=== PATIENT | male | born 1940 | race Caucasian/White ===

== ENCOUNTER 2016-09-05 15:23 | Inpatient (IN) | payer MEDICARE, BC ==
[2016-09-05] MEDS ORDERED: IPRATROPIUM-ALBUTEROL 3 ML NEB INHALATION STA (16:02)
[2016-09-05] MEDS ORDERED: SODIUM CHLORIDE 0.9% 1,000 ML IV STA (16:02)
--- NOTE | 2016-09-05 16:08 | ED ---
General Adult HPI - General Chief complaint: Upper Respiratory Infection Stated complaint: Cough Time Seen by Provider: 09/05/16 15:54 Source: patient, family, RN notes reviewed Mode of arrival: wheelchair Limitations: no limitations - History of Present Illness Initial comments: Patient is a pleasant 75-year-old male presenting to the emergency department with cough and congestion. Symptoms started around 4 days ago. Patient has been having some cough without much difficulty in breathing. Patient has had nasal congestion as well with occasional dark nasal drainage. Patient went to his doctor today and blood pressure was reported as low there. Patient does admit to feeling fatigued. Patient did have a temperature of 102.4 yesterday. - Related Data Home Medications Medication Instructions Recorded Confirmed Carvedilol [Coreg] 25 mg PO BID 07/09/14 09/05/16 Lisinopril [Prinivil] 20 mg PO HS 07/09/14 09/05/16 Simvastatin [Zocor] 10 mg PO HS 07/09/14 09/05/16 Fish Oil/Dha/Epa [Fish Oil 1,200 1 cap PO DAILY 07/10/14 09/05/16 mg Fish Oil] Folic Acid 0.4 mg PO DAILY 07/10/14 09/05/16 Acetaminophen [Tylenol Arthritis] 1,300 mg PO BID 09/05/16 09/05/16 Allopurinol [Zyloprim] 150 mg PO DAILY 09/05/16 09/05/16 Aspirin EC [Ecotrin Low Dose] 81 mg PO DAILY 09/05/16 09/05/16 Allergies Allergy/AdvReac Type Severity Reaction Status Date / Time No Known Allergies Allergy Verified 09/05/16 15:51 Review of Systems ROS Statement: Those systems with pertinent positive or pertinent negative responses have been documented in the HPI. ROS Other: All systems not noted in ROS Statement are negative. Constitutional: Denies: fever Eyes: Denies: eye pain ENT: Reports: congestion. Denies: ear pain Respiratory: Reports: cough. Denies: dyspnea Cardiovascular: Denies: chest pain Endocrine: Reports: fatigue Gastrointestinal: Denies: abdominal pain Genitourinary: Denies: dysuria Musculoskeletal: Denies: back pain Skin: Denies: rash Neurological: Denies: weakness Past Medical History Past Medical History: Hypertension Additional Past Medical History / Comment(s): See Dr Moreland H&P, arthritis, "borderline diabetic" History of Any Multi-Drug Resistant Organisms: None Reported Past Surgical History: AICD, Heart Catheterization, Joint Replacement, Tonsillectomy Additional Past Surgical History / Comment(s): lewis knee replacements Past Anesthesia/Blood Transfusion Reactions: No Reported Reaction Type of Cardiac Device: AICD Device Placement Date:: 2009 Past Psychological History: No Psychological Hx Reported Smoking Status: Former smoker Past Alcohol Use History: Occasional Past Drug Use History: None Reported General Exam Limitations: no limitations General appearance: alert, in no apparent distress Head exam: Present: atraumatic Eye exam: Present: normal appearance, PERRL ENT exam: Present: normal oropharynx Neck exam: Present: normal inspection Respiratory exam: Present: rhonchi Cardiovascular Exam: Present: regular rate, normal rhythm GI/Abdominal exam: Present: soft. Absent: tenderness Extremities exam: Present: normal inspection. Absent: pedal edema, calf tenderness Neurological exam: Present: alert Psychiatric exam: Present: normal affect, normal mood Skin exam: Absent: rash Course Vital Signs 09/05/16 09/05/16 09/05/16 15:29 16:39 16:48 Temperature 97.7 F Pulse Rate 72 75 73 Respiratory 20 Rate Blood Pressure 100/55 O2 Sat by Pulse 96 Oximetry Medical Decision Making - Medical Decision Making Prior to arrival at the office patient was found to have hypotension and hypoxia. Case was discussed in detail with Dr. Oconnell, who will admit for hospital call. Computed tomography scan of the chest will be ordered. - Lab Data Result diagrams: 09/05/16 15:40 09/05/16 15:40 Lab Results 09/05/16 09/05/16 09/05/16 Range/Units 15:40 15:40 16:40 WBC 10.7 H (3.8-10.6) k/uL RBC 4.61 (4.30-5.90) m/uL Hgb 14.6 (13.0-17.5) gm/dL Hct 43.5 (39.0-53.0) % MCV 94.3 (80.0-100.0) fL MCH 31.8 (25.0-35.0) pg MCHC 33.7 (31.0-37.0) g/dL RDW 13.0 (11.5-15.5) % Plt Count 142 L (150-450) k/uL Neutrophils % 85 % Lymphocytes % 7 % Monocytes % 6 % Eosinophils % 1 % Basophils % 0 % Neutrophils # 9.1 H (1.3-7.7) k/uL Lymphocytes # 0.8 L (1.0-4.8) k/uL Monocytes # 0.7 (0-1.0) k/uL Eosinophils # 0.1 (0-0.7) k/uL Basophils # 0.0 (0-0.2) k/uL Sodium 135 L (137-145) mmol/L Potassium 4.1 (3.5-5.1) mmol/L Chloride 97 L (98-107) mmol/L Carbon Dioxide 26 (22-30) mmol/L Anion Gap 12 mmol/L BUN 35 H (9-20) mg/dL Creatinine 1.98 H (0.66-1.25) mg/dL Est GFR (MDRD) Af Amer 40 (>60 ml/min/1.73 sqM) Est GFR (MDRD) Non-Af 33 (>60 ml/min/1.73 sqM) Glucose 111 H (74-99) mg/dL Calcium 8.8 (8.4-10.2) mg/dL Total Bilirubin 0.9 (0.2-1.3) mg/dL AST 22 (17-59) U/L ALT 28 (21-72) U/L Alkaline Phosphatase 68 (38-126) U/L Total Protein 6.4 (6.3-8.2) g/dL Albumin 3.6 (3.5-5.0) g/dL Influenza Type A RNA Not Detected (Not Detectd) Influenza Type B (PCR) Not Detected (Not Detectd) - Radiology Data Radiology results: image reviewed Disposition Clinical Impression: Dehydration, Dyspnea Disposition: ADMITTED IP TO THIS HOSP Referrals: Conchita Case DO [Primary Care Provider] - 1-2 days
[2016-09-05 16:30] LABS: Basophils % (A) 0 %; CHCM 34.1; Eosinophils # (A) 0.1 k/uL (0-0.7); Eosinophils % (A) 1 %; HCT 43.5 % (39.0-53.0); HDW 2.57; HGB 14.6 gm/dL (13.0-17.5); Luc # (Auto) 0.13; Luc % (Auto) 1; Lymphocytes # (A) 0.8 k/uL (1.0-4.8); Lymphocytes % (A) 7 %; MCH 31.8 pg (25.0-35.0); MCHC 33.7 g/dL (31.0-37.0); MCV 94.3 fL (80.0-100.0); Mean Platelet Volume 7.8; Monocytes # (A) 0.7 k/uL (0-1.0); Monocytes % (A) 6 %; Neutrophils # (A) 9.1 k/uL (1.3-7.7); Neutrophils % (A) 85 %; RBC 4.61 m/uL (4.30-5.90); WBC 10.7 k/uL (3.8-10.6); WBC (Perox) 10.95
[2016-09-05 16:38] LABS: Calcium 8.8 mg/dL (8.4-10.2); Potassium 4.1 mmol/L (3.5-5.1); Total Bilirubin 0.9 mg/dL (0.2-1.3); Total Protein 6.4 g/dL (6.3-8.2)
[2016-09-05] MEDS ORDERED: SODIUM CHLORIDE 0.9% 500 ML IV STA (16:59)
[2016-09-05] MEDS ORDERED: IPRATROPIUM-ALBUTEROL 3 ML NEB INHALATION PRN (17:30)
--- NOTE | 2016-09-05 17:38 | XR ---
EXAMINATION TYPE: XR chest 2V DATE OF EXAM: 09/05/2016 5:28 PM COMPARISON: September 01, 2011 HISTORY: Cough and congestion TECHNIQUE: Frontal and lateral views of the chest are obtained. FINDINGS: Heart and mediastinum are normal. Lungs are clear. There are chest leads. There is left ax illary pacemaker with the lead tip in the right ventricle. Bony thorax is intact. IMPRESSION: No cardiopulmonary disease. No change.
--- NOTE | 2016-09-05 19:13 | NM ---
EXAMINATION TYPE: NM pul vent and perfuse DATE OF EXAM: 09/05/2016 7:06 PM COMPARISON: NONE HISTORY: Dyspnea TECHNIQUE: Utilizing inhalation of 70.2 mCi Tc 99m DTPA aerosol and intravenous injection of 5.4 mCi of Tc 99m MAA, ventilation and perfusion images are acquired post injection in multiple projections. FINDINGS: There is fairly uniform perfusion of both lungs. I see no segmental or subsegmental defect. Ventilati on images are within normal limits. IMPRESSION: The exam is within normal limits. There is a very low probability of pulmonary embolism.
[2016-09-05] MEDS: methylPREDNISolone SOD SUCCI 125 MG/2 ML VIAL IV SCH (19:28)
[2016-09-05] MEDS: CEFDINIR 300 MG CAP PO SCH (19:55)
[2016-09-05] MEDS: IPRATROPIUM-ALBUTEROL 3 ML NEB INHALATION SCH (20:43)
[2016-09-05 21:50] LABS: Glucose,Whole Blood 154 mg/dL (75-99)
[2016-09-05] MEDS ORDERED: FUROSEMIDE 10 MG/ML 2 ML VIAL IV SCH (22:30)
[2016-09-05 23:23] LABS: Creatine Kinase MB 1.7 ng/mL (0.0-2.4); Troponin I 0.025 ng/mL (0.000-0.034)
[2016-09-06] MEDS: methylPREDNISolone SOD SUCCI 125 MG/2 ML VIAL IV SCH ×4 (00:03→17:25)
[2016-09-06 04:33] LABS: Calcium 8.6 mg/dL (8.4-10.2); Total Bilirubin 0.4 mg/dL (0.2-1.3); Total Protein 5.8 g/dL (6.3-8.2)
[2016-09-06 04:35] LABS: Basophils % (A) 0 %; Eosinophils % (A) 0 %; HCT 41.4 % (39.0-53.0); HDW 2.58; HGB 13.4 gm/dL (13.0-17.5); Luc # (Auto) 0.02; Luc % (Auto) 0; Lymphocytes # (A) 0.5 k/uL (1.0-4.8); Lymphocytes % (A) 5 %; MCH 30.6 pg (25.0-35.0); MCHC 32.4 g/dL (31.0-37.0); MCV 94.5 fL (80.0-100.0); Mean Platelet Volume 8.8; Monocytes # (A) 0.2 k/uL (0-1.0); Monocytes % (A) 2 %; Neutrophils # (A) 9.2 k/uL (1.3-7.7); Neutrophils % (A) 92 %; RBC 4.38 m/uL (4.30-5.90); RDW 12.8 % (11.5-15.5); WBC 9.9 k/uL (3.8-10.6); WBC (Perox) 9.78
[2016-09-06 04:43] LABS: Potassium 4.5 mmol/L (3.5-5.1)
[2016-09-06 05:00] LABS: Creatine Kinase MB 1.6 ng/mL (0.0-2.4); Troponin I 0.019 ng/mL (0.000-0.034)
[2016-09-06] MEDS: IPRATROPIUM-ALBUTEROL 3 ML NEB INHALATION SCH ×4 (06:56→20:15)
[2016-09-06 06:59] LABS: Glucose,Whole Blood 168 mg/dL (75-99)
--- NOTE | 2016-09-06 08:49 | CONS ---
DATE OF CONSULTATION: CHIEF COMPLAINT: Low blood pressure and shortness of breath. Kevin is a 75-year-old gentleman with history of cardiomyopathy status post AICD who presented to the hospital following his initial evaluation at his primary care physician's office. He actually had low blood pressure due to which he was sent to the ER from where he got admitted. When he came to the ER, he complained of cough and congestion that has been going on for the last 4 days and he also had fever with a temp of 102. They thought he has upper respiratory tract infection and after admission his BNP was elevated and we made a diagnosis of acute exacerbation of chronic systolic heart failure. At the time of my evaluation this morning, he appears comfortable at rest. There is no leg edema he denies paroxysmal nocturnal dyspnea. I reviewed his old records including his AICD data and prior cardiac catheterization. Current medications include: 1. Coreg 25 b.i.d. 2. Lisinopril 20 daily. 3. Simvastatin 10 daily. 4. Aspirin. ALLERGIES: No known drug allergies. FAMILY HISTORY: Negative for premature coronary artery disease. SOCIAL HISTORY: Negative for smoking, ETOH abuse, or drug abuse. REVIEW OF SYSTEMS: HEENT: Unremarkable. CARDIAC: As described above. RESPIRATORY: As described above. GI: Negative. GENITOURINARY: Negative. Allergy/immunology: Negative. MUSCULOSKELETAL: Significant for arthritis. PSYCHOSOCIAL: Negative. ENDOCRINE: Negative. DERM: Negative. CONSTITUTIONAL: Negative. The rest of the system review is not relevant. Past surgical history is significant for AICD, joint replacement and tonsillectomy and bilateral knee replacement. Past medical history is significant for dilated cardiomyopathy, hypertension, and dyslipidemia. On exam he appears comfortable at rest, blood pressure is 111/50, respirations 18. There is no jugular venous distention. Chest exam reveals good air entry bilaterally. Heart exam reveals first and second heart sounds. No gallop. ABDOMEN: Soft, nontender. Exam of the extremities did not reveal edema. Peripheral pulses are felt. Labs show that 2 sets of troponins are negative. BNP is elevated at 3320, hemoglobin is 13.4. BUN is 35. Creatinine is 1.7. ASSESSMENT: 1. Acute exacerbation of chronic systolic heart failure. 2. Dilated cardiomyopathy. 3. Status post AICD. 4. Hypotension. PLAN: I will treat the patient with IV diuretics. Hopefully, we can discharge him home tomorrow. He has chronic mild renal insufficiency. I am going to decrease the dose of Lisinopril from 20 to 10. This should help deal with his hypotension. I will obtain a 2-D echo to evaluate his LV function.
[2016-09-06] MEDS: ALLOPURINOL 100 MG TAB PO SCH (08:57)
[2016-09-06] MEDS: CARVEDILOL 12.5 MG TAB PO SCH ×2 (08:57→21:36)
[2016-09-06] MEDS: FOLIC ACID 1 MG TAB PO SCH (08:58)
[2016-09-06] MEDS: CEFDINIR 300 MG CAP PO SCH ×2 (08:58→21:36)
[2016-09-06] MEDS: ASPIRIN 81 MG CHEW PO SCH (08:58)
[2016-09-06 09:19] LABS: Hemoglobin A1C 5.5 % (4.2-6.1)
--- NOTE | 2016-09-06 10:07 | ECHOF ---
Referral Reason:elevated BNP MEASUREMENTS -------- HEIGHT: 182.9 cm WEIGHT: 128.4 kg BP: 116/59 RVIDd: 3.4 cm (< 3.3) IVSd: 1.3 cm (0.6 - 1.1) LVIDd: 6.3 cm (3.9 - 5.3) LVPWd: 1.2 cm (0.6 - 1.1) IVSs: 2.2 cm LVIDs: 5.7 cm LVPWs: 1.8 cm LA Diam: 4.4 cm (2.7 - 3.8) LAESV Index (A-L): 35.73 ml/m Ao Diam: 3.8 cm (2.0 - 3.7) AV Cusp: 3.0 cm (1.5 - 2.6) LA Diam: 4.3 cm (2.7 - 3.8) MV EXCURSION: 10.542 mm (> 18.000) MV EF SLOPE: 46 mm/s (70 - 150) EPSS: 2.2 cm MV E Shant: 0.67 m/s MV DecT: 368 ms MV A Shant: 0.60 m/s MV E/A Ratio: 1.12 AR PHT: 849 ms RAP: 5.00 mmHg RVSP: 24.78 mmHg FINDINGS -------- Sinus rhythm. Pacerwire seen in RV and RA. This was a technically adequate study. There is mild concentric left ventricular hypertrophy. Overall left ventricular systolic function is moderate-severely impaired with, an EF between 30 - 35 %. The right ventricle is normal in size. LA is moderately dilated 34-39 ml/m2 The right atrium is normal in size. Aortic valve is trileaflet and is mildly thickened. There is mild aortic regurgitation. The mitral valve leaflets are mildly thickened. Mild mitral annular calcification present. Mild tricuspid regurgitation present. Right ventricular systolic pressure is normal at < 35 mmHg. The pulmonic valve was not well visualized. The aortic root size is normal. Normal inferior vena cava with normal inspiratory collapse consistent with estimated right atrial pressure of 5 mmHg. There is no pericardial effusion. CONCLUSIONS -------- 1. Sinus rhythm. 2. There is mild aortic regurgitation. 3. The mitral valve leaflets are mildly thickened. 4. Mild mitral annular calcification present. 5. Mild tricuspid regurgitation present. 6. Right ventricular systolic pressure is normal at < 35 mmHg. 7. The pulmonic valve was not well visualized. 8. The aortic root size is normal. 9. There is no pericardial effusion. 10. Pacerwire seen in RV and RA. 11. This was a technically adequate study. 12. There is mild concentric left ventricular hypertrophy. 13. Overall left ventricular systolic function is moderate-severely impaired with, an EF between 30 - 35 %. 14. The right ventricle is normal in size. 15. LA is moderately dilated 34-39 ml/m2 16. The right atrium is normal in size. 17. Aortic valve is trileaflet and is mildly thickened. RESEARCH SOFTWARE ENGINEER: Hira Smalls RDCS
--- NOTE | 2016-09-06 10:09 | HP ---
DATE OF ADMISSION: 09/05/2016 CHIEF COMPLAINT: A 75-year-old white male with shortness of breath. HISTORY OF PRESENT ILLNESS: This is a 75-year-old white male admitted to the hospital with cough, congestion, shortness of breath for the last 4 days with some increased weight gain, he went to his doctor. His blood pressure was low there. He was admitted to the hospital. He did have a temperature of 102 yesterday. Medications at home include: 1. Coreg 25 b.i.d. 2. Prinivil 20 daily. 3. Zocor 10 daily. 4. Folic acid 0.4 daily. 5. Tylenol. 6. Aspirin 81 daily. ALLERGIES: Negative. REVIEW OF SYSTEMS: CONSTITUTIONAL: Fever. Ophthalmologic: Negative. ENT: Sinus congestion, ear pain. RESPIRATORY: Cough, congestion, ( ) dry cough. HEART: Negative. ENDOCRINE: Negative except for weight gain. GI: Negative. : Negative. MUSCULOSKELETAL: Negative. SKIN: Negative. NEUROLOGIC: Negative. PAST MEDICAL HISTORY: 1. Hypertension. 2. Pre diabetes. 3. Obesity. PAST SURGICAL HISTORY: AICD, heart catheterization, joint replacement, tonsillectomy, bilateral knee replacements, AICD in 2009. SOCIAL HISTORY: He is a former smoker. No alcohol. No illicit drugs. Temperature 97.7, pulse 72 to 75, respiratory rate 18 to 20, blood pressure 100/55, O2 is 96% on room air, temp 97.7. CARDIOVASCULAR: S1, S2. LUNGS: Transmitted upper airway sounds. HEMATOLOGIC: Negative Homans. PSYCHIATRIC: Fair mood and affect. NEUROLOGIC: Cranial nerves are intact. GI: Distended, obesity. HEMATOLOGIC: 2 to 3+ pedal edema. INTEGUMENT: No skin rashes, excoriations or bruising. Influenza test is negative. White count is 10.7, hemoglobin is 14.6. ASSESSMENT: 1. Dehydration and dyspnea. 2. Thrombocytopenia, unclear etiology. 3. Hyponatremia. 4. Minimal prerenal renal failure. Sugars in the mid 100s. Troponins have been ordered. BNP is 33 to 120, which is probably acute on chronic congestive heart failure, started him on IV Lasix 20 q.12. Admitted him to a full admit. This patient has congestive heart failure. We will do an echo.
[2016-09-06] MEDS: FUROSEMIDE 10 MG/ML 4 ML VIAL IV SCH ×2 (10:47→21:36)
[2016-09-06 11:56] LABS: Glucose,Whole Blood 213 mg/dL (75-99)
[2016-09-06 12:29] LABS: Creatine Kinase MB 1.7 ng/mL (0.0-2.4); Troponin I 0.016 ng/mL (0.000-0.034)
[2016-09-06] MEDS: INSULIN LISPRO (humaLOG) 300 UNIT/3 ML VIAL SQ SCH ×3 (12:50→21:36)
[2016-09-06 14:48] VITALS: BMI 38.3
[2016-09-06 17:02] LABS: Glucose,Whole Blood 154 mg/dL (75-99)
[2016-09-06 20:58] LABS: Glucose,Whole Blood 168 mg/dL (75-99)
[2016-09-06] MEDS ORDERED: LISINOPRIL 20 MG TAB PO SCH (21:00)
[2016-09-06] MEDS: ATORVASTATIN 10 MG TAB PO SCH (21:36)
[2016-09-06] MEDS: LISINOPRIL 10 MG TAB PO SCH (21:36)
[2016-09-07] MEDS: methylPREDNISolone SOD SUCCI 125 MG/2 ML VIAL IV SCH ×5 (00:19→23:15)
[2016-09-07 05:20] LABS: Basophils % (A) 0 %; CH 31.9; Eosinophils # (A) 0.1 k/uL (0-0.7); Eosinophils % (A) 0 %; HCT 42.1 % (39.0-53.0); HDW 2.59; HGB 13.9 gm/dL (13.0-17.5); Luc # (Auto) 0.09; Luc % (Auto) 0; Lymphocytes % (A) 5 %; MCH 31.1 pg (25.0-35.0); MCV 94.1 fL (80.0-100.0); Mean Platelet Volume 7.6; Monocytes # (A) 0.6 k/uL (0-1.0); Monocytes % (A) 3 %; Neutrophils # (A) 18.5 k/uL (1.3-7.7); Neutrophils % (A) 91 %; RBC 4.48 m/uL (4.30-5.90); RDW 12.9 % (11.5-15.5); WBC 20.3 k/uL (3.8-10.6); WBC (Perox) 20.72
[2016-09-07 05:28] LABS: Calcium 8.9 mg/dL (8.4-10.2); Magnesium 2.4 mg/dL (1.6-2.3); Potassium 4.2 mmol/L (3.5-5.1); Total Bilirubin 0.4 mg/dL (0.2-1.3); Total Protein 6.2 g/dL (6.3-8.2)
[2016-09-07 06:09] LABS: Glucose,Whole Blood 164 mg/dL (75-99)
[2016-09-07] MEDS: CARVEDILOL 12.5 MG TAB PO SCH ×2 (06:40→18:12)
[2016-09-07] MEDS: INSULIN LISPRO (humaLOG) 300 UNIT/3 ML VIAL SQ SCH ×4 (06:41→23:14)
[2016-09-07] MEDS: IPRATROPIUM-ALBUTEROL 3 ML NEB INHALATION SCH ×4 (08:17→19:47)
[2016-09-07] MEDS: FUROSEMIDE 10 MG/ML 4 ML VIAL IV SCH ×2 (08:51→20:50)
[2016-09-07] MEDS: ASPIRIN 81 MG CHEW PO SCH (08:53)
[2016-09-07] MEDS: CEFDINIR 300 MG CAP PO SCH ×2 (08:53→20:49)
[2016-09-07] MEDS: FOLIC ACID 1 MG TAB PO SCH (08:53)
[2016-09-07] MEDS: ALLOPURINOL 100 MG TAB PO SCH (08:53)
--- NOTE | 2016-09-07 10:00 | CONS ---
DATE OF CONSULTATION: 09/06/2016 REASON FOR CONSULT: Shortness of breath. HISTORY OF PRESENTING ILLNESS: Mr. Kevin Arechiga is a 75-year-old male who was seen, evaluated, and examined on third floor. Patient is in process of being transferred to a full admit in a monitored bed. This patient presented into the emergency department with problems associated with increasing shortness of breath, has been having issues with severe cough, congestion. Symptoms started about 3 to 4 days ago. Due to progressive breathing difficulty and nasal stuffiness and congestion, decided to come into the hospital for further evaluation after evaluated by primary care physician. Patient did spike fever up to 102 on the day of admission. Past medical history is significant for hypertension, hypertensive cardiovascular disease, borderline diabetes, history of AICD placement due to cardiomyopathy. Past surgical history is significant for bilateral total knee arthroplasty, AICD placement. Allergies include no known drug allergies FAMILY HISTORY AND SOCIAL HISTORY: Significant for smoking in the remote past. No history of substance use or alcohol consumption. Medications at home include Coreg 25 mg p.o. 2 times a day, Prinivil 20 mg p.o. daily, Zocor 10 mg daily, fish oil, folic acid 0.4 mg daily, Tylenol, aspirin 81 mg daily. REVIEW OF SYSTEMS: Otherwise unremarkable and noncontributory. On examination, most recent vitals include blood pressure is 125/68, respiratory rate 16, pulse 65, temperature 98, saturation of 92% on room air. HEENT EXAMINATION: Otherwise atraumatic, normocephalic. Pharynx is clear. Narrow pharyngeal opening is present. NECK: Supple without lymphadenopathy, jugular venous distention. LUNGS: Bilateral coarse breath sounds are present. HEART: Regular rate and rhythm. S1 and S2 audible. Abdomen is soft. No rebound or rigidity. EXTREMITIES: +1 peripheral pulses. NEUROLOGICAL EXAMINATION: Otherwise, awake and alert. No focal neurological deficits. Chest x-ray at the time of admission with history of COPD-like changes, no obvious pathology; however, is noted. Echocardiogram revealed ejection fraction of 30% to 35%. He had a V/Q scan performed in the emergency department, very low probability for pulmonary embolism. Other laboratory data reviewed. The white cell count 10,700, hemoglobin 14 and hematocrit 43, platelet count 142,000. Sodium 135, potassium is 4.5. BUN and creatinine 35 and 1.98, improved to 35 and 1.7 now. LFTs within normal limits. Troponin is 0.025, BNP is 4110. Influenza A and B both negative. Blood cultures no growth so far. Medications include DuoNeb unit dose 4 times a day, Zyloprim 150 mg daily, aspirin 81 mg daily, Lipitor is 5 mg daily, Coreg is 25 mg 2 times a day, Omnicef 300 mg p.o. 2 times a day, folic acid 0.5 daily, Lasix 40 mg q.12, sliding scale insulin, Solu-Medrol 60 q.6 hourly, Zestril. IMPRESSION: 1. Shortness of breath, cough, likely related to tracheobronchitis and acute chronic obstructive pulmonary disease exacerbation. 2. Systemic inflammatory response syndrome process with spiking fever related to above. 3. Mild congestive heart failure likely related to acute on chronic systolic heart failure with evaluated BNP with ( ) as well. From pulmonary critical care standpoint, continue steroids, antibiotics, breathing treatments, continue supportive care. Will start tapering down the steroids.
--- NOTE | 2016-09-07 11:30 | CDI ---
In responding to this query, please exercise your independent professional judgment. The [facility] Coding Staff and Clinical Documentation Specialists appreciate your assistance in clarifying documentation, maintaining compliance with coding guidelines, accurately documenting patients condition and capturing severity of illness. The fact that a question is asked does not imply that any particular answer is desired or expected. Communication forms are a method of clarifying documentation and are not made part of the Legal Health Record. Thank you in advance for your clarification. Last Revision, May 2015 Travis Pleitez [address] [place] [address] Documentation Clarification Form Date: 09/07/2016 11:11:00 AM From: Lavinia Garcia Admit Date: 09/06/2016 7:41:00 AM Patient Name: Kevin Arechiga Visit Number: [id number] Discharge Date: Dr. Hood Oconnell/Cathy Martino [employer] Patient presents with a BUN35 CR 1.98 GFR of 33 09/07/16: BUN 51, CR 1.80, GFR 37 History/Risk Factors: Hypertension, Former smoker Patients baseline BUN/CR/GFR: Not noted Clinical Indicators: Dehydration has been documented in your H&P. Patient was complaining of cough, congestion, shortness of breath and some increased weight gain, fatigued. Treatment: Monitor Labs In order to capture the severity of condition, please clarify if the condition signifies: Acute renal failure Please specify (if known): Cortical, Medullary, or Tubular Necrosis? Acute kidney injury Acute on chronic renal failure Chronic renal failure, please stage Chronic kidney disease (CKD) and please stage Stage 1 GFR >90 Stage 2 GFR 60-89 Stage 3 GFR 30-59 Stage 4 GFR 15-29 Stage 5 GFR <15 ESRD Unable to determine Other, specify Please document in your progress notes and discharge summary in order to capture severity of illness and risk of mortality. Include clinical findings that support your diagnosis. FYI: Press F11 to launch patient chart. Place X here if this finding has no clinical significance, is not applicable or if you are not able to provide any additional documentation. MTDD
[2016-09-07 12:37] LABS: Glucose,Whole Blood 180 mg/dL (75-99)
--- NOTE | 2016-09-07 13:36 | P.PN ---
Subjective 75-year-old being seen on rounds. Patient came into the emergency room with progressive cough onset 4 days prior fever chills temps up to 102. Also noted is BNP was elevated. Patients being followed by cardiology service being treated for an acute exacerbation of chronic systolic heart failure echocardiogram done showed overall left ventricular systolic function moderate to severely impaired with an EF between 30 and 35%. Patient did have a VQ scan showed low probability for pulmonary emboli additionally on admission patient's creatinine was up to 1.9. This morning is 1.8. Patients being treated for acute on chronic renal failure stage 3 additionally patients being followed by pulmonology service. Being treated for acute exacerbation of COPD with tracheobronchitis Objective - Vital Signs Vital signs: Vital Signs Temp 97.8 F 09/07/16 08:30 Pulse 75 09/07/16 13:15 Resp 18 09/07/16 08:30 BP 108/58 09/07/16 08:30 Pulse Ox 91 L 09/07/16 08:30 Intake & Output 09/06/16 09/07/16 09/07/16 18:59 06:59 18:59 Intake Total 1700 160 Balance 1700 160 Weight 128.367 kg 127.7 kg Intake: IV 160 Sodium Chloride 0.9% 1, 160 000 ml @ 75 mls/hr IV . [id number] STA Rx#:[id number] Oral 1700 Other: Voiding Method Toilet Toilet # Voids 2 - Exam Physical exam 75-year-old gentleman looking stated age states breathing feels slightly improved less short of breath is able to lay flat Lungs diminished at the bases coarse rhonchi throughout no wheezing sats are 91 % on room air Heart S1-S2 audible regular monitor sinus Abdomen soft nontender no nausea vomiting Extremities decrease edema to the lower extremities - Labs CBC & Chem 7: 09/07/16 05:03 09/07/16 05:03 Labs: Abnormal Lab Results - Last 24 Hours (Table) 09/06/16 09/06/16 09/07/16 Range/Units 17:01 20:56 05:03 WBC 20.3 H (3.8-10.6) k/uL Neutrophils # 18.5 H (1.3-7.7) k/uL BUN (9-20) mg/dL Creatinine (0.66-1.25) mg/dL Glucose (74-99) mg/dL POC Glucose (mg/dL) 154 H 168 H (75-99) mg/dL Magnesium (1.6-2.3) mg/dL Total Protein (6.3-8.2) g/dL 09/07/16 09/07/16 09/07/16 Range/Units 05:03 06:08 12:34 WBC (3.8-10.6) k/uL Neutrophils # (1.3-7.7) k/uL BUN 51 H (9-20) mg/dL Creatinine 1.80 H (0.66-1.25) mg/dL Glucose 169 H (74-99) mg/dL POC Glucose (mg/dL) 164 H 180 H (75-99) mg/dL Magnesium 2.4 H (1.6-2.3) mg/dL Total Protein 6.2 L (6.3-8.2) g/dL Assessment and Plan Plan: Impression Present on admission shortness of breath suspect due to an acute exacerbation decompensated systolic congestive heart failure with an elevated BNP EF on echocardiogram between 30 and 35% Present on admission elevated BNP likely due to an acute exacerbation of chronic systolic heart failure Dyslipidemia Present on admission shortness of breath fever temp of 102 suspect due to tracheobronchitis with an acute exacerbation of COPD Echocardiogram September 06 left ventricular systolic function moderate to severe impaired EF between 30 and 35% with mild LVH Present on admission acute on chronic renal failure stage 3 Plan Continue work limitations by pulmonology service Solu-Medrol 60 IV every 6 Continue recommendations by cardiology service Lasix 40 IV every 12 monitor electrolytes keep in a therapeutic range Continue with PATTI inhibitor beta hannah and monitor the response Daily weights record DVT and GI prophylaxis Further recommendations pending The above dictated assessment and findings were discussed with Dr. Oconnell Impression and the plan of care have been dictated as directed. Cathy Martino nurse practitioner acting as a scribe for Dr. Oconnell
--- NOTE | 2016-09-07 14:16 | PN ---
Patient was admitted to hospital with hypotension and shortness of breath. Hypotension has resolved. Blood pressure is normal. He is being treated with IV diuretics for heart failure. On exam he is comfortable at rest. Vital signs are stable. There is no jugular venous distention. Chest exam reveals good air entry bilaterally. Heart exam reveals first and second heart sounds. No gallop. No murmur. ABDOMEN: Soft. Exam of the extremities did not reveal any edema. Peripheral pulses are felt. The patient and had some runs of nonsustained VT. He has known AICD. On this admission he had runs of atrial fibrillation, short self-limited runs. He converted back to sinus rhythm immediately. ASSESSMENT: 1. Cardiomyopathy, status post AICD. 2. Nonsustained ventricular tachycardia. 3. Hypotension that is currently resolved. 4. Acute exacerbation of chronic systolic failure. PLAN: We will switch the Lasix to p.o. Continue the rest of his ( ) decrease the dose of Lisinopril to 5 mg daily if blood pressure is low. We can decrease the dose of Coreg also if we have to. If he has further runs of atrial fibrillation, we will consider anticoagulating.
--- NOTE | 2016-09-07 15:47 | PN ---
DATE OF SERVICE: 09/07/2016 Mr. Kevin Arechiga is a 75-year-old male seen, evaluated, examined. Clinically patient is doing well. Shortness of breath has improved. Cough and congestion have improved as well. He is breathing more comfortably. No obvious distress present. Hemodynamic status is stable. Patient's white cell count, however, jumped up. His blood pressure is 110/60, respiratory rate 18, pulse 65, temperature 98, saturation 91%. HEENT EXAMINATION: Otherwise unremarkable. NECK: Supple. LUNGS: Good air entry bilaterally. A few crackles at the bases. HEART: Regular rate and rhythm. ABDOMEN: Soft. NEUROLOGICAL EXAMINATION: Otherwise awake and alert. Labs reviewed. Medications reviewed as well. IMPRESSION: 1. Acute chronic obstructive pulmonary disease exacerbation with purulent tracheobronchitis, systemic inflammatory response syndrome-like process. 2. Congestive heart failure with acute exacerbation. 3. Severe degree of cardiomyopathy with chronic systolic heart failure. 4. History of snoring and apneic events, likely obstructive sleep apnea, to be evaluated further in outpatient setting. PLAN AND RECOMMENDATIONS: Continue supportive care. Follow clinical course closely. Further recommendations pending. Plan of care as per clinical response of the patient.
[2016-09-07 16:53] LABS: Glucose,Whole Blood 194 mg/dL (75-99)
[2016-09-07] MEDS: HEPARIN SODIUM,PORCINE 5,000 UNIT/ML 1 ML VIAL SQ SCH ×2 (18:11→23:13)
[2016-09-07] MEDS: ATORVASTATIN 10 MG TAB PO SCH (20:49)
[2016-09-07] MEDS: LISINOPRIL 10 MG TAB PO SCH (20:50)
[2016-09-07] MEDS ORDERED: FAMOTIDINE 20 MG TAB PO SCH (21:00)
[2016-09-07 21:40] LABS: Glucose,Whole Blood 154 mg/dL (75-99)
[2016-09-08 05:20] VITALS: RESP 18
[2016-09-08 05:47] LABS: Glucose,Whole Blood 137 mg/dL (75-99)
[2016-09-08] MEDS: methylPREDNISolone SOD SUCCI 125 MG/2 ML VIAL IV SCH ×2 (06:33→12:47)
[2016-09-08] MEDS: CARVEDILOL 12.5 MG TAB PO SCH ×2 (06:34→17:50)
[2016-09-08] MEDS: INSULIN LISPRO (humaLOG) 300 UNIT/3 ML VIAL SQ SCH ×4 (06:34→21:43)
[2016-09-08 07:31] LABS: Calcium 8.4 mg/dL (8.4-10.2); Magnesium 2.2 mg/dL (1.6-2.3); Potassium 3.7 mmol/L (3.5-5.1)
[2016-09-08] MEDS: IPRATROPIUM-ALBUTEROL 3 ML NEB INHALATION SCH ×4 (09:36→20:09)
[2016-09-08] MEDS: HEPARIN SODIUM,PORCINE 5,000 UNIT/ML 1 ML VIAL SQ SCH ×3 (10:26→23:41)
[2016-09-08] MEDS: ALLOPURINOL 100 MG TAB PO SCH (10:26)
[2016-09-08] MEDS: ASPIRIN 81 MG CHEW PO SCH (10:27)
[2016-09-08] MEDS: FOLIC ACID 1 MG TAB PO SCH (10:28)
[2016-09-08] MEDS: CEFDINIR 300 MG CAP PO SCH ×2 (10:28→21:41)
[2016-09-08] MEDS: FUROSEMIDE 10 MG/ML 4 ML VIAL IV SCH (10:29)
--- NOTE | 2016-09-08 11:22 | P.NPCON ---
History of Present Illness - Reason for Consult acute renal failure - History of Present Illness Reason for consultation: chronic kidney disease History of present illness: Patient is a 75-year-old male seen in renal consultation for chronic kidney disease. Unclear as to what his baseline renal function is but patient states he does have chronic kidney disease stage III. His creatinine has been relatively stable this admission and is 1.8 today. Patient presented with cough as well as congestion. He was noted to have a fever of 102F at home. His blood pressure was in the systolic 100s on admission which is now resolved. He does a systolic CHF with ejection fraction of 30-35%. Patient states he follows with a risk management intern out of [place]. He denies any vomiting or diarrhea. Appetite is good. Admits to good urine output. No hematuria or dysuria. Denies use of NSAIDs. Denies any family history of renal disease. Overall his dyspnea is improved. Vital signs are stable. General: The patient appeared well nourished and normally developed. HEENT: Head exam is unremarkable. Neck is without jugular venous distension. LUNGS: Lungs are clear to auscultation and percussion. Breath sounds decreased. HEART: Rate and Rhythm are regular. First and second heart sounds normal. No murmurs, rubs or gallops. ABDOMEN: Abdominal exam reveals normal bowel sounds. Non-tender and non- distended. No evidence of peritonitis. EXTREMITITES: No clubbing, cyanosis, or edema. Past Medical History Past Medical History: Hyperlipidemia, Hypertension, Myocardial Infarction (CO), Osteoarthritis (OA) Additional Past Medical History / Comment(s): See Dr Moreland H&P, arthritis, "borderline diabetic", FX LT WRIST,"2 BULGING DICS AND LAST 5 VERTEBRE ARE COMPRESSED", GOUT, ASBESTOES EXPOSURE THRU PAST WORK."SILENT CO", ULCER YEARS AGO. Last Myocardial Infarction Date:: UNK History of Any Multi-Drug Resistant Organisms: None Reported Past Surgical History: AICD, Heart Catheterization, Joint Replacement, Tonsillectomy Additional Past Surgical History / Comment(s): hussain knee replacements, HUSSAIN CAROTID ENDARTERECTOMY, Past Anesthesia/Blood Transfusion Reactions: No Reported Reaction Type of Cardiac Device: AICD Device Placement Date:: 2009 Past Psychological History: No Psychological Hx Reported Smoking Status: Former smoker Past Alcohol Use History: Occasional Additional Past Alcohol Use History / Comment(s): STARTED SMOKING 1964, QUIT 1967 SMOKED < 1 PPD. Past Drug Use History: None Reported - Past Family History Father Additional Family Medical History / Comment(s): KILLED BY A TRAIN WHEN PT WAS AGE 9 Mother Family Medical History: Myocardial Infarction (CO) Sister(s) Family Medical History: Myocardial Infarction (CO) Medications and Allergies Home Medications Medication Instructions Recorded Confirmed Type Carvedilol [Coreg] 25 mg PO BID 07/09/14 09/05/16 History Lisinopril [Prinivil] 20 mg PO HS 07/09/14 09/05/16 History Simvastatin [Zocor] 10 mg PO HS 07/09/14 09/05/16 History Fish Oil/Dha/Epa [Fish Oil 1,200 1 cap PO DAILY 07/10/14 09/05/16 History mg Fish Oil] Folic Acid 0.4 mg PO DAILY 07/10/14 09/05/16 History Acetaminophen [Tylenol Arthritis] 1,300 mg PO BID 09/05/16 09/05/16 History Allopurinol [Zyloprim] 150 mg PO DAILY 09/05/16 09/05/16 History Aspirin EC [Ecotrin Low Dose] 81 mg PO DAILY 09/05/16 09/05/16 History Allergies Allergy/AdvReac Type Severity Reaction Status Date / Time No Known Allergies Allergy Verified 09/05/16 15:51 Physical Exam Vitals: Vital Signs Temp Pulse Pulse Resp BP Pulse Ox 09/08/16 09:51 68 09/08/16 09:36 64 09/08/16 08:24 97.7 F 70 18 133/92 09/08/16 04:00 97.8 F 65 18 134/71 96 09/08/16 00:00 97.5 F L 66 17 109/52 95 09/07/16 20:00 96.7 F L 62 18 117/58 93 L 09/07/16 19:58 72 09/07/16 19:47 70 09/07/16 16:25 96.7 F L 64 18 124/76 95 09/07/16 13:15 75 09/07/16 13:03 75 Intake and Output 09/07/16 09/08/16 09/08/16 22:59 06:59 14:59 Intake Total 180 Output Total 2350 1400 1350 Balance -2350 -1400 -1170 Intake: Oral 180 Output: Urine 2350 1400 1350 Other: Voiding Method Toilet Toilet # Voids 1 Weight 126.5 kg Results - Lab Results Most recent lab results Calcium 8.4 mg/dL (8.4-10.2) 09/08/16 06:37 Magnesium 2.2 mg/dL (1.6-2.3) 09/08/16 06:37 09/07/16 05:03 09/08/16 06:37 Assessment and Plan Plan: Assessment: #1. Nonoliguric acute kidney injury mostly prerenal in nature secondary to hypotension. Creatinine did peak at 1.98 on admission and down to 1.8 today. #2. Chronic kidney disease stage III. Patient states it was related to Atkins diet and his kidney function never recovered completely. #3. Systolic CHF with ejection fraction of 30-35%. Compensated. #4. Atrial fibrillation. Rate controlled. Plan: I will change Lasix to 40 mg orally twice daily. Check urinalysis. Check a renal ultrasound. Repeat electrolytes in the morning. Thank you for the consultation. I will continue to follow the patient with you during his hospital stay.
--- NOTE | 2016-09-08 11:42 | P.PN ---
Subjective Principal diagnosis: Congestive heart failure This is a 75-year-old gentleman with history of dilated cardiomyopathy status post AICD, hypertension, hyperlipidemia, borderline diabetes, who was admitted to the hospital by his primary care doctor with a low blood pressure. Patient states that he had been having some mild congestion at home, temperature 102 on admission. Patient was treated for upper respiratory infection as well as congestive heart failure. BNP level was elevated on admission. Patient continues to be on IV Lasix at this time. His weight today is down 1 kg. In normal sinus rhythm on the monitor, no further episodes of atrial fibrillation were noted, patient is having frequent PVCs. At the time of my examination this morning, patient is feeling well, denies any shortness of breath, no congestion. Remains afebrile. Blood pressure 132/90. BUN 6.8, potassium 3.7. Mag level 2.2. Objective - Vital Signs Vital signs: Vital Signs Temp 97.7 F 09/08/16 08:24 Pulse 68 09/08/16 09:51 Resp 18 09/08/16 08:24 BP 133/92 09/08/16 08:24 Pulse Ox 96 09/08/16 04:00 Intake & Output 09/07/16 09/08/16 09/08/16 18:59 06:59 18:59 Intake Total 320 180 Output Total 2200 2500 1350 Balance -1880 -2500 -1170 Weight 126.5 kg Intake: Oral 320 180 Output: Urine 2200 2500 1350 Other: Voiding Method Toilet # Voids 1 - Exam PHYSICAL EXAMINATION: HEENT: Head is atraumatic, normocephalic. Pupils equal, round. Neck is supple. There is no elevated jugular venous pressure. HEART EXAMINATION: Heart S1, S2 normal. No murmur or gallop heard. CHEST EXAMINATION: Lungs are clear to auscultation and precussion. No chest wall tenderness is noted on palpation or with deep breathing. ABDOMEN: Soft, nontender. Bowel sounds are heard. No organomegaly noted. EXTREMITIES: 2+ peripheral pulses with no evidence of peripheral edema and no calf tenderness noted. NEUROLOGIC patient is awake, alert and oriented -3. . - Labs CBC & Chem 7: 09/07/16 05:03 09/08/16 06:37 Labs: Abnormal Lab Results - Last 24 Hours (Table) 09/07/16 09/07/1617 Range/Units 12:34 16:50 21:39 BUN (9-20) mg/dL Creatinine (0.66-1.25) mg/dL Glucose (74-99) mg/dL POC Glucose (mg/dL) 180 H 194 H 154 H (75-99) mg/dL 09/08/16 09/08/16 Range/Units 05:44 06:37 BUN 61 H (9-20) mg/dL Creatinine 1.81 H (0.66-1.25) mg/dL Glucose 146 H (74-99) mg/dL POC Glucose (mg/dL) 137 H (75-99) mg/dL Assessment and Plan (1) Systolic CHF, acute on chronic Status: Acute (2) Dilated cardiomyopathy Status: Acute (3) AICD (automatic cardioverter/defibrillator) present Status: Acute (4) Renal insufficiency, mild Status: Acute (5) Hypertension Status: Acute (6) Hyperlipidemia Status: Acute Plan: From cardiology's perspective, we'll discontinue the patient's IV Lasix, start the patient on oral diuretics. Creatinine today is 1.8. He may be able to be discharged once the patient is cleared for discharge by nephrology and primary care. We will make him a follow-up appointment in the office post discharge. Check lytes BUN and creatinine as an outpatient. DNP note has been reviewed, I agree with a documented findings and plan of care. Patient was seen and examined.
--- NOTE | 2016-09-08 11:48 | PN ---
DATE OF SERVICE: 09/08/2016 Mr. Kevin Arechiga is a 75-year-old, came into the hospital with acute pulmonary edema, uncontrolled hypotension related to severe cardiomyopathy, and acute hypoxic respiratory failure. The patient is off of supplemental oxygen, breathing comfortably. Denies any chest pain. He does have history of snoring and apneic events and would like to be evaluated for sleep disorder, breathing and sleep apnea. His last set of vitals include blood pressure is 133/92, respiratory rate 18, pulse 70, temperature 98, saturation of 95% to 98%. HEENT: Unremarkable. NECK: Supple without lymphadenopathy, jugular venous distention or carotid bruit. LUNGS: Bilateral good air entry is present without significant rales, rhonchi, or rub. HEART: Regular rate and rhythm, S1 and S2 audible. Abdomen is soft. No rebound or rigidity. EXTREMITIES: +1 peripheral pulses. NEUROLOGICAL EXAMINATION: Awake and alert. IMPRESSION: 1. Acute hypoxic respiratory failure, acute pulmonary edema. 2. Cardiomyopathy related to chronic systolic heart failure, status post AICD. 3. Likely obstructive sleep apnea. PLAN AND RECOMMENDATIONS: Continue gentle diuresis. Continue current medications. Increase activity as tolerated.
[2016-09-08 12:11] LABS: Glucose,Whole Blood 171 mg/dL (75-99)
--- NOTE | 2016-09-08 12:49 | US ---
EXAMINATION TYPE: US kidneys/renal and bladder DATE OF EXAM: 09/08/2016 10:42 AM COMPARISON: NONE CLINICAL HISTORY: Acute renal injury. EXAM MEASUREMENTS: Right Kidney: 9.8 x 6.5 x 6.0 cm Left Kidney: 11.3 x 6.6 x 6.6 cm FINDINGS: small hypoechoic nodule in right anterior aspect of kidney (1.4 x 2.2 x 2.1 cm), appears exophytic; a lso cortical hypoechoic nodule on left kidney ( 2.9 x 2.1 x 2.6 c There is no evidence for hydronephrosis. No nephrolithiasis is seen. The urinary bladder is anechoi c. Bilateral ureteral jets are seen. IMPRESSION: Hypoechoic nodules do not meet the criteria of simple cyst. This is felt most likely technical. Corre late with CT as clinically warranted.
[2016-09-08 14:42] LABS: Appearance,Urine Clear (Clear); Bilirubin,Urine Negative (Negative); Glucose,Urine (UA) Negative (Negative); Ketones,Urine Negative (Negative); Leukocyte Esterase,Urine Negative (Negative); Nitrite,Urine Negative (Negative); Protein,Urine Negative (Negative); Specific Gravity,Urine 1.004 (1.001-1.035); UA Billing (MACRO vs. MICRO) CHEM; Urobilinogen,Urine <2.0 mg/dL (<2.0)
--- NOTE | 2016-09-08 14:46 | P.PN ---
Subjective 75-year-old sitting up in bed. Patient states breathing feels improved. states no chest pain no shortness of breath with activity. Patient is being followed by cardiology. Patient has history of dilated cardiomyopathy status post ICD. Hypertension hyperlipidemia. Patient was admitted to the hospital after being seen in his primary care provider's office with report of having a temp of 102.4 was advised to come into the emergency room to be evaluated. In the emergency room the temp was 97.7 influenza A and B not detected creatinine was elevated at 1.9 admitted with a nephrology and cardiology consultation requested patient maintain sinus rhythm with episodes of PACs and PVCs rate controlled Objective - Vital Signs Vital signs: Vital Signs Temp 97.7 F 09/08/16 08:24 Pulse 68 09/08/16 09:51 Resp 18 09/08/16 08:24 BP 133/92 09/08/16 08:24 Pulse Ox 96 09/08/16 04:00 Intake & Output 09/07/16 09/08/16 09/08/16 18:59 06:59 18:59 Intake Total 320 180 Output Total 2200 2500 1350 Balance -1880 -2500 -1170 Weight 126.5 kg Intake: Oral 320 180 Output: Urine 2200 2500 1350 Other: Voiding Method Toilet # Voids 1 - Exam Physical exam 75-year-old gentleman looking stated age states breathing feels slightly improved less short of breath is able to lay flat Lungs diminished at the bases coarse rhonchi throughout no wheezing sats are 91 % on room air Heart S1-S2 audible regular monitor sinus episodes of PACs Abdomen soft nontender no nausea vomiting Extremities decrease edema to the lower extremities - Labs CBC & Chem 7: 09/07/16 05:03 09/08/16 06:37 Labs: Abnormal Lab Results - Last 24 Hours (Table) 09/07/16 09/07/16 09/07/16 Range/Units 12:34 16:50 21:39 BUN (9-20) mg/dL Creatinine (0.66-1.25) mg/dL Glucose (74-99) mg/dL POC Glucose (mg/dL) 180 H 194 H 154 H (75-99) mg/dL 09/08/16 09/08/16 Range/Units 05:44 06:37 BUN 61 H (9-20) mg/dL Creatinine 1.81 H (0.66-1.25) mg/dL Glucose 146 H (74-99) mg/dL POC Glucose (mg/dL) 137 H (75-99) mg/dL Assessment and Plan Plan: Impression Present on admission shortness of breath suspect due to an acute exacerbation decompensated systolic congestive heart failure with an elevated BNP EF on echocardiogram between 30 and 35% Present on admission elevated BNP likely due to an acute exacerbation of chronic systolic heart failure Dyslipidemia Present on admission shortness of breath fever temp of 102 suspect due to tracheobronchitis with an acute exacerbation of COPD Echocardiogram September 06 left ventricular systolic function moderate to severe impaired EF between 30 and 35% with mild LVH Present on admission acute on chronic renal failure stage 3 Nonoliguric acute kidney injury mostly prerenal in nature secondary to hypotension. Creatinine did peak at 1.98 on admission and down to 1.8 today. Chronic kidney disease stage III. Patient states it was related to Atkins diet and his kidney function never recovered completely. Plan Continue work limitations by pulmonology service Solu-Medrol 60 IV every 6 Continue recommendations by cardiology service Lasix 40 IV every 12 monitor electrolytes keep in a therapeutic range Continue with PATTI inhibitor beta hannah and monitor the response Daily weights record DVT and GI prophylaxis Further recommendations pending The above dictated assessment and findings were discussed with Dr. Oconnell Impression and the plan of care have been dictated as directed. Cathy Martino nurse practitioner acting as a scribe for Dr. Oconnell
[2016-09-08 16:52] LABS: Glucose,Whole Blood 180 mg/dL (75-99)
[2016-09-08] MEDS: FUROSEMIDE 40 MG TAB PO SCH (17:50)
[2016-09-08] MEDS ORDERED: FAMOTIDINE 20 MG TAB PO SCH (21:00)
[2016-09-08 21:02] LABS: Glucose,Whole Blood 154 mg/dL (75-99)
[2016-09-08] MEDS: LISINOPRIL 10 MG TAB PO SCH (21:41)
[2016-09-08] MEDS: methylPREDNISolone SOD SUCCI 40 MG/ML 1 ML VIAL IV SCH (21:42)
[2016-09-08] MEDS: ATORVASTATIN 10 MG TAB PO SCH (23:40)
[2016-09-09 06:11] VITALS: TEMP 97
[2016-09-09 06:24] LABS: Glucose,Whole Blood 142 mg/dL (75-99)
[2016-09-09] MEDS: CARVEDILOL 12.5 MG TAB PO SCH (06:28)
[2016-09-09] MEDS: INSULIN LISPRO (humaLOG) 300 UNIT/3 ML VIAL SQ SCH ×2 (06:28→12:28)
[2016-09-09] MEDS: IPRATROPIUM-ALBUTEROL 3 ML NEB INHALATION SCH ×2 (07:40→11:37)
[2016-09-09] MEDS: HEPARIN SODIUM,PORCINE 5,000 UNIT/ML 1 ML VIAL SQ SCH (08:30)
[2016-09-09] MEDS: CEFDINIR 300 MG CAP PO SCH (08:30)
[2016-09-09] MEDS: methylPREDNISolone SOD SUCCI 40 MG/ML 1 ML VIAL IV SCH (08:30)
[2016-09-09] MEDS: ALLOPURINOL 100 MG TAB PO SCH (08:31)
[2016-09-09] MEDS: FOLIC ACID 1 MG TAB PO SCH (08:31)
[2016-09-09] MEDS: FUROSEMIDE 40 MG TAB PO SCH (08:31)
[2016-09-09] MEDS: ASPIRIN 81 MG CHEW PO SCH (08:32)
--- NOTE | 2016-09-09 10:31 | P.PN ---
Subjective Principal diagnosis: Congestive heart failure This is a 75-year-old gentleman with history of dilated cardiomyopathy status post AICD, hypertension, hyperlipidemia, borderline diabetes, who was admitted to the hospital by his primary care doctor with a low blood pressure. Patient states that he had been having some mild congestion at home, temperature 102 on admission. Patient was treated for upper respiratory infection as well as congestive heart failure. BNP level was elevated on admission. In normal sinus rhythm on the monitor, no further episodes of atrial fibrillation were noted, patient is having occasional PVCs. At the time of my examination this morning, patient is feeling well, denies any shortness of breath, no congestion. Remains afebrile. Blood pressure 104/ 65 . BUN 1.8, potassium 3.7. Patient is currently on by mouth Lasix. Anticipating discharge home today. Objective - Vital Signs Vital signs: Vital Signs Temp 97.0 F L 09/09/16 08:00 Pulse 61 09/09/16 08:00 Resp 18 09/09/16 08:00 BP 104/65 09/09/16 08:00 Pulse Ox 97 09/09/16 08:00 Intake & Output 09/08/16 09/09/16 09/09/16 18:59 06:59 18:59 Intake Total 180 2100 240 Output Total 2350 2049 Balance -2170 50 240 Weight 126.8 kg Intake: Oral 180 2100 240 Output: Urine 2350 2049 - Exam PHYSICAL EXAMINATION: HEENT: Head is atraumatic, normocephalic. Pupils equal, round. Neck is supple. There is no elevated jugular venous pressure. HEART EXAMINATION: Heart S1, S2 normal. No murmur or gallop heard. CHEST EXAMINATION: Lungs are clear to auscultation and precussion. No chest wall tenderness is noted on palpation or with deep breathing. ABDOMEN: Soft, nontender. Bowel sounds are heard. No organomegaly noted. EXTREMITIES: 2+ peripheral pulses with no evidence of peripheral edema and no calf tenderness noted. NEUROLOGIC patient is awake, alert and oriented -3. . - Labs CBC & Chem 7: 09/07/16 05:03 09/08/16 06:37 Labs: Abnormal Lab Results - Last 24 Hours (Table) 09/08/16 09/08/16 09/08/16 Range/Units 12:07 16:44 20:59 POC Glucose (mg/dL) 171 H 180 H 154 H (75-99) mg/dL 09/09/16 Range/Units 06:23 POC Glucose (mg/dL) 142 H (75-99) mg/dL Assessment and Plan (1) Systolic CHF, acute on chronic Status: Acute (2) Dilated cardiomyopathy Status: Acute (3) AICD (automatic cardioverter/defibrillator) present Status: Acute (4) Renal insufficiency, mild Status: Acute (5) Hypertension Status: Acute (6) Hyperlipidemia Status: Acute Plan: From cardiology's perspective, patient may be able to be discharged home today. We will make him a follow-up appointment in the office to see Dr. To post discharge. DNP note has been reviewed, I agree with a documented findings and plan of care. Patient was seen and examined.
--- NOTE | 2016-09-09 11:58 | P.DS ---
Providers Date of admission: 09/06/16 07:41 Expected date of discharge: 09/09/16 Attending physician: Hood Oconnell Consults: 09/07/16 13:37 Consult Physician Urgent Consulting Provider: Caity Parson Consult Reason/Comments: Renal failure Do you want consulting provider notified?: Yes Primary care physician: [facility] Course: This is a 75-year-old gentleman with history of dilated cardiomyopathy status post AICD, hypertension, hyperlipidemia, borderline diabetes, who was admitted to the hospital by his primary care doctor with a low blood pressure. Patient states that he had been having some mild congestion at home, temperature 102 on admission. Patient was treated for upper respiratory infection as well as congestive heart failure. BNP level was elevated on admission. In normal sinus rhythm on the monitor, no further episodes of atrial fibrillation were noted, patient is having occasional PVCs. At the time of my examination this morning, patient is feeling well, denies any shortness of breath, no congestion. Remains afebrile. Blood pressure 104/ 65 . BUN 1.8, potassium 3.7. Patient is currently on by mouth Lasix. Influenza A and B not detected Nephrology consultation was obtained. Patient has chronic kidney disease stage III.Nonoliguric acute kidney injury mostly prerenal in nature secondary to hypotension. The creatinine and kidney function recovered patient was felt to be appropriate to be discharged Patient's shortness of breath significantly improved and patient was felt to be hemodynamically stable and appropriate proceed with a discharge to home Impression Present on admission shortness of breath suspect due to an acute exacerbation decompensated systolic congestive heart failure with an elevated BNP EF on echocardiogram between 30 and 35% Present on admission elevated BNP likely due to an acute exacerbation of chronic systolic heart failure Dyslipidemia Present on admission shortness of breath fever temp of 102 suspect due to tracheobronchitis with an acute exacerbation of COPD Echocardiogram September 06 left ventricular systolic function moderate to severe impaired EF between 30 and 35% with mild LVH Present on admission acute on chronic renal failure stage 3 Nonoliguric acute kidney injury mostly prerenal in nature secondary to hypotension. Creatinine did peak at 1.98 on admission and down to 1.8 today. Chronic kidney disease stage III. Patient states it was related to Atkins diet and his kidney function never recovered completely. Episode of paroxysmal atrial fibrillation no further episodes maintained sinus rhythm The above dictated assessment and findings were discussed with Dr. Oconnell. Impression and the plan of care have been dictated as directed. Cathy Martino nurse practitioner acting as a scribe for Dr. Oconnell Plan - Discharge Summary New Discharge Prescriptions: Cefdinir [Omnicef] 300 mg PO BID #12 cap Furosemide [Lasix] 40 mg PO BID@0900,1600 #60 tab predniSONE 20 mg PO DAILY #12 tab Discharge Medication List Carvedilol [Coreg] 25 mg PO BID 07/09/14 [History] Lisinopril [Prinivil] 20 mg PO HS 07/09/14 [History] Simvastatin [Zocor] 10 mg PO HS 07/09/14 [History] Fish Oil/Dha/Epa [Fish Oil 1,200 mg Fish Oil] 1 cap PO DAILY 07/10/14 [History] Folic Acid 0.4 mg PO DAILY 07/10/14 [History] Acetaminophen [Tylenol Arthritis] 1,300 mg PO BID 09/05/16 [History] Allopurinol [Zyloprim] 150 mg PO DAILY 09/05/16 [History] Aspirin EC [Ecotrin Low Dose] 81 mg PO DAILY 09/05/16 [History] Cefdinir [Omnicef] 300 mg PO BID #12 cap 09/09/16 [Rx] Furosemide [Lasix] 40 mg PO BID@0900,1600 #60 tab 09/09/16 [Rx] predniSONE 20 mg PO DAILY #12 tab 09/09/16 [Rx] Follow up Appointment(s)/Referral(s): Sahil Santiago MD [STAFF PHYSICIAN] - 1 Week Conchita Case DO [Primary Care Provider] - 1-2 days Jacob Arana MD [STAFF PHYSICIAN] - 1 Week Discharge Disposition: HOME SELF-CARE
[2016-09-09 12:02] VITALS: BP 134/70; PULSE 61
[2016-09-09 12:25] LABS: Glucose,Whole Blood 154 mg/dL (75-99)
--- NOTE | 2016-09-09 16:32 | PN ---
Patient is seen for follow-up for acute kidney injury on top of chronic kidney disease. He has underlying history of dilated cardiomyopathy. Type 2 diabetes. Hyperlipidemia. He was admitted to the hospital with low blood pressure. Patient also had evidence of mild hypervolemia and was diuresed. His ejection fraction has been at 30% to 35%. He states he has had weak kidney function for some time but has not followed up with nephrology. His serum creatinine has stayed at about 1.8 mg/dL. On examination today, blood pressure is 134/70, heart rate 56 per minute. The patient is afebrile. Examination of the heart S1 and S2. Examination of the lungs: Bilateral breath sounds are heard. ABDOMEN: Soft, nontender. Examination of lower extremities shows no evidence of edema. Labs show serum creatinine 1.81 from yesterday, sodium 137, potassium 3.7. ASSESSMENT: 1. Chronic kidney disease, NKF stage III renal function fairly stable during his hospitalization. 2. Cardiomyopathy with systolic congestive heart failure with ejection fraction 30% to 35%. 3. Atrial fibrillation with controlled ventricular response. 4. Type 2 diabetes. 5. History of myocardial infarction. 6. Status post AICD placement. 7. Dyslipidemia. PLAN: The patient will need follow-up as outpatient for CKD. He wishes to follow up here in [place].
--- NOTE | 2016-09-09 16:39 | PN ---
75-year-old male, seen, evaluated, examined on the sixth floor. Clinically patient is doing well, awake, alert, breathing comfortably. No obvious distress present. Shortness of breath has improved significantly. His hemodynamic status is stable. His last set of vitals include blood pressure is 134/70, respiratory rate 18, pulse 61, temperature 98, saturating 93% on room air. HEENT: Unremarkable. NECK: Supple without lymphadenopathy, jugular venous distention or carotid bruit. LUNGS: Bilateral good air entry is present without significant rales, rhonchi, or rub. HEART: Regular rate and rhythm. ABDOMEN: Soft. NEUROLOGICAL EXAMINATION: Otherwise, awake and alert. Labs reviewed. Medications reviewed as well. IMPRESSION: 1. Cardiomyopathy related to acute systolic heart failure. 2. Likely obstructive sleep apnea. 3. Acute hypoxic respiratory failure. PLAN AND RECOMMENDATIONS: As above. Continue supportive care. Follow clinical course closely. Increase activity as tolerated. Agree with discharge planning. Sleep study on outpatient setting.
== END 2016-09-09 12:52 | disposition home or self-care (01) | DRG 291 ==
LOC: EC 15:23 → 3OBS 17:30 → OBSVTOIN 09-06 07:41 → 6SEL 09-06 19:46
PROVIDERS: ADMIT Family Medicine; ATTEND Family Medicine
DX: I13.0 Hypertensive heart and chronic kidney disease with heart failure and stage 1 through stage 4 chronic kidney disease, or unspecified chronic kidney disease (principal); I50.23 Acute on chronic systolic (congestive) heart failure; I47.2 Ventricular tachycardia; N17.9 Acute kidney failure, unspecified; J44.0 Chronic obstructive pulmonary disease with (acute) lower respiratory infection; E87.1 Hypo-osmolality and hyponatremia; J44.1 Chronic obstructive pulmonary disease with (acute) exacerbation; I95.9 Hypotension, unspecified; D69.6 Thrombocytopenia, unspecified; N18.3 Chronic kidney disease, stage 3 (moderate); E11.22 Type 2 diabetes mellitus with diabetic chronic kidney disease; I42.0 Dilated cardiomyopathy; I48.0 Paroxysmal atrial fibrillation; E86.0 Dehydration; E78.5 Hyperlipidemia, unspecified; E66.9 Obesity, unspecified; G47.33 Obstructive sleep apnea (adult) (pediatric); I25.2 Old myocardial infarction; I49.3 Ventricular premature depolarization; M10.9 Gout, unspecified; M19.90 Unspecified osteoarthritis, unspecified site; J20.9 Acute bronchitis, unspecified; R09.02 Hypoxemia; I49.1 Atrial premature depolarization; Z79.82 Long term (current) use of aspirin; Z79.899 Other long term (current) drug therapy; Z95.810 Presence of automatic (implantable) cardiac defibrillator; Z96.653 Presence of artificial knee joint, bilateral; Z87.891 Personal history of nicotine dependence; Z68.37 Body mass index [BMI] 37.0-37.9, adult; Z82.49 Family history of ischemic heart disease and other diseases of the circulatory system
CPT/HCPCS: 36415; 71020; 76770; 78582; 80048; 80053; 81003; 82550; 82553; 83036; 83735; 83880; 84443; 84484; 85025; 87040; 87502; 93306; 94640; 94760; 96361; 96374; 99284

== ENCOUNTER 2016-10-25 12:17 | Day surgery (SDC) | payer MEDICARE, BC ==
[2016-10-20 15:21] VITALS: BMI 37.3
[~2016-10-25 12:17] MED LIST: ceFAZolin 1,000 MG in SODIUM CHLORIDE 0.9% IRRIGATIO 250 ML IRRIGATION ONE; ceFAZolin 2 GM in SODIUM CHLORIDE 0.9% 100 ML IVPB ONE
[2016-10-25] MEDS: LACTATED RINGERS 1,000 ML IV SCH (12:59)
[2016-10-25] MEDS: SODIUM CHLORIDE 0.9% 1,000 ML IV SCH (13:00)
[2016-10-25 13:09] LABS: Basophils # (A) 0.1 k/uL (0-0.2); Basophils % (A) 1 %; CH 31.9; CHCM 33.9; Eosinophils # (A) 0.2 k/uL (0-0.7); Eosinophils % (A) 2 %; HCT 38.8 % (39.0-53.0); HDW 2.73; HGB 13.1 gm/dL (13.0-17.5); Luc # (Auto) 0.19; Luc % (Auto) 3; Lymphocytes # (A) 1.7 k/uL (1.0-4.8); Lymphocytes % (A) 25 %; MCHC 33.8 g/dL (31.0-37.0); MCV 94.6 fL (80.0-100.0); Mean Platelet Volume 7.8; Monocytes # (A) 0.4 k/uL (0-1.0); Monocytes % (A) 7 %; Neutrophils % (A) 62 %; RDW 14.8 % (11.5-15.5); WBC 6.5 k/uL (3.8-10.6); WBC (Perox) 6.61
[2016-10-25 13:19] LABS: Calcium 9.4 mg/dL (8.4-10.2); Potassium 4.4 mmol/L (3.5-5.1)
[2016-10-25] MEDS ORDERED: KETAMINE 10 MG/ML 20 ML VIAL ONE (13:44)
[2016-10-25] MEDS ORDERED: fentaNYL (PF) 50 MCG/ML 2 ML AMP ONE (13:44)
[2016-10-25] MEDS ORDERED: MIDAZOLAM 2 MG/2 ML VIAL ONE (13:44)
[2016-10-25] MEDS ORDERED: PROPOFOL 10 MG/ML 20 ML VIAL IV ONE (13:44)
[2016-10-25] MEDS ORDERED: LIDOCAINE 1% INJ 10MG/ML (20 ML MDV) SQ ONE (14:19)
[2016-10-25] MEDS ORDERED: ACETAMINOPHEN TAB 325 MG TAB PO PRN (14:53)
[2016-10-25] MEDS ORDERED: HYDROcodone/APAP 5-325MG 1 EACH TAB PO PRN (14:53)
--- NOTE | 2016-10-25 15:21 | CE ---
DATE OF SERVICE: eKvin Arechiga has a single-chamber [employer] ICD that is at [facility]. He is brought in for an ICD generator change. He has a history of severe cardiomyopathy, ischemic chronic heart failure, CKD 3, chronic kidney disease stage III, hypertension, dyslipidemia, carotid endarterectomy for carotid atherosclerosis. His device is at [facility]. The patient was brought to the EP lab in a fasting state. He also had elevated DFT's in the past. Patient was brought to the EP lab in a fasting state. Written informed consent was obtained prior to the procedure. The left shoulder area was prepped and draped as per protocol: 1% Lidocaine was used for local anesthesia. An incision was made directly over the previous surgical site and carried down to level of the generator. The generator was explanted. The lead was interrogated and the new generator was implanted. After the wound was closed, the DFT testing was performed. The explanted generator was a [employer] medical V168, serial #[id number]. The new generator was a [employer] medical ellipse VRCD 1411-36 C, serial #[id number]. The RV lead was a [employer] medical model #21944, serial #[id number], R waves 11.8 mV, pacing impedance 400 ohms. Pacing threshold 0.6 v at 0.5 ms, 10 V test is 0.6 v at 0.5 ms. DFT testing under anesthesia, DC fib shock was used to induce ventricular fibrillation. This was adequately and appropriately detected at least sensitivity and successfully internally defibrillated with a 15 joule shock cathodal and then shocking impedance 72 ohms. Charge time 2.9 seconds. No postshock noise. RESULT: Successful single-chamber ICD generator change for underlying ischemic cardiomyopathy with chronic congestive heart failure, systolic dysfunction, known underlying coronary artery disease, and on appropriate medical treatment. DFT at or below 15 joules. PLAN: IV antibiotics overnight and discharge home tomorrow. Follow with Dr. Wilton Santiago and follow up in the [facility] in 5 days.
--- NOTE | 2016-10-25 15:25 | LTR ---
October 25, 2016 RE: Kevin Arechiga Malgorzata Dear Dr. Case: I had the pleasure of seeing Mr. Kevin Arechiga in electrophysiology followup. Kevin underwent ICD generator change for normal battery depletion. He will be monitored overnight on telemetry and will receive IV antibiotics for 24 hours and will be discharged home. Subsequently, he will follow up with Dr. Wilton Santiago and the [facility] as before. Thank you for entrusting us with care of your patient. Warm regards. Sincerely, ADNA HERNANDEZ MD
[2016-10-25] MEDS ORDERED: ACETAMINOPHEN IV (For NPO) 1,000 MG in EMPTY BAG 1 BAG IVPB ONE (15:30)
[2016-10-25 15:51] VITALS: RESP 16
[2016-10-25] MEDS: CARVEDILOL 12.5 MG TAB PO SCH (18:26)
[2016-10-25] MEDS: ceFAZolin 2 GM in SODIUM CHLORIDE 0.9% 100 ML IVPB SCH (20:26)
[2016-10-25] MEDS: FUROSEMIDE 20 MG TAB PO SCH (20:26)
[2016-10-25] MEDS ORDERED: LISINOPRIL 20 MG TAB PO SCH (21:00)
[2016-10-25] MEDS ORDERED: ATORVASTATIN 10 MG TAB PO SCH (21:00)
[2016-10-26] MEDS: ceFAZolin 2 GM in SODIUM CHLORIDE 0.9% 100 ML IVPB SCH ×3 (01:28→14:08)
[2016-10-26] MEDS: LACTATED RINGERS 1,000 ML IV SCH (06:28)
[2016-10-26] MEDS: SODIUM CHLORIDE 0.9% 1,000 ML IV SCH (06:28)
--- NOTE | 2016-10-26 07:51 | P.PCN ---
Preoperative Diagnosis: Patient is doing well. No hematoma no swelling minimal pain no chest discomfort no shortness of breath On examination blood pressure 112/60 mmHg also rate in the 60s, afebrile Heart sounds normal breath sounds normal Impression Ischemic cardio myopathy CHF class II Status post ICD implant, generator at [facility], normal battery depletion Status post ICD generator change Plan Discharge home on current heart failure medications and CAD medications after completion of IV antibiotics and follow-up in the office in 5 days for generator change and follow-up with primary correctional therapy director in about 4 weeks
[2016-10-26] MEDS: CARVEDILOL 12.5 MG TAB PO SCH (08:28)
[2016-10-26] MEDS: FUROSEMIDE 20 MG TAB PO SCH (08:29)
[2016-10-26] MEDS ORDERED: ALLOPURINOL 100 MG TAB PO SCH (09:00)
[2016-10-26] MEDS ORDERED: ASPIRIN 81 MG CHEW PO SCH (09:00)
[2016-10-26 12:01] VITALS: BP 113/55; PULSE 64; TEMP 97.7
== END 2016-10-26 15:15 | disposition home or self-care (01) ==
LOC: CATHEP 12:17 → 3OBS 15:00 → CATHEP 10-26 15:15
PROVIDERS: ATTEND Internal Medicine Clinical Cardiac Electrophysiology
DX: Z45.02 Encounter for adjustment and management of automatic implantable cardiac defibrillator (principal); I25.5 Ischemic cardiomyopathy; I11.0 Hypertensive heart disease with heart failure; I50.22 Chronic systolic (congestive) heart failure; I25.10 Atherosclerotic heart disease of native coronary artery without angina pectoris; E78.5 Hyperlipidemia, unspecified; E78.00 Pure hypercholesterolemia, unspecified; Z87.891 Personal history of nicotine dependence; Z82.49 Family history of ischemic heart disease and other diseases of the circulatory system; Z79.82 Long term (current) use of aspirin; Z79.899 Other long term (current) drug therapy
CPT/HCPCS: 93642; 33262; 80048; 85025; C1722; J2250; J0690 ×3; J2001; J3010; J2704

== ENCOUNTER → 2017-06-08 | Outpatient (CLI) | payer MEDICARE, BC ==
[2017-06-08 11:29] LABS: CHCM 32.9; HCT 40.6 % (39.0-53.0); HDW 2.62; HGB 13.1 gm/dL (13.0-17.5); MCH 31.5 pg (25.0-35.0); MCHC 32.3 g/dL (31.0-37.0); MCV 97.7 fL (80.0-100.0); Mean Platelet Volume 7.7; RBC 4.16 m/uL (4.30-5.90); RDW 13.5 % (11.5-15.5); WBC 11.9 k/uL (3.8-10.6)
[2017-06-08 11:39] LABS: Magnesium 2.1 mg/dL (1.6-2.3); Potassium 4.8 mmol/L (3.5-5.1)
== END | disposition home or self-care (01) ==
LOC: LABWHC1 11:02
PROVIDERS: ATTEND Internal Medicine Cardiovascular Disease
DX: I47.2 Ventricular tachycardia (principal)
CPT/HCPCS: 36415; 80051; 82565; 83735; 84443; 84450; 84460; 84520; 85027

== ENCOUNTER → 2017-08-02 | Outpatient (CLI) | payer MEDICARE, BC | END | disposition home or self-care (01) | LOC: LABWHC1 10:12 | PROVIDERS: ATTEND Orthopaedic Surgery | DX: Z01.812 Encounter for preprocedural laboratory examination (principal) | CPT/HCPCS: 36415; 82565; 84520 ==

== ENCOUNTER → 2017-08-04 | Outpatient (CLI) | payer MEDICARE, BC ==
--- NOTE | 2017-08-04 15:05 | CT ---
EXAMINATION TYPE: CT shoulder LT wo con DATE OF EXAM: 08/04/2017 COMPARISON: NONE HISTORY: Left shoulder pain and limited movement after fx in Nov. CT DLP: 406 mGycm Automated exposure control for dose reduction was used. FINDINGS: There is a fracture involving the distal margin of the clavicle with minimal displacement no signific ant callus formation. Fracture appears fairly recent. Arthropathy of the AC joint noted. 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 Cardiac device seen. The lungs are clear. Rib cage intact. IMPRESSION: 1. THERE IS A NONUNION FRACTURE OF THE DISTAL CLAVICLE WITH VERY MINIMAL DISPLACEMENT. FRACTURE AGE I S AGE INDETERMINATE BUT LIKELY RECENT. NO SIGNIFICANT CALLUS FORMATION OR HEALING NOTED. 2. REMOTE INFERIOR GLENOID RIM FRACTURE.
== END | disposition home or self-care (01) ==
LOC: RADCTMAIN 14:17
PROVIDERS: ATTEND Orthopaedic Surgery
DX: S42.032K Displaced fracture of lateral end of left clavicle, subsequent encounter for fracture with nonunion (principal)

== ENCOUNTER → 2017-09-29 | Outpatient (CLI) | payer MEDICARE, BC ==
--- NOTE | 2017-09-29 14:59 | FL ---
EXAMINATION TYPE: FL arthrogram shoulder LT DATE OF EXAM: 09/29/2017 COMPARISON: NONE HISTORY: Left shoulder fracture after fall injury May 2017 TECHNIQUE: Fluoroscopic assisted arthrogram for subsequent CT. FINDINGS: Patient had CT arthrogram canceled August 04, 2017 due to elevated lab values. BUNs was 48, creatinine was 2.38, GFR was 27. Because intra-articular contrast is eventually reabsorbed by body, repeat lab values were ordered. Today's lab values are BUN 47, creatinine 2.30, GFR 28. Because of chronic renal failure with GFR less than 30, CT arthrogram was canceled. If felt clinically necessary is advised patient gets renal clearance from the motor vehicle parts interpreter prior to a rthrogram being performed. IMPRESSION: As above
== END | disposition home or self-care (01) ==
LOC: RADFLMAIN 12:44
PROVIDERS: ATTEND Orthopaedic Surgery
DX: N18.9 Chronic kidney disease, unspecified (principal); G54.0 Brachial plexus disorders; S43.422D Sprain of left rotator cuff capsule, subsequent encounter; S42.145D Nondisplaced fracture of glenoid cavity of scapula, left shoulder, subsequent encounter for fracture with routine healing
CPT/HCPCS: 82565; 84520

== ENCOUNTER → 2017-11-29 | Outpatient (CLI) | payer MEDICARE, BC ==
--- NOTE | 2017-11-29 10:50 | US ---
EXAMINATION TYPE: US MSK left shoulder complete DATE OF EXAM: 11/29/2017 COMPARISON: Correlation CT 08/04/2017 CLINICAL HISTORY: 77-year-old male left rotator cuff tear, initial injury May 2017. M75.122 tear of left rotator cuff. Limited range of motion not improving with physical therapy. Additional coding advisor history: fell out of [place] in May 2017, broke collar bone, complete tear of rotator cuff, nerve and muscle damage which prevent new shoulder joint; pt cannot have MRI--has d efibrillator, did not have steroid injs--reports renal issues; intermittent swelling at left mid uppe r arm; currently no pain, has had PT May-Jul and back again now for 7 visits, no help; very limited R OM, frozen shoulder, can do some manually assisted movement Technique: Multiple sonographic images of the left shoulder are obtained. FINDINGS: Moderate tenosynovial fluid along the lower bicipital groove. The long head biceps tendon along the u pper to mid bicipital groove is very hypoechoic and heterogeneous and difficult to visualize. Heterogeneity in the region of the subscapularis tendon. Some fibers appear to be intact. There may b e tear of the inferior third fibers. Moderate joint space narrowing and capsular hypertrophy at the acromioclavicular joint. There is a co rtical step-off at the distal clavicle compatible with the patient's known clavicle fracture. There is a massive full-thickness tear involving the entire supraspinatus and infraspinatus tendons. Mild fluid is present within the intervening gap contiguous with the lateral deltoid shelf. There is prominent fatty atrophy of both supraspinatus and infraspinatus muscle bellies and apparent atrophy of the overlying deltoid musculature as well. Limited assessment of the posterior aspect of the shoulder. The posterior labrum shows no gross abnor mality allowing for patient's age. Small posterior joint effusion may be present. Echogenic and thinned overlying deltoid musculature. IMPRESSION: 1. Massive full thickness retracted rotator cuff tear involving the entire supraspinatus and infraspi natus tendons. Moderate to severe fatty atrophy of their muscle bellies. 2. Marked subscapularis tendinosis. There may be tear of the inferior third fibers. Heterogeneous alanna earance and limited patient mobility limits assessment. 3. Very difficult assessment of the long head biceps tendon as well. There is tenosynovitis along the lower bicipital groove and heterogeneity of the tendon along the upper bicipital groove. It may be p artially torn here. 4. Moderate AC joint OA with a slight step-off at the distal clavicle compatible with the patient's k nown clavicular fracture. 5. We also note fatty atrophy of the overlying deltoid musculature.
== END | disposition home or self-care (01) ==
LOC: RADUSWWP 06:52
PROVIDERS: ATTEND Specialist
DX: M19.012 Primary osteoarthritis, left shoulder (principal); M75.122 Complete rotator cuff tear or rupture of left shoulder, not specified as traumatic; M62.50 Muscle wasting and atrophy, not elsewhere classified, unspecified site; M25.812 Other specified joint disorders, left shoulder; M75.22 Bicipital tendinitis, left shoulder

== ENCOUNTER → 2018-03-08 | Outpatient (CLI) | payer MEDICARE, BC ==
--- NOTE | 2018-03-08 10:54 | CT ---
EXAMINATION TYPE: CT lumbar spine wo con DATE OF EXAM: 03/08/2018 9:03 AM COMPARISON: None HISTORY: Spondylosis w/o myelopathy or radiculopathy. Chronic back pain. No prior surgery. CT DLP: 1029 mGycm Automated exposure control for dose reduction was used. TECHNIQUE: Unenhanced CT of the lumbar spine was performed. Bone and soft tissue window settings are submitted as well as coronal and sagittal reconstructions. FINDINGS: There is moderate multilevel degenerative disc disease. No significant scoliosis. No eviden ce of lumbar vertebral body height loss or significant malalignment. Degenerative endplate changes ar e seen throughout with vacuum disc phenomenon, facet arthropathy, anterior osteophytes, endplate scle rosis and intervertebral disc space narrowing. There is no evidence of acute fracture of the lumbar s pine. Moderate degenerative change of the sacroiliac joint is also seen as bridging anterior osteophy kelly and opposing surface sclerosis. Evaluation of the spinal canal is limited on CT. Extensive atherosclerosis is seen of the abdominal aorta and its branches. L1-L2: There is a broad-based disc bulge resulting in mild bilateral neural foraminal narrowing. No s ignificant spinal canal stenosis. L2-L3: There is a large broad-based disc bulge, ligamentum flavum buckling and facet arthropathy resu lting in severe spinal canal stenosis and moderate bilateral neural foraminal narrowing. L3-L4: There is a broad-based disc bulge and facet arthropathy as well as ligamentum flavum buckling resulting in moderate to severe bilateral neural foraminal narrowing and moderate spinal canal stenos is. L4-L5: There is a broad-based disc bulge and facet arthropathy resulting in moderate bilateral neural foraminal narrowing and mild spinal canal stenosis. L5-S1: Small broad-based disc bulge is seen without spinal canal stenosis nor neural foraminal narrow ing. IMPRESSION: 1. Multilevel moderate degenerative changes of the lumbar spine resulting in severe spinal canal sten osis at L2-L3, moderate spinal canal stenosis at L3-L4, and mild spinal canal stenosis at L4-L5 as we ll as variable degrees of neural foraminal narrowing as described above. 2. No evidence of acute fracture or vertebral body height loss of the lumbar spine.
== END | disposition home or self-care (01) ==
LOC: RADCTMAIN 08:40
PROVIDERS: ATTEND Physical Medicine & Rehabilitation
DX: M48.061 Spinal stenosis, lumbar region without neurogenic claudication (principal); M99.73 Connective tissue and disc stenosis of intervertebral foramina of lumbar region; M47.816 Spondylosis without myelopathy or radiculopathy, lumbar region; M46.96 Unspecified inflammatory spondylopathy, lumbar region
CPT/HCPCS: 72131

== ENCOUNTER → 2020-01-01 | Outpatient (CLI) | payer MEDICARE ==
--- NOTE | 2020-01-01 11:29 | CT ---
EXAMINATION TYPE: CT lumbar spine wo con DATE OF EXAM: 01/01/2020 COMPARISON: 03/08/2018 HISTORY: 79-year-old male Low back and bilateral leg pain without injury TECHNIQUE: Contiguous axial scanning of the lumbar spine without IV contrast. Coronal and sagittal re constructions performed. CT DLP: 1094 mGycm Automated exposure control for dose reduction was used. FINDINGS: Vertebral body heights are preserved. Grade 1 anterolisthesis at L3-L4 secondary to marked hypertrophic facet arthropathy. Moderate to advanced degenerative disc disease L4-L5 redemonstrated with loss of disc height, endplat e spondylosis, and vacuum phenomenon. Progressive degenerative disc disease L-1-L2 with new vacuum phenomenon. Mild to moderate degenerative disc disease at additional levels. Bulging discs are present. There may be a moderate to severe spinal canal stenosis at L2-L3. There may be a moderate to severe spinal canal stenosis at L3-L4 as well. Spinal canal narrowing at these levels appears slightly progressed from 03/08/2018. On the right, severe neural foraminal stenosis at L4-L5 and L3-L4. Moderate at L2-L3 and mild at franklin tional levels. On the left, severe neuroforaminal stenosis and L3-L4 and L4-L5 and mild at additional levels. Moderate atherosclerotic calcifications throughout the abdominal aorta. Small gallstones partially vi sualized. IMPRESSION: 1. MODERATE MULTILEVEL DEGENERATIVE DISC DISEASE WITH MORE ADVANCED DEGENERATIVE DISC DISEASE AT A CO UPLE LEVELS, PROGRESSED AT L1-L2, SIMILAR AT L4-L5. 2. REDEMONSTRATED ADVANCED HYPERTROPHIC FACET ARTHROPATHY WITH DEGENERATIVE GRADE 1 ANTEROLISTHESIS A T L3-L4. 3. BULGING DISCS AT BOTH L2-L3 AND L3-L4 MAY HAVE PROGRESSED SLIGHTLY FROM 2018. THERE MAY BE MODERAT E TO SEVERE FOCAL SPINAL CANAL STENOSIS AT BOTH OF THESE LEVELS. 4. SEVERE BILATERAL NEUROFORAMINAL STENOSES AT L3-L4 AND L4-L5 AND VARIABLE MILD TO MODERATE AT OTHER LEVELS.
== END | disposition home or self-care (01) ==
LOC: RADCTMAIN 10:05
PROVIDERS: ATTEND Physical Medicine & Rehabilitation
DX: M48.062 Spinal stenosis, lumbar region with neurogenic claudication (principal); M25.512 Pain in left shoulder; G56.02 Carpal tunnel syndrome, left upper limb; M47.26 Other spondylosis with radiculopathy, lumbar region; M47.817 Spondylosis without myelopathy or radiculopathy, lumbosacral region
CPT/HCPCS: 72131

== ENCOUNTER 2020-05-17 13:27 | Emergency (ER) | payer MEDICARE ==
[2020-05-17 13:54] VITALS: RESP 18
[2020-05-17] MEDS ORDERED: SODIUM CHLORIDE 0.9% 500 ML 500 ML IV STA (14:17)
[2020-05-17] MEDS ORDERED: ONDANSETRON 4 MG/2 ML VIAL IVP STA (14:17)
[2020-05-17] MEDS ORDERED: SODIUM CHLORIDE 0.9% 1,000 ML IV STA (14:17)
[2020-05-17] MEDS ORDERED: PANTOPRAZOLE 40 MG/10 ML VIAL IVP STA (14:17)
--- NOTE | 2020-05-17 14:19 | ED ---
GI Bleed HPI - General Chief complaint: GI Bleed Stated complaint: GI bleed Time Seen by Provider: 05/17/20 14:04 Source: patient, RN notes reviewed, old records reviewed Mode of arrival: ambulatory Limitations: no limitations - History of Present Illness Initial comments: This is a 79-year-old male DF for evaluation patient has a for evaluation regards to blood in the urine. No abdominal pain. No blood in the stool. No blood thinners. Patient has no other new complaints. MD complaint: other (Blood in the ER) -: hour(s) Radiation: none Quality: painless Consistency: constant Improves with: none Worsens with: none Associated Symptoms: denies other symptoms Treatments Prior to Arrival: none - Related Data Home Medications Medication Instructions Recorded Confirmed Carvedilol [Coreg] 25 mg PO BID 07/09/14 05/17/20 Simvastatin [Zocor] 10 mg PO HS 07/09/14 05/17/20 Fish Oil/Dha/Epa [Fish Oil 1,200 1 cap PO DAILY 07/10/14 05/17/20 mg Fish Oil] Folic Acid 0.4 mg PO DAILY 07/10/14 05/17/20 Acetaminophen [Tylenol Arthritis] 650 mg PO Q8H PRN 09/05/16 05/17/20 Aspirin EC [Ecotrin Low Dose] 81 mg PO DAILY 09/05/16 05/17/20 allopurinoL [Zyloprim] 150 mg PO DAILY 09/05/16 05/17/20 Furosemide [Lasix] 20 mg PO DAILY 10/20/16 05/17/20 Levothyroxine Sodium [Synthroid] 50 mcg PO DAILY 05/17/20 05/17/20 lisinopriL [Zestril] 2.5 mg PO HS 05/17/20 05/17/20 Allergies Allergy/AdvReac Type Severity Reaction Status Date / Time No Known Allergies Allergy Verified 05/17/20 15:02 Review of Systems ROS Statement: Those systems with pertinent positive or pertinent negative responses have been documented in the HPI. ROS Other: All systems not noted in ROS Statement are negative. 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 WORK., hx ULCER ,gout Last Myocardial Infarction Date:: UNK History of Any Multi-Drug Resistant Organisms: None Reported Past Surgical History: AICD, Heart Catheterization, Joint Replacement, Tonsillectomy Additional Past Surgical History / Comment(s): hussain knee replacements, HUSSAIN CAROTID ENDARTERECTOMY, Past Anesthesia/Blood Transfusion Reactions: No Reported Reaction Type of Cardiac Device: AICD Device Placement Date:: 2009 Past Psychological History: No Psychological Hx Reported Smoking Status: Never smoker Past Alcohol Use History: Occasional Past Drug Use History: None Reported - Past Family History Father Additional Family Medical History / Comment(s): KILLED BY A TRAIN WHEN PT WAS AGE 9 Mother Family Medical History: No Reported History Additional Family Medical History / Comment(s): open heart surgery Sister(s) Family Medical History: Myocardial Infarction (ME) Additional Family Medical History / Comment(s): heart stents General Exam Limitations: no limitations General appearance: alert, in no apparent distress Head exam: Present: atraumatic, normocephalic, normal inspection Eye exam: Present: normal appearance, PERRL, EOMI. Absent: scleral icterus, conjunctival injection, periorbital swelling ENT exam: Present: normal exam, mucous membranes moist Neck exam: Present: normal inspection. Absent: tenderness, meningismus, lymphadenopathy Respiratory exam: Present: normal lung sounds bilaterally. Absent: respiratory distress, wheezes, rales, rhonchi, stridor Cardiovascular Exam: Present: regular rate, normal rhythm, normal heart sounds. Absent: systolic murmur, diastolic murmur, rubs, gallop, clicks GI/Abdominal exam: Present: soft, normal bowel sounds. Absent: distended, tenderness, guarding, rebound, rigid Extremities exam: Present: normal inspection, full ROM, normal capillary refill. Absent: tenderness, pedal edema, joint swelling, calf tenderness Back exam: Present: normal inspection Neurological exam: Present: alert, oriented X3, CN II-XII intact Psychiatric exam: Present: normal affect, normal mood Skin exam: Present: warm, dry, intact, normal color. Absent: rash Course Vital Signs 05/17/20 05/17/20 05/17/20 13:51 14:48 16:00 Temperature 98.2 F Pulse Rate 55 L 52 L 89 Respiratory 18 18 18 Rate Blood Pressure 138/66 132/81 116/61 O2 Sat by Pulse 98 97 98 Oximetry - Reevaluation(s) Reevaluation #1: 05/17/20 16:22 Medical record is reviewed Reevaluation #2: 05/17/20 16:22 Patient still passing blood in here in the ER is passing small clots but is able to urinate without difficulty encouraged increased fluid intake Reevaluation #3: 05/17/20 16:22 Spoke with patient regarding findings, questions answered Medical Decision Making - Medical Decision Making 79 male to the ER for evaluation blood in the ER and hematuria. Patient will place on antibiotics for possible underlying UTI and follow-up with urology regarding hematuria - Lab Data Result diagrams: 05/17/20 14:34 05/17/20 14:34 Lab Results 05/17/20 05/17/20 05/17/20 Range/Units 14:34 14:34 14:34 WBC 11.0 H (3.8-10.6) k/uL RBC 4.58 (4.30-5.90) m/uL Hgb 14.5 (13.0-17.5) gm/dL Hct 45.1 (39.0-53.0) % MCV 98.4 (80.0-100.0) fL MCH 31.7 (25.0-35.0) pg MCHC 32.2 (31.0-37.0) g/dL RDW 13.1 (11.5-15.5) % Plt Count 145 L (150-450) k/uL Neutrophils % 79 % Lymphocytes % 12 % Monocytes % 5 % Eosinophils % 3 % Basophils % 1 % Neutrophils # 8.7 H (1.3-7.7) k/uL Lymphocytes # 1.3 (1.0-4.8) k/uL Monocytes # 0.6 (0-1.0) k/uL Eosinophils # 0.3 (0-0.7) k/uL Basophils # 0.1 (0-0.2) k/uL PT 10.0 (9.0-12.0) sec INR 1.0 (<1.2) APTT 24.7 (22.0-30.0) sec Sodium 135 L (137-145) mmol/L Potassium 5.0 (3.5-5.1) mmol/L Chloride 105 (98-107) mmol/L Carbon Dioxide 23 (22-30) mmol/L Anion Gap 7 mmol/L BUN 31 H (9-20) mg/dL Creatinine 1.89 H (0.66-1.25) mg/dL Est GFR (CKD-EPI)AfAm 39 (>60 ml/min/1.73 sqM) Est GFR (CKD-EPI)NonAf 33 (>60 ml/min/1.73 sqM) Glucose 122 H (74-99) mg/dL Plasma Lactic Acid Julio (0.7-2.0) mmol/L Calcium 9.6 (8.4-10.2) mg/dL Magnesium 2.2 (1.6-2.3) mg/dL Total Bilirubin 0.6 (0.2-1.3) mg/dL AST 20 (17-59) U/L ALT 15 (4-49) U/L Alkaline Phosphatase 65 (38-126) U/L Creatine Kinase 56 (55-170) U/L Troponin I (0.000-0.034) ng/mL Total Protein 6.5 (6.3-8.2) g/dL Albumin 4.3 (3.5-5.0) g/dL Urine Color Urine Appearance (Clear) Urine RBC (0-5) /hpf Urine WBC (0-5) /hpf Blood Type Blood Type Recheck Bld Type Recheck Status Antibody Screen Spec Expiration Date 05/17/20 05/17/20 05/17/20 Range/Units 14:34 14:34 14:34 WBC (3.8-10.6) k/uL RBC (4.30-5.90) m/uL Hgb (13.0-17.5) gm/dL Hct (39.0-53.0) % MCV (80.0-100.0) fL MCH (25.0-35.0) pg MCHC (31.0-37.0) g/dL RDW (11.5-15.5) % Plt Count (150-450) k/uL Neutrophils % % Lymphocytes % % Monocytes % % Eosinophils % % Basophils % % Neutrophils # (1.3-7.7) k/uL Lymphocytes # (1.0-4.8) k/uL Monocytes # (0-1.0) k/uL Eosinophils # (0-0.7) k/uL Basophils # (0-0.2) k/uL PT (9.0-12.0) sec INR (<1.2) APTT (22.0-30.0) sec Sodium (137-145) mmol/L Potassium (3.5-5.1) mmol/L Chloride (98-107) mmol/L Carbon Dioxide (22-30) mmol/L Anion Gap mmol/L BUN (9-20) mg/dL Creatinine (0.66-1.25) mg/dL Est GFR (CKD-EPI)AfAm (>60 ml/min/1.73 sqM) Est GFR (CKD-EPI)NonAf (>60 ml/min/1.73 sqM) Glucose (74-99) mg/dL Plasma Lactic Acid Julio 1.6 (0.7-2.0) mmol/L Calcium (8.4-10.2) mg/dL Magnesium (1.6-2.3) mg/dL Total Bilirubin (0.2-1.3) mg/dL AST (17-59) U/L ALT (4-49) U/L Alkaline Phosphatase (38-126) U/L Creatine Kinase (55-170) U/L Troponin I <0.012 (0.000-0.034) ng/mL Total Protein (6.3-8.2) g/dL Albumin (3.5-5.0) g/dL Urine Color Urine Appearance (Clear) Urine RBC (0-5) /hpf Urine WBC (0-5) /hpf Blood Type O Positive Blood Type Recheck O Pos Bld Type Recheck Status No Antibody Screen NEGATIVE Spec Expiration Date 05/20/2020 - 233305/17/20 Range/Units 15:22 WBC (3.8-10.6) k/uL RBC (4.30-5.90) m/uL Hgb (13.0-17.5) gm/dL Hct (39.0-53.0) % MCV (80.0-100.0) fL MCH (25.0-35.0) pg MCHC (31.0-37.0) g/dL RDW (11.5-15.5) % Plt Count (150-450) k/uL Neutrophils % % Lymphocytes % % Monocytes % % Eosinophils % % Basophils % % Neutrophils # (1.3-7.7) k/uL Lymphocytes # (1.0-4.8) k/uL Monocytes # (0-1.0) k/uL Eosinophils # (0-0.7) k/uL Basophils # (0-0.2) k/uL PT (9.0-12.0) sec INR (<1.2) APTT (22.0-30.0) sec Sodium (137-145) mmol/L Potassium (3.5-5.1) mmol/L Chloride (98-107) mmol/L Carbon Dioxide (22-30) mmol/L Anion Gap mmol/L BUN (9-20) mg/dL Creatinine (0.66-1.25) mg/dL Est GFR (CKD-EPI)AfAm (>60 ml/min/1.73 sqM) Est GFR (CKD-EPI)NonAf (>60 ml/min/1.73 sqM) Glucose (74-99) mg/dL Plasma Lactic Acid Julio (0.7-2.0) mmol/L Calcium (8.4-10.2) mg/dL Magnesium (1.6-2.3) mg/dL Total Bilirubin (0.2-1.3) mg/dL AST (17-59) U/L ALT (4-49) U/L Alkaline Phosphatase (38-126) U/L Creatine Kinase (55-170) U/L Troponin I (0.000-0.034) ng/mL Total Protein (6.3-8.2) g/dL Albumin (3.5-5.0) g/dL Urine Color Red Urine Appearance Bloody (Clear) Urine RBC >182 H (0-5) /hpf Urine WBC >182 H (0-5) /hpf Blood Type Blood Type Recheck Bld Type Recheck Status Antibody Screen Spec Expiration Date Disposition Clinical Impression: Hematuria Disposition: HOME SELF-CARE Condition: Good Instructions (If sedation given, give patient instructions): Hematuria (ED) Is patient prescribed a controlled substance at d/c from ED?: No Referrals: Conchita Case DO [Primary Care Provider] - 1-2 days
[2020-05-17 14:50] LABS: Basophils # (A) 0.1 k/uL (0-0.2); Basophils % (A) 1 %; Eosinophils # (A) 0.3 k/uL (0-0.7); Eosinophils % (A) 3 %; HCT 45.1 % (39.0-53.0); HGB 14.5 gm/dL (13.0-17.5); Lymphocytes # (A) 1.3 k/uL (1.0-4.8); Lymphocytes % (A) 12 %; MCH 31.7 pg (25.0-35.0); MCHC 32.2 g/dL (31.0-37.0); MCV 98.4 fL (80.0-100.0); Mean Platelet Volume 8.9; Monocytes # (A) 0.6 k/uL (0-1.0); Monocytes % (A) 5 %; Neutrophils # (A) 8.7 k/uL (1.3-7.7); Neutrophils % (A) 79 %; Platelet Count 145 k/uL (150-450); RBC 4.58 m/uL (4.30-5.90); RDW 13.1 % (11.5-15.5)
[2020-05-17 14:58] LABS: Partial Thromboplastin Time 24.7 sec (22.0-30.0)
[2020-05-17 15:03] LABS: Albumin 4.3 g/dL (3.5-5.0); Calcium 9.6 mg/dL (8.4-10.2); Magnesium 2.2 mg/dL (1.6-2.3); Total Bilirubin 0.6 mg/dL (0.2-1.3); Total Protein 6.5 g/dL (6.3-8.2)
[2020-05-17 15:40] LABS: RBC,Urine >182 /hpf (0-5); WBC,Urine >182 /hpf (0-5)
[2020-05-17 15:55] LABS: Appearance,Urine Bloody (Clear); Color,Urine Red
[2020-05-17 17:04] VITALS: BP 116/65; PULSE 53; TEMP 98
== END 2020-05-17 17:04 | disposition home or self-care (01) ==
LOC: EC 13:27
DX: R31.9 Hematuria, unspecified (principal); I10 Essential (primary) hypertension; I25.2 Old myocardial infarction; Z79.02 Long term (current) use of antithrombotics/antiplatelets; Z79.899 Other long term (current) drug therapy; Z79.82 Long term (current) use of aspirin; Z79.890 Hormone replacement therapy; Z96.653 Presence of artificial knee joint, bilateral; Z95.810 Presence of automatic (implantable) cardiac defibrillator
CPT/HCPCS: 36415; 86900; 86901; 80053; 82550; 83605; 83735; 84484; 85025; 85610; 85730; 86850; 81001; 87086; 99285; 96365; 96375; 96361 ×2; J0696; C9113

== ENCOUNTER → 2021-01-20 | Outpatient (CLI) | payer MEDICARE ==
[2021-01-20 18:48] LABS: HCT 34.4 % (39.6-50.0); HGB 10.7 g/dL (13.0-17.0); MCH 31.2 pg (27.0-32.0); MCHC 31.1 g/dL (32.0-37.0); MCV 100.3 fL (80.0-97.0); Mean Platelet Volume 12.8 fL (9.5-12.2); Platelet Count 108 X 10*3/uL (140-440); RBC 3.43 X 10*6/uL (4.40-5.60); RDW 17.8 % (11.5-14.5); WBC 4.96 X 10*3/uL (4.50-10.00)
== END | disposition home or self-care (01) ==
LOC: LABWHC1 14:17
PROVIDERS: ATTEND Internal Medicine Cardiovascular Disease
DX: I50.22 Chronic systolic (congestive) heart failure (principal)
CPT/HCPCS: 36415; 85027

== ENCOUNTER → 2021-02-26 | Outpatient (CLI) | payer MEDICARE ==
[2021-02-27 02:32] LABS: African American GFR (CKD) 28.9 (60.0-200.0); Anion Gap 10.9 mmol/L (4.00-12.00); BUN/Creat Ratio 24.58 Ratio (12.00-20.00); Calcium 9.3 mg/dL (8.7-10.3); Carbon Dioxide 23.1 mmol/L (21.6-31.8); Non-African American GFR(CKD) 24.9 (60.0-200.0); Potassium 4.8 mmol/L (3.5-5.5)
== END | disposition home or self-care (01) ==
LOC: LABWHC1 09:26
PROVIDERS: ATTEND Internal Medicine Cardiovascular Disease
DX: I50.22 Chronic systolic (congestive) heart failure (principal)
CPT/HCPCS: 36415; 80048

== ENCOUNTER → 2021-06-18 | Outpatient (CLI) | payer MEDICARE ==
[2021-06-18 12:41] LABS: Appearance,Urine Clear (Clear); Bacteria,Urine Few /hpf; Bilirubin,Urine Negative (Negative); Blood,Urine Negative (Negative); Color,Urine Light Yellow; Glucose,Urine (UA) Negative (Negative); Hyaline Casts,Urine 11 /lpf (0-2); Ketones,Urine Negative (Negative); Leukocyte Esterase,Urine Moderate (Negative); Mucus,Urine Rare /hpf; Nitrite,Urine Negative (Negative); Protein,Urine Negative (Negative); RBC,Urine <1 /hpf (0-5); Squamous Epithelial Cell,Urine 1 /hpf (0-4); Urobilinogen,Urine <2.0 mg/dL (<2.0); WBC,Urine 26 /hpf (0-5)
[2021-06-18 15:37] LABS: HGB 10.3 g/dL (13.0-17.0); MCH 31.3 pg (27.0-32.0); MCHC 30.3 g/dL (32.0-37.0); MCV 103.3 fL (80.0-97.0); Mean Platelet Volume 12.3 fL (9.5-12.2); Platelet Count 103 X 10*3/uL (140-440); RBC 3.29 X 10*6/uL (4.40-5.60); RDW 15.7 % (11.5-14.5)
[2021-06-18 18:06] LABS: % Iron Saturation 14.71 (15.00-50.00); African American GFR (CKD) 20.4 (60.0-200.0); Albumin/Globulin Ratio 2.22 (1.60-3.17); BUN/Creat Ratio 21.16 Ratio (12.00-20.00); Blood Urea Nitrogen 67.7 mg/dL (9.0-27.0); Calcium 9.1 mg/dL (8.7-10.3); Globulin 1.8 g/dL (1.6-3.3); Magnesium 2.7 mg/dL (1.5-2.4); Non-African American GFR(CKD) 17.6 (60.0-200.0); Phosphorus 4.3 mg/dL (2.4-5.1); Potassium 4.7 mmol/L (3.5-5.5); Total Bilirubin 0.4 mg/dL (0.30-1.20); Total Protein 5.8 g/dL (6.2-8.2); Uric Acid 6.5 mg/dL (3.7-8.7)
[2021-06-19 00:15] LABS: Urine Creatinine 57.6 mg/dL (39.0-259.0)
== END | disposition home or self-care (01) ==
LOC: LABWHC1 10:54
PROVIDERS: ATTEND Nurse Practitioner Family
DX: E55.9 Vitamin D deficiency, unspecified (principal); M10.9 Gout, unspecified; D63.1 Anemia in chronic kidney disease; N39.0 Urinary tract infection, site not specified; R80.9 Proteinuria, unspecified; N25.81 Secondary hyperparathyroidism of renal origin; N18.32 Chronic kidney disease, stage 3b
CPT/HCPCS: 36415; 80053; 81001; 82043; 82306; 82570; 82728; 83540; 83550; 83735; 83970; 84100; 84550; 85027

== ENCOUNTER 2021-07-02 14:34 | Inpatient (IN) | payer MEDICARE ==
[2021-07-02] MEDS ORDERED: FUROSEMIDE 10 MG/ML 4 ML VIAL IV STA (16:02)
[2021-07-02] MEDS ORDERED: ACETAMINOPHEN TAB 325 MG TAB PO PRN (16:03)
[2021-07-02] MEDS ORDERED: NALOXONE 0.4 MG/ML 1 ML VIAL IV PRN (16:03)
--- NOTE | 2021-07-02 16:42 | ED ---
General Adult HPI - General Chief complaint: Shortness of Breath Stated complaint: Fluid on Heart, Dr. Grover Time Seen by Provider: 07/02/21 16:01 Source: patient, RN notes reviewed, old records reviewed Mode of arrival: wheelchair Limitations: no limitations - History of Present Illness Initial comments: 80 -year-old male presents for evaluation of weight gain, dyspnea. Patient was at the otc clerk office, and was sent to the emergency department for admission and IV diuresis. He has chronic kidney disease which has been worsening. He has been taking oral Lasix without much urine output. He's had a 20 pound weight gain and he does report increased dyspnea and orthopnea. - Related Data Home Medications Medication Instructions Recorded Confirmed Carvedilol [Coreg] 25 mg PO BID 07/09/14 05/17/20 Simvastatin [Zocor] 10 mg PO HS 07/09/14 05/17/20 Fish Oil/Dha/Epa [Fish Oil 1,200 1 cap PO DAILY 07/10/14 05/17/20 mg Fish Oil] Folic Acid 0.4 mg PO DAILY 07/10/14 05/17/20 Acetaminophen [Tylenol Arthritis] 650 mg PO Q8H PRN 09/05/16 05/17/20 Aspirin EC [Ecotrin Low Dose] 81 mg PO DAILY 09/05/16 05/17/20 allopurinoL [Zyloprim] 150 mg PO DAILY 09/05/16 05/17/20 Furosemide [Lasix] 20 mg PO DAILY 10/20/16 05/17/20 Levothyroxine Sodium [Synthroid] 50 mcg PO DAILY 05/17/20 05/17/20 lisinopriL [Zestril] 2.5 mg PO HS 05/17/20 05/17/20 Previous Rx's Medication Instructions Recorded Ciprofloxacin HCl [Cipro] 500 mg PO Q12HR #14 tablet 05/17/20 Allergies Allergy/AdvReac Type Severity Reaction Status Date / Time No Known Allergies Allergy Verified 05/17/20 15:02 Review of Systems ROS Statement: Those systems with pertinent positive or pertinent negative responses have been documented in the HPI. ROS Other: All systems not noted in ROS Statement are negative. 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 PAST WORK., hx ULCER ,gout Last Myocardial Infarction Date:: UNK History of Any Multi-Drug Resistant Organisms: None Reported Past Surgical History: AICD, Heart Catheterization, Joint Replacement, Tonsil lectomy Additional Past Surgical History / Comment(s): hussain knee replacements, HUSSAIN CAROTID ENDARTERECTOMY, Past Anesthesia/Blood Transfusion Reactions: No Reported Reaction Type of Cardiac Device: AICD Device Placement Date:: 2009 Past Psychological History: No Psychological Hx Reported Smoking Status: Never smoker Past Alcohol Use History: Occasional Past Drug Use History: None Reported - Past Family History Father Additional Family Medical History / Comment(s): KILLED BY A TRAIN WHEN PT WAS AGE 9 Mother Family Medical History: No Reported History Additional Family Medical History / Comment(s): open heart surgery Sister(s) Family Medical History: Myocardial Infarction ([place]) Additional Family Medical History / Comment(s): heart stents General Exam Limitations: no limitations General appearance: alert, in no apparent distress Head exam: Present: atraumatic, normocephalic Eye exam: Present: normal appearance, PERRL ENT exam: Present: normal exam Neck exam: Present: normal inspection. Absent: tenderness, meningismus Respiratory exam: Present: decreased breath sounds. Absent: respiratory distress, accessory muscle use Cardiovascular Exam: Present: regular rate, irregular rhythm GI/Abdominal exam: Present: soft, distended. Absent: tenderness, guarding Extremities exam: Present: pedal edema Neurological exam: Present: alert, oriented X3, CN II-XII intact. Absent: motor sensory deficit Psychiatric exam: Present: normal affect, normal mood Skin exam: Present: warm, dry, intact. Absent: cyanosis, diaphoretic Course Vital Signs 07/02/21 07/02/21 15:03 16:52 Temperature 98.1 F Pulse Rate 85 71 Respiratory 20 18 Rate Blood Pressure 109/69 100/77 O2 Sat by Pulse 97 98 Oximetry EKG Findings - EKG Comments: EKG Findings:: EKG atrial fibrillation, T-wave abnormality in the precordium, no ST segment elevation, rate of 72, QRS duration 118, QTC 457 Medical Decision Making - Medical Decision Making 80-year-old male with weight gain, CHF exacerbation. Laboratory studies are ordered, as well as chest x-ray. The patient is started on IV Lasix after discussing the case with Dr. Grover who digit transfer the patient from the otc clerk's office. He will be admitted to Dr. Paul who is aware with cardiology on consultation. - Lab Data Result diagrams: 07/02/21 16:45 07/02/21 16:45 Disposition Clinical Impression: Dilated cardiomyopathy, Congestive heart failure Disposition: ADMITTED IP TO THIS HOSP Condition: Stable Is patient prescribed a controlled substance at d/c from ED?: No Decision to Admit Reason: Admit from EC Decision Date: 07/02/21 Decision Time: 16:42
[2021-07-02 16:52] LABS: Basophils % (A) 0 %; Eosinophils # (A) 0.3 k/uL (0-0.7); Eosinophils % (A) 4 %; HCT 33.4 % (39.0-53.0); Lymphocytes # (A) 0.5 k/uL (1.0-4.8); Lymphocytes % (A) 6 %; MCH 32.6 pg (25.0-35.0); MCV 98.6 fL (80.0-100.0); Mean Platelet Volume 10.2; Monocytes # (A) 0.5 k/uL (0-1.0); Monocytes % (A) 6 %; Neutrophils # (A) 6.5 k/uL (1.3-7.7); Neutrophils % (A) 82 %; Platelet Count 118 k/uL (150-450); RBC 3.38 m/uL (4.30-5.90); RDW 14.3 % (11.5-15.5); WBC 7.9 k/uL (3.8-10.6)
[2021-07-02 17:01] LABS: Albumin 3.9 g/dL (3.5-5.0); Calcium 9.2 mg/dL (8.4-10.2); Potassium 4.8 mmol/L (3.5-5.1); Total Bilirubin 0.4 mg/dL (0.2-1.3); Total Protein 6.4 g/dL (6.3-8.2)
[2021-07-02 17:04] LABS: INR 1.1 (<1.2); Partial Thromboplastin Time 25.5 sec (22.0-30.0); Prothrombin Time 11.7 sec (9.0-12.0)
--- NOTE | 2021-07-02 17:23 | XR ---
EXAMINATION TYPE: XR chest 2V DATE OF EXAM: 07/02/2021 COMPARISON: To 617 HISTORY: Shortness of breath TECHNIQUE: Frontal and lateral views of the chest are obtained. FINDINGS: Scattered senescent parenchymal changes noted. Hyperinflation compatible with COPD. Nodular density right upper lobe. Ill-definition of the right hemidiaphragm could reflect underlying effusion or underlying infiltrate. Result evidence of cardiomegaly without CHF. Mediastinal structures are stable and grossly unremarkable. No evidence for hilar prominence. Degenerative changes dorsal spine. IMPRESSION: 1. Nodular density right upper lobe. Ill-definition of the right hemidiaphragm could reflect underlyi ng effusion or underlying infiltrate. Result evidence of cardiomegaly without CHF.
--- NOTE | 2021-07-02 22:56 | P.HPIM ---
History of Present Illness H&P Date: 07/02/21 Chief Complaint: Increasing leg swelling. Sent from call out clerk office. Patient is a 80-year-old male with a known history of hypertension, history of [place], chronic kidney disease stage III, history of AICD placement in 2009 and bilateral carotid endarterectomy was sent to ER from call out clerk office for evaluation of acute CHF. Previous 2D echocardiogram showed ejection fraction 30 to 35%.Apparently patient has been gaining weight about 20 LBS during the last 1 month and also found to have increasing leg swelling and increased abdominal girth. Patient is also having shortness of breath. Patient was sent to ER for evaluation. Otherwise patient denied any cough or sputum production. No fever no chills. No nausea vomiting or abdominal pain or diarrhea. No dysuria or hematuria. Laboratory showed WBC 7.9 hemoglobin 11.0 and platelets 118 BUN 82 and creatinine 3.61 liver enzymes are not elevated and troponin 0 0.033 and proBNP 75589 COVID-19 PCR not detected Chest x-ray showed nodular density right upper lobe. Ill-definition of the right hemidiaphragm could reflect underlying effusion or underlying infiltrate. Present evidence of cardiomegaly without CHF. EKG showed atrial fibrillation with PVCs. Review of Systems Constitutional: Patient denies any fever or chills . No generalized weakness or weight loss. Abdomen: Patient denied nausea vomiting and diarrhea and abdominal pain. Cardiovascular: Patient denies any chest pain. + short of breath no palpitations.Patient does have increased weight gain and leg swelling. Respiratory: patient denied any cough or sputum production. No shortness of breath Neurologic: Patient denied any numbness or tingling headache. Musculoskeletal: Patient denies any complaints of joint swelling or deformity. Skin: Negative Psychiatric: Negative Endocrine: No heat or cold intolerance. No recent weight gain. Genitourinary: No dysuria or hematuria. All other 14 point ROS negative except the above Past Medical History Past Medical History: Hypertension, Myocardial Infarction ([place]), Osteoarthritis ([place]) Additional Past Medical History / Comment(s): See Dr Moreland H&P "borderline diabetic" does not watch diet, hx fx left wrist as child-did not heal right,"2 BULGING DICS AND 5 VERTEBRE ARE COMPRESSED", GOUT, ASBESTOES EXPOSURE THRU PAST WORK., hx ULCER ,gout Last Myocardial Infarction Date:: UNK History of Any Multi-Drug Resistant Organisms: None Reported Past Surgical History: AICD, Heart Catheterization, Joint Replacement, Tonsillectomy Additional Past Surgical History / Comment(s): hussain knee replacements, HUSSAIN CAROTID ENDARTERECTOMY, Past Anesthesia/Blood Transfusion Reactions: No Reported Reaction Type of Cardiac Device: AICD Device Placement Date:: 2009 Past Psychological History: No Psychological Hx Reported Smoking Status: Never smoker Past Alcohol Use History: Occasional Past Drug Use History: None Reported - Past Family History Father Additional Family Medical History / Comment(s): KILLED BY A TRAIN WHEN PT WAS AGE 9 Mother Family Medical History: No Reported History Additional Family Medical History / Comment(s): open heart surgery Sister(s) Family Medical History: Myocardial Infarction ([place]) Additional Family Medical History / Comment(s): heart stents Medications and Allergies Home Medications Medication Instructions Recorded Confirmed Type Carvedilol [Coreg] 25 mg PO BID 07/09/14 07/02/21 History Simvastatin [Zocor] 10 mg PO HS 07/09/14 07/02/21 History Aspirin EC [Ecotrin Low Dose] 81 mg PO DAILY 09/05/16 07/02/21 History Levothyroxine Sodium [Synthroid] 50 mcg PO DAILY 05/17/20 07/02/21 History Cholecalciferol [Vitamin D3 (25 50 mcg PO DAILY 07/02/21 07/02/21 History Mcg = 1000 Iu)] Febuxostat 40 mg PO DAILY 07/02/21 07/02/21 History Ferrous Sulfate [Feosol] 325 mg PO DAILY 07/02/21 07/02/21 History Furosemide [Lasix] 40 mg PO DAILY 07/02/21 07/02/21 History Melatonin 5 mg PO HS 07/02/21 07/02/21 History Multivitamins, Thera [Multivitamin 1 tab PO DAILY 07/02/21 07/02/21 History (formulary)] Omeprazole 20 mg PO DAILY 07/02/21 07/02/21 History Sodium Bicarbonate Tab 650 mg PO DAILY 07/02/21 07/02/21 History Sulfamethox-Tmp 800-160Mg [Bactrim 1 tab PO Q12HR 07/02/21 07/02/21 History DS 800-160 mg] Allergies Allergy/AdvReac Type Severity Reaction Status Date / Time No Known Allergies Allergy Verified 07/02/21 17:54 Physical Exam Vitals: Vital Signs Temp Pulse Resp BP Pulse Ox 07/02/21 21:00 97.8 F 90 16 119/74 98 07/02/21 19:00 87 16 115/72 98 07/02/21 16:52 71 18 100/77 98 07/02/21 15:03 98.1 F 85 20 109/69 97 Intake and Output 07/02/21 07/02/21 07/02/21 06:59 14:59 22:59 Output Total 600 Balance -600 Output: Urine 600 Other: # Voids 2 Weight 124.738 kg PHYSICAL EXAMINATION: Patient is lying in the bed comfortably, no acute distress, awake alert and oriented.. HEENT: Normocephalic. Neck is supple. Pupils reactive. Nostrils clear. Oral cavity is moist. Neck reveals no JVD, carotid bruits, or thyromegaly. CHEST EXAMINATION: Trachea is central. Symmetrical expansion.Patient does have right basilar crackles and diminished sounds. No wheezing or rhonchi.. CARDIAC: Normal S1, S2 with no gallops. No murmurs ABDOMEN: Soft. Bowel sounds normal. No organomegaly. No abdominal bruits. Extremities: Bilateral 3+ pitting edema. No clubbing or cyanosis Neurologically awake, alert, oriented x3 with well-coordinated movements. No focal deficits noted Skin: No rash or skin lesions. Psychiatric: Cooperative. Nonsuicidal Musculoskeletal: No joint swelling or deformity. Normal range of motion. Results CBC & Chem 7: 07/02/21 16:45 07/02/21 16:45 Labs: Abnormal Lab Results - Last 24 Hours (Table) 07/02/21 07/02/21 Range/Units 16:45 16:45 RBC 3.38 L (4.30-5.90) m/uL Hgb 11.0 L (13.0-17.5) gm/dL Hct 33.4 L (39.0-53.0) % Plt Count 118 L (150-450) k/uL Lymphocytes # 0.5 L (1.0-4.8) k/uL BUN 82 H (9-20) mg/dL Creatinine 3.61 H (0.66-1.25) mg/dL Glucose 109 H (74-99) mg/dL Thrombosis Risk Factor Assmnt - DVT/VTE Prophylaxis DVT/VTE Prophylaxis: Pharmacologic Prophylaxis ordered Assessment and Plan Assessment: Acute on chronic CHF with systolic function ejection fraction 30 to 35% Dilated cardiomyopathy History of AICD placement Paroxysmal atrial fibrillation. Currently not on anticoagulation. Acute on chronic kidney disease stage III baseline creatinine around 1.8 Hypertension Hyperlipidemia DVT prophylaxis with heparin subcu Plan: Patient will be continued on telemetry monitoring. Troponin x1 -. Continue with IV Lasix 40 mg every 8 hourly and monitor renal function closely. Will initiate Coreg once blood pressure is stable. Cardiology and nephrology was consulted. Continue to follow closely. Time with Patient: Greater than 30
[2021-07-02] MEDS: FUROSEMIDE 10 MG/ML 4 ML VIAL IV SCH (23:47)
[2021-07-02] MEDS: HEPARIN SODIUM,PORCINE/PF 5,000 UNIT/0.5 ML SYRINGE SQ SCH (23:47)
[2021-07-03] MEDS: LEVOTHYROXINE 50 MCG TAB PO SCH (05:47)
[2021-07-03] MEDS: FUROSEMIDE 10 MG/ML 4 ML VIAL IV SCH ×2 (08:55→16:15)
[2021-07-03] MEDS: HEPARIN SODIUM,PORCINE/PF 5,000 UNIT/0.5 ML SYRINGE SQ SCH ×2 (08:56→16:16)
[2021-07-03] MEDS: ASPIRIN 81 MG PO SCH (08:56)
[2021-07-03] MEDS: allopurinoL 100 MG TAB PO SCH (08:56)
[2021-07-03] MEDS: MULTIVITAMINS, THERA 1 EACH TAB PO SCH (08:56)
[2021-07-03] MEDS ORDERED: SODIUM BICARBONATE TAB 650 MG TAB PO SCH (09:00)
[2021-07-03 11:57] LABS: Basophils # (A) 0.1 k/uL (0-0.2); Basophils % (A) 1 %; Eosinophils # (A) 0.2 k/uL (0-0.7); Eosinophils % (A) 2 %; HCT 34.9 % (39.0-53.0); HGB 10.9 gm/dL (13.0-17.5); Lymphocytes # (A) 0.6 k/uL (1.0-4.8); Lymphocytes % (A) 7 %; MCH 32.2 pg (25.0-35.0); MCHC 31.3 g/dL (31.0-37.0); MCV 102.9 fL (80.0-100.0); Macrocytosis Slight; Mean Platelet Volume 9.3; Monocytes # (A) 0.6 k/uL (0-1.0); Monocytes % (A) 7 %; Neutrophils # (A) 7.1 k/uL (1.3-7.7); Neutrophils % (A) 81 %; Platelet Count 141 k/uL (150-450); RBC 3.39 m/uL (4.30-5.90); RDW 14.8 % (11.5-15.5); WBC 8.8 k/uL (3.8-10.6)
[2021-07-03] MEDS: carvediloL 12.5 MG TAB PO SCH ×2 (12:14→16:16)
[2021-07-03 12:25] LABS: Calcium 8.9 mg/dL (8.4-10.2); Potassium 4.6 mmol/L (3.5-5.1)
--- NOTE | 2021-07-03 14:36 | CONS ---
CONSULTATION CHIEF COMPLAINT: Shortness of breath, weight gain and leg edema. HISTORY OF PRESENT ILLNESS: This is a 80-year-old gentleman with history of cardiomyopathy with congestive heart failure status post AICD, history of atrial fibrillation, who presented to my office yesterday for routine evaluation, had an echocardiogram that revealed severe LV systolic dysfunction, evidence of ascites and moderate mitral and aortic regurgitation. The patient was in congestive heart failure with bilateral leg edema, almost 20 pounds weight gain and was quite symptomatic due to which I sent him to the emergency room to get admitted to hospital for CHF exacerbation. He has been treated with IV Lasix with significant improvement in his symptoms. Leg edema has improved. I do not have accurate weights but his appearance looks a lot better. Shortness of breath has improved and he is putting out quite a bit of urine. EKG shows atrial fibrillation with controlled ventricular rate. His labs show a hemoglobin of 11, potassium is 4.8, BUN is 82, creatinine [place] 3[place] [address] and coronavirus test is negative. At the time of my evaluation this morning, patient appears comfortable at rest and hopefully can be discharged home tomorrow. The patient was on Lasix 40 mg daily at home. PAST MEDICAL HISTORY: Significant for cardiomyopathy, congestive heart failure status post AICD and hypertension, carotid stenosis, status post bilateral carotid endarterectomy. MEDICATIONS: Medications at home include: Bactrim, Zocor 10 daily, omeprazole 20 daily, multivitamins, Synthroid, Lasix 40 daily, iron, Coreg 25 b.i.d. and aspirin. ALLERGIES: There are no known drug allergies. FAMILY HISTORY: Negative for premature coronary artery disease. SOCIAL HISTORY: Negative for current smoking, EtOH abuse or drug abuse. REVIEW OF SYSTEMS: HEENT is unremarkable. CARDIAC as described above. RESPIRATORY as described above. GI negative. GENITOURINARY as described above. PSYCHOSOCIAL negative. ENDOCRINE negative. ONCOLOGICAL negative. DERM: Negative. CONSTITUTIONAL: Significant for fatigue, tiredness and not feeling well. Rest of the system review is not relevant. EXAM: Patient is afebrile. Heart rate is 80 to 100 beats per minute, blood pressure is 102/88, respiratory 95, respiratory rate is 18, O2 saturation is 95%. There is no jugular venous distention. Chest exam reveals good air entry bilaterally. Heart exam reveals first and second heart sounds. Grade 3/6 systolic murmur at the apex. Abdomen: Soft. Exam of extremities reveals bilateral 2+ pitting edema. LABORATORY DATA: Labs are as described above. Troponin is negative. BNP is elevated. ASSESSMENT: 1. Acute exacerbation of chronic systolic heart failure. 2. Status post AICD. 3. Carotid stenosis status post bilateral carotid endarterectomy. 4. Persistent atrial fibrillation. 5. Chronic renal failure. PLAN: I will resume the Coreg that he was on. Continue with the IV Lasix for another day. Hopefully we can switch him to p.o. Lasix tomorrow and discharge him home. He will need a nephrology evaluation and may need dialysis down the road. The patient was on an anticoagulant in the past for atrial fibrillation, but he is not taking any anticoagulant at the moment because of concerns about a GI bleed in the past. MMODL / IJN: [id number] /
--- NOTE | 2021-07-03 14:51 | CONS ---
CONSULTATION REASON FOR CONSULT: Renal failure. HISTORY OF PRESENT ILLNESS: The patient is a 80-year-old male admitted to the hospital for worsening shortness of breath and lower extremity edema. Patient has history of congestive heart failure with ejection fraction 30 to 35%. He also has underlying CKD NKF stage 3B with previous creatinine noted to be 3.2 on 06/18/2021, and prior to that about 1.8-2.4 in 2019 and 2020. Etiology is likely nephrosclerosis. The patient denies any fevers or chills. He states he is voiding well. He denied use of any nonsteroidal anti-inflammatory agents prior to admission. I do see Bactrim on his home med list. Chest x-ray showed evidence of cardiomegaly. No clear-cut pulmonary vascular congestion was noted. The patient is maintained on IV Lasix. He states he is feeling better. PAST MEDICAL HISTORY: Significant for hypertension, [place], coronary artery disease, osteoarthritis, history of congestive heart failure and cardiomyopathy and carotid artery disease. PAST SURGICAL HISTORY: Bilateral carotid endarterectomy, bilateral knee arthroplasty, tonsillectomy, cardiac catheterization, AICD placement. SOCIAL HISTORY: Negative for smoking, drug abuse or alcohol abuse. MEDICATIONS: Medications prior to admission included: Coreg, Zocor, aspirin, Synthroid, iron, Lasix, multivitamins, omeprazole, sodium bicarb, Bactrim. ALLERGIES: None. EXAMINATION: Patient is comfortable, awake, not in any acute distress. Blood pressure 125/88, heart rate 106 per minute. He is afebrile. Examination of the heart S1, S2. Examination of the lungs, bilateral breath sounds are heard. Decreased breath sounds at the bases. Abdomen is soft, nontender. Examination of lower extremities shows edema 2+ bilaterally. 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 LAB: Show sodium 138, potassium 4.8, chloride 102, BUN 82, creatinine 3.6, hemoglobin 11.0 g/dL. ASSESSMENT: 1. Acute kidney injury cardiorenal currently maintained on IV Lasix. We will check urinalysis. Avoid hypotension. The patient was on Bactrim, which can also cause an increase in the creatinine. 2. Chronic kidney disease NKF stage 3B to 4 with previous creatinine at 1.8-2.4 in 2019 and January of 2021 with another creatinine of 3.2 on 06/18/2021. 3. Volume overload, currently being diuresed. Ejection fraction previously at 30-35%. PLAN: Repeat labs today. Check postvoid residual. I will hold off on the sodium bicarb to decrease the sodium load as patient is not acidotic. Repeat labs in a.m. Check urinalysis. Hold off on the Bactrim for now. Thank you for this consultation. We will continue to follow the patient with you during his hospitalization. MMODL / IJN: [id number] /
[2021-07-03 16:25] LABS: Appearance,Urine Clear (Clear); Bilirubin,Urine Negative (Negative); Blood,Urine Negative (Negative); Color,Urine Yellow; Glucose,Urine (UA) Negative (Negative); Ketones,Urine Negative (Negative); Leukocyte Esterase,Urine Negative (Negative); Nitrite,Urine Negative (Negative); Protein,Urine Negative (Negative); Specific Gravity,Urine 1.013 (1.001-1.035); Urobilinogen,Urine <2.0 mg/dL (<2.0)
[2021-07-03] MEDS: MELATONIN 5 MG TABLET PO SCH (20:30)
[2021-07-03] MEDS: ATORVASTATIN 10 MG TAB PO SCH (20:30)
[2021-07-04] MEDS: HEPARIN SODIUM,PORCINE/PF 5,000 UNIT/0.5 ML SYRINGE SQ SCH ×4 (00:23→23:36)
[2021-07-04] MEDS: FUROSEMIDE 10 MG/ML 4 ML VIAL IV SCH ×3 (00:23→20:29)
[2021-07-04] MEDS: LEVOTHYROXINE 50 MCG TAB PO SCH (06:44)
[2021-07-04] MEDS: carvediloL 12.5 MG TAB PO SCH ×2 (06:44→16:57)
[2021-07-04 08:33] LABS: Basophils % (A) 1 %; Eosinophils # (A) 0.2 k/uL (0-0.7); Eosinophils % (A) 3 %; HCT 33.5 % (39.0-53.0); HGB 10.6 gm/dL (13.0-17.5); Lymphocytes # (A) 0.5 k/uL (1.0-4.8); Lymphocytes % (A) 8 %; MCH 32.2 pg (25.0-35.0); MCHC 31.7 g/dL (31.0-37.0); MCV 101.5 fL (80.0-100.0); Macrocytosis Slight; Mean Platelet Volume 9.9; Monocytes # (A) 0.5 k/uL (0-1.0); Monocytes % (A) 7 %; Neutrophils # (A) 5.3 k/uL (1.3-7.7); Neutrophils % (A) 79 %; Platelet Count 114 k/uL (150-450); RDW 14.8 % (11.5-15.5); WBC 6.7 k/uL (3.8-10.6)
[2021-07-04] MEDS: MULTIVITAMINS, THERA 1 EACH TAB PO SCH (08:36)
[2021-07-04] MEDS: allopurinoL 100 MG TAB PO SCH (08:36)
[2021-07-04] MEDS: ASPIRIN 81 MG PO SCH (08:36)
[2021-07-04 08:45] LABS: Potassium 4.7 mmol/L (3.5-5.1)
--- NOTE | 2021-07-04 11:34 | US ---
EXAMINATION TYPE: US kidneys/renal and bladder DATE OF EXAM: 07/04/2021 COMPARISON: US & CT 2017 CLINICAL HISTORY: RF. EXAM MEASUREMENTS: Right Kidney: 9.4 x 4.8 x 4.9 cm Left Kidney: 12.6 x 5.3 x 6.1 cm Right Kidney: two cysts seen, one measures 3.6 x 3.4 x 4.4 cm, and the second measures 3.4 x 2.1 x 3. 2 cm. Left Kidney: cyst measures 1.9 x 1.6 x 1.7 cm Bladder: not seen, patient has catheter Incidental note is made of small amount of fluid around liver. Incidental note is made of right pleural effusion. Incidental note is made of free fluid in the pelvis. There is no evidence for hydronephrosis at this point in time. No nephrolithiasis is seen. IMPRESSION: Renal cysts. Incidental findings as noted above.
--- NOTE | 2021-07-04 13:39 | PN ---
PROGRESS NOTE Patient is seen for followup for acute kidney injury on top of chronic kidney disease. Baseline creatinine is about 1.8-2 mg/dL. It has increased to about 4.1, and staying about the same. The patient was admitted with volume overload. He is currently being diuresed. He states that he is feeling much better. He has had good urine output. Blood pressure is borderline, with systolic around 107-111 mmHg for systolic. Lasix is currently 40 mg IV q.8 hours. The patient continues to have significant edema, although his respiratory status is much improved. PHYSICAL EXAMINATION: On examination today, blood pressure 111/65, heart rate 69 per minute. He is afebrile. Examination of the heart S1, S2. Examination of the lungs, bilateral breath sounds are heard. Decreased breath sounds at the bases. No crackles are heard. Abdomen is soft, nontender. Examination of lower extremities edema 2+ bilaterally. 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 LAB: Show hemoglobin 10.6, sodium 136, potassium 4.7, BUN 85, creatinine 4.1. ASSESSMENT: 1. Acute kidney injury cardiorenal, maintained on IV Lasix q.8 hours. No evidence of obstruction noted on ultrasound. UA is completely benign. Blood pressure is slightly low. Patient is not on significant antihypertensive medications. The dose of the Coreg will be decreased to 12.5 from 25 mg b.i.d. 2. Chronic kidney disease NKF stage 4. Previous creatinine around 1.8-2.4 in 2019 and January of 2021, stage 3B to 4 pre secondary to nephrosclerosis. UA is completely benign. 3. Volume overload being diuresed. Ejection fraction previously at 30-35%. No recent echocardiogram noted. 4. Bilateral lower extremity edema. Rule out elevated right heart pressures. 5. Bilateral renal cysts, benign appearing. PLAN: Decrease Lasix to q.12 hours. Decrease Coreg to 12.5 mg b.i.d. Repeat labs in a.m. Patient will need followup as outpatient. MMODL / IJN: [id number] /
--- NOTE | 2021-07-04 17:47 | PN ---
PROGRESS NOTE FOLLOW-UP NOTE: Kevin is a 80-year-old gentleman who was admitted to hospital with acute exacerbation of chronic systolic heart failure, treated with intravenous Lasix with excellent improvement in his symptoms. Labs today show that the BUN is 85, creatinine 4.1, potassium is 4.7, hemoglobin is 10.6. Patient has urinary retention and has an indwelling catheter. On exam, vital signs are stable. Chest exam reveals diminished air entry at the bases. Heart exam reveals first and second heart sounds and a systolic murmur at the apex. Abdomen is soft. Examination of extremities reveals 1 to 2+ edema, which has improved. ASSESSMENT: 1. Acute exacerbation of chronic systolic heart failure. 2. Acute worsening of chronic renal failure. Patient will continue on his home medications. Patient's Lasix dose is being decreased. Coreg dose has been decreased. We can switch him to p.o. and discharge him home once the catheter is out. MMODL / IJN: [id number] /
[2021-07-04] MEDS: MELATONIN 5 MG TABLET PO SCH (20:30)
[2021-07-04] MEDS: ATORVASTATIN 10 MG TAB PO SCH (20:30)
--- NOTE | 2021-07-04 22:51 | P.PN ---
Subjective Progress Note Date: 07/03/21 Principal diagnosis: Acute CHF exacerbation Patient is a 80-year-old male with a known history of hypertension, history of NV, chronic kidney disease stage III, history of AICD placement in 2009 and bilateral carotid endarterectomy was sent to ER from [employer] office for ev aluation of acute CHF. Previous 2D echocardiogram showed ejection fraction 30 to 35%.Apparently patient has been gaining weight about 20 LBS during the last 1 month and also found to have increasing leg swelling and increased abdominal girth. Patient is also having shortness of breath. Patient was sent to ER for evaluation. Otherwise patient denied any cough or sputum production. No fever no chills. No nausea vomiting or abdominal pain or diarrhea. No dysuria or hematuria. Laboratory showed WBC 7.9 hemoglobin 11.0 and platelets 118 BUN 82 and creatinine 3.61 liver enzymes are not elevated and troponin 0 0.033 and proBNP 61900 COVID-19 PCR not detected Chest x-ray showed nodular density right upper lobe. Ill-definition of the right hemidiaphragm could reflect underlying effusion or underlying infiltrate. Present evidence of cardiomegaly without CHF. EKG showed atrial fibrillation with PVCs. 07/03/2021 Patient is currently resting in the bed. Breathing status is better. Leg swe lling is also improving. Patient is being current on IV Lasix 40 mg every 8 hourly. No complaints of chest pain. Patient feels better. Denies any nausea vomiting abdominal pain or diarrhea. Cardiology is on board. Laboratory data showed WBC 8.8 hemoglobin 10.9 and platelets 141 BUN 18 creatinine 4.11 Current medications reviewed. Objective - Vital Signs Vital signs: Vital Signs Temp 97.6 F 07/03/21 12:28 Pulse 87 07/03/21 12:28 Resp 20 07/03/21 12:28 BP 127/91 07/03/21 12:28 Pulse Ox 97 07/03/21 12:28 Intake & Output 07/02/21 07/03/21 07/03/21 18:59 06:59 18:59 Intake Total 240 280 Output Total 975 350 Balance -735 -70 Weight 124.738 kg 126.2 kg Intake: IV 20 Invasive Line 1 20 Oral 240 260 Output: Urine 975 350 Other: # Voids 1 - Exam PHYSICAL EXAMINATION: Patient is lying in the bed comfortably, no acute distress, awake alert and oriented.. HEENT: Normocephalic. Neck is supple. Pupils reactive. Nostrils clear. Oral cavity is moist. Neck reveals no JVD, carotid bruits, or thyromegaly. CHEST EXAMINATION: Trachea is central. Symmetrical expansion.Patient does have right basilar crackles and diminished sounds. No wheezing or rhonchi.. CARDIAC: Normal S1, S2 with no gallops. No murmurs ABDOMEN: Soft. Bowel sounds normal. No organomegaly. No abdominal bruits. Extremities: Bilateral 3+ pitting edema. No clubbing or cyanosis Neurologically awake, alert, oriented x3 with well-coordinated movements. No focal deficits noted Skin: No rash or skin lesions. Psychiatric: Cooperative. Nonsuicidal Musculoskeletal: No joint swelling or deformity. Normal range of motion. - Labs CBC & Chem 7: 07/04/21 08:17 07/04/21 08:17 Labs: Abnormal Lab Results - Last 24 Hours (Table) 07/02/21 07/02/21 07/03/21 Range/Units 16:45 16:45 11:23 RBC 3.38 L 3.39 L (4.30-5.90) m/uL Hgb 11.0 L 10.9 L (13.0-17.5) gm/dL Hct 33.4 L 34.9 L (39.0-53.0) % MCV 102.9 H (80.0-100.0) fL Plt Count 118 L 141 L (150-450) k/uL Lymphocytes # 0.5 L 0.6 L (1.0-4.8) k/uL BUN 82 H (9-20) mg/dL Creatinine 3.61 H (0.66-1.25) mg/dL Glucose 109 H (74-99) mg/dL 07/03/21 Range/Units 11:23 RBC (4.30-5.90) m/uL Hgb (13.0-17.5) gm/dL Hct (39.0-53.0) % MCV (80.0-100.0) fL Plt Count (150-450) k/uL Lymphocytes # (1.0-4.8) k/uL BUN 80 H (9-20) mg/dL Creatinine 4.11 H (0.66-1.25) mg/dL Glucose (74-99) mg/dL Assessment and Plan Assessment: Acute on chronic CHF with systolic function ejection fraction 30 to 35% Dilated cardiomyopathy History of AICD placement Persistant atrial fibrillation. Currently not on anticoagulation due to prior hx of GI bleed. Acute on chronic kidney disease stage III baseline creatinine around 1.8 Hypertension Hyperlipidemia DVT prophylaxis with heparin subcu Plan: Patient will be continued on telemetry monitoring. Troponin -. Continue with IV Lasix 40 mg every 8 hourly and monitor renal function closely. Will initiate Coreg once blood pressure is stable. Cardiology and nephrology was consulted. Continue to follow closely. Time with Patient: Greater than 30
--- NOTE | 2021-07-04 22:52 | P.PN ---
Subjective Progress Note Date: 07/04/21 Principal diagnosis: Acute CHF exacerbation Patient is a 80-year-old male with a known history of hypertension, history of CA, chronic kidney disease stage III, history of AICD placement in 2009 and bilateral carotid endarterectomy was sent to ER from [facility] [employer] office for ev aluation of acute CHF. Previous 2D echocardiogram showed ejection fraction 30 to 35%.Apparently patient has been gaining weight about 20 LBS during the last 1 month and also found to have increasing leg swelling and increased abdominal girth. Patient is also having shortness of breath. Patient was sent to ER for evaluation. Otherwise patient denied any cough or sputum production. No fever no chills. No nausea vomiting or abdominal pain or diarrhea. No dysuria or hematuria. Laboratory showed WBC 7.9 hemoglobin 11.0 and platelets 118 BUN 82 and creatinine 3.61 liver enzymes are not elevated and troponin 0 0.033 and proBNP 94221 COVID-19 PCR not detected Chest x-ray showed nodular density right upper lobe. Ill-definition of the right hemidiaphragm could reflect underlying effusion or underlying infiltrate. Present evidence of cardiomegaly without CHF. EKG showed atrial fibrillation with PVCs. 07/03/2021 Patient is currently resting in the bed. Breathing status is better. Leg swe lling is also improving. Patient is being current on IV Lasix 40 mg every 8 hourly. No complaints of chest pain. Patient feels better. Denies any nausea vomiting abdominal pain or diarrhea. Cardiology is on board. Laboratory data showed WBC 8.8 hemoglobin 10.9 and platelets 141 BUN 18 creatinine 4.11 07/04/2021 Patient is currently resting in the bed. Awake alert and oriented x3. Leg swelling is improving. No complaints of chest pain or shortness of breath. No headache or dizziness or lightheadedness. Lasix dose reduced to 40 mg every 12 and Coreg 12.5 mg twice daily. Patient has been afebrile. Ultrasound of the bladder showed there is no evidence for hydronephrosis. No nephrolithiasis. Renal cyst. Laboratory showed BUN 85 and creatinine 4.11 hemoglobin 10.6 and platelets 114 Nephrology and cardiology is on board. Current medications reviewed. Objective - Vital Signs Vital signs: Vital Signs Temp 97.8 F 07/04/21 20:00 Pulse 88 07/04/21 20:00 Resp 18 12/05/21 20:00 BP 126/58 07/04/21 20:00 Pulse Ox 99 07/04/21 20:00 Intake & Output 07/04/21 07/04/21 07/05/21 06:59 18:59 06:59 Intake Total 1720 Output Total 950 1600 Balance -950 120 Weight 126 kg Intake: IV 20 Invasive Line 1 20 Oral 1700 Output: Urine 950 1600 Uretheral (Ryan) 1600 Other: Voiding Method Indwelling Catheter Indwelling Catheter - Exam PHYSICAL EXAMINATION: Patient is lying in the bed comfortably, no acute distress, awake alert and oriented.. HEENT: Normocephalic. Neck is supple. Pupils reactive. Nostrils clear. Oral cavity is moist. Neck reveals no JVD, carotid bruits, or thyromegaly. CHEST EXAMINATION: Trachea is central. Symmetrical expansion.Patient does have right basilar crackles and diminished sounds. No wheezing or rhonchi.. CARDIAC: Normal S1, S2 with no gallops. No murmurs ABDOMEN: Soft. Bowel sounds normal. No organomegaly. No abdominal bruits. Extremities: Bilateral 3+ pitting edema. No clubbing or cyanosis Neurologically awake, alert, oriented x3 with well-coordinated movements. No focal deficits noted Skin: No rash or skin lesions. Psychiatric: Cooperative. Nonsuicidal Musculoskeletal: No joint swelling or deformity. Normal range of motion. - Labs CBC & Chem 7: 07/04/21 08:17 07/04/21 08:17 Labs: Abnormal Lab Results - Last 24 Hours (Table) 07/04/21 07/04/21 Range/Units 08:17 08:17 RBC 3.30 L (4.30-5.90) m/uL Hgb 10.6 L (13.0-17.5) gm/dL Hct 33.5 L (39.0-53.0) % MCV 101.5 H (80.0-100.0) fL Plt Count 114 L (150-450) k/uL Lymphocytes # 0.5 L (1.0-4.8) k/uL Sodium 136 L (137-145) mmol/L BUN 85 H (9-20) mg/dL Creatinine 4.11 H (0.66-1.25) mg/dL Glucose 103 H (74-99) mg/dL Assessment and Plan Assessment: Acute on chronic CHF with systolic function ejection fraction 30 to 35% Dilated cardiomyopathy History of AICD placement Persistant atrial fibrillation. Currently not on anticoagulation due to prior hx of GI bleed. Acute on chronic kidney disease stage III baseline creatinine around 1.8 Hypertension Hyperlipidemia DVT prophylaxis with heparin subcu Plan: Patient will be continued on telemetry monitoring. Troponin -. Continue with IV Lasix 40 mg every 12 hourly and monitor renal function closely. Coreg 12.5 mg BID. Follow-up renal function. Patient was previously anticoagulation currently not comfortable taking blood thinners due to prior history of GI bleed. Cardiology and nephrology was consulted. Continue to follow closely. Time with Patient: Greater than 30
[2021-07-05] MEDS: carvediloL 12.5 MG TAB PO SCH ×2 (06:00→17:01)
[2021-07-05] MEDS: LEVOTHYROXINE 50 MCG TAB PO SCH (06:00)
[2021-07-05] MEDS: ASPIRIN 81 MG PO SCH (08:04)
[2021-07-05] MEDS: MULTIVITAMINS, THERA 1 EACH TAB PO SCH (08:04)
[2021-07-05] MEDS: allopurinoL 100 MG TAB PO SCH (08:04)
[2021-07-05] MEDS: HEPARIN SODIUM,PORCINE/PF 5,000 UNIT/0.5 ML SYRINGE SQ SCH ×2 (08:04→17:01)
[2021-07-05] MEDS: FUROSEMIDE 10 MG/ML 4 ML VIAL IV SCH ×2 (08:05→22:18)
[2021-07-05 10:13] LABS: Basophils % (A) 1 %; Eosinophils # (A) 0.2 k/uL (0-0.7); Eosinophils % (A) 3 %; HCT 32.2 % (39.0-53.0); HGB 10.4 gm/dL (13.0-17.5); Lymphocytes # (A) 0.5 k/uL (1.0-4.8); Lymphocytes % (A) 7 %; MCH 32.3 pg (25.0-35.0); MCHC 32.5 g/dL (31.0-37.0); MCV 99.5 fL (80.0-100.0); Mean Platelet Volume 9.4; Monocytes # (A) 0.5 k/uL (0-1.0); Monocytes % (A) 7 %; Neutrophils # (A) 6.1 k/uL (1.3-7.7); Neutrophils % (A) 81 %; Platelet Count 114 k/uL (150-450); RBC 3.23 m/uL (4.30-5.90); RDW 14.1 % (11.5-15.5); WBC 7.5 k/uL (3.8-10.6)
[2021-07-05 10:30] LABS: Calcium 8.7 mg/dL (8.4-10.2); Potassium 4.3 mmol/L (3.5-5.1)
--- NOTE | 2021-07-05 11:54 | P.PN ---
Subjective Patient is seen in follow-up for acute kidney injury on chronic kidney disease. Patient has chronic kidney disease stage IV secondary to nephrosclerosis with baseline creatinine in the range of 2-2.4. Renal function today stable. Good urine output. On IV Lasix. Denies chest pain or shortness of breath. Vital signs are stable. General: The patient appeared well nourished and normally developed. HEENT: Head exam is unremarkable. LUNGS: Breath sounds decreased. HEART: Rate and Rhythm are regular. ABDOMEN: Soft, no distention. EXTREMITITES: 1+ edema. Objective - Vital Signs Vital signs: Vital Signs Temp 98.4 F 07/05/21 08:02 Pulse 73 07/05/21 08:02 Resp 18 07/05/21 08:02 BP 106/57 07/05/21 08:02 Pulse Ox 95 07/05/21 08:02 Intake & Output 07/04/21 07/05/21 07/05/21 18:59 06:59 18:59 Intake Total 1720 240 Output Total 1600 1150 150 Balance 120 -1150 90 Weight 125.7 kg Intake: IV 20 Invasive Line 1 20 Oral 1700 240 Output: Urine 1600 1150 150 Uretheral (Ryan) 1600 150 Other: Voiding Method Indwelling Catheter Indwelling Catheter Indwelling Catheter - Labs CBC & Chem 7: 07/05/21 08:50 07/05/21 08:50 Labs: Abnormal Lab Results - Last 24 Hours (Table) 07/05/21 07/05/21 Range/Units 08:50 08:50 RBC 3.23 L (4.30-5.90) m/uL Hgb 10.4 L (13.0-17.5) gm/dL Hct 32.2 L (39.0-53.0) % Plt Count 114 L (150-450) k/uL Lymphocytes # 0.5 L (1.0-4.8) k/uL Sodium 135 L (137-145) mmol/L BUN 82 H (9-20) mg/dL Creatinine 3.95 H (0.66-1.25) mg/dL Glucose 145 H (74-99) mg/dL Assessment and Plan Plan: Assessment: 1. Acute kidney injury secondary to ATN secondary to cardiorenal syndrome. No hydronephrosis noted kidney ultrasound. UA benign. Renal function stable. Creatinine 3.95 today. 2. Chronic kidney disease stage IV secondary to nephrosclerosis with baseline creatinine the range of 2-2.4. 3. Acute on chronic systolic CHF. 4. Fluid overload. Plan: Maintain IV Lasix. Avoid nephrotoxins. Continue to monitor renal function and urine output.
--- NOTE | 2021-07-05 13:01 | P.PN ---
Subjective Progress Note Date: 07/05/21 HISTORY OF PRESENT ILLNESS: This is a 80-year-old male who follows in the office with Dr. Grover. Patient is admitted to the hospital secondary to CHF exacerbation. Patient examined this morning at the bedside. Patient denies chest pain or pressure. He reports mild shortness of breath this morning. He remains on IV Lasix. Creatinine 3.95 today, down from 4.11. Nephrology is following. PHYSICAL EXAM: VITAL SIGNS: Reviewed. GENERAL: Well-developed in no acute distress. NECK: Supple. No JVD or thyromegaly LUNGS: Respirations even and unlabored. Lungs diminished with bibasilar rales. HEART: Regular rate and rhythm. S1 and S2 heard. EXTREMITIES: Normal range of motion. No clubbing or cyanosis. Peripheral pulses intact. Trace lower extremity edema ASSESSMENT: Acute exacerbation of chronic systolic congestive heart failure Acute kidney injury Chronic kidney disease Hypertension Hyperlipidemia PLAN: Continue current cardiac medications Continue IV lasix per nephrology Monitor kidney function Accurate I&O Daily weights Further recommendations pending patient course Nurse practitioner note has been reviewed by physician. Signing provider agrees with the documented findings, assessment, and plan of care. Objective - Vital Signs Vital signs: Vital Signs Temp 98.4 F 07/05/21 08:02 Pulse 73 07/05/21 08:02 Resp 18 07/05/21 08:02 BP 106/57 07/05/21 08:02 Pulse Ox 95 07/05/21 08:02 Intake & Output 07/04/21 07/05/21 07/05/21 18:59 06:59 18:59 Intake Total 1720 240 Output Total 1600 1150 150 Balance 120 -1150 90 Weight 125.7 kg Intake: IV 20 Invasive Line 1 20 Oral 1700 240 Output: Urine 1600 1150 150 Uretheral (Ryan) 1600 150 Other: Voiding Method Indwelling Catheter Indwelling Catheter Indwelling Catheter - Labs CBC & Chem 7: 07/05/21 08:50 07/05/21 08:50 Labs: Abnormal Lab Results - Last 24 Hours (Table) 07/05/21 07/05/21 Range/Units 08:50 08:50 RBC 3.23 L (4.30-5.90) m/uL Hgb 10.4 L (13.0-17.5) gm/dL Hct 32.2 L (39.0-53.0) % Plt Count 114 L (150-450) k/uL Lymphocytes # 0.5 L (1.0-4.8) k/uL Sodium 135 L (137-145) mmol/L BUN 82 H (9-20) mg/dL Creatinine 3.95 H (0.66-1.25) mg/dL Glucose 145 H (74-99) mg/dL
[2021-07-05] MEDS: MELATONIN 5 MG TABLET PO SCH (22:18)
[2021-07-05] MEDS: ATORVASTATIN 10 MG TAB PO SCH (22:18)
[2021-07-06] MEDS: HEPARIN SODIUM,PORCINE/PF 5,000 UNIT/0.5 ML SYRINGE SQ SCH ×4 (00:01→22:43)
[2021-07-06] MEDS: carvediloL 12.5 MG TAB PO SCH ×2 (06:43→18:33)
[2021-07-06] MEDS: LEVOTHYROXINE 50 MCG TAB PO SCH (06:44)
[2021-07-06 06:53] LABS: Calcium 8.6 mg/dL (8.4-10.2); Magnesium 2.4 mg/dL (1.6-2.3); Potassium 4.5 mmol/L (3.5-5.1)
[2021-07-06] MEDS: FUROSEMIDE 10 MG/ML 4 ML VIAL IV SCH (07:48)
[2021-07-06] MEDS: MULTIVITAMINS, THERA 1 EACH TAB PO SCH (07:48)
[2021-07-06] MEDS: allopurinoL 100 MG TAB PO SCH (07:48)
[2021-07-06] MEDS: ASPIRIN 81 MG PO SCH (07:48)
--- NOTE | 2021-07-06 10:03 | P.PN ---
Subjective Patient is seen in follow-up for acute kidney injury on chronic kidney disease. Patient has chronic kidney disease stage IV secondary to nephrosclerosis with baseline creatinine in the range of 2-2.4. Renal function a little better. Good urine output. On IV Lasix. Denies chest pain or shortness of breath. Vital signs are stable. General: The patient appeared well nourished and normally developed. HEENT: Head exam is unremarkable. LUNGS: Breath sounds decreased. HEART: Rate and Rhythm are regular. ABDOMEN: Soft, no distention. EXTREMITITES: 1+ edema. Objective - Vital Signs Vital signs: Vital Signs Temp 97.2 F L 07/06/21 07:30 Pulse 73 07/06/21 07:30 Resp 18 07/06/21 07:30 BP 118/67 07/06/21 07:30 Pulse Ox 95 07/06/21 07:30 Intake & Output 07/05/21 07/06/21 07/06/21 18:59 06:59 18:59 Intake Total 1090 280 Output Total 750 800 200 Balance 340 -800 80 Weight 125.6 kg Intake: IV 10 20 Invasive Line 2 10 20 Oral 1080 260 Output: Urine 750 800 200 Uretheral (Ryan) 750 200 Other: Voiding Method Indwelling Catheter Indwelling Catheter Indwelling Catheter - Labs CBC & Chem 7: 07/05/21 08:50 07/06/21 05:48 Labs: Abnormal Lab Results - Last 24 Hours (Table) 07/05/21 07/05/21 07/06/21 Range/Units 08:50 08:50 05:48 RBC 3.23 L (4.30-5.90) m/uL Hgb 10.4 L (13.0-17.5) gm/dL Hct 32.2 L (39.0-53.0) % Plt Count 114 L (150-450) k/uL Lymphocytes # 0.5 L (1.0-4.8) k/uL Sodium 135 L 134 L (137-145) mmol/L BUN 82 H 79 H (9-20) mg/dL Creatinine 3.95 H 3.66 H (0.66-1.25) mg/dL Glucose 145 H (74-99) mg/dL Magnesium 2.4 H (1.6-2.3) mg/dL Assessment and Plan Plan: Assessment: 1. Acute kidney injury secondary to ATN secondary to cardiorenal syndrome. No hydronephrosis noted kidney ultrasound. UA benign. Renal function a little better - creatinine 3.66 today. 2. Chronic kidney disease stage IV secondary to nephrosclerosis with baseline creatinine the range of 2-2.4. 3. Acute on chronic systolic CHF. 4. Fluid overload. Improved with diuresis. Plan: Change IV Lasix to oral torsemide. Avoid nephrotoxins. Continue to monitor renal function and urine output. Follow-up echocardiogram. Low-salt diet. Patient will need to follow up outpatient in 1 week. Repeat BMP and magnesium level 2-3 days postdischarge.
--- NOTE | 2021-07-06 10:13 | P.PN ---
Subjective Progress Note Date: 07/05/21 Principal diagnosis: Acute CHF exacerbation Patient is a 80-year-old male with a known history of hypertension, history of [place], chronic kidney disease stage III, history of AICD placement in 2009 and bilateral carotid endarterectomy was sent to ER from [employer] office for ev aluation of acute CHF. Previous 2D echocardiogram showed ejection fraction 30 to 35%.Apparently patient has been gaining weight about 20 LBS during the last 1 month and also found to have increasing leg swelling and increased abdominal girth. Patient is also having shortness of breath. Patient was sent to ER for evaluation. Otherwise patient denied any cough or sputum production. No fever no chills. No nausea vomiting or abdominal pain or diarrhea. No dysuria or hematuria. Laboratory showed WBC 7.9 hemoglobin 11.0 and platelets 118 BUN 82 and creatinine 3.61 liver enzymes are not elevated and troponin 0 0.033 and proBNP [id number] COVID-19 PCR not detected Chest x-ray showed nodular density right upper lobe. Ill-definition of the right hemidiaphragm could reflect underlying effusion or underlying infiltrate. Present evidence of cardiomegaly without CHF. EKG showed atrial fibrillation with PVCs. 07/03/2021 Patient is currently resting in the bed. Breathing status is better. Leg swe lling is also improving. Patient is being current on IV Lasix 40 mg every 8 hourly. No complaints of chest pain. Patient feels better. Denies any nausea vomiting abdominal pain or diarrhea. Cardiology is on board. Laboratory data showed WBC 8.8 hemoglobin 10.9 and platelets 141 BUN 18 creatinine 4.11 07/04/2021 Patient is currently resting in the bed. Awake alert and oriented x3. Leg swelling is improving. No complaints of chest pain or shortness of breath. No headache or dizziness or lightheadedness. Lasix dose reduced to 40 mg every 12 and Coreg 12.5 mg twice daily. Patient has been afebrile. Ultrasound of the bladder showed there is no evidence for hydronephrosis. No nephrolithiasis. Renal cyst. Laboratory showed BUN 85 and creatinine 4.11 hemoglobin 10.6 and platelets 114 Nephrology and cardiology is on board. 07/05/2021 Patient is currently resting in bed. Patient was admitted to the hospital due to acute CHF exacerbation Awake alert and oriented 3. Bilateral lower activity swelling is improving. Patient is being continued on IV Lasix and also Correctol 0.5 mg twice a day. Laboratory data showed BUN 82 and creatinine down to 3.95 today. Nephrology and cardiology on board. Denied any complaints of nausea or vomiting. No fever no chills. Monitor I and O's Patient has been afebrile. No complaints of chest pain or worsening shortness of breath. Current medications reviewed. Objective - Vital Signs Vital signs: Vital Signs Temp 98.3 F 07/05/21 17:00 Pulse 78 07/05/21 17:00 Resp 18 07/05/21 17:00 BP 115/60 07/05/21 17:00 Pulse Ox 97 07/05/21 17:00 Intake & Output 07/05/21 07/05/21 07/06/21 06:59 18:59 06:59 Intake Total 1090 Output Total 1150 750 Balance -1150 340 Weight 125.7 kg Intake: IV 10 Invasive Line 2 10 Oral 1080 Output: Urine 1150 750 Uretheral (Ryan) 750 Other: Voiding Method Indwelling Catheter Indwelling Catheter - Exam PHYSICAL EXAMINATION: Patient is lying in the bed comfortably, no acute distress, awake alert and oriented.. HEENT: Normocephalic. Neck is supple. Pupils reactive. Nostrils clear. Oral cavity is moist. Neck reveals no JVD, carotid bruits, or thyromegaly. CHEST EXAMINATION: Trachea is central. Symmetrical expansion.Patient does have right basilar crackles and diminished sounds. No wheezing or rhonchi.. CARDIAC: Normal S1, S2 with no gallops. No murmurs ABDOMEN: Soft. Bowel sounds normal. No organomegaly. No abdominal bruits. Extremities: Bilateral 2+ pitting edema. No clubbing or cyanosis Neurologically awake, alert, oriented x3 with well-coordinated movements. No focal deficits noted Skin: No rash or skin lesions. Psychiatric: Cooperative. Nonsuicidal Musculoskeletal: No joint swelling or deformity. Normal range of motion. - Labs CBC & Chem 7: 07/05/21 08:50 07/06/21 05:48 Labs: Abnormal Lab Results - Last 24 Hours (Table) 07/05/21 07/05/21 Range/Units 08:50 08:50 RBC 3.23 L (4.30-5.90) m/uL Hgb 10.4 L (13.0-17.5) gm/dL Hct 32.2 L (39.0-53.0) % Plt Count 114 L (150-450) k/uL Lymphocytes # 0.5 L (1.0-4.8) k/uL Sodium 135 L (137-145) mmol/L BUN 82 H (9-20) mg/dL Creatinine 3.95 H (0.66-1.25) mg/dL Glucose 145 H (74-99) mg/dL Assessment and Plan Assessment: Acute on chronic CHF with systolic function ejection fraction 30 to 35% Dilated cardiomyopathy History of AICD placement Persistant atrial fibrillation. Currently not on anticoagulation due to prior hx of GI bleed. Acute on chronic kidney disease stage III baseline creatinine around 1.8 Hypertension Hyperlipidemia DVT prophylaxis with heparin subcu Plan: Patient will be continued on telemetry monitoring. Troponin -. Continue with IV Lasix 40 mg every 12 hourly and monitor renal function closely. Coreg 12.5 mg BID. Follow-up renal function. Patient was previously anticoagulation currently not comfortable taking blood thinners due to prior history of GI bleed. Cardiology and nephrology was consulted. Continue to follow closely.
--- NOTE | 2021-07-06 11:30 | ECHOF ---
Referral Reason:LV function, CHF MEASUREMENTS -------- HEIGHT: 182.9 cm WEIGHT: 123.8 kg BP: IVSd: 1.3 cm (0.6 - 1.1) LVIDd: 5.7 cm (3.9 - 5.3) LVPWd: 1.5 cm (0.6 - 1.1) EDV(Teich): 160 ml IVSs: 1.7 cm LVIDs: 4.7 cm LVPWs: 1.6 cm %IVS Thck: 32 % ESV(Teich): 101 ml EF(Teich): 37 % %FS: 18 % SV(Teich): 59 ml RVIDd: 3.9 cm (< 3.3) LALs A4C: 7.4 cm LAAs A4C: 32.0 cm LAESV A-L A4C: 118 ml LAESV MOD A4C: 114 ml LALs A2C: 7.1 cm LAAs A2C: 32.9 cm LAESV A-L A2C: 130 ml LAESV MOD A2C: 125 ml LAESV(A-L): 126 ml LAESV Index (A-L): 51.96 ml/m Ao Diam: 4.2 cm (2.0 - 3.7) LA Diam: 5.3 cm (2.7 - 3.8) AV Cusp: 2.3 cm (1.5 - 2.6) EPSS: 2.9 cm AV Vmax: 0.99 m/s AV maxP.88 mmHg AR Vmax: 3.89 m/s AR maxP.40 mmHg AR PHT: 1000 ms AR Dec Time: 3448 ms AR Dec Chaves: 1.1 m/s TR Vmax: 2.78 m/s TR maxP.86 mmHg RAP: 5.00 mmHg RVSP: 35.86 mmHg MV EF SLOPE: 41.66 mm/s (70 - 150) MV EXCURSION: 15.86 mm (> 18.000) FINDINGS -------- Paced rhythm. This was a technically good study. Left ventricular wall thickness is normal. There is normal global left ventricular contractility. Overall left ventricular systolic function is severely impaired with, an EF < 20%. The right ventricle is normal in size. LA is severely dilated >40 ml/m2 The right atrial size is normal. There is mild aortic valve sclerosis. There is mild aortic regurgitation. [id number] mitral regurgitation is present. Mild tricuspid regurgitation present. There is mild pulmonary hypertension. The right ventricular systolic pressure, as measured by Doppler, is 35.86mmHg. Trace/mild (physiologic) pulmonic regurgitation. There is a small, generalized pericardial effusion present. CONCLUSIONS -------- 1. Left ventricular wall thickness is normal. 2. There is normal global left ventricular contractility. 3. Overall left ventricular systolic function is severely impaired with, an EF < 20%. 4. The right ventricle is normal in size. 5. LA is severely dilated >40 ml/m2 6. The right atrial size is normal. 7. There is mild aortic valve sclerosis. 8. There is mild aortic regurgitation. 9. [id number]-eutftlmi mitral regurgitation is present. 10. Mild tricuspid regurgitation present. 11. There is mild pulmonary hypertension. 12. The right ventricular systolic pressure, as measured by Doppler, is 35.86mmHg. 13. Trace/mild (physiologic) pulmonic regurgitation. 14. There is a small, generalized pericardial effusion present. [employer] OPERATOR: Irina Epps RDCS
--- NOTE | 2021-07-06 12:41 | P.PN ---
Subjective Progress Note Date: 07/06/21 HISTORY OF PRESENT ILLNESS: This is a 80-year-old male who follows in the office with Dr. Grover. Patient is admitted to the hospital secondary to CHF exacerbation. Patient examined this morning at the bedside. Patient denies chest pain or pressure. He reports mild shortness of breath this morning. He remains on IV Lasix. Creatinine 3.95 today, down from 4.11. Nephrology is following. 07/06/2021 Patient examined this morning at the bedside. Patient denies chest pain or pr essure. He reports mild shortness of breath. He remains on nasal cannula with oxygen saturations greater than 92%. Patient has been switched from IV Lasix to oral Demadex per nephrology. Patient's creatinine slightly improved today at 3.66, down from 3.95. PHYSICAL EXAM: VITAL SIGNS: Reviewed. GENERAL: Well-developed in no acute distress. NECK: Supple. No JVD or thyromegaly LUNGS: Respirations even and unlabored. Lungs diminished with bibasilar rales. HEART: Regular rate and rhythm. S1 and S2 heard. EXTREMITIES: Normal range of motion. No clubbing or cyanosis. Peripheral pulses intact. Trace lower extremity edema ASSESSMENT: Acute exacerbation of chronic systolic congestive heart failure Acute kidney injury Chronic kidney disease Hypertension Hyperlipidemia PLAN: Continue current cardiac medications Continue diuretics per nephrology Monitor kidney function Accurate I&O Daily weights Further recommendations pending patient course Nurse practitioner note has been reviewed by physician. Signing provider agrees with the documented findings, assessment, and plan of care. Objective - Vital Signs Vital signs: Vital Signs Temp 97.2 F L 07/06/21 07:30 Pulse 73 07/06/21 07:30 Resp 18 07/06/21 07:30 BP 118/67 07/06/21 07:30 Pulse Ox 95 07/06/21 07:30 Intake & Output 07/05/21 07/06/21 07/06/21 18:59 06:59 18:59 Intake Total 1090 280 Output Total 750 800 200 Balance 340 -800 80 Weight 125.6 kg Intake: IV 10 20 Invasive Line 2 10 20 Oral 1080 260 Output: Urine 750 800 200 Uretheral (Ryan) 750 200 Other: Voiding Method Indwelling Catheter Indwelling Catheter Indwelling Catheter - Labs CBC & Chem 7: 07/05/21 08:50 07/06/21 05:48 Labs: Abnormal Lab Results - Last 24 Hours (Table) 07/05/21 07/06/21 Range/Units 08:50 05:48 Sodium 134 L (137-145) mmol/L BUN 79 H (9-20) mg/dL Creatinine 3.66 H (0.66-1.25) mg/dL Magnesium 2.4 H (1.6-2.3) mg/dL RBC Folate 1,246 H (280 - 791) ng/mL
[2021-07-06] MEDS: TAMSULOSIN 0.4 MG CAP.ER.24H PO SCH (12:49)
[2021-07-06] MEDS: MELATONIN 5 MG TABLET PO SCH (20:38)
[2021-07-06] MEDS: ATORVASTATIN 10 MG TAB PO SCH (20:38)
[2021-07-07] MEDS: carvediloL 12.5 MG TAB PO SCH ×2 (06:23→16:20)
[2021-07-07] MEDS: LEVOTHYROXINE 50 MCG TAB PO SCH (06:23)
[2021-07-07 08:07] LABS: Calcium 8.9 mg/dL (8.4-10.2); Magnesium 2.3 mg/dL (1.6-2.3); Potassium 4.2 mmol/L (3.5-5.1)
[2021-07-07] MEDS: allopurinoL 100 MG TAB PO SCH (08:24)
[2021-07-07] MEDS: HEPARIN SODIUM,PORCINE/PF 5,000 UNIT/0.5 ML SYRINGE SQ SCH ×2 (08:24→16:19)
[2021-07-07] MEDS: MULTIVITAMINS, THERA 1 EACH TAB PO SCH (08:25)
[2021-07-07] MEDS: ASPIRIN 81 MG PO SCH (08:25)
[2021-07-07] MEDS: TAMSULOSIN 0.4 MG CAP.ER.24H PO SCH (08:25)
[2021-07-07 08:29] VITALS: RESP 16
[2021-07-07] MEDS ORDERED: TORSEMIDE 20 MG TAB PO SCH (09:00)
--- NOTE | 2021-07-07 11:33 | P.PN ---
Subjective Patient is seen in follow-up for acute kidney injury on chronic kidney disease. Patient has chronic kidney disease stage IV secondary to nephrosclerosis with baseline creatinine in the range of 2-2.4. Renal function is slightly better. Good urine output. On oral diuretics. Denies chest pain or shortness of breath. Vital signs are stable. General: The patient appeared well nourished and normally developed. HEENT: Head exam is unremarkable. LUNGS: Breath sounds decreased. HEART: Rate and Rhythm are regular. ABDOMEN: Soft, no distention. EXTREMITITES: Trace edema. Objective - Vital Signs Vital signs: Vital Signs Temp 97.9 F 07/07/21 08:20 Pulse 75 07/07/21 08:20 Resp 16 07/07/21 08:20 BP 110/60 07/07/21 08:20 Pulse Ox 99 07/07/21 08:20 Intake & Output 07/06/21 07/07/21 07/07/21 18:59 06:59 18:59 Intake Total 780 Output Total 200 Balance 580 Weight 125.7 kg Intake: IV 40 Invasive Line 2 40 Oral 740 Output: Urine 200 Uretheral (Ryan) 200 Other: Voiding Method Indwelling Catheter Indwelling Catheter Indwelling Catheter - Labs CBC & Chem 7: 07/05/21 08:50 07/07/21 06:53 Labs: Abnormal Lab Results - Last 24 Hours (Table) 07/05/21 07/07/21 Range/Units 08:50 06:53 Sodium 134 L (137-145) mmol/L BUN 81 H (9-20) mg/dL Creatinine 3.39 H (0.66-1.25) mg/dL Glucose 102 H (74-99) mg/dL RBC Folate 1,246 H (280 - 791) ng/mL Assessment and Plan Plan: Assessment: 1. Acute kidney injury secondary to ATN secondary to cardiorenal syndrome. No hydronephrosis noted kidney ultrasound. UA benign. Renal function slightly better - creatinine 3.39 today. 2. Chronic kidney disease stage IV secondary to nephrosclerosis with baseline creatinine the range of 2-2.4. 3. Acute on chronic systolic CHF with ejection fraction of less than 20%. 4. Fluid overload. Improved with diuresis. Plan: Maintain oral torsemide. Avoid nephrotoxins. Continue to monitor renal function and urine output. Low-salt diet. Patient will need to follow up outpatient in 1 week. Repeat BMP and magnesium level 2-3 days postdischarge.
[2021-07-07 11:51] VITALS: PULSE 72
--- NOTE | 2021-07-07 13:55 | P.PN ---
Subjective Progress Note Date: 07/07/21 HISTORY OF PRESENT ILLNESS: This is a 80-year-old male who follows in the office with Dr. Grover. Patient is admitted to the hospital secondary to CHF exacerbation. Patient examined this morning at the bedside. Patient denies chest pain or pressure. He reports mild shortness of breath this morning. He remains on IV Lasix. Creatinine 3.95 today, down from 4.11. Nephrology is following. 07/06/2021 Patient examined this morning at the bedside. Patient denies chest pain or pr essure. He reports mild shortness of breath. He remains on nasal cannula with oxygen saturations greater than 92%. Patient has been switched from IV Lasix to oral Demadex per nephrology. Patient's creatinine slightly improved today at 3.66, down from 3.95. 07/07/2021 Patient examined this morning at the bedside. Patient denies chest pain or pressure. He denies shortness of breath. He remains on oral diuretics. Creatinine 3.39 today, down from 3.66. Vital signs are stable. PHYSICAL EXAM: VITAL SIGNS: Reviewed. GENERAL: Well-developed in no acute distress. NECK: Supple. No JVD or thyromegaly LUNGS: Respirations even and unlabored. Lungs diminished. HEART: Regular rate and rhythm. S1 and S2 heard. EXTREMITIES: Normal range of motion. No clubbing or cyanosis. Peripheral pulses intact. Trace lower extremity edema ASSESSMENT: Acute exacerbation of chronic systolic congestive heart failure Acute kidney injury Chronic kidney disease Hypertension Hyperlipidemia PLAN: Continue current cardiac medications Continue diuretics per nephrology Monitor kidney function Accurate I&O Daily weights Further recommendations pending patient course Patient is stable for discharge from a cardiac standpoint Nurse practitioner note has been reviewed by physician. Signing provider agrees with the documented findings, assessment, and plan of care. Objective - Vital Signs Vital signs: Vital Signs Temp 97.8 F 07/07/21 11:00 Pulse 72 07/07/21 11:00 Resp 16 07/07/21 11:00 BP 96/61 07/07/21 11:00 Pulse Ox 95 07/07/21 11:00 Intake & Output 07/06/21 07/07/21 07/07/21 18:59 06:59 18:59 Intake Total 780 118 Output Total 200 200 Balance 580 -82 Weight 125.7 kg Intake: IV 40 Invasive Line 2 40 Oral 740 118 Output: Urine 200 200 Uretheral (Ryan) 200 Other: Voiding Method Indwelling Catheter Indwelling Catheter Indwelling Catheter # Voids 1 - Labs CBC & Chem 7: 07/05/21 08:50 07/07/21 06:53 Labs: Abnormal Lab Results - Last 24 Hours (Table) 07/07/21 Range/Units 06:53 Sodium 134 L (137-145) mmol/L BUN 81 H (9-20) mg/dL Creatinine 3.39 H (0.66-1.25) mg/dL Glucose 102 H (74-99) mg/dL
--- NOTE | 2021-07-07 15:22 | P.PN ---
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 Previous 2D echocardiogram showed ejection fraction 30 to 35%.Apparently patient has been gaining weight about 20 LBS during the last 1 month and also found to have increasing leg swelling and increased abdominal girth. Patient is also having shortness of breath. Patient was sent to ER for evaluation. Otherwise patient denied any cough or sputum production. No fever no chills. No nausea vomiting or abdominal pain or diarrhea. No dysuria or hematuria. Laboratory showed WBC 7.9 hemoglobin 11.0 and platelets 118 BUN 82 and creatinine 3.61 liver enzymes are not elevated and troponin 0 0.033 and proBNP 61105 COVID-19 PCR not detected Chest x-ray showed nodular density right upper lobe. Ill-definition of the right hemidiaphragm could reflect underlying effusion or underlying infiltrate. Present evidence of cardiomegaly without CHF. EKG showed atrial fibrillation with PVCs. 07/03/2021 Patient is currently resting in the bed. Breathing status is better. Leg swe lling is also improving. Patient is being current on IV Lasix 40 mg every 8 hourly. No complaints of chest pain. Patient feels better. Denies any nausea vomiting abdominal pain or diarrhea. Cardiology is on board. Laboratory data showed WBC 8.8 hemoglobin 10.9 and platelets 141 BUN 18 creatinine 4.11 07/04/2021 Patient is currently resting in the bed. Awake alert and oriented x3. Leg swelling is improving. No complaints of chest pain or shortness of breath. No headache or dizziness or lightheadedness. Lasix dose reduced to 40 mg every 12 and Coreg 12.5 mg twice daily. Patient has been afebrile. Ultrasound of the bladder showed there is no evidence for hydronephrosis. No nephrolithiasis. Renal cyst. Laboratory showed BUN 85 and creatinine 4.11 hemoglobin 10.6 and platelets 114 Nephrology and cardiology is on board. 07/05/2021 Patient is currently resting in bed. Patient was admitted to the hospital due to acute CHF exacerbation Awake alert and oriented 3. Bilateral lower activity swelling is improving. Patient is being continued on IV Lasix and also Correctol 0.5 mg twice a day. Laboratory data showed BUN 82 and creatinine down to 3.95 today. Nephrology and cardiology on board. Denied any complaints of nausea or vomiting. No fever no chills. Monitor I and O's Patient has been afebrile. No complaints of chest pain or worsening shortness of breath. 07/06/2021 Patient is currently sitting in a chair comfortably.. Patient denies chest pain or pressure. He reports mild shortness of breath. Leg swelling is much improved.. Patient has been switched from IV Lasix to oral Demadex per nephrology. Patient's creatinine slightly improved today at 3.66, down from 3.95. 2-D echocardiogram showed his ejection fraction less than 20% and severely dilated LA No nausea vomiting abdominal pain or diarrhea. Ryan catheter will be discontinued. No fever no chills. No cough is from production. Improving clinically. Current medications reviewed. Objective - Vital Signs Vital signs: Vital Signs Temp 97.2 F L 07/06/21 07:30 Pulse 73 07/06/21 07:30 Resp 18 07/06/21 07:30 BP 118/67 07/06/21 07:30 Pulse Ox 95 07/06/21 07:30 Intake & Output 07/05/21 07/06/21 07/06/21 18:59 06:59 18:59 Intake Total 1090 280 Output Total 750 800 200 Balance 340 -800 80 Weight 125.6 kg Intake: IV 10 20 Invasive Line 2 10 20 Oral 1080 260 Output: Urine 750 800 200 Uretheral (Ryan) 750 200 Other: Voiding Method Indwelling Catheter Indwelling Catheter Indwelling Catheter - Exam PHYSICAL EXAMINATION: Patient is lying in the bed comfortably, no acute distress, awake alert and oriented.. HEENT: Normocephalic. Neck is supple. Pupils reactive. Nostrils clear. Oral cavity is moist. Neck reveals no JVD, carotid bruits, or thyromegaly. CHEST EXAMINATION: Trachea is central. Symmetrical expansion.Patient does have right basilar crackles and diminished sounds. No wheezing or rhonchi.. CARDIAC: Normal S1, S2 with no gallops. No murmurs ABDOMEN: Soft. Bowel sounds normal. No organomegaly. No abdominal bruits. Extremities: Bilateral 2+ pitting edema. No clubbing or cyanosis Neurologically awake, alert, oriented x3 with well-coordinated movements. No focal deficits noted Skin: No rash or skin lesions. Psychiatric: Cooperative. Nonsuicidal Musculoskeletal: No joint swelling or deformity. Normal range of motion. - Labs CBC & Chem 7: 07/05/21 08:50 07/07/21 06:53 Labs: Abnormal Lab Results - Last 24 Hours (Table) 07/05/21 07/05/21 07/06/21 Range/Units 08:50 08:50 05:48 RBC 3.23 L (4.30-5.90) m/uL Hgb 10.4 L (13.0-17.5) gm/dL Hct 32.2 L (39.0-53.0) % Plt Count 114 L (150-450) k/uL Lymphocytes # 0.5 L (1.0-4.8) k/uL Sodium 135 L 134 L (137-145) mmol/L BUN 82 H 79 H (9-20) mg/dL Creatinine 3.95 H 3.66 H (0.66-1.25) mg/dL Glucose 145 H (74-99) mg/dL Magnesium 2.4 H (1.6-2.3) mg/dL Assessment and Plan Assessment: Acute on chronic CHF with systolic function ejection fraction less than 20%. 2- D echo cardiac was done on 07/05/2021. Dilated cardiomyopathy History of AICD placement Persistant atrial fibrillation. Currently not on anticoagulation due to prior hx of GI bleed. Acute on chronic kidney disease stage III baseline creatinine around 1.8 Hypertension Hyperlipidemia DVT prophylaxis with heparin subcu Plan: Patient will be continued on telemetry monitoring. Troponin -. Continued with IV Lasix 40 mg every 12 hourly and monitor renal function closely. Changed to torsemide area Coreg 12.5 mg BID. Follow-up renal function. Patient was previously anticoagulation currently not comfortable taking blood thinners due to prior history of GI bleed. Cardiology and nephrology was consulted. Continue to follow closely.
[2021-07-07 16:18] VITALS: BP 118/69; TEMP 98
== END 2021-07-07 16:35 | disposition home or self-care (01) | DRG 291 ==
LOC: EC 14:34 → 3SCARD 16:03
PROVIDERS: ADMIT Internal Medicine; ATTEND Internal Medicine
DX: I13.0 Hypertensive heart and chronic kidney disease with heart failure and stage 1 through stage 4 chronic kidney disease, or unspecified chronic kidney disease (principal); I50.23 Acute on chronic systolic (congestive) heart failure; N17.0 Acute kidney failure with tubular necrosis; R18.8 Other ascites; I48.19 Other persistent atrial fibrillation; N18.4 Chronic kidney disease, stage 4 (severe); I42.0 Dilated cardiomyopathy; Z20.822 Contact with and (suspected) exposure to COVID-19; E78.5 Hyperlipidemia, unspecified; I25.2 Old myocardial infarction; I49.3 Ventricular premature depolarization; R73.03 Prediabetes; R33.9 Retention of urine, unspecified; I25.10 Atherosclerotic heart disease of native coronary artery without angina pectoris; I08.0 Rheumatic disorders of both mitral and aortic valves; N28.1 Cyst of kidney, acquired; M19.90 Unspecified osteoarthritis, unspecified site; Z79.82 Long term (current) use of aspirin; Z79.890 Hormone replacement therapy; Z79.899 Other long term (current) drug therapy; Z77.090 Contact with and (suspected) exposure to asbestos; Z87.81 Personal history of (healed) traumatic fracture; Z87.39 Personal history of other diseases of the musculoskeletal system and connective tissue; Z87.11 Personal history of peptic ulcer disease; Z95.810 Presence of automatic (implantable) cardiac defibrillator; Z90.89 Acquired absence of other organs; Z96.653 Presence of artificial knee joint, bilateral; Z86.79 Personal history of other diseases of the circulatory system; Z82.49 Family history of ischemic heart disease and other diseases of the circulatory system
CPT/HCPCS: 36415; 71046; 76770; 80048; 80053; 81003; 82607; 82747; 83605; 83735; 83880; 84484; 85025; 85610; 85730; 87635; 93005; 93306; 99285

== ENCOUNTER → 2021-11-18 | Outpatient (CLI) | payer MEDICARE ==
[2021-11-18 23:21] LABS: Basophils # (A) 0.04 X 10*3/uL (0.00-0.10); Basophils % (A) 0.7 %; Eosinophils # (A) 0.23 X 10*3/uL (0.04-0.35); Eosinophils % (A) 4.3 %; HCT 32.9 % (39.6-50.0); HGB 10.4 g/dL (13.0-17.0); Immature Grans, Automated 0.2 %; Lymphocytes % (A) 11.2 %; MCH 32.5 pg (27.0-32.0); MCHC 31.6 g/dL (32.0-37.0); MCV 102.8 fL (80.0-97.0); Mean Platelet Volume 11.7 fL (9.5-12.2); Monocytes % (A) 11.2 %; NRBC Per 100 WBC 0 /100 WBCS (0.0-0.0); Neutrophils # (A) 3.87 X 10*3/uL (1.80-7.70); Neutrophils % (A) 72.4 %; Platelet Count 124 X 10*3/uL (140-440); WBC 5.35 X 10*3/uL (4.50-10.00)
[2021-11-18 23:41] LABS: % Iron Saturation 18.75 (15.00-50.00); African American GFR (CKD) 21.4 (60.0-200.0); Albumin 3.7 g/dL (3.8-4.9); Albumin/Globulin Ratio 1.83 (1.60-3.17); BUN/Creat Ratio 27.25 Ratio (12.00-20.00); Blood Urea Nitrogen 83.4 mg/dL (9.0-27.0); Calcium 9.3 mg/dL (8.7-10.3); Carbon Dioxide 26.3 mmol/L (20.0-27.5); Non-African American GFR(CKD) 18.4 (60.0-200.0); Potassium 4.6 mmol/L (3.5-5.5); Total Bilirubin 0.5 mg/dL (0.30-1.20); Total Protein 5.8 g/dL (6.2-8.2)
[2021-11-18 23:45] LABS: Hepatitis B Surface Antigen Nonreactive (Nonreactive); Hepatitis C IgG Antibody Nonreactive (Nonreactive)
[2021-11-19 00:13] LABS: Alpha Fetoprotein, Tumor Mkr <1.82 ng/mL (0.00-7.90)
== END | disposition home or self-care (01) ==
LOC: LABWHC1 15:56
PROVIDERS: ATTEND Internal Medicine Gastroenterology
DX: R18.8 Other ascites (principal)
CPT/HCPCS: 36415; 80053; 82103; 82105; 82728; 83516; 83540; 83550; 85025; 86038; 86803; 87340

== ENCOUNTER 2021-12-20 10:02 | Inpatient (IN) | payer MEDICARE ==
[2021-12-20] MEDS ORDERED: SODIUM CHLORIDE 0.9% 500 ML 500 ML IV STA (10:18)
--- NOTE | 2021-12-20 10:32 | ED ---
General Adult HPI - General Chief complaint: GI Bleed Stated complaint: abn labs Time Seen by Provider: 12/20/21 10:15 Source: patient, family, RN notes reviewed, old records reviewed Mode of arrival: wheelchair Limitations: no limitations - History of Present Illness Initial comments: 81-year-old male, alert and oriented 4, presents to the emergency room sent by his primary care doctor for a hemoglobin of 7.0. Patient has had multiple episodes of rectal bleeding since Monday. He was taking Eliquis for Afib but stopped that on Monday after his first episode. He does complain of intermittent lower abdominal pain. Patient's primary care doctor did send over office notes. He does have an appointment with Dr. Cobos scheduled this afternoon. He denies any chest pain or difficulty breathing at this time. He does have bilateral lower extremity edema. -: days(s) (4) Location: abdomen (Lower abdominal pain) Severity scale (1-10): 2 Consistency: intermittent Associated Symptoms: weakness, other (Rectal bleeding) - Related Data Home Medications Medication Instructions Recorded Confirmed Simvastatin [Zocor] 10 mg PO HS 07/09/14 12/20/21 Aspirin EC [Ecotrin Low Dose] 81 mg PO DAILY 09/05/16 12/20/21 Levothyroxine Sodium [Synthroid] 50 mcg PO HS 05/17/20 12/20/21 Cholecalciferol [Vitamin D3 (25 25 mcg PO DAILY 07/02/21 12/20/21 Mcg = 1000 Iu)] Febuxostat 40 mg PO DAILY 07/02/21 12/20/21 Multivitamins, Thera [Multivitamin 1 tab PO DAILY 07/02/21 12/20/21 (formulary)] Carvedilol [Coreg] 25 mg PO BID 12/20/21 12/20/21 Folic Acid 0.4 mg PO DAILY 12/20/21 12/20/21 Torsemide [Demadex] 20 mg PO DAILY 12/20/21 12/20/21 Torsemide [Demadex] 20 mg PO DAILY PRN 12/20/21 12/20/21 Allergies Allergy/AdvReac Type Severity Reaction Status Date / Time No Known Allergies Allergy Verified 12/20/21 12:47 Review of Systems ROS Statement: Those systems with pertinent positive or pertinent negative responses have been documented in the HPI. ROS Other: All systems not noted in ROS Statement are negative. 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 ANEMIA Last Myocardial Infarction Date:: UNK History of Any Multi-Drug Resistant Organisms: None Reported Past Surgical History: AICD, Heart Catheterization, Joint Replacement, Tonsillectomy Additional Past Surgical History / Comment(s): hussain knee replacements, HUSSAIN CAROTID ENDARTERECTOMY, Past Anesthesia/Blood Transfusion Reactions: No Reported Reaction Type of Cardiac Device: AICD Device Placement Date:: 2009 Past Psychological History: No Psychological Hx Reported Smoking Status: Never smoker Past Alcohol Use History: Rare Past Drug Use History: None Reported - Past Family History Father Additional Family Medical History / Comment(s): KILLED BY A TRAIN WHEN PT WAS AGE 9 Mother Family Medical History: No Reported History Additional Family Medical History / Comment(s): open heart surgery Sister(s) Family Medical History: Myocardial Infarction (RI) Additional Family Medical History / Comment(s): heart stents General Exam Limitations: no limitations General appearance: alert, in no apparent distress Head exam: Present: atraumatic, normocephalic Neck exam: Present: normal inspection, full ROM. Absent: tenderness, meningismus Respiratory exam: Present: normal lung sounds bilaterally, decreased breath sounds (Diminished at the bases). Absent: respiratory distress, chest wall tenderness Cardiovascular Exam: Present: regular rate GI/Abdominal exam: Present: soft. Absent: tenderness Rectal exam: Present: normal rectal tone. Absent: black stool, bloody stool, fecal impaction, mass, tenderness Extremities exam: Present: pedal edema (Bilateral lower extremity edema). Absent: calf tenderness Back exam: Present: normal inspection. Absent: tenderness, CVA tenderness (R), CVA tenderness (L) Neurological exam: Present: alert, oriented X3 Psychiatric exam: Present: normal affect, normal mood Course Vital Signs 12/20/21 12/20/21 10:06 13:00 Temperature 97.9 F Pulse Rate 69 68 Respiratory 18 20 Rate Blood Pressure 103/61 134/52 O2 Sat by Pulse 98 99 Oximetry - Reevaluation(s) Reevaluation #1: 12/20/21 10:44 Dr. Cobos's nurse practitioner at bedside as patient did have the appointment with Dr. Cobos this afternoon. Time: 10:44 EKG Findings - EKG Results: EKG: sinus rhythm (Ventricular rate is 71, QRS 0.146, QTC 0.446) EKG shows: atrial fibrillation Medical Decision Making - Medical Decision Making Patient presents with rectal bleeding since Monday. On exam patient's abdomen is soft and nontender. Vital signs are stable. Patient's hemoglobin is 8.2. With occult blood positive. He will be admitted to the hospital for GI bleed with consult to Dr. Cobos and nephrology. Patient is agreeable to admission. Case discussed with Dr. Cobos. - Lab Data Result diagrams: 12/20/21 11:02 12/20/21 11:02 Lab Results 12/20/21 12/20/21 12/20/21 Range/Units 11:02 11:02 11:02 WBC 5.5 (3.8-10.6) k/uL RBC 2.44 L (4.30-5.90) m/uL Hgb 8.2 L (13.0-17.5) gm/dL Hct 25.5 L (39.0-53.0) % MCV 104.5 H (80.0-100.0) fL MCH 33.5 (25.0-35.0) pg MCHC 32.1 (31.0-37.0) g/dL RDW 14.4 (11.5-15.5) % Plt Count 134 L (150-450) k/uL MPV 9.4 Neutrophils % 76 % Lymphocytes % 10 % Monocytes % 8 % Eosinophils % 3 % Basophils % 1 % Neutrophils # 4.2 (1.3-7.7) k/uL Lymphocytes # 0.6 L (1.0-4.8) k/uL Monocytes # 0.5 (0-1.0) k/uL Eosinophils # 0.2 (0-0.7) k/uL Basophils # 0.1 (0-0.2) k/uL Macrocytosis Moderate APTT 27.1 (22.0-30.0) sec Sodium 139 (137-145) mmol/L Potassium 4.2 (3.5-5.1) mmol/L Chloride 103 (98-107) mmol/L Carbon Dioxide 25 (22-30) mmol/L Anion Gap 11 mmol/L BUN 106 H* (9-20) mg/dL Creatinine 3.96 H (0.66-1.25) mg/dL Est GFR (CKD-EPI)AfAm 16 (>60 ml/min/1.73 sqM) Est GFR (CKD-EPI)NonAf 13 (>60 ml/min/1.73 sqM) Glucose 104 H (74-99) mg/dL Plasma Lactic Acid Julio (0.7-2.0) mmol/L Calcium 9.0 (8.4-10.2) mg/dL Magnesium 2.7 H (1.6-2.3) mg/dL Total Bilirubin 0.5 (0.2-1.3) mg/dL AST 28 (17-59) U/L ALT 18 (4-49) U/L Alkaline Phosphatase 70 (38-126) U/L Troponin I (0.000-0.034) ng/mL Total Protein 6.0 L (6.3-8.2) g/dL Albumin 3.7 (3.5-5.0) g/dL Stool Occult Blood (Negative) Blood Type Blood Type Recheck Bld Type Recheck Status Antibody Screen Spec Expiration Date 12/20/21 12/20/21 12/20/21 Range/Units 11:02 11:02 11:02 WBC (3.8-10.6) k/uL RBC (4.30-5.90) m/uL Hgb (13.0-17.5) gm/dL Hct (39.0-53.0) % MCV (80.0-100.0) fL MCH (25.0-35.0) pg MCHC (31.0-37.0) g/dL RDW (11.5-15.5) % Plt Count (150-450) k/uL MPV Neutrophils % % Lymphocytes % % Monocytes % % Eosinophils % % Basophils % % Neutrophils # (1.3-7.7) k/uL Lymphocytes # (1.0-4.8) k/uL Monocytes # (0-1.0) k/uL Eosinophils # (0-0.7) k/uL Basophils # (0-0.2) k/uL Macrocytosis APTT (22.0-30.0) sec Sodium (137-145) mmol/L Potassium (3.5-5.1) mmol/L Chloride (98-107) mmol/L Carbon Dioxide (22-30) mmol/L Anion Gap mmol/L BUN (9-20) mg/dL Creatinine (0.66-1.25) mg/dL Est GFR (CKD-EPI)AfAm (>60 ml/min/1.73 sqM) Est GFR (CKD-EPI)NonAf (>60 ml/min/1.73 sqM) Glucose (74-99) mg/dL Plasma Lactic Acid Julio 0.9 (0.7-2.0) mmol/L Calcium (8.4-10.2) mg/dL Magnesium (1.6-2.3) mg/dL Total Bilirubin (0.2-1.3) mg/dL AST (17-59) U/L ALT (4-49) U/L Alkaline Phosphatase (38-126) U/L Troponin I 0.029 (0.000-0.034) ng/mL Total Protein (6.3-8.2) g/dL Albumin (3.5-5.0) g/dL Stool Occult Blood Positive (Negative) Blood Type Blood Type Recheck Bld Type Recheck Status Antibody Screen Spec Expiration Date 12/20/21 Range/Units 11:02 WBC (3.8-10.6) k/uL RBC (4.30-5.90) m/uL Hgb (13.0-17.5) gm/dL Hct (39.0-53.0) % MCV (80.0-100.0) fL MCH (25.0-35.0) pg MCHC (31.0-37.0) g/dL RDW (11.5-15.5) % Plt Count (150-450) k/uL MPV Neutrophils % % Lymphocytes % % Monocytes % % Eosinophils % % Basophils % % Neutrophils # (1.3-7.7) k/uL Lymphocytes # (1.0-4.8) k/uL Monocytes # (0-1.0) k/uL Eosinophils # (0-0.7) k/uL Basophils # (0-0.2) k/uL Macrocytosis APTT (22.0-30.0) sec Sodium (137-145) mmol/L Potassium (3.5-5.1) mmol/L Chloride (98-107) mmol/L Carbon Dioxide (22-30) mmol/L Anion Gap mmol/L BUN (9-20) mg/dL Creatinine (0.66-1.25) mg/dL Est GFR (CKD-EPI)AfAm (>60 ml/min/1.73 sqM) Est GFR (CKD-EPI)NonAf (>60 ml/min/1.73 sqM) Glucose (74-99) mg/dL Plasma Lactic Acid Julio (0.7-2.0) mmol/L Calcium (8.4-10.2) mg/dL Magnesium (1.6-2.3) mg/dL Total Bilirubin (0.2-1.3) mg/dL AST (17-59) U/L ALT (4-49) U/L Alkaline Phosphatase (38-126) U/L Troponin I (0.000-0.034) ng/mL Total Protein (6.3-8.2) g/dL Albumin (3.5-5.0) g/dL Stool Occult Blood (Negative) Blood Type O Positive Blood Type Recheck O Pos Bld Type Recheck Status No Antibody Screen NEGATIVE Spec Expiration Date 12/23/2021 - 2301 Disposition Clinical Impression: GIB (gastrointestinal bleeding) Disposition: ADMITTED IP TO THIS [facility] Condition: Good Referrals: Nonstaff,Physician [Primary Care Provider] - 1-2 days Decision Date: 12/20/21 Decision Time: 12:43
[2021-12-20 11:17] LABS: Basophils # (A) 0.1 k/uL (0-0.2); Basophils % (A) 1 %; Eosinophils # (A) 0.2 k/uL (0-0.7); Eosinophils % (A) 3 %; HCT 25.5 % (39.0-53.0); HGB 8.2 gm/dL (13.0-17.5); Lymphocytes # (A) 0.6 k/uL (1.0-4.8); Lymphocytes % (A) 10 %; MCH 33.5 pg (25.0-35.0); MCHC 32.1 g/dL (31.0-37.0); MCV 104.5 fL (80.0-100.0); Macrocytosis Moderate; Mean Platelet Volume 9.4; Monocytes # (A) 0.5 k/uL (0-1.0); Monocytes % (A) 8 %; Neutrophils # (A) 4.2 k/uL (1.3-7.7); Neutrophils % (A) 76 %; Platelet Count 134 k/uL (150-450); RBC 2.44 m/uL (4.30-5.90); RDW 14.4 % (11.5-15.5); WBC 5.5 k/uL (3.8-10.6)
[2021-12-20 11:29] LABS: Albumin 3.7 g/dL (3.5-5.0); Magnesium 2.7 mg/dL (1.6-2.3); Potassium 4.2 mmol/L (3.5-5.1); Total Bilirubin 0.5 mg/dL (0.2-1.3)
[2021-12-20] MEDS ORDERED: NALOXONE 0.4 MG/ML 1 ML VIAL IV PRN (13:22)
[2021-12-20] MEDS ORDERED: TORSEMIDE 20 MG TAB PO PRN (14:57)
--- NOTE | 2021-12-20 15:56 | P.CONS ---
History of Present Illness - Reason for Consult Consult date: 12/20/21 Anemia Requesting physician: Billy Madera - Chief Complaint Abnormal labs - History of Present Illness This a pleasant 81-year-old male with a past medical history including hypertension, chronic kidney disease, myocardial infarction, osteoarthritis, coronary artery disease status post stent and AICD who presented to the emergency department directed by his primary care physician for low hemoglobin. Apparently patient was recently admitted to [facility] and was started on Eliquis for atrial fibrillation, patient states his last dose was on Monday. He's states that he started noticing blood in his stool since last week. He does have a history of constipation and uses stool softener improved juice regularly. He had no bowel movement today but yesterday he did have a bowel movement that had bright red blood mixed with his stool. He denies any previous history of GI bleed. States that he had EGD colonoscopy about one year ago done at [facility]. He also states during the last hospitalization he had pleural effusion with thoracentesis as well as a paracentesis with 10 L of fluid removed. He was supposed to follow-up today with tomorrow regarding possible underlying liver disease. He denies any previous history of liver disease. Denies any history of alcohol abuse in the past or currently. WBC 5.5 hemoglobin 8.2 hematocrit 25.5 platelet count 134,000 P1106 creatinine 3.96 Total bilirubin 0.5 AST 28 ALT 18 alkaline phosphatase 70 stool occult blood positive Review of Systems REVIEW OF SYSTEMS: CARDIOPULMONARY: No chest pain or shortness of breath. Gastrointestinal: No abdominal pain. No nausea or vomiting. No hematemesis, coffee-ground emesis. Bright red blood in stool. Chronic constipation. Recent ascites. GENITOURINARY: No dysuria or hematuria. MUSCULOSKELETAL: Reports normal range of motion., Joint pain. SKIN: No rashes. No jaundice. ENDOCRINE: No chills, fevers. No excessive weight gain or loss. No polydipsia or polyuria. PSYCHIATRIC: Unremarkable. NEUROLOGY: No change in mental status. Denies dizziness, headache. ENT: Vision unremarkable. CONSTITUTIONAL: No recent weight loss. No fever, chills, night sweats. Past Medical History Past Medical History: Blood Disorder, Hypertension, Myocardial Infarction ([place]), Osteoarthritis ([place]) Additional Past Medical History / Comment(s): See Dr Moreland H&P "borderline diabetic" does not watch diet, hx fx left wrist as child-did not heal right,"2 BULGING DICS AND 5 VERTEBRE ARE COMPRESSED", GOUT, ASBESTOES EXPOSURE THRU PAST WORK., hx ULCER ,gout. ANEMIA Last Myocardial Infarction Date:: UNK History of Any Multi-Drug Resistant Organisms: None Reported Past Surgical History: AICD, Heart Catheterization, Joint Replacement, Tonsillectomy Additional Past Surgical History / Comment(s): hussain knee replacements, HUSSAIN CAROTID ENDARTERECTOMY, Past Anesthesia/Blood Transfusion Reactions: No Reported Reaction Type of Cardiac Device: AICD Device Placement Date:: 2009 Past Psychological History: No Psychological Hx Reported Smoking Status: Never smoker Past Alcohol Use History: Rare Past Drug Use History: None Reported - Past Family History Father Additional Family Medical History / Comment(s): KILLED BY A TRAIN WHEN PT WAS AGE 9 Mother Family Medical History: No Reported History Additional Family Medical History / Comment(s): open heart surgery Sister(s) Family Medical History: Myocardial Infarction ([place]) Additional Family Medical History / Comment(s): heart stents Medications and Allergies Home Medications Medication Instructions Recorded Confirmed Type Simvastatin [Zocor] 10 mg PO HS 07/09/14 12/20/21 History Aspirin EC [Ecotrin Low Dose] 81 mg PO DAILY 09/05/16 12/20/21 History Levothyroxine Sodium [Synthroid] 50 mcg PO HS 05/17/20 12/20/21 History Cholecalciferol [Vitamin D3 (25 25 mcg PO DAILY 07/02/21 12/20/21 History Mcg = 1000 Iu)] Febuxostat 40 mg PO DAILY 07/02/21 12/20/21 History Multivitamins, Thera [Multivitamin 1 tab PO DAILY 07/02/21 12/20/21 History (formulary)] Carvedilol [Coreg] 25 mg PO BID 12/20/21 12/20/21 History Folic Acid 0.4 mg PO DAILY 12/20/21 12/20/21 History Torsemide [Demadex] 20 mg PO DAILY 12/20/21 12/20/21 History Torsemide [Demadex] 20 mg PO DAILY PRN 12/20/21 12/20/21 History Allergies Allergy/AdvReac Type Severity Reaction Status Date / Time No Known Allergies Allergy Verified 12/20/21 12:47 Physical Exam Vitals: Vital Signs Temp Pulse Resp BP Pulse Ox 12/20/21 13:00 68 20 134/52 99 12/20/21 10:06 97.9 F 69 18 103/61 98 Intake and Output 12/20/21 12/20/21 12/20/21 06:59 14:59 22:59 Other: Weight 118.841 kg General appearance: The patient is alert, oriented, appears in no acute distress. HET: Head is normocephalic and atraumatic. Conjunctiva pink. Sclera anicteric. Neck: Supple without lymphadenopathy. Trachea midline. Heart: S1 S2. Regular rate and rhythm. Lungs: Clear to auscultation. Abdomen: Soft, nontender, generalized anasarca, nondistended with bowel sounds. No guarding or rigidity. Skin: No rashes. No jaundice. Extremities: Normal skin color and turgor. Bilateral lower extremity edema.. Neurological: No focal deficits. Alert and oriented x3. Results CBC & Chem 7: 12/20/21 11:02 12/20/21 11:02 Labs: Abnormal Lab Results - Last 24 Hours (Table) 12/20/21 12/20/21 Range/Units 11:02 11:02 RBC 2.44 L (4.30-5.90) m/uL Hgb 8.2 L (13.0-17.5) gm/dL Hct 25.5 L (39.0-53.0) % MCV 104.5 H (80.0-100.0) fL Plt Count 134 L (150-450) k/uL Lymphocytes # 0.6 L (1.0-4.8) k/uL BUN 106 H* (9-20) mg/dL Creatinine 3.96 H (0.66-1.25) mg/dL Glucose 104 H (74-99) mg/dL Magnesium 2.7 H (1.6-2.3) mg/dL Total Protein 6.0 L (6.3-8.2) g/dL Assessment and Plan (1) Anemia Narrative/Plan: 81-year-old male who was admitted for abnormal hemoglobin sent in from his primary care physician with a hemoglobin of 7.0. Patient states he was recently seen and admitted at [facility]. States that he had thoracentesis and paracentesis at that time. Was diagnosed with atrial fibrillation and put on Eliquis. He states about one week ago he started noticing some blood in his stool. He stopped his Ahlquist on Monday. No prior history of GI bleed. Last colonoscopy approximately one year ago which he states was done at [facility] along with an EGD. States the only findings were gastritis. Patient states he was supposed to follow up today with Dr. Grover to go over this ascites, fluid studies, to evaluate for underlying liver disease. Labs are actually consistent with a anemia of chronic disease with possible underlying liver disease. Hemoglobin stable at 8.2. Recommend holding anticoagulation. Will request records from [facility] for recent EGD colonoscopy. Current Visit: Yes Status: Acute Code(s): D64.9 - ANEMIA, UNSPECIFIED SNOMED Code(s): 959237848 (2) Coronary artery disease Current Visit: Yes Status: Acute Code(s): I25.10 - ATHSCL HEART DISEASE OF [place] CORONARY ARTERY W/O ANG PCTRS SNOMED Code(s): 61676938 (3) Atrial fibrillation Current Visit: Yes Status: Acute Code(s): I48.91 - UNSPECIFIED ATRIAL FIBRILLATION SNOMED Code(s): 57139068 (4) GIB (gastrointestinal bleeding) Current Visit: Yes Status: Acute Code(s): K92.2 - GASTROINTESTINAL HEMORRHAGE, UNSPECIFIED SNOMED Code(s): 71387482 (5) AICD (automatic cardioverter/defibrillator) present Current Visit: No Status: Acute Code(s): Z95.810 - PRESENCE OF AUTOMATIC (IMPLANTABLE) CARDIAC DEFIBRILLATOR SNOMED Code(s): 395583259 Plan: 1. Continue symptomatic and supportive care 2. Daily CBC, transfuse for hemoglobin less than 7 3. Hold anticoagulation 4. Iron studies 5. Please obtain EGD and colonoscopy report from last year done at [facility] 6. Further recommendations forthcoming based on clinical course Thank you for this consultation, we will continue to follow. Dr. Gavin Grover I agree with the dictator's note, documented as a scribe by Yuridia Dodd.
[2021-12-20] MEDS: carvediloL 12.5 MG TAB PO SCH (17:59)
[2021-12-20] MEDS: ATORVASTATIN 10 MG TAB PO SCH (20:46)
[2021-12-20] MEDS: LEVOTHYROXINE 50 MCG TAB PO SCH (20:46)
[2021-12-20 20:54] LABS: % Iron Saturation 16.42 (15.00-50.00)
--- NOTE | 2021-12-20 21:34 | P.HPIM ---
History of Present Illness H&P Date: 12/20/21 Chief Complaint: Blood in the stool. Patient is a 81-year-old male with a known history of hypertension, borderline diabetic, gout, history of asbestos exposure, history of bilateral carotid endarterectomy, chronic CHF with systolic dysfunction ejection fraction less than 20%, dilated cardiomyopathy, persistent atrial fibrillation not on anticoagulation due to history of GI bleed, history of AICD placement, atrial fibrillation currently not on any anticoagulation hypothyroidism and other multiple medical problems presents to ER with complaints of bright red blood per rectum since yesterday. Patient was seen by his primary care physician and blood work-up showed hemoglobin level of 7.1. Repeat hemoglobin level in the hospital he is 8.2 previous hemoglobin on 08/03/2021 showed 10.7. However patient is also complaining of dizziness and lightheadedness. No chest pain or shortness of breath. No cough or sputum production. Patient does have history of CKD stage IV and baseline creatinine level around 3.5. EKG showed atrial fibrillation with aberrant conduction. Laboratory data showed WBC 5.1 hemoglobin 8.2 MCV 104.4 and platelets 134 Sodium 139 potassium 4.2 chloride 103 bicarb is 23 BUN 106 creatinine 3.96. Patient had prior EGD and colonoscopy done about a year ago. Review of Systems Constitutional: Patient denies any fever or chills . No generalized weakness or weight loss. Abdomen: Patient denied nausea vomiting and diarrhea and abdominal pain. Cardiovascular: Patient denies any chest pain or short of breath no palpi tations. Respiratory: patient denied any cough or sputum production. No shortness of breath Neurologic: Patient denied any numbness or tingling headache.Patient does have dizziness. Musculoskeletal: Patient denies any complaints of joint swelling or deformity. Skin: Negative Psychiatric: Negative Endocrine: No heat or cold intolerance. No recent weight gain. Genitourinary: No dysuria or hematuria. All other 14 point ROS negative except the above Past Medical History Past Medical History: Blood Disorder, Hypertension, Myocardial Infarction ([place]), Osteoarthritis (OA) Additional Past Medical History / Comment(s): See Dr Moreland H&P "borderline diabetic" does not watch diet, hx fx left wrist as child-did not heal right,"2 BULGING DICS AND 5 VERTEBRE ARE COMPRESSED", GOUT, ASBESTOES EXPOSURE THRU PAST WORK., hx ULCER ,gout. ANEMIA Last Myocardial Infarction Date:: UNK History of Any Multi-Drug Resistant Organisms: None Reported Past Surgical History: AICD, Heart Catheterization, Joint Replacement, Tonsillectomy Additional Past Surgical History / Comment(s): hussain knee replacements, HUSSAIN CAROTID ENDARTERECTOMY, Past Anesthesia/Blood Transfusion Reactions: No Reported Reaction Type of Cardiac Device: AICD Device Placement Date:: 2009 Past Psychological History: No Psychological Hx Reported Smoking Status: Never smoker Past Alcohol Use History: Rare Additional Past Alcohol Use History / Comment(s): STARTED SMOKING 1964, QUIT 1967 SMOKED < 1 PPD. Past Drug Use History: None Reported - Past Family History Father Additional Family Medical History / Comment(s): KILLED BY A TRAIN WHEN PT WAS AGE 9 Mother Family Medical History: No Reported History Additional Family Medical History / Comment(s): open heart surgery Sister(s) Family Medical History: Myocardial Infarction ([place]) Additional Family Medical History / Comment(s): heart stents Medications and Allergies Home Medications Medication Instructions Recorded Confirmed Type Simvastatin [Zocor] 10 mg PO HS 07/09/14 12/20/21 History Aspirin EC [Ecotrin Low Dose] 81 mg PO DAILY 09/05/16 12/20/21 History Levothyroxine Sodium [Synthroid] 50 mcg PO HS 05/17/20 12/20/21 History Cholecalciferol [Vitamin D3 (25 25 mcg PO DAILY 07/02/21 12/20/21 History Mcg = 1000 Iu)] Febuxostat 40 mg PO DAILY 07/02/21 12/20/21 History Multivitamins, Thera [Multivitamin 1 tab PO DAILY 07/02/21 12/20/21 History (formulary)] Carvedilol [Coreg] 25 mg PO BID 12/20/21 12/20/21 History Folic Acid 0.4 mg PO DAILY 12/20/21 12/20/21 History Torsemide [Demadex] 20 mg PO DAILY 12/20/21 12/20/21 History Torsemide [Demadex] 20 mg PO DAILY PRN 12/20/21 12/20/21 History Allergies Allergy/AdvReac Type Severity Reaction Status Date / Time No Known Allergies Allergy Verified 12/20/21 12:47 Physical Exam Vitals: Vital Signs Temp Pulse Pulse Resp BP BP Pulse Ox 12/20/21 20:15 96.2 F L 66 16 106/59 100 12/20/21 19:45 97.5 F L 66 18 104/69 97 12/20/21 18:10 71 16 100/63 99 12/20/21 13:00 68 20 134/52 99 12/20/21 10:06 97.9 F 69 18 103/61 98 Intake and Output 12/20/21 12/20/21 12/20/21 06:59 14:59 22:59 Other: Weight 118.841 kg 118.841 kg PHYSICAL EXAMINATION: Patient is lying in the bed comfortably, no acute distress, awake alert and oriented.. HEENT: Normocephalic. Neck is supple. Pupils reactive. Nostrils clear. Oral cavity is moist. Neck reveals no JVD, carotid bruits, or thyromegaly. CHEST EXAMINATION: Trachea is central. Symmetrical expansion. Lung tolentino clear to auscultation and percussion. CARDIAC: Normal S1, S2 with no gallops. No murmurs ABDOMEN: Soft. Bowel sounds normal. No organomegaly. No abdominal bruits. Extremities: reveal no edema. No clubbing or cyanosis Neurologically awake, alert, oriented x3 with well-coordinated movements. No focal deficits noted Skin: No rash or skin lesions. Psychiatric: Cooperative. Nonsuicidal Musculoskeletal: No joint swelling or deformity. Normal range of motion. Results CBC & Chem 7: 12/20/21 11:02 12/20/21 11:02 Labs: Abnormal Lab Results - Last 24 Hours (Table) 12/20/21 12/20/21 Range/Units 11:02 11:02 RBC 2.44 L (4.30-5.90) m/uL Hgb 8.2 L (13.0-17.5) gm/dL Hct 25.5 L (39.0-53.0) % MCV 104.5 H (80.0-100.0) fL Plt Count 134 L (150-450) k/uL Lymphocytes # 0.6 L (1.0-4.8) k/uL BUN 106 H* (9-20) mg/dL Creatinine 3.96 H (0.66-1.25) mg/dL Glucose 104 H (74-99) mg/dL Magnesium 2.7 H (1.6-2.3) mg/dL Iron 50 L (65-175) ug/dL Ferritin 511.0 H (22.0-322.0) ng/mL Total Protein 6.0 L (6.3-8.2) g/dL Thrombosis Risk Factor Assmnt - Choose All That Apply Any of the Below Risk Factors Present?: Yes Each Factor Represents 1 point: Minor surgery planned Each Risk Factor Represents 3 Points: Age 75 years or older Thrombosis Risk Factor Assessment Total Risk Factor Score: 4 Thrombosis Risk Factor Assessment Level: Moderate Risk Assessment and Plan Assessment: Acute GI bleed likely lower GI. Symptomatic anemia/acute blood loss anemia hemoglobin 8.2 on admission Persistent atrial fibrillation was on anticoagulation with Eliquis. Currently on hold since Monday.. Chronic CHF with systolic dysfunction ejection fraction 20% Dilated cardiomyopathy status post ICD placement Acute on chronic kidney disease stage IV. Creatinine 3.94 on admission Hypertension Hyperlipidemia Osteoarthritis Borderline diabetes History of gout DVT prophylaxis with SCDs Plan: Patient will be continued on telemetry monitoring. Monitor H&H. Continue with home blood pressure medications and statins and Coreg. Aspirin is on hold. Continue to hold anticoagulation. Gastroenterology service was consulted.
[2021-12-21] MEDS: allopurinoL 100 MG TAB PO SCH (07:55)
[2021-12-21] MEDS: carvediloL 12.5 MG TAB PO SCH ×2 (07:55→17:10)
[2021-12-21] MEDS: FOLIC ACID 1 MG TAB PO SCH (07:55)
[2021-12-21] MEDS: CHOLECALCIFEROL 25 MCG (1000 IU) TABLET PO SCH (07:55)
[2021-12-21] MEDS: MULTIVITAMINS, THERA 1 EACH TAB PO SCH (07:56)
[2021-12-21 09:24] LABS: HCT 24.1 % (39.6-50.0); HGB 7.5 g/dL (13.0-17.0); MCH 32.9 pg (27.0-32.0); MCHC 31.1 g/dL (32.0-37.0); MCV 105.7 fL (80.0-97.0); Mean Platelet Volume 11.8 fL (9.5-12.2); NRBC Per 100 WBC 0 /100 WBCS (0.0-0.0); Platelet Count 112 X 10*3/uL (140-440); RBC 2.28 X 10*6/uL (4.40-5.60); RDW 15.9 % (11.5-14.5); WBC 4.72 X 10*3/uL (4.50-10.00)
[2021-12-21 09:34] LABS: African American GFR (CKD) 16.8 (60.0-200.0); Anion Gap 13.8 mmol/L (10.00-18.00); BUN/Creat Ratio 25.91 Ratio (12.00-20.00); Blood Urea Nitrogen 96.9 mg/dL (9.0-27.0); Calcium 8.8 mg/dL (8.7-10.3); Carbon Dioxide 23.4 mmol/L (20.0-27.5); Non-African American GFR(CKD) 14.5 (60.0-200.0); Potassium 4.3 mmol/L (3.5-5.5)
[2021-12-21] MEDS: polyethylene glycoL 3350 17 GM POWD.PACK PO SCH (10:17)
[2021-12-21 10:40] LABS: Basophils # (A) 0.03 X 10*3/uL (0.00-0.10); Basophils % (A) 0.6 %; Eosinophils % (A) 4.2 %; Immature Grans, Automated 0.2 %; Lymphocytes # (A) 0.43 X 10*3/uL (0.90-5.00); Lymphocytes % (A) 9.1 %; Monocytes # (A) 0.62 X 10*3/uL (0.20-1.00); Monocytes % (A) 13.1 %; Neutrophils # (A) 3.43 X 10*3/uL (1.80-7.70); Neutrophils % (A) 72.8 %; Rouleaux PRESENT
--- NOTE | 2021-12-21 11:03 | P.PN ---
Subjective Progress Note Date: 12/21/21 Principal diagnosis: Anemia 81-year-old male who presented to the emergency department directed by his PCP for abnormal outpatient lab work. Patient states he was told he had a h emoglobin of 7.0 and was told to come to the emergency department for further evaluation. Patient states over the last 1 week duration he had been having some blood mixed in with his stool. He does have a history of constipation and has to take prune juice and stool softeners regularly. He was recently hospitalized and diagnosed with liver disease. Labs are consistent with anemia of chronic disease with underlying liver disease. Iron studies did show low iron ferritin within normal limits. Able to review EGD colonoscopy report from [facility] done 03/01/2021. EGD reported mild gastritis and colonoscopy was within normal limits. Objective - Vital Signs Vital signs: Vital Signs Temp 97.3 F L 12/21/21 07:23 Pulse 68 12/21/21 07:23 Resp 21 12/21/21 07:23 BP 110/68 12/21/21 07:23 Pulse Ox 100 12/21/21 07:23 FiO2 Intake & Output 12/20/21 12/21/21 12/21/21 18:59 06:59 18:59 Intake Total 520 Balance 520 Weight 118.841 kg 117.3 kg Intake: Oral 520 Other: Voiding Method Toilet Toilet # Voids 1 1 - Exam General appearance: The patient is alert, oriented, appears in no acute distress. HET: Head is normocephalic and atraumatic. Conjunctiva pink. Sclera anicteric. Neck: Supple without lymphadenopathy. Abdomen: Soft, nontender, nondistended with bowel sounds. No guarding or rigidity. Extremities: Normal skin color and turgor. No pedal edema Skin: No rashes, no jaundice Neurological: No focal deficits. Alert and oriented x3. - Labs CBC & Chem 7: 12/21/21 05:04 12/21/21 05:04 Labs: Abnormal Lab Results - Last 24 Hours (Table) 12/20/21 12/20/21 12/21/21 Range/Units 11:02 11:02 05:04 RBC 2.44 L 2.28 L (4.30-5.90) m/uL Hgb 8.2 L 7.5 L (13.0-17.5) gm/dL Hct 25.5 L 24.1 L (39.0-53.0) % MCV 104.5 H 105.7 H (80.0-100.0) fL MCH 32.9 H (27.0-32.0) pg MCHC 31.1 L (32.0-37.0) g/dL RDW 15.9 H (11.5-14.5) % Plt Count 134 L 112 L (150-450) k/uL Lymphocytes # 0.6 L (1.0-4.8) k/uL BUN 106 H* (9-20) mg/dL Creatinine 3.96 H (0.66-1.25) mg/dL Est GFR (CKD-EPI)AfAm (60.0-200.0) Est GFR (CKD-EPI)NonAf (60.0-200.0) BUN/Creatinine Ratio (12.00-20.00) Ratio Glucose 104 H (74-99) mg/dL Magnesium 2.7 H (1.6-2.3) mg/dL Iron 50 L (65-175) ug/dL Ferritin 511.0 H (22.0-322.0) ng/mL Total Protein 6.0 L (6.3-8.2) g/dL 12/21/21 Range/Units 05:04 RBC (4.30-5.90) m/uL Hgb (13.0-17.5) gm/dL Hct (39.0-53.0) % MCV (80.0-100.0) fL MCH (27.0-32.0) pg MCHC (32.0-37.0) g/dL RDW (11.5-14.5) % Plt Count (150-450) k/uL Lymphocytes # (1.0-4.8) k/uL BUN 96.9 H (9-20) mg/dL Creatinine 3.7 H (0.66-1.25) mg/dL Est GFR (CKD-EPI)AfAm 16.8 L (60.0-200.0) Est GFR (CKD-EPI)NonAf 14.5 L (60.0-200.0) BUN/Creatinine Ratio 25.91 H (12.00-20.00) Ratio Glucose (74-99) mg/dL Magnesium (1.6-2.3) mg/dL Iron (65-175) ug/dL Ferritin (22.0-322.0) ng/mL Total Protein (6.3-8.2) g/dL Assessment and Plan (1) Anemia Narrative/Plan: 81-year-old male who was admitted for abnormal hemoglobin sent in from his primary care physician with a hemoglobin of 7.0. Patient states he was recently seen and admitted at [facility]. States that he had thoracentesis and paracentesis at that time. Was diagnosed with atrial fibrillation and put on Eliquis. He states about one week ago he started noticing some blood in his stool. He stopped his Ahlquist on Monday. No prior history of GI bleed. Last colonoscopy approximately one year ago which he states was done at [facility] along with an EGD. States the only findings were gastritis. Patient states he was supposed to follow up today with Dr. Grover to go over this ascites, fluid studies, to evaluate for underlying liver disease. Labs are actually consistent with a anemia of chronic disease with possible underlying liver disease. Hemoglobin stable at 8.2. Recommend holding anticoagulation. Will request records from [facility] for recent EGD colonoscopy. Labs consistent with iron deficiency anemia which patient has a history of. Will give IV iron 1. Patient not having any bowel movements for the last 2 days no rectal bleeding. EGD colonoscopy report received from [facility] done 03-20 with EGD findings of mild gastritis and colonoscopy within normal l imits. Current Visit: Yes Status: Acute Code(s): D64.9 - ANEMIA, UNSPECIFIED SNOMED Code(s): 123665190 (2) Coronary artery disease Current Visit: Yes Status: Acute Code(s): I25.10 - ATHSCL HEART DISEASE OF [place] CORONARY ARTERY W/O ANG PCTRS SNOMED Code(s): 44232660 (3) Atrial fibrillation Current Visit: Yes Status: Acute Code(s): I48.91 - UNSPECIFIED ATRIAL FIBRILLATION SNOMED Code(s): 06766351 (4) GIB (gastrointestinal bleeding) Current Visit: Yes Status: Acute Code(s): K92.2 - GASTROINTESTINAL HEMORRHAGE, UNSPECIFIED SNOMED Code(s): 42389654 (5) AICD (automatic cardioverter/defibrillator) present Current Visit: No Status: Acute Code(s): Z95.810 - PRESENCE OF AUTOMATIC (IMPLANTABLE) CARDIAC DEFIBRILLATOR SNOMED Code(s): 215536511 Plan: 1. Continue symptomatic and supportive care 2. Daily CBC, transfuse for hemoglobin less than 7 3. Hold anticoagulation for 1 more day and then may resume 4. Iron studies 5. Recent EGD and colonoscopy reports reviewed from 03/01/2021 6. IV iron 1 Thank you for this consultation. Thank you for allowing us to participate in the care of the patient, the GI service will sign off, gastroenterology will not be available at the hospital this weekend and through next week. If further evaluation by gastroenterology is required the patient will need transfer as per the primary team's discretion. Dr. Gavin Grover I agree with the dictator's note, documented as a scribe by Yuridia Dodd.
[2021-12-21] MEDS ORDERED: SODIUM FERRIC GLUCONAT-SUCROSE 125 MG in SODIUM CHLORIDE 0.9% 100 ML IVPB ONE ×2 (11:15→12:30)
--- NOTE | 2021-12-21 12:13 | P.NPCON ---
History of Present Illness - Reason for Consult acute renal failure, chronic renal failure - History of Present Illness Reason for consultation: Acute kidney injury on chronic kidney disease History of present illness: Patient is a 81-year-old male seen in consultation for acute kidney injury on chronic kidney disease. Patient has chronic kidney disease stage IV with baseline creatinine in the range of 3.1-3.4 secondary to nephrosclerosis and cardiorenal syndrome. Creatinine on admission was 3.96 and is 3.7 today. Patient states he had blood work an outpatient and was advised to go to the hospital due to anemia. Patient's hemoglobin on admission was 8.2 and a 7.5 today. Patient does admit to bloody bowel movements at times. Patient states he was admitted at a hospital in [place] about 2 months ago and underwent right- sided thoracentesis with 2 L drained and also had a paracentesis for 10.7 L drained. He denies any paracentesis since. He does have history of systolic CHF with ejection fraction of less than 20% with mild to moderate mitral regurgitation. He denies use of nonsteroidals. Admits to good urine output. No hematuria or dysuria. He does take torsemide at home on a daily basis for edema. Denies history of diabetes. Blood pressure stable. He denies history of liver disease. Vital signs are stable. General: Awake and alert. No acute distress. HEENT: Head exam is unremarkable. LUNGS: Breath sounds decreased. HEART: Rate and Rhythm are regular. ABDOMEN: Soft, no distention. EXTREMITITES: 1+ edema. Past Medical History Past Medical History: Atrial Fibrillation, Blood Disorder, Hypertension, Myocardial Infarction (NH), Osteoarthritis (OA) Additional Past Medical History / Comment(s): See Dr Moreland H&P "borderline diabetic" does not watch diet, hx fx left wrist as child-did not heal right,"2 BULGING DICS AND 5 VERTEBRE ARE COMPRESSED", GOUT, ASBESTOES EXPOSURE THRU PAST WORK., hx ULCER ,gout, patient reports being placed on eliquis r/t a-fib. ANEMIA Last Myocardial Infarction Date:: UNK History of Any Multi-Drug Resistant Organisms: None Reported Past Surgical History: AICD, Heart Catheterization, Joint Replacement, Tonsillectomy Additional Past Surgical History / Comment(s): hussain knee replacements, HUSSAIN CAROTID ENDARTERECTOMY, Past Anesthesia/Blood Transfusion Reactions: No Reported Reaction Type of Cardiac Device: AICD Device Placement Date:: 2009 Past Psychological History: No Psychological Hx Reported Smoking Status: Never smoker Past Alcohol Use History: Rare Additional Past Alcohol Use History / Comment(s): STARTED SMOKING 1964, QUIT 1967 SMOKED < 1 PPD. Past Drug Use History: None Reported - Past Family History Father Additional Family Medical History / Comment(s): KILLED BY A TRAIN WHEN PT WAS AGE 9 Mother Family Medical History: No Reported History Additional Family Medical History / Comment(s): open heart surgery Sister(s) Family Medical History: Myocardial Infarction (NH) Additional Family Medical History / Comment(s): heart stents Medications and Allergies Home Medications Medication Instructions Recorded Confirmed Type Simvastatin [Zocor] 10 mg PO HS 07/09/14 12/20/21 History Aspirin EC [Ecotrin Low Dose] 81 mg PO DAILY 09/05/16 12/20/21 History Levothyroxine Sodium [Synthroid] 50 mcg PO HS 05/17/20 12/20/21 History Cholecalciferol [Vitamin D3 (25 25 mcg PO DAILY 07/02/21 12/20/21 History Mcg = 1000 Iu)] Febuxostat 40 mg PO DAILY 07/02/21 12/20/21 History Multivitamins, Thera [Multivitamin 1 tab PO DAILY 07/02/21 12/20/21 History (formulary)] Carvedilol [Coreg] 25 mg PO BID 12/20/21 12/20/21 History Folic Acid 0.4 mg PO DAILY 12/20/21 12/20/21 History Torsemide [Demadex] 20 mg PO DAILY 12/20/21 12/20/21 History Torsemide [Demadex] 20 mg PO DAILY PRN 12/20/21 12/20/21 History Allergies Allergy/AdvReac Type Severity Reaction Status Date / Time No Known Allergies Allergy Verified 12/20/21 12:47 Physical Exam Vitals: Vital Signs Temp Pulse Pulse Resp BP BP Pulse Ox 12/21/21 07:23 97.3 F L 68 21 110/68 100 12/21/21 01:47 97.5 F L 68 16 124/78 100 12/20/21 20:15 96.2 F L 66 16 106/59 100 12/20/21 19:45 97.5 F L 66 18 104/69 97 12/20/21 18:10 71 16 100/63 99 12/20/21 13:00 68 20 134/52 99 Intake and Output 12/20/21 12/21/21 12/21/21 22:59 06:59 14:59 Intake Total 520 Balance 520 Intake: Oral 520 Other: Voiding Method Toilet Toilet # Voids 1 1 1 Weight 118.841 kg 117.3 kg Results - Lab Results Most recent lab results Calcium 8.8 mg/dL (8.7-10.3) 12/21/21 05:04 Magnesium 2.7 mg/dL (1.6-2.3) H 12/20/21 11:02 12/21/21 05:04 12/21/21 05:04 Assessment and Plan Plan: Assessment: 1. Acute kidney injury mostly prerenal. Creatinine 3.96 on admission and is 3.7 today. 2. Chronic kidney disease stage IV with baseline creatinine in the range of 3.1 -3.4 secondary to nephrosclerosis and cardiorenal syndrome. 3. Chronic systolic CHF with ejection fraction of less than 20% with mild to moderate mitral regurgitation. 4. Anemia of chronic kidney disease with concern for GI bleed. Iron deficiency noted. GI following. 5. Lower extremity edema. Plan: Maintain IV iron. Add Aranesp. Resume torsemide 20 mg once daily. Patient has completed DRY PLASTERER education and prefers to do peritoneal dialysis if needed. Continue to monitor renal function and urine output. Avoid nephrotoxins. Thank you for the consultation. I will continue to follow the patient with you during his hospital stay.
[2021-12-21] MEDS ORDERED: DARBEPOETIN ALFA 40 MCG/0.4 ML SYRINGE SQ SCH (13:00)
--- NOTE | 2021-12-21 18:56 | P.PN ---
Subjective Patient is a 81-year-old male with a known history of hypertension, borderline diabetic, gout, history of asbestos exposure, history of bilateral carotid endarterectomy, chronic CHF with systolic dysfunction ejection fraction less than 20%, dilated cardiomyopathy, persistent atrial fibrillation not on anticoagulation due to history of GI bleed, history of AICD placement, atrial fibrillation currently not on any anticoagulation hypothyroidism and other multiple medical problems presents to ER with complaints of bright red blood per rectum since yesterday. Patient was seen by his primary care physician and blood work-up showed hemoglobin level of 7.1. Repeat hemoglobin level in the hospital he is 8.2 previous hemoglobin on 08/03/2021 showed 10.7. However patient is also complaining of dizziness and lightheadedness. No chest pain or vivi rtness of breath. No cough or sputum production. Patient does have history of CKD stage IV and baseline creatinine level around 3.5. EKG showed atrial fibrillation with aberrant conduction. Laboratory data showed WBC 5.1 hemoglobin 8.2 MCV 104.4 and platelets 134 Sodium 139 potassium 4.2 chloride 103 bicarb is 23 BUN 106 creatinine 3.96. Patient had prior EGD and colonoscopy done about a year ago. Subjective: I am resume the care of the patient on 12/21/2021 Patient is sitting on bedside, fully awake and oriented, he states to me that he was in a hospital about 1-2 months ago where 10 L of fluid taken out of his abdominal cavity and 2 L from his pleural fluid. and that after discharge he went to see his PCP ANI Pandya course with physician but he could not recall his name, his repeat hemoglobin was 7.0, also patient noticeable blood per rectum Monday and since then he stopped taking his Eliquis. This morning he denies any chest pain, he has little dyspnea but no coughing or phlegm. He is complaining of from constipation for 2 days but no abdominal pain or vomiting. No dysuria or urgency, he is having 3-4 urinations per day which is normal for him. He feels generally weak. He denies smoking, OR illicit drugs. GI team evaluated the patient and recommended to check his hemoglobin and monitored. Also to keep holding his anticoagulation for 1 more day and can be resumed thereafter. Senior Landscape Architect also indicates recommended peritoneal dialysis if needed for his advanced kidney disease GI team evaluated the patient, recent EGD and colonoscopy from [place] (obtained by GI team) showing mild gastritis and normal colonoscopy per their note. Objective - Vital Signs Vital signs: Vital Signs Temp 97.3 F L 12/21/21 07:23 Pulse 68 12/21/21 07:23 Resp 21 12/21/21 07:23 BP 110/68 12/21/21 07:23 Pulse Ox 100 12/21/21 07:23 FiO2 Intake & Output 12/20/21 12/21/21 12/21/21 18:59 06:59 18:59 Intake Total 520 Balance 520 Weight 118.841 kg 117.3 kg Intake: Oral 520 Other: Voiding Method Toilet Toilet # Voids 1 1 - Exam GENERAL: The patient is alert and oriented x3, not in any acute distress. Well developed, well nourished. HEENT: Pupils are round and equally reacting to light. EOMI. No scleral icterus. No conjunctival pallor. Normocephalic, atraumatic. No pharyngeal erythema. No thyromegaly. CARDIOVASCULAR: S1 and S2 present. No murmurs, rubs, or gallops. PULMONARY: Chest is clear to auscultation, no wheezing or crackles. ABDOMEN: Soft, nontender, nondistended, normoactive bowel sounds. No palpable organomegaly. MUSCULOSKELETAL: No joint swelling or deformity. -EXTREMITIES: No cyanosis, clubbing bilateral pitting leg edema, more on the left side NEUROLOGICAL: Gross neurological examination did not reveal any focal deficits. SKIN: No rashes. no petechiae. - Labs CBC & Chem 7: 12/21/21 05:04 12/21/21 05:04 Labs: Abnormal Lab Results - Last 24 Hours (Table) 12/20/21 12/21/21 12/21/21 Range/Units 11:02 05:04 05:04 RBC 2.28 L (4.40-5.60) X 10*6/uL Hgb 7.5 L (13.0-17.0) g/dL Hct 24.1 L (39.6-50.0) % MCV 105.7 H (80.0-97.0) fL MCH 32.9 H (27.0-32.0) pg MCHC 31.1 L (32.0-37.0) g/dL RDW 15.9 H (11.5-14.5) % Plt Count 112 L (140-440) X 10*3/uL Plt Count Comment DECREASED A Lymphocytes # 0.43 L (0.90-5.00) X 10*3/uL BUN 96.9 H (9.0-27.0) mg/dL Creatinine 3.7 H (0.6-1.5) mg/dL Est GFR (CKD-EPI)AfAm 16.8 L (60.0-200.0) Est GFR (CKD-EPI)NonAf 14.5 L (60.0-200.0) BUN/Creatinine Ratio 25.91 H (12.00-20.00) Ratio Iron 50 L (65-175) ug/dL Ferritin 511.0 H (22.0-322.0) ng/mL Assessment and Plan Assessment: Blood per rectum, painless Anemia of chronic disease, with possible some elements of iron deficiency anemia Persistent atrial fibrillation was on anticoagulation with Eliquis. Currently on hold since Monday.. Chronic CHF with systolic dysfunction ejection fraction 20% Chronic liver disease Dilated cardiomyopathy status post ICD placement Acute on chronic kidney disease stage IV. Creatinine 3.94 on admission Hypertension Hyperlipidemia Osteoarthritis Borderline diabetes History of gout Plan: This is a pleasant 81 years old male who presents with blood per rectum, pain less. Eliquis remain on hold Start the patient on iron pills Monitor hemoglobin May resume anticoagulation on 12/22 if she remains stable. Nephrology team on the case We will check chest x-ray and abdominal ultrasound GI team on the case however from tomorrow 12/22 they will not be available in this facility Labs and medication were reviewed.. Continue same treatment. Continue with symptomatic treatment. Resume home medication. Monitor lytes and vitals. DVT and GI prophylaxis. Further recommendations as per clinical course of the patient DVT prophylaxis: Eliquis on hold GI Prophylaxis: Ppi prognosis is guarded
[2021-12-21] MEDS: PANTOPRAZOLE 40 MG/10 ML VIAL IVP SCH (19:32)
[2021-12-21] MEDS: FERROUS SULFATE 325 MG TAB PO SCH (20:15)
[2021-12-21] MEDS: ATORVASTATIN 10 MG TAB PO SCH (20:15)
[2021-12-21] MEDS: LEVOTHYROXINE 50 MCG TAB PO SCH (20:16)
[2021-12-22] MEDS: carvediloL 12.5 MG TAB PO SCH ×2 (07:32→16:33)
[2021-12-22] MEDS: CHOLECALCIFEROL 25 MCG (1000 IU) TABLET PO SCH (07:33)
[2021-12-22] MEDS: allopurinoL 100 MG TAB PO SCH (07:33)
[2021-12-22] MEDS: MULTIVITAMINS, THERA 1 EACH TAB PO SCH (07:33)
[2021-12-22] MEDS: polyethylene glycoL 3350 17 GM POWD.PACK PO SCH (07:34)
[2021-12-22] MEDS: FERROUS SULFATE 325 MG TAB PO SCH ×2 (07:34→16:33)
[2021-12-22] MEDS: FOLIC ACID 1 MG TAB PO SCH (07:34)
[2021-12-22] MEDS: PANTOPRAZOLE 40 MG/10 ML VIAL IVP SCH (08:11)
--- NOTE | 2021-12-22 08:13 | XR ---
EXAMINATION TYPE: XR chest 1V DATE OF EXAM: 12/22/2021 COMPARISON: Chest x-ray 07/02/2021 HISTORY: Shortness of breath TECHNIQUE: Single frontal view of the chest is obtained. FINDINGS: The heart is enlarged. There is a generator in the left pectoral region, lead in the right ventricle. Technique is apical lordotic. No evident pneumothorax. Right hemidiaphragm is obscured, t here is thickening of the minor fissure, increased attenuation at the right lung base obscuring the r ight heart border. Interstitium is increased. IMPRESSION: Cardiomegaly and right pleural effusion and associated atelectasis versus pneumonia, con rn labor delivery interstitial edema.
[2021-12-22] MEDS ORDERED: FUROSEMIDE 20 MG TAB PO SCH (09:00)
[2021-12-22 09:11] LABS: Basophils # (A) 0.05 X 10*3/uL (0.00-0.10); Eosinophils # (A) 0.16 X 10*3/uL (0.04-0.35); Eosinophils % (A) 3.2 %; HGB 7.4 g/dL (13.0-17.0); Immature Grans, Automated 0.4 %; Lymphocytes # (A) 0.48 X 10*3/uL (0.90-5.00); Lymphocytes % (A) 9.6 %; MCH 32.7 pg (27.0-32.0); MCHC 30.8 g/dL (32.0-37.0); MCV 106.2 fL (80.0-97.0); Mean Platelet Volume 11.8 fL (9.5-12.2); Monocytes # (A) 0.74 X 10*3/uL (0.20-1.00); Monocytes % (A) 14.8 %; NRBC Per 100 WBC 0 /100 WBCS (0.0-0.0); Neutrophils # (A) 3.54 X 10*3/uL (1.80-7.70); Platelet Count 114 X 10*3/uL (140-440); RBC 2.26 X 10*6/uL (4.40-5.60); RDW 16.2 % (11.5-14.5); WBC 4.99 X 10*3/uL (4.50-10.00)
[2021-12-22 10:05] LABS: African American GFR (CKD) 16.4 (60.0-200.0); Anion Gap 13.8 mmol/L (10.00-18.00); BUN/Creat Ratio 25.16 Ratio (12.00-20.00); Blood Urea Nitrogen 95.6 mg/dL (9.0-27.0); Calcium 8.7 mg/dL (8.7-10.3); Carbon Dioxide 22.2 mmol/L (20.0-27.5); Magnesium 2.7 mg/dL (1.5-2.4); Non-African American GFR(CKD) 14.2 (60.0-200.0); Potassium 4.4 mmol/L (3.5-5.5)
--- NOTE | 2021-12-22 10:42 | P.PN ---
Subjective Patient is seen in follow-up for acute kidney injury chronic kidney disease. Renal function fairly stable. Good urine output. No vomiting or diarrhea. Denies chest pain or shortness of breath. Hemoglobin 7.4 today. No bowel movement today. Vital signs are stable. General: No acute distress. HEENT: Head exam is unremarkable. On nasal cannula. LUNGS: Breath sounds decreased. HEART: Rate and Rhythm are regular. ABDOMEN: Soft, no distention. EXTREMITITES: Trace edema. Objective - Vital Signs Vital signs: Vital Signs Temp 98.4 F 12/22/21 07:28 Pulse 66 12/22/21 07:28 Resp 17 12/22/21 07:28 BP 109/65 12/22/21 07:28 Pulse Ox 97 12/22/21 07:28 FiO2 Intake & Output 12/21/21 12/22/21 12/22/21 18:59 06:59 18:59 Weight 118.6 kg Other: Voiding Method Toilet Toilet Toilet # Voids 1 4 # Bowel Movements 1 0 - Labs CBC & Chem 7: 12/22/21 04:21 12/22/21 04:21 Labs: Abnormal Lab Results - Last 24 Hours (Table) 12/21/21 12/22/21 12/22/21 Range/Units 05:04 04:21 04:21 RBC 2.26 L (4.40-5.60) X 10*6/uL Hgb 7.4 L (13.0-17.0) g/dL Hct 24.0 L (39.6-50.0) % MCV 106.2 H (80.0-97.0) fL MCH 32.7 H (27.0-32.0) pg MCHC 30.8 L (32.0-37.0) g/dL RDW 16.2 H (11.5-14.5) % Plt Count 114 L (140-440) X 10*3/uL Plt Count Comment DECREASED A Lymphocytes # 0.43 L 0.48 L (0.90-5.00) X 10*3/uL BUN 95.6 H (9.0-27.0) mg/dL Creatinine 3.8 H (0.6-1.5) mg/dL Est GFR (CKD-EPI)AfAm 16.4 L (60.0-200.0) Est GFR (CKD-EPI)NonAf 14.2 L (60.0-200.0) BUN/Creatinine Ratio 25.16 H (12.00-20.00) Ratio Magnesium 2.7 H (1.5-2.4) mg/dL Assessment and Plan Plan: Assessment: 1. Acute kidney injury mostly prerenal. Creatinine 3.96 on admission and is fairly stable at 3.8 today. 2. Chronic kidney disease stage IV with baseline creatinine in the range of 3.1-3.4 secondary to nephrosclerosis and cardiorenal syndrome. 3. Chronic systolic CHF with ejection fraction of less than 20% with mild to moderate mitral regurgitation. 4. Anemia of chronic kidney disease with concern for GI bleed. Iron deficiency noted. GI following. On Aranesp. 5. Lower extremity edema. Plan: Maintain IV iron. Maintain oral diuretic - change from Lasix to torsemide. Patient has completed METAL CONTROL COORDINATOR education and prefers to do peritoneal dialysis if needed. Continue to monitor renal function and urine output. Avoid nephrotoxins. Patient follow-up outpatient in 1 week. No urgent need for renal replacement therapy at this time.
--- NOTE | 2021-12-22 13:56 | US ---
EXAMINATION TYPE: US abdomen limited DATE OF EXAM: 12/22/2021 COMPARISON: NONE CLINICAL HISTORY: check for ascites. Scanning is limited for quadrants of the abdomen.Moderate to severe ascites. IMPRESSION: Limited abdomen ultrasound. There is moderate to large volume ascites.
[2021-12-22] MEDS: ATORVASTATIN 10 MG TAB PO SCH (19:57)
[2021-12-22] MEDS: LEVOTHYROXINE 50 MCG TAB PO SCH (19:58)
--- NOTE | 2021-12-22 21:31 | P.PN ---
Subjective Patient is a 81-year-old male with a known history of hypertension, borderline diabetic, gout, history of asbestos exposure, history of bilateral carotid endarterectomy, chronic CHF with systolic dysfunction ejection fraction less than 20%, dilated cardiomyopathy, persistent atrial fibrillation not on anticoagulation due to history of GI bleed, history of AICD placement, atrial fibrillation currently not on any anticoagulation hypothyroidism and other multiple medical problems presents to ER with complaints of bright red blood per rectum since yesterday. Patient was seen by his primary care physician and blood work-up showed hemoglobin level of 7.1. Repeat hemoglobin level in the hospital he is 8.2 previous hemoglobin on 08/03/2021 showed 10.7. However patient is also complaining of dizziness and lightheadedness. No chest pain or vivi rtness of breath. No cough or sputum production. Patient does have history of CKD stage IV and baseline creatinine level around 3.5. EKG showed atrial fibrillation with aberrant conduction. Laboratory data showed WBC 5.1 hemoglobin 8.2 MCV 104.4 and platelets 134 Sodium 139 potassium 4.2 chloride 103 bicarb is 23 BUN 106 creatinine 3.96. Patient had prior EGD and colonoscopy done about a year ago. Subjective: I am resume the care of the patient on 12/21/2021 Patient is sitting on bedside, fully awake and oriented, he states to me that he was in a hospital about 1-2 months ago where 10 L of fluid taken out of his abdominal cavity and 2 L from his pleural fluid. and that after discharge he went to see his PCP ANI Pandya course with physician but he could not recall his name, his repeat hemoglobin was 7.0, also patient noticeable blood per rectum Monday and since then he stopped taking his Eliquis. This morning he denies any chest pain, he has little dyspnea but no coughing or phlegm. He is complaining of from constipation for 2 days but no abdominal pain or vomiting. No dysuria or urgency, he is having 3-4 urinations per day which is normal for him. He feels generally weak. He denies smoking, OR illicit drugs. GI team evaluated the patient and recommended to check his hemoglobin and monitored. Also to keep holding his anticoagulation for 1 more day and can be resumed thereafter. Coiled Tubing Supervisor also indicates recommended peritoneal dialysis if needed for his advanced kidney disease GI team evaluated the patient, recent EGD and colonoscopy from [place] (obtained by GI team) showing mild gastritis and normal colonoscopy per their note. 12/23/2011 Patient looks comfortable while at rest, but he looks fluid overload with bilateral leg edema, chest x-ray today showing cardiomegaly with atelectasis and possible pneumonia however pneumonia felt less likely, patient does not behave clinically as pneumonia with no respiratory symptoms, no fever or leukocytosis. We sized it could be due to fluid overload which he already has. Abdominal ultrasound showing moderate to large ascites fluid. We'll keep hold Eliquis for possible paracentesis tomorrow. We will resume aspirin as per Recommendation of GI team, GI team is not available today and for the rest of the week. GI team recommended to resume anticoagulation including Eliquis after they reviewed his report of EGD and colonoscopy Objective - Vital Signs Vital signs: Vital Signs Temp 98.4 F 12/22/21 07:28 Pulse 66 12/22/21 07:28 Resp 17 12/22/21 07:28 BP 109/65 12/22/21 07:28 Pulse Ox 97 12/22/21 07:28 FiO2 Intake & Output 12/21/21 12/22/21 12/22/21 18:59 06:59 18:59 Weight 118.6 kg Other: Voiding Method Toilet Toilet Toilet # Voids 1 4 # Bowel Movements 1 0 - Exam GENERAL: The patient is alert and oriented x3, not in any acute distress. Well developed, well nourished. HEENT: Pupils are round and equally reacting to light. EOMI. No scleral icterus. No conjunctival pallor. Normocephalic, atraumatic. No pharyngeal erythema. No thyromegaly. CARDIOVASCULAR: S1 and S2 present. No murmurs, rubs, or gallops. PULMONARY: Chest is clear to auscultation, no wheezing or crackles. -ABDOMEN: Soft, nontender, distended, normoactive bowel sounds. No palpable organomegaly. MUSCULOSKELETAL: No joint swelling or deformity. -EXTREMITIES: No cyanosis, clubbing bilateral pitting leg edema, more on the left side NEUROLOGICAL: Gross neurological examination did not reveal any focal deficits. SKIN: No rashes. no petechiae. - Labs CBC & Chem 7: 12/22/21 04:21 12/22/21 04:21 Labs: Abnormal Lab Results - Last 24 Hours (Table) 12/22/21 12/22/21 Range/Units 04:21 04:21 RBC 2.26 L (4.40-5.60) X 10*6/uL Hgb 7.4 L (13.0-17.0) g/dL Hct 24.0 L (39.6-50.0) % MCV 106.2 H (80.0-97.0) fL MCH 32.7 H (27.0-32.0) pg MCHC 30.8 L (32.0-37.0) g/dL RDW 16.2 H (11.5-14.5) % Plt Count 114 L (140-440) X 10*3/uL Lymphocytes # 0.48 L (0.90-5.00) X 10*3/uL BUN 95.6 H (9.0-27.0) mg/dL Creatinine 3.8 H (0.6-1.5) mg/dL Est GFR (CKD-EPI)AfAm 16.4 L (60.0-200.0) Est GFR (CKD-EPI)NonAf 14.2 L (60.0-200.0) BUN/Creatinine Ratio 25.16 H (12.00-20.00) Ratio Magnesium 2.7 H (1.5-2.4) mg/dL Assessment and Plan Assessment: Blood per rectum, painless Anemia of chronic disease, with possible some elements of iron deficiency anemia Persistent atrial fibrillation was on anticoagulation with Eliquis. Currently on hold since Monday.. Chronic CHF with systolic dysfunction ejection fraction 20% Chronic liver disease Dilated cardiomyopathy status post ICD placement Acute on chronic kidney disease stage IV. Creatinine 3.94 on admission Hypertension Hyperlipidemia Osteoarthritis Borderline diabetes History of gout Plan: This is a pleasant 81 years old male who presents with blood per rectum, pain less. Eliquis remain on hold Resume aspirin and monitor hemoglobin Start the patient on iron pills The paracentesis Nephrology team on the case, they recommended follow-up in 1 week We will check chest x-ray and abdominal ultrasound GI team on the case however from tomorrow 12/22 they will not be available in this facility Labs and medication were reviewed.. Continue same treatment. Continue with symptomatic treatment. Resume home medication. Monitor lytes and vitals. DVT and GI prophylaxis. Further recommendations as per clinical course of the patient DVT prophylaxis: Eliquis on hold GI Prophylaxis: Ppi prognosis is guarded
[2021-12-23] MEDS: ASPIRIN 81 MG PO SCH ×2 (00:28→08:24)
[2021-12-23] MEDS: FOLIC ACID 1 MG TAB PO SCH (08:23)
[2021-12-23] MEDS: MULTIVITAMINS, THERA 1 EACH TAB PO SCH (08:23)
[2021-12-23] MEDS: polyethylene glycoL 3350 17 GM POWD.PACK PO SCH (08:23)
[2021-12-23] MEDS: FERROUS SULFATE 325 MG TAB PO SCH ×2 (08:23→16:53)
[2021-12-23] MEDS: allopurinoL 100 MG TAB PO SCH (08:23)
[2021-12-23] MEDS: carvediloL 12.5 MG TAB PO SCH ×2 (08:23→16:53)
[2021-12-23] MEDS: CHOLECALCIFEROL 25 MCG (1000 IU) TABLET PO SCH (08:24)
[2021-12-23] MEDS ORDERED: PANTOPRAZOLE 40 MG/10 ML VIAL ONE (09:00)
[2021-12-23] MEDS ORDERED: FUROSEMIDE 10 MG/ML 4 ML VIAL ONE (09:00)
[2021-12-23] MEDS ORDERED: TORSEMIDE 20 MG TAB PO SCH (09:00)
[2021-12-23 09:17] LABS: Basophils # (A) 0.03 X 10*3/uL (0.00-0.10); Basophils % (A) 0.6 %; Eosinophils # (A) 0.18 X 10*3/uL (0.04-0.35); Eosinophils % (A) 3.4 %; HCT 25.1 % (39.6-50.0); HGB 7.7 g/dL (13.0-17.0); Immature Grans, Automated 0.4 %; Lymphocytes # (A) 0.56 X 10*3/uL (0.90-5.00); Lymphocytes % (A) 10.6 %; MCH 32.5 pg (27.0-32.0); MCHC 30.7 g/dL (32.0-37.0); MCV 105.9 fL (80.0-97.0); Mean Platelet Volume 11.7 fL (9.5-12.2); Monocytes # (A) 0.69 X 10*3/uL (0.20-1.00); NRBC Per 100 WBC 0 /100 WBCS (0.0-0.0); Neutrophils # (A) 3.81 X 10*3/uL (1.80-7.70); Platelet Count 123 X 10*3/uL (140-440); RBC 2.37 X 10*6/uL (4.40-5.60); RDW 16.4 % (11.5-14.5); WBC 5.29 X 10*3/uL (4.50-10.00)
[2021-12-23 09:24] LABS: Anion Gap 12.5 mmol/L (10.00-18.00); BUN/Creat Ratio 25.3 Ratio (12.00-20.00); Blood Urea Nitrogen 93.6 mg/dL (9.0-27.0); Calcium 8.8 mg/dL (8.7-10.3); Carbon Dioxide 24.5 mmol/L (20.0-27.5); Magnesium 2.7 mg/dL (1.5-2.4); Non-African American GFR(CKD) 14.7 (60.0-200.0); Potassium 4.7 mmol/L (3.5-5.5)
--- NOTE | 2021-12-23 10:39 | P.PN ---
Subjective Patient is seen in follow-up for acute kidney injury chronic kidney disease. Renal function fairly stable. Good urine output. No vomiting or diarrhea. Denies chest pain or shortness of breath. Hemoglobin 7.7 today. No changes overnight. Vital signs are stable. General: No acute distress. HEENT: Head exam is unremarkable. LUNGS: Breath sounds decreased. HEART: Rate and Rhythm are regular. ABDOMEN: Soft, no distention. EXTREMITITES: 1+ edema. Objective - Vital Signs Vital signs: Vital Signs Temp 97.6 F 12/23/21 07:27 Pulse 68 12/23/21 07:27 Resp 18 12/23/21 07:27 BP 103/64 12/23/21 07:27 Pulse Ox 98 12/23/21 07:27 FiO2 Intake & Output 12/22/21 12/23/21 12/23/21 18:59 06:59 18:59 Other: Voiding Method Toilet Toilet # Voids 4 3 # Bowel Movements 1 - Labs CBC & Chem 7: 12/23/21 06:18 12/23/21 06:18 Labs: Abnormal Lab Results - Last 24 Hours (Table) 12/23/21 12/23/21 Range/Units 06:18 06:18 RBC 2.37 L (4.40-5.60) X 10*6/uL Hgb 7.7 L (13.0-17.0) g/dL Hct 25.1 L (39.6-50.0) % MCV 105.9 H (80.0-97.0) fL MCH 32.5 H (27.0-32.0) pg MCHC 30.7 L (32.0-37.0) g/dL RDW 16.4 H (11.5-14.5) % Plt Count 123 L (140-440) X 10*3/uL Lymphocytes # 0.56 L (0.90-5.00) X 10*3/uL BUN 93.6 H (9.0-27.0) mg/dL Creatinine 3.7 H (0.6-1.5) mg/dL Est GFR (CKD-EPI)AfAm 17.0 L (60.0-200.0) Est GFR (CKD-EPI)NonAf 14.7 L (60.0-200.0) BUN/Creatinine Ratio 25.30 H (12.00-20.00) Ratio Magnesium 2.7 H (1.5-2.4) mg/dL Assessment and Plan Plan: Assessment: 1. Acute kidney injury mostly prerenal. Creatinine 3.96 on admission and is fairly stable at 3.7 today. 2. Chronic kidney disease stage IV with baseline creatinine in the range of 3.1-3.4 secondary to nephrosclerosis and cardiorenal syndrome. 3. Chronic systolic CHF with ejection fraction of less than 20% with mild to moderate mitral regurgitation. 4. Anemia of chronic kidney disease with concern for GI bleed. Iron deficiency noted - status post IV iron. GI following. On Aranesp. 5. Lower extremity edema. 6. Ascites. Plan: IV Lasix 40 mg twice daily for now. Hold oral torsemide. 1500 mL fluid restriction. Possible paracentesis today. I will give him 25 g of albumin and pre-and post procedure. Patient has completed RAND TACKER education and prefers to do peritoneal dialysis if needed. Continue to monitor renal function and urine output. Avoid nephrotoxins. Patient follow-up outpatient in 1 week. No urgent need for renal replacement therapy at this time.
[2021-12-23] MEDS: ALBUMIN HUMAN 25% 50 ML in EMPTY BAG 1 BAG IVPB SCH ×4 (15:14→15:15)
[2021-12-23] MEDS: FUROSEMIDE 10 MG/ML 4 ML VIAL IV SCH ×2 (15:15→21:43)
[2021-12-23] MEDS: PANTOPRAZOLE 40 MG/10 ML VIAL IVP SCH (15:15)
[2021-12-23 19:07] LABS: INR 1.1 (<1.2)
[2021-12-23] MEDS: LEVOTHYROXINE 50 MCG TAB PO SCH (21:43)
[2021-12-23] MEDS: ATORVASTATIN 10 MG TAB PO SCH (21:43)
--- NOTE | 2021-12-23 21:47 | P.PN ---
Subjective Patient is a 81-year-old male with a known history of hypertension, borderline diabetic, gout, history of asbestos exposure, history of bilateral carotid endarterectomy, chronic CHF with systolic dysfunction ejection fraction less than 20%, dilated cardiomyopathy, persistent atrial fibrillation not on anticoagulation due to history of GI bleed, history of AICD placement, atrial fibrillation currently not on any anticoagulation hypothyroidism and other multiple medical problems presents to ER with complaints of bright red blood per rectum since yesterday. Patient was seen by his primary care physician and blood work-up showed hemoglobin level of 7.1. Repeat hemoglobin level in the hospital he is 8.2 previous hemoglobin on 08/03/2021 showed 10.7. However patient is also complaining of dizziness and lightheadedness. No chest pain or vivi rtness of breath. No cough or sputum production. Patient does have history of CKD stage IV and baseline creatinine level around 3.5. EKG showed atrial fibrillation with aberrant conduction. Laboratory data showed WBC 5.1 hemoglobin 8.2 MCV 104.4 and platelets 134 Sodium 139 potassium 4.2 chloride 103 bicarb is 23 BUN 106 creatinine 3.96. Patient had prior EGD and colonoscopy done about a year ago. Subjective: I am resume the care of the patient on 12/21/2021 Patient is sitting on bedside, fully awake and oriented, he states to me that he was in a hospital about 1-2 months ago where 10 L of fluid taken out of his abdominal cavity and 2 L from his pleural fluid. and that after discharge he went to see his PCP ANI Pandya course with physician but he could not recall his name, his repeat hemoglobin was 7.0, also patient noticeable blood per rectum Monday and since then he stopped taking his Eliquis. This morning he denies any chest pain, he has little dyspnea but no coughing or phlegm. He is complaining of from constipation for 2 days but no abdominal pain or vomiting. No dysuria or urgency, he is having 3-4 urinations per day which is normal for him. He feels generally weak. He denies smoking, OR illicit drugs. GI team evaluated the patient and recommended to check his hemoglobin and monitored. Also to keep holding his anticoagulation for 1 more day and can be resumed thereafter. Music Therapist also indicates recommended peritoneal dialysis if needed for his advanced kidney disease GI team evaluated the patient, recent EGD and colonoscopy from [place] (obtained by GI team) showing mild gastritis and normal colonoscopy per their note. 12/23/2011 Patient looks comfortable while at rest, but he looks fluid overload with bilateral leg edema, chest x-ray today showing cardiomegaly with atelectasis and possible pneumonia however pneumonia felt less likely, patient does not behave clinically as pneumonia with no respiratory symptoms, no fever or leukocytosis. We sized it could be due to fluid overload which he already has. Abdominal ultrasound showing moderate to large ascites fluid. We'll keep hold Eliquis for possible paracentesis tomorrow. We will resume aspirin as per Recommendation of GI team, GI team is not available today and for the rest of the week. GI team recommended to resume anticoagulation including Eliquis after they reviewed his report of EGD and colonoscopy 12/24/2011 Patient is sitting up in bed, fully awake and oriented, no pain or distress. Patient evaluated by GI service and recommended to restart anticoagulation after one day. Eliquis still on hold. Patient was started on aspirin at home dose of 81 mg daily. Patient still reports little spotting of blood per rectum, no significant completing, hemoglobin stable and actually slightly improved at 7.7. Platelets improved 1.3. Patient is hemodynamically stable. No dizziness, no chest pain or shortness of breath. Creatinine 3.7 and nephrology team on the case and recommended peritoneal dialysis, no urgent need for dialysis Patient has moderate to large ascites, IR team consulted for paracentesis, we will send for body fluid culture and cell count, please follow up the results. Patient is on iron therapy and started on IV Lasix 40 mg twice daily instead of the oral dose. Although made will be provided. Check labs tomorrow If further bleeding or drop in hemoglobin and then patient will need to stop his anticoagulant (on hold now) and aspirin and surgical team evaluation. However there is no stroke signs of significant date for now, we will keep monitoring. Objective - Vital Signs Vital signs: Vital Signs Temp 97.6 F 12/23/21 07:27 Pulse 68 12/23/21 07:27 Resp 18 12/23/21 07:27 BP 103/64 12/23/21 07:27 Pulse Ox 98 12/23/21 07:27 FiO2 Intake & Output 12/22/21 12/23/21 12/23/21 18:59 06:59 18:59 Other: Voiding Method Toilet Toilet # Voids 4 3 # Bowel Movements 1 - Exam GENERAL: The patient is alert and oriented x3, not in any acute distress. Well developed, well nourished. HEENT: Pupils are round and equally reacting to light. EOMI. No scleral icterus. No conjunctival pallor. Normocephalic, atraumatic. No pharyngeal erythema. No thyromegaly. CARDIOVASCULAR: S1 and S2 present. No murmurs, rubs, or gallops. PULMONARY: Chest is clear to auscultation, no wheezing or crackles. -ABDOMEN: Soft, nontender, distended, normoactive bowel sounds. No palpable organomegaly. MUSCULOSKELETAL: No joint swelling or deformity. -EXTREMITIES: No cyanosis, clubbing bilateral pitting leg edema, more on the left side NEUROLOGICAL: Gross neurological examination did not reveal any focal deficits. SKIN: No rashes. no petechiae. - Labs CBC & Chem 7: 12/23/21 06:18 12/23/21 06:18 Labs: Abnormal Lab Results - Last 24 Hours (Table) 12/23/21 12/23/21 Range/Units 06:18 06:18 RBC 2.37 L (4.40-5.60) X 10*6/uL Hgb 7.7 L (13.0-17.0) g/dL Hct 25.1 L (39.6-50.0) % MCV 105.9 H (80.0-97.0) fL MCH 32.5 H (27.0-32.0) pg MCHC 30.7 L (32.0-37.0) g/dL RDW 16.4 H (11.5-14.5) % Plt Count 123 L (140-440) X 10*3/uL Lymphocytes # 0.56 L (0.90-5.00) X 10*3/uL BUN 93.6 H (9.0-27.0) mg/dL Creatinine 3.7 H (0.6-1.5) mg/dL Est GFR (CKD-EPI)AfAm 17.0 L (60.0-200.0) Est GFR (CKD-EPI)NonAf 14.7 L (60.0-200.0) BUN/Creatinine Ratio 25.30 H (12.00-20.00) Ratio Magnesium 2.7 H (1.5-2.4) mg/dL Assessment and Plan Assessment: Blood per rectum, painless, improving. Patient had recent EGD and colonoscopy w [facility] is reviewed, GI service evaluated the patient Anemia of chronic disease, with possible some elements of iron deficiency anemia Persistent atrial fibrillation was on anticoagulation with Eliquis. Currently on hold since Monday.. Chronic CHF with systolic dysfunction ejection fraction 20% Chronic liver disease Dilated cardiomyopathy status post ICD placement Acute on chronic kidney disease stage IV. Creatinine 3.94 on admission Hypertension Hyperlipidemia Osteoarthritis Borderline diabetes History of gout Plan: This is a pleasant 81 years old male who presents with blood per rectum, pain less. Eliquis remain on hold continue with low-dose aspirin and monitor hemoglobin, it worsened bleeding or drop hemoglobin, then we will call for surgical team consult. Start the patient on iron pills Consult IR team for The paracentesis Nephrology team on the case, they recommended follow-up in 1 week Follow ascites fluid cell count and culture GI team on the case however from tomorrow 12/22 they will not be available in this facility Labs and medication were reviewed.. Continue same treatment. Continue with symptomatic treatment. Resume home medication. Monitor lytes and vitals. DVT and GI prophylaxis. Further recommendations as per clinical course of the patient DVT prophylaxis: Eliquis on hold GI Prophylaxis: Ppi prognosis is guarded
[2021-12-24] MEDS: PANTOPRAZOLE 40 MG/10 ML VIAL IVP SCH (07:28)
[2021-12-24] MEDS: FUROSEMIDE 10 MG/ML 4 ML VIAL IV SCH ×2 (07:28→20:57)
[2021-12-24] MEDS: allopurinoL 100 MG TAB PO SCH (07:28)
[2021-12-24] MEDS: ASPIRIN 81 MG PO SCH (07:28)
[2021-12-24] MEDS: FOLIC ACID 1 MG TAB PO SCH (07:29)
[2021-12-24] MEDS: FERROUS SULFATE 325 MG TAB PO SCH ×2 (07:29→17:13)
[2021-12-24] MEDS: CHOLECALCIFEROL 25 MCG (1000 IU) TABLET PO SCH (07:29)
[2021-12-24] MEDS: carvediloL 12.5 MG TAB PO SCH ×2 (07:29→17:13)
[2021-12-24] MEDS: MULTIVITAMINS, THERA 1 EACH TAB PO SCH (07:29)
[2021-12-24 07:33] LABS: African American GFR (CKD) 17 (>60 ml/min/1.73 sqM); Anion Gap 10 mmol/L; Blood Urea Nitrogen 100 mg/dL (9-20); Calcium 8.6 mg/dL (8.4-10.2); Carbon Dioxide 25 mmol/L (22-30); Chloride 102 mmol/L (98-107); Glucose 90 mg/dL (74-99); Non-African American GFR(CKD) 15 (>60 ml/min/1.73 sqM); Potassium 4.6 mmol/L (3.5-5.1); Sodium 137 mmol/L (137-145)
[2021-12-24] MEDS: polyethylene glycoL 3350 17 GM POWD.PACK PO SCH (07:51)
[2021-12-24] MEDS: ALBUMIN HUMAN 25% 50 ML in EMPTY BAG 1 BAG IVPB SCH ×4 (09:24→11:33)
[2021-12-24] MEDS ORDERED: LIDOCAINE 1% PF 10 MG/ML (5 ML AMP) SQ ONE (10:22)
--- NOTE | 2021-12-24 10:42 | P.PN ---
Subjective Patient is seen in follow-up for acute kidney injury chronic kidney disease. Renal function fairly stable. Good urine output. No vomiting or diarrhea. Denies chest pain or shortness of breath. Hemoglobin 7.7 yesterday. On IV Lasix. Scheduled for paracentesis today. Vital signs are stable. General: No acute distress. HEENT: Head exam is unremarkable. LUNGS: Breath sounds decreased. HEART: Rate and Rhythm are regular. ABDOMEN: Soft, no distention. EXTREMITITES: 1+ edema. Objective - Vital Signs Vital signs: Vital Signs Temp 97.4 F L 12/24/21 06:02 Pulse 79 12/24/21 10:35 Resp 16 12/24/21 10:35 BP 114/66 12/24/21 10:35 Pulse Ox 96 12/24/21 10:35 FiO2 Intake & Output 12/23/21 12/24/21 12/24/21 18:59 06:59 18:59 Intake Total 296 Balance 296 Weight 120.7 kg Intake: Oral 296 Other: Voiding Method Toilet # Voids 4 # Bowel Movements 1 - Labs CBC & Chem 7: 12/23/21 06:18 12/24/21 06:28 Labs: Abnormal Lab Results - Last 24 Hours (Table) 12/24/21 Range/Units 06:28 BUN 100 H (9-20) mg/dL Creatinine 3.65 H (0.66-1.25) mg/dL Assessment and Plan Plan: Assessment: 1. Acute kidney injury mostly prerenal. Creatinine 3.96 on admission and is fairly stable at 3.65 today. 2. Chronic kidney disease stage IV with baseline creatinine in the range of 3.1-3.4 secondary to nephrosclerosis and cardiorenal syndrome. 3. Chronic systolic CHF with ejection fraction of less than 20% with mild to moderate mitral regurgitation. 4. Anemia of chronic kidney disease with concern for GI bleed. Iron deficiency noted - status post IV iron. GI following. On Aranesp. 5. Lower extremity edema. 6. Ascites. Plan: Maintain IV Lasix. Transition to oral Demadex 40 mg once daily upon discharge. 1500 mL fluid restriction. Scheduled for paracentesis today. I will give him 25 g of albumin and pre-and post procedure. Patient has completed NETWORK DEVELOPER education and prefers to do peritoneal dialysis if needed. Continue to monitor renal function and urine output. Avoid nephrotoxins. Patient follow-up outpatient in 1 week. No urgent need for renal replacement therapy at this time.
[2021-12-24 10:59] LABS: Basophils # (A) 0.03 X 10*3/uL (0.00-0.10); Basophils % (A) 0.6 %; Eosinophils # (A) 0.21 X 10*3/uL (0.04-0.35); Eosinophils % (A) 4.1 %; HCT 24.5 % (39.6-50.0); HGB 7.4 g/dL (13.0-17.0); Immature Grans, Automated 0.4 %; Lymphocytes # (A) 0.47 X 10*3/uL (0.90-5.00); Lymphocytes % (A) 9.1 %; MCH 32.7 pg (27.0-32.0); MCHC 30.2 g/dL (32.0-37.0); MCV 108.4 fL (80.0-97.0); Mean Platelet Volume 12.3 fL (9.5-12.2); Monocytes # (A) 0.58 X 10*3/uL (0.20-1.00); Monocytes % (A) 11.3 %; NRBC Per 100 WBC 0 /100 WBCS (0.0-0.0); Neutrophils # (A) 3.83 X 10*3/uL (1.80-7.70); Neutrophils % (A) 74.5 %; Platelet Count 119 X 10*3/uL (140-440); RBC 2.26 X 10*6/uL (4.40-5.60); RDW 16.6 % (11.5-14.5); Reticulocyte % 3.85 % (0.10-1.80); WBC 5.14 X 10*3/uL (4.50-10.00)
--- NOTE | 2021-12-24 13:02 | US ---
EXAMINATION TYPE: US paracentesis abd w/image DATE OF EXAM: 12/24/2021 COMPARISON: NONE HISTORY: Ascites. PROCEDURE: Maximal barrier technique was utilized. The skin overlying a suitable pocket of fluid was localized with ultrasound and the overlying skin was prepped and draped. Ultrasound was utilized with sterile technique. Lidocaine was used for local anesthesia and a skin lucas made with a scalpel. Catheter was advanced under direct ultrasound guidance into a suitable pocket of fluid and approximately 10.7 lite rs of serous fluid were removed. Catheter was withdrawn and hemostasis achieved. There is no immedi ate complication; the patient is discharged in stable condition. Specimen obtained for laboratory vane lysis IMPRESSION: STATUS POST ULTRASOUND GUIDED PARACENTESIS FOR PALLIATION OF ASCITES. THIS PROCEDURE WA S PERFORMED BY THE UNDERSIGNED.
[2021-12-24] MEDS: ATORVASTATIN 10 MG TAB PO SCH (20:57)
[2021-12-24] MEDS: LEVOTHYROXINE 50 MCG TAB PO SCH (20:57)
[2021-12-24 23:47] LABS: Appearance,BF Slightly Cloudy
[2021-12-25] MEDS: carvediloL 12.5 MG TAB PO SCH ×2 (08:00→17:07)
[2021-12-25] MEDS: MULTIVITAMINS, THERA 1 EACH TAB PO SCH (08:00)
[2021-12-25] MEDS: allopurinoL 100 MG TAB PO SCH (08:00)
[2021-12-25] MEDS: ASPIRIN 81 MG PO SCH (08:00)
[2021-12-25] MEDS: FERROUS SULFATE 325 MG TAB PO SCH ×2 (08:00→17:07)
[2021-12-25] MEDS: CHOLECALCIFEROL 25 MCG (1000 IU) TABLET PO SCH (08:01)
[2021-12-25] MEDS: FOLIC ACID 1 MG TAB PO SCH (08:01)
[2021-12-25] MEDS: polyethylene glycoL 3350 17 GM POWD.PACK PO SCH (08:01)
[2021-12-25] MEDS: FUROSEMIDE 10 MG/ML 4 ML VIAL IV SCH ×2 (08:01→19:59)
[2021-12-25] MEDS: PANTOPRAZOLE 40 MG/10 ML VIAL IVP SCH (08:01)
--- NOTE | 2021-12-25 09:59 | P.PN ---
Subjective Patient is seen for follow-up for acute kidney injury and top of chronic kidney disease. Patient is currently comfortable No significant complaints today Maintained on IV Lasix Patient states he is feeling much better and would like to go home. Serum creatinine 3.6 yesterday. Baseline creatinine 3-3.4 mg/dL. Objective - Vital Signs Vital signs: Vital Signs Temp 98.2 F 12/25/21 06:54 Pulse 64 12/25/21 06:54 Resp 17 12/25/21 06:54 BP 103/52 12/25/21 06:54 Pulse Ox 96 12/25/21 06:54 FiO2 Intake & Output 12/24/21 12/25/21 12/25/21 18:59 06:59 18:59 Intake Total 888 Balance 888 Weight 110.2 kg Intake: Oral 888 Other: # Voids 2 2 - Exam Awake, comfortable, not in any acute distress Examination of the heart S1 and S2 Examination lungs bilateral breath sounds are heard Abdomen is soft nontender Examination of lower extremity shows 1+ edema bilaterally INSPECTOR GENERAL exam grossly intact - Labs CBC & Chem 7: 12/24/21 06:28 12/24/21 06:28 Labs: Abnormal Lab Results - Last 24 Hours (Table) 12/24/21 12/24/21 Range/Units 06:28 06:28 RBC 2.26 L (4.40-5.60) X 10*6/uL Hgb 7.4 L (13.0-17.0) g/dL Hct 24.5 L (39.6-50.0) % MCV 108.4 H (80.0-97.0) fL MCH 32.7 H (27.0-32.0) pg MCHC 30.2 L (32.0-37.0) g/dL RDW 16.6 H (11.5-14.5) % Plt Count 119 L (140-440) X 10*3/uL MPV 12.3 H (9.5-12.2) fL Lymphocytes # 0.47 L (0.90-5.00) X 10*3/uL Retic Count 3.85 H (0.10-1.80) % Magnesium 2.6 H (1.5-2.4) mg/dL Microbiology - Last 24 Hours (Table) 12/24/21 10:30 Body Fluid Culture - Preliminary Ascites Fluid 12/24/21 10:30 Anaerobic Culture - Preliminary Ascites Fluid Assessment and Plan Assessment: 1. Acute kidney injury mostly prerenal currently improved 2. 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 Chronic systolic CHF with ejection fraction less than 20% with [id number] mitral regurgitation 4. Anemia of chronic disease with concern for GI bleed. Iron deficiency was noted currently status post IV iron and being followed by GI. Patient is also maintained on Aranesp 5. chronic lower extremity edema Plan: Okay to discharge patient home. He will take torsemide 20 mg twice a day for 3- 4 days post discharge and then go down to 20 mg daily that patient was taking prior to admission. Follow-up in the office in 1 week's time with nephrology.
[2021-12-25 11:56] LABS: Basophils % (A) 1 %; Eosinophils # (A) 0.3 k/uL (0-0.7); Eosinophils % (A) 5 %; HCT 27.5 % (39.0-53.0); HGB 8.4 gm/dL (13.0-17.5); Hypochromasia Slight; Lymphocytes # (A) 0.5 k/uL (1.0-4.8); Lymphocytes % (A) 10 %; MCH 33.3 pg (25.0-35.0); MCHC 30.8 g/dL (31.0-37.0); MCV 108.4 fL (80.0-100.0); Macrocytosis Marked; Mean Platelet Volume 8.8; Monocytes # (A) 0.4 k/uL (0-1.0); Monocytes % (A) 9 %; Neutrophils # (A) 3.6 k/uL (1.3-7.7); Neutrophils % (A) 74 %; Platelet Count 122 k/uL (150-450); RBC 2.53 m/uL (4.30-5.90); RDW 15.6 % (11.5-15.5); WBC 4.8 k/uL (3.8-10.6)
[2021-12-25 12:06] LABS: African American GFR (CKD) 19 (>60 ml/min/1.73 sqM); Anion Gap 8 mmol/L; Blood Urea Nitrogen 97 mg/dL (9-20); Calcium 8.3 mg/dL (8.4-10.2); Carbon Dioxide 25 mmol/L (22-30); Chloride 105 mmol/L (98-107); Glucose 118 mg/dL (74-99); Non-African American GFR(CKD) 16 (>60 ml/min/1.73 sqM); Potassium 4.1 mmol/L (3.5-5.1); Sodium 138 mmol/L (137-145)
[2021-12-25] MEDS: LEVOTHYROXINE 50 MCG TAB PO SCH (20:00)
[2021-12-25] MEDS: ATORVASTATIN 10 MG TAB PO SCH (20:00)
[2021-12-26] MEDS: carvediloL 12.5 MG TAB PO SCH (07:49)
[2021-12-26] MEDS: FOLIC ACID 1 MG TAB PO SCH (07:50)
[2021-12-26] MEDS: MULTIVITAMINS, THERA 1 EACH TAB PO SCH (07:50)
[2021-12-26] MEDS: allopurinoL 100 MG TAB PO SCH (07:50)
[2021-12-26] MEDS: CHOLECALCIFEROL 25 MCG (1000 IU) TABLET PO SCH (07:55)
[2021-12-26] MEDS: ASPIRIN 81 MG PO SCH ×2 (07:55→08:07)
[2021-12-26 08:02] VITALS: BP 104/64; PULSE 79; RESP 18; TEMP 98.1
[2021-12-26] MEDS: FERROUS SULFATE 325 MG TAB PO SCH (08:07)
[2021-12-26] MEDS: polyethylene glycoL 3350 17 GM POWD.PACK PO SCH (09:04)
[2021-12-26] MEDS: PANTOPRAZOLE 40 MG/10 ML VIAL IVP SCH (09:04)
[2021-12-26] MEDS: FUROSEMIDE 10 MG/ML 4 ML VIAL IV SCH (09:04)
[2021-12-26 09:17] LABS: Anion Gap 16.1 mmol/L (10.00-18.00); BUN/Creat Ratio 23.76 Ratio (12.00-20.00); Blood Urea Nitrogen 87.9 mg/dL (9.0-27.0); Calcium 8.5 mg/dL (8.7-10.3); Carbon Dioxide 25.9 mmol/L (20.0-27.5); Non-African American GFR(CKD) 14.7 (60.0-200.0); Potassium 4.4 mmol/L (3.5-5.5)
[2021-12-26 09:32] LABS: Basophils # (A) 0.03 X 10*3/uL (0.00-0.10); Basophils % (A) 0.6 %; Eosinophils # (A) 0.18 X 10*3/uL (0.04-0.35); Eosinophils % (A) 3.5 %; HCT 26.2 % (39.6-50.0); HGB 8.1 g/dL (13.0-17.0); Immature Grans, Automated 0.4 %; Lymphocytes # (A) 0.44 X 10*3/uL (0.90-5.00); Lymphocytes % (A) 8.5 %; MCH 33.1 pg (27.0-32.0); MCHC 30.9 g/dL (32.0-37.0); MCV 106.9 fL (80.0-97.0); Mean Platelet Volume 11.9 fL (9.5-12.2); Monocytes # (A) 0.63 X 10*3/uL (0.20-1.00); Monocytes % (A) 12.2 %; NRBC Per 100 WBC 0 /100 WBCS (0.0-0.0); Neutrophils # (A) 3.87 X 10*3/uL (1.80-7.70); Neutrophils % (A) 74.8 %; Platelet Count 119 X 10*3/uL (140-440); RBC 2.45 X 10*6/uL (4.40-5.60); RDW 16.7 % (11.5-14.5); WBC 5.17 X 10*3/uL (4.50-10.00)
--- NOTE | 2021-12-26 10:51 | P.PN ---
Subjective Progress Note Date: 12/24/21 81-year-old male with a known history of hypertension, borderline diabetic, gout, history of asbestos exposure, history of bilateral carotid endarterectomy, chronic CHF with systolic dysfunction ejection fraction less than 20%, dilated cardiomyopathy, persistent atrial fibrillation not on anticoagulation due to history of GI bleed, history of AICD placement, atrial fibrillation currently not on any anticoagulation hypothyroidism and other multiple medical problems presents to ER with complaints of bright red blood per rectum since yesterday. Patient was seen by his primary care physician and blood work-up showed hemoglobin level of 7.1. Repeat hemoglobin level in the hospital he is 8.2 previous hemoglobin on 08/03/2021 showed 10.7. However patient is also complaining of dizziness and lightheadedness. No chest pain or shortness of breath. No cough or sputum production. Patient does have history of CKD stage IV and baseline creatinine level around 3.5. EKG showed atrial fibrillation with aberrant conduction. Laboratory data showed WBC 5.1 hemoglobin 8.2 MCV 104.4 and platelets 134 Sodium 139 potassium 4.2 chloride 103 bicarb is 23 BUN 106 creatinine 3.96. Patient had prior EGD and colonoscopy done about a year ago. Objective - Vital Signs Vital signs: Vital Signs Temp 97.4 F L 12/24/21 06:02 Pulse 71 12/24/21 11:47 Resp 18 12/24/21 11:47 BP 109/65 12/24/21 11:47 Pulse Ox 97 12/24/21 11:20 FiO2 Intake & Output 12/23/21 12/24/21 12/24/21 18:59 06:59 18:59 Intake Total 296 Balance 296 Weight 120.7 kg Intake: Oral 296 Other: Voiding Method Toilet # Voids 4 # Bowel Movements 1 - Exam GENERAL: The patient is alert and oriented x3, not in any acute distress. Well developed, well nourished. HEENT: Pupils are round and equally reacting to light. EOMI. No scleral icterus. No conjunctival pallor. Normocephalic, atraumatic. No pharyngeal erythema. No thyromegaly. CARDIOVASCULAR: S1 and S2 present. No murmurs, rubs, or gallops. PULMONARY: Chest is clear to auscultation, no wheezing or crackles. -ABDOMEN: Soft, nontender, distended, normoactive bowel sounds. No palpable organomegaly. MUSCULOSKELETAL: No joint swelling or deformity. -EXTREMITIES: No cyanosis, clubbing bilateral pitting leg edema, more on the left side NEUROLOGICAL: Gross neurological examination did not reveal any focal deficits. SKIN: No rashes. no petechiae. - Labs CBC & Chem 7: 12/26/21 05:33 12/26/21 05:33 Labs: Abnormal Lab Results - Last 24 Hours (Table) 12/24/21 12/24/21 12/24/21 Range/Units 06:28 06:28 06:28 RBC 2.26 L (4.40-5.60) X 10*6/uL Hgb 7.4 L (13.0-17.0) g/dL Hct 24.5 L (39.6-50.0) % MCV 108.4 H (80.0-97.0) fL MCH 32.7 H (27.0-32.0) pg MCHC 30.2 L (32.0-37.0) g/dL RDW 16.6 H (11.5-14.5) % Plt Count 119 L (140-440) X 10*3/uL MPV 12.3 H (9.5-12.2) fL Lymphocytes # 0.47 L (0.90-5.00) X 10*3/uL Retic Count 3.85 H (0.10-1.80) % BUN 100 H (9-20) mg/dL Creatinine 3.65 H (0.66-1.25) mg/dL Magnesium 2.6 H (1.5-2.4) mg/dL Assessment and Plan Assessment: Blood per rectum, painless, improving. Patient had recent EGD and colonoscopy which is reviewed, GI service evaluated the patient Anemia of chronic disease, with possible some elements of iron deficiency anemia Persistent atrial fibrillation was on anticoagulation with Eliquis. Currently on hold since Monday.. Chronic CHF with systolic dysfunction ejection fraction 20% Chronic liver disease Dilated cardiomyopathy status post ICD placement Acute on chronic kidney disease stage IV. Creatinine 3.94 on admission Hypertension Hyperlipidemia Osteoarthritis Borderline diabetes History of gout Plan: This is a pleasant 81 years old male who presents with blood per rectum, pain less. Eliquis remain on hold continue with low-dose aspirin and monitor hemoglobin, it worsened bleeding or drop hemoglobin, then we will call for surgical team consult. Start the patient on iron pills Consult IR team for The paracentesis Nephrology team on the case, they recommended follow-up in 1 week Follow ascites fluid cell count and culture GI team on the case however from tomorrow 12/22 they will not be available in this facility Labs and medication were reviewed.. Continue same treatment. Continue with symptomatic treatment. Resume home medication. Monitor lytes and vitals. DVT and GI prophylaxis. Further recommendations as per clinical course of the patient DVT prophylaxis: Eliquis on hold GI Prophylaxis: Ppi prognosis is guarded
--- NOTE | 2021-12-26 10:58 | P.PN ---
Subjective Progress Note Date: 12/25/21 Principal diagnosis: Blood per rectum Acute on chronic anemia; iron deficiency versus acute blood loss Persistent atrial fibrillation 81-year-old male with a known history of hypertension, borderline diabetic, gout, history of asbestos exposure, history of bilateral carotid endarterectomy, chronic CHF with systolic dysfunction ejection fraction less than 20%, dilated cardiomyopathy, persistent atrial fibrillation not on anticoagulation due to history of GI bleed, history of AICD placement, atrial fibrillation currently not on any anticoagulation hypothyroidism and other multiple medical problems presents to ER with complaints of bright red blood per rectum since yesterday. Patient was seen by his primary care physician and blood work-up showed hemoglobin level of 7.1. Repeat hemoglobin level in the hospital he is 8.2 previous hemoglobin on 08/03/2021 showed 10.7. However patient is also complaining of dizziness and lightheadedness. No chest pain or shortness of breath. No cough or sputum production. Patient does have history of CKD stage IV and baseline creatinine level around 3.5. EKG showed atrial fibrillation with aberrant conduction. Laboratory data showed WBC 5.1 hemoglobin 8.2 MCV 104.4 and platelets 134 Sodium 139 potassium 4.2 chloride 103 bicarb is 23 BUN 106 creatinine 3.96. Patient had prior EGD and colonoscopy done about a year ago. 12/25/2021 Patient is seen and evaluated in room at bedside; denies any specific complaints Vital signs are reviewed and stable with temperature of 98.2, pulse 64, respirations 17 and blood pressure 103/52, O2 saturation of 96% Nephrology is following for acute on chronic renal failure; patient remains on IV Lasix Nephrology clearing patient for discharge with recommendations to take torsemide 20 mg twice a day for 3-4 days postdischarge followed by 20 mg daily; patient will follow up with nephrology in 1 week Hemoglobin at last blood work was 7.2; we will monitor hemoglobin with plans to discharge in next 24 hours if hemoglobin remains stable Objective - Vital Signs Vital signs: Vital Signs Temp 98.2 F 12/25/21 06:54 Pulse 64 12/25/21 06:54 Resp 17 12/25/21 06:54 BP 103/52 12/25/21 06:54 Pulse Ox 96 12/25/21 06:54 FiO2 Intake & Output 12/24/21 12/25/21 12/25/21 18:59 06:59 18:59 Intake Total 888 Balance 888 Weight 110.2 kg Intake: Oral 888 Other: # Voids 2 2 - Exam GENERAL: The patient is alert and oriented x3, not in any acute distress. Well developed, well nourished. HEENT: Pupils are round and equally reacting to light. EOMI. No scleral icterus. No conjunctival pallor. Normocephalic, atraumatic. No pharyngeal erythema. No thyromegaly. CARDIOVASCULAR: S1 and S2 present. No murmurs, rubs, or gallops. PULMONARY: Chest is clear to auscultation, no wheezing or crackles. -ABDOMEN: Soft, nontender, distended, normoactive bowel sounds. No palpable organomegaly. MUSCULOSKELETAL: No joint swelling or deformity. -EXTREMITIES: No cyanosis, clubbing bilateral pitting leg edema, more on the left side NEUROLOGICAL: Gross neurological examination did not reveal any focal deficits. SKIN: No rashes. no petechiae. - Labs CBC & Chem 7: 12/26/21 05:33 12/26/21 05:33 Labs: Abnormal Lab Results - Last 24 Hours (Table) 12/24/21 12/24/21 Range/Units 06:28 06:28 RBC 2.26 L (4.40-5.60) X 10*6/uL Hgb 7.4 L (13.0-17.0) g/dL Hct 24.5 L (39.6-50.0) % MCV 108.4 H (80.0-97.0) fL MCH 32.7 H (27.0-32.0) pg MCHC 30.2 L (32.0-37.0) g/dL RDW 16.6 H (11.5-14.5) % Plt Count 119 L (140-440) X 10*3/uL MPV 12.3 H (9.5-12.2) fL Lymphocytes # 0.47 L (0.90-5.00) X 10*3/uL Retic Count 3.85 H (0.10-1.80) % Magnesium 2.6 H (1.5-2.4) mg/dL Microbiology - Last 24 Hours (Table) 12/24/21 10:30 Body Fluid Culture - Preliminary Ascites Fluid 12/24/21 10:30 Anaerobic Culture - Preliminary Ascites Fluid Assessment and Plan Assessment: Blood per rectum, painless, improving. Patient had recent EGD and colonoscopy which is reviewed, GI service evaluated the patient Anemia of chronic disease, with possible some elements of iron deficiency anemia Persistent atrial fibrillation was on anticoagulation with Eliquis. Currently on hold since Monday.. Chronic CHF with systolic dysfunction ejection fraction 20% Chronic liver disease Dilated cardiomyopathy status post ICD placement Acute on chronic kidney disease stage IV. Creatinine 3.94 on admission Hypertension Hyperlipidemia Osteoarthritis Borderline diabetes History of gout Plan: This is a pleasant 81 years old male who presents with blood per rectum, pain less. Eliquis remain on hold continue with low-dose aspirin and monitor hemoglobin, it worsened bleeding or drop hemoglobin, then we will call for surgical team consult. Start the patient on iron pills Consult IR team for The paracentesis Nephrology team on the case, they recommended follow-up in 1 week Follow ascites fluid cell count and culture GI team on the case however from tomorrow 12/22 they will not be available in this facility Labs and medication were reviewed.. Continue same treatment. Continue with symptomatic treatment. Resume home medication. Monitor lytes and vitals. DVT and GI prophylaxis. Further recommendations as per clinical course of the patient DVT prophylaxis: Eliquis on hold GI Prophylaxis: Ppi prognosis is guarded
--- NOTE | 2021-12-26 11:31 | P.PN ---
Subjective Patient is seen for follow-up for acute kidney injury and top of chronic kidney disease. Patient is currently comfortable No significant complaints today Maintained on IV Lasix Patient states he is feeling much better and would like to go home. Serum creatinine 3. 7 today. Baseline creatinine 3-3.4 mg/dL. Objective - Vital Signs Vital signs: Vital Signs Temp 98.1 F 12/26/21 07:15 Pulse 79 12/26/21 07:15 Resp 18 12/26/21 07:15 BP 104/64 12/26/21 07:15 Pulse Ox 95 12/26/21 07:15 FiO2 Intake & Output 12/25/21 12/26/21 12/26/21 18:59 06:59 18:59 Weight 109 kg Other: Voiding Method Toilet Toilet Toilet # Voids 2 3 - Exam Awake, comfortable, not in any acute distress Examination of the heart S1 and S2 Examination lungs bilateral breath sounds are heard Abdomen is soft nontender Examination of lower extremity shows 1+ edema bilaterally SAND HAULER exam grossly intact - Labs CBC & Chem 7: 12/26/21 05:33 12/26/21 05:33 Labs: Abnormal Lab Results - Last 24 Hours (Table) 12/25/21 12/25/21 12/26/21 Range/Units 11:41 11:41 05:33 RBC 2.53 L 2.45 L (4.30-5.90) m/uL Hgb 8.4 L 8.1 L (13.0-17.5) gm/dL Hct 27.5 L 26.2 L (39.0-53.0) % MCV 108.4 H 106.9 H (80.0-100.0) fL MCH 33.1 H (27.0-32.0) pg MCHC 30.8 L 30.9 L (31.0-37.0) g/dL RDW 15.6 H 16.7 H (11.5-15.5) % Plt Count 122 L 119 L (150-450) k/uL Lymphocytes # 0.5 L 0.44 L (1.0-4.8) k/uL Macrocytosis Marked A BUN 97 H (9-20) mg/dL Creatinine 3.41 H (0.66-1.25) mg/dL Est GFR (CKD-EPI)AfAm (60.0-200.0) Est GFR (CKD-EPI)NonAf (60.0-200.0) BUN/Creatinine Ratio (12.00-20.00) Ratio Glucose 118 H (74-99) mg/dL Calcium 8.3 L (8.4-10.2) mg/dL 12/26/21 Range/Units 05:33 RBC (4.30-5.90) m/uL Hgb (13.0-17.5) gm/dL Hct (39.0-53.0) % MCV (80.0-100.0) fL MCH (27.0-32.0) pg MCHC (31.0-37.0) g/dL RDW (11.5-15.5) % Plt Count (150-450) k/uL Lymphocytes # (1.0-4.8) k/uL Macrocytosis BUN 87.9 H (9-20) mg/dL Creatinine 3.7 H (0.66-1.25) mg/dL Est GFR (CKD-EPI)AfAm 17.0 L (60.0-200.0) Est GFR (CKD-EPI)NonAf 14.7 L (60.0-200.0) BUN/Creatinine Ratio 23.76 H (12.00-20.00) Ratio Glucose (74-99) mg/dL Calcium 8.5 L (8.4-10.2) mg/dL Microbiology - Last 24 Hours (Table) 12/24/21 10:30 Gram Stain - Preliminary Ascites Fluid Body Fluid Culture - Preliminary Assessment and Plan Assessment: 1. Acute kidney injury, mostly prerenal, had improved and creatinine up to 3.7 today. Lasix will be changed to oral Demadex. 2. 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 Chronic systolic CHF with ejection fraction less than 20% with [id number] mitral regurgitation 4. Anemia of chronic disease with concern for GI bleed. Iron deficiency was noted currently status post IV iron and being followed by GI. Patient is also maintained on Aranesp 5. chronic lower extremity edema Plan: Switch to oral torsemide Patient is stable for discharge from nephrology standpoint Follow-up as outpatient 1-2 weeks
[2021-12-27] MEDS ORDERED: TORSEMIDE 20 MG TAB PO SCH (09:00)
== END 2021-12-26 13:45 | disposition home or self-care (01) | DRG 378 ==
LOC: EC 10:02 → 4SSUR 13:23
PROVIDERS: ADMIT Internal Medicine; ATTEND Internal Medicine
PROC: 0W9G3ZZ Drainage of Peritoneal Cavity, Percutaneous Approach (ICD-10-PCS; principal; 2021-12-24)
DX: K92.1 Melena (principal); I48.19 Other persistent atrial fibrillation; N17.9 Acute kidney failure, unspecified; R18.8 Other ascites; I13.0 Hypertensive heart and chronic kidney disease with heart failure and stage 1 through stage 4 chronic kidney disease, or unspecified chronic kidney disease; I42.0 Dilated cardiomyopathy; N18.4 Chronic kidney disease, stage 4 (severe); I50.22 Chronic systolic (congestive) heart failure; J98.11 Atelectasis; D63.1 Anemia in chronic kidney disease; D63.8 Anemia in other chronic diseases classified elsewhere; K76.9 Liver disease, unspecified; D50.9 Iron deficiency anemia, unspecified; E03.9 Hypothyroidism, unspecified; E78.5 Hyperlipidemia, unspecified; R73.03 Prediabetes; K29.70 Gastritis, unspecified, without bleeding; K59.00 Constipation, unspecified; I34.0 Nonrheumatic mitral (valve) insufficiency; M10.9 Gout, unspecified; I25.10 Atherosclerotic heart disease of native coronary artery without angina pectoris; I25.2 Old myocardial infarction; M19.90 Unspecified osteoarthritis, unspecified site; Z77.090 Contact with and (suspected) exposure to asbestos; Z79.82 Long term (current) use of aspirin; Z79.890 Hormone replacement therapy; Z79.899 Other long term (current) drug therapy; Z87.81 Personal history of (healed) traumatic fracture; Z95.810 Presence of automatic (implantable) cardiac defibrillator; Z90.89 Acquired absence of other organs; Z96.653 Presence of artificial knee joint, bilateral; Z86.79 Personal history of other diseases of the circulatory system; Z87.891 Personal history of nicotine dependence; Z98.890 Other specified postprocedural states; Z82.49 Family history of ischemic heart disease and other diseases of the circulatory system
CPT/HCPCS: 36415; 49083; 71045; 76705; 80048; 80053; 82272; 82728; 83540; 83550; 83605; 83735; 84484; 85025; 85045; 85610; 85730; 86850; 86900; 86901; 87070; 87075; 87205; 88108; 88305; 89050; 93005; 96360; 99285

== ENCOUNTER → 2022-02-11 | Outpatient (CLI) | payer MEDICARE ==
[2022-02-11 18:26] LABS: HCT 32.5 % (39.6-50.0); HGB 9.8 g/dL (13.0-17.0); MCH 31.8 pg (27.0-32.0); MCHC 30.2 g/dL (32.0-37.0); MCV 105.5 fL (80.0-97.0); Mean Platelet Volume 11.9 fL (9.5-12.2); NRBC Per 100 WBC 0 /100 WBCS (0.0-0.0); Platelet Count 143 X 10*3/uL (140-440); RBC 3.08 X 10*6/uL (4.40-5.60); RDW 14.4 % (11.5-14.5); WBC 5.22 X 10*3/uL (4.50-10.00)
[2022-02-11 18:36] LABS: INR 1.04 (0.90-1.11); Prothrombin Time 11.7 sec (9.9-11.9)
[2022-02-11 18:44] LABS: African American GFR (CKD) 22.7 (60.0-200.0); Anion Gap 11.8 mmol/L (10.00-18.00); BUN/Creat Ratio 20.17 Ratio (12.00-20.00); Blood Urea Nitrogen 58.7 mg/dL (9.0-27.0); Calcium 9.2 mg/dL (8.7-10.3); Carbon Dioxide 27.6 mmol/L (20.0-27.5); Non-African American GFR(CKD) 19.6 (60.0-200.0); Potassium 4.9 mmol/L (3.5-5.5)
== END ==
LOC: LABWHC1 11:55
PROVIDERS: ATTEND Internal Medicine Interventional Cardiology
DX: I48.91 Unspecified atrial fibrillation (principal)
CPT/HCPCS: 36415; 80048; 85027; 85610

== ENCOUNTER 2022-03-22 08:34 | Day surgery (SDC) | payer MEDICARE ==
[2022-03-22 09:29] VITALS: RESP 18; TEMP 97.8
[2022-03-22 09:35] LABS: Platelet Count 128 k/uL (150-450)
[2022-03-22 09:42] LABS: INR 1.1 (<1.2); Prothrombin Time 12.1 sec (9.0-12.0)
[2022-03-22] MEDS: ALBUMIN HUMAN 25% 50 ML in EMPTY BAG 1 BAG IVPB SCH ×4 (10:27→11:32)
[2022-03-22 12:34] VITALS: BP 120/62; PULSE 71
--- NOTE | 2022-03-22 13:30 | US ---
EXAMINATION TYPE: US paracentesis abd w/image DATE OF EXAM: 03/22/2022 COMPARISON: NONE HISTORY: Ascites. PROCEDURE: Maximal barrier technique was utilized. The skin overlying a suitable pocket of fluid was localized with ultrasound and the overlying skin was prepped and draped. Ultrasound was utilized with sterile technique. Lidocaine was used for local anesthesia and a skin lucas made with a scalpel. Catheter was advanced under direct ultrasound guidance into a suitable pocket of fluid and approximately 10.8 lite rs of ascites fluid were removed. Catheter was withdrawn and hemostasis achieved. There is no immed iate complication; the patient is discharged in stable condition. IMPRESSION: STATUS POST ULTRASOUND GUIDED PARACENTESIS FOR PALLIATION OF ASCITES. THIS PROCEDURE WA S PERFORMED BY THE UNDERSIGNED.
[2022-03-23 01:34] LABS: Albumin, Fluid Source Peritoneal Fluid; T. Protein, Body Fluid Source Peritoneal Fluid; Total Protein, Body Fluid 4130 mg/dL
[2022-03-23 04:40] LABS: Appearance,BF Clear
== END 2022-03-22 12:05 | disposition home or self-care (01) ==
LOC: RADPROMAIN 08:34
PROVIDERS: ATTEND Internal Medicine Gastroenterology
DX: R18.8 Other ascites (principal)
CPT/HCPCS: 88108; 88305; 82042; 89050; 82565; 85049; 85610; 84157; 36415; 49083; P9047

== ENCOUNTER 2022-05-31 12:26 | Day surgery (SDC) | payer MEDICARE ==
[2022-05-31 13:00] LABS: Mean Platelet Volume 9.2; Platelet Count 135 k/uL (150-450)
[2022-05-31 13:17] VITALS: RESP 16; TEMP 97.5
[2022-05-31 13:45] LABS: INR 1.1 (<1.2); Prothrombin Time 11.4 sec (9.0-12.0)
[2022-05-31] MEDS: ALBUMIN HUMAN 25% 50 ML in EMPTY BAG 1 BAG IVPB SCH ×4 (14:11→15:08)
[2022-05-31 16:04] VITALS: BP 115/65; PULSE 69
--- NOTE | 2022-06-01 08:57 | US ---
Ultrasound-guided paracentesis. DATE OF EXAM: 05/31/2022 CLINICAL HISTORY: Ascites The procedure was discussed with the patient. The risks, complications, benefits, and alternatives we re discussed and any questions were answered. Informed consent was obtained. The patient was placed s upine on the ultrasound table and prepped and draped in the usual sterile fashion. All elements of maximal barrier technique were utilized. Under ultrasound guidance, access into the right lower quadrant was obtained, via the paracentesis catheter system and direct ultrasound guidanc e. Approximately 10 liters of straw-colored fluid was removed. The patient was stable throughout the pro cedure and remained stable upon discharge from Department of Radiology. IMPRESSION: Successful paracentesis under ultrasound guidance.
== END 2022-05-31 15:50 | disposition home or self-care (01) ==
LOC: RADPROMAIN 12:26
PROVIDERS: ATTEND Internal Medicine Gastroenterology
DX: R18.8 Other ascites (principal)
CPT/HCPCS: 82565; 85049; 85610; 36415; 49083; P9047

== ENCOUNTER 2022-06-30 12:27 | Day surgery (SDC) | payer MEDICARE ==
[2022-06-30 13:34] LABS: Mean Platelet Volume 8.7; Platelet Count 152 k/uL (150-450)
[2022-06-30 13:39] VITALS: RESP 18
[2022-06-30 13:41] LABS: INR 1.1 (<1.2); Prothrombin Time 11.3 sec (9.0-12.0)
[2022-06-30] MEDS: ALBUMIN HUMAN 25% 50 ML in EMPTY BAG 1 BAG IVPB SCH ×4 (13:58→14:42)
[2022-06-30 15:37] VITALS: BP 114/70; PULSE 66
--- NOTE | 2022-07-01 09:04 | US ---
EXAM: Ultrasound-guided Paracentesis DATE: 06/30/2022 4:10 PM REASON FOR EXAM: Ascites RADIOLOGIST: Dr. Rojas ONCOLOGY NURSE NAVIGATOR: None ANESTHESIA: Local Lidocaine TECHNIQUE: I verify that I have discussed the potential benefits, risks, and side effects regarding this treatme nt/procedure, the likelihood of the patient achieving his or her goals, and the potential problems th at might occur during recuperation. I verify that I have explained the alternatives to the patient i ncluding the risks, benefits, and side effects related to the alternatives and the risks related to n ot receiving the operation/procedure/treatment. The patient/surrogate decision maker has had an oppo rtunity to ask and have questions answered. I have secured the patient's or the surrogate decision m ernie's consent prior to the operation/procedure/treatment. Patient was placed supine on ultrasound table and the lower abdomen was prepped and draped in usual s terile fashion. 1% lidocaine was infused into the skin and subcutaneous soft tissues to achieve local anesthesia. Under sonographic guidance a 5 F Yueh needle was advanced into the ascites. Approximat michelle 11,150 ml of thom-colored fluid was removed. FINDINGS: Sonographic images of the abdomen demonstrate a large amount of free fluid. IMPRESSION: Technically successful uncomplicated paracentesis.
== END 2022-06-30 15:30 | disposition home or self-care (01) ==
LOC: RADPROMAIN 12:27
PROVIDERS: ATTEND Internal Medicine Gastroenterology
DX: R18.8 Other ascites (principal)
CPT/HCPCS: 82565; 85049; 85610; 36415; 49083; P9047

== ENCOUNTER 2022-08-03 12:25 | Day surgery (SDC) | payer MEDICARE ==
[2022-08-03 12:50] VITALS: TEMP 97.5
[2022-08-03 12:58] LABS: Mean Platelet Volume 9.1; Platelet Count 140 k/uL (150-450)
[2022-08-03 13:09] LABS: INR 1.1 (<1.2); Prothrombin Time 11.1 sec (9.0-12.0)
[2022-08-03] MEDS: ALBUMIN HUMAN 25% 50 ML in EMPTY BAG 1 BAG IVPB SCH ×4 (13:43→14:26)
[2022-08-03 15:23] VITALS: BP 107/69; PULSE 76; RESP 16
--- NOTE | 2022-08-04 09:48 | US ---
Ultrasound-guided paracentesis. DATE OF EXAM: 08/03/2022 CLINICAL HISTORY: Ascites The procedure was discussed with the patient. The risks, complications, benefits, and alternatives we re discussed and any questions were answered. Informed consent was obtained. The patient was placed s upine on the ultrasound table and prepped and draped in the usual sterile fashion. All elements of maximal barrier technique were utilized. Under ultrasound guidance, access into the right lower quadrant was obtained, via the paracentesis catheter system and direct ultrasound guidanc e. Approximately 9.1 liters of straw-colored fluid was removed. The patient was stable throughout the pr ocedure and remained stable upon discharge from Department of Radiology. IMPRESSION: Successful paracentesis under ultrasound guidance.
== END 2022-08-03 15:20 | disposition home or self-care (01) ==
LOC: RADPROMAIN 12:25
PROVIDERS: ATTEND Internal Medicine Gastroenterology
DX: R18.8 Other ascites (principal)
CPT/HCPCS: 82565; 85049; 85610; 36415; 49083; P9047

== ENCOUNTER 2022-08-31 12:23 | Day surgery (SDC) | payer MEDICARE ==
[2022-08-31 13:20] LABS: Mean Platelet Volume 8.6; Platelet Count 141 k/uL (150-450)
[2022-08-31 13:49] VITALS: TEMP 98
[2022-08-31] MEDS: ALBUMIN HUMAN 25% 50 ML in EMPTY BAG 1 BAG IVPB SCH ×4 (14:19→14:55)
--- NOTE | 2022-08-31 14:29 | US ---
Ultrasound-guided paracentesis. DATE OF EXAM: 08/31/2022 CLINICAL HISTORY: Ascites The procedure was discussed with the patient. The risks, complications, benefits, and alternatives we re discussed and any questions were answered. Informed consent was obtained. The patient was placed s upine on the ultrasound table and prepped and draped in the usual sterile fashion. All elements of maximal barrier technique were utilized. Under ultrasound guidance, access into the right lower quadrant was obtained, via the paracentesis catheter system and direct ultrasound guidanc e. Approximately 9.1 liters of straw-colored fluid was removed. The patient was stable throughout the pr ocedure and remained stable upon discharge from Department of Radiology. IMPRESSION: Successful paracentesis under ultrasound guidance.
[2022-08-31 14:38] VITALS: RESP 16
[2022-08-31 15:20] VITALS: BP 117/59; PULSE 69
== END 2022-08-31 15:30 | disposition home or self-care (01) ==
LOC: RADPROMAIN 12:23
PROVIDERS: ATTEND Internal Medicine Gastroenterology
DX: R18.8 Other ascites (principal)
CPT/HCPCS: 49083; 82565; 85049; 85610; 36415; P9047

== ENCOUNTER 2022-10-31 11:18 | Day surgery (SDC) | payer MEDICARE ==
[2022-10-31 12:11] VITALS: TEMP 98.1
[2022-10-31 12:15] LABS: Mean Platelet Volume 9.1; Platelet Count 106 k/uL (150-450)
[2022-10-31 12:42] LABS: Prothrombin Time 10.5 sec (9.0-12.0)
[2022-10-31] MEDS: ALBUMIN HUMAN 25% 50 ML in EMPTY BAG 1 BAG IVPB SCH ×3 (13:57→15:08)
--- NOTE | 2022-10-31 14:52 | US ---
Ultrasound-guided paracentesis. DATE OF EXAM: 10/31/2022 CLINICAL HISTORY: Ascites The procedure was discussed with the patient. The risks, complications, benefits, and alternatives we re discussed and any questions were answered. Informed consent was obtained. The patient was placed s upine on the ultrasound table and prepped and draped in the usual sterile fashion. All elements of maximal barrier technique were utilized. Under ultrasound guidance, access into the right lower quadrant was obtained, via the paracentesis catheter system and direct ultrasound guidanc e. The patient was stable throughout the procedure and remained stable upon discharge from Department of Radiology. IMPRESSION: Successful paracentesis under ultrasound guidance.
[2022-10-31 15:21] VITALS: BP 117/58; PULSE 76; RESP 14
== END 2022-10-31 15:18 | disposition home or self-care (01) ==
LOC: RADPROMAIN 11:18
PROVIDERS: ATTEND Internal Medicine Gastroenterology
DX: R18.8 Other ascites (principal)
CPT/HCPCS: 82565; 85049; 85610; 36415; 49083; P9047

== ENCOUNTER 2023-01-03 12:08 | Day surgery (SDC) | payer MEDICARE ==
[2023-01-03 13:18] VITALS: RESP 16; TEMP 97.6
[2023-01-03 13:27] LABS: Mean Platelet Volume 8.6; Platelet Count 147 k/uL (150-450)
[2023-01-03 13:39] LABS: African American GFR (CKD) 23 (>60 ml/min/1.73 sqM); Non-African American GFR(CKD) 20 (>60 ml/min/1.73 sqM)
[2023-01-03 13:43] LABS: INR 1.1 (<1.2); Prothrombin Time 11.2 sec (9.0-12.0)
[2023-01-03] MEDS: ALBUMIN HUMAN 25% 50 ML in EMPTY BAG 1 BAG IVPB SCH ×4 (13:48→15:32)
--- NOTE | 2023-01-03 14:56 | US ---
EXAMINATION TYPE: US paracentesis abd w/image DATE OF EXAM: 01/03/2023 CLINICAL HISTORY: Ascites The procedure was discussed with the patient. The risks, complications, benefits, and alternatives we re discussed and any questions were answered. Informed consent was obtained. The patient was placed s upine on the ultrasound table and prepped and draped in the usual sterile fashion. All elements of maximal barrier technique were utilized. Under ultrasound guidance, access into the right lower quadrant was obtained, via the paracentesis catheter system and direct ultrasound guidanc e. Approximately 5.5 liters of straw-colored fluid was removed. The patient was stable throughout the pr ocedure and remained stable upon discharge from Department of Radiology. IMPRESSION: Successful therapeutic paracentesis under ultrasound guidance.
[2023-01-03 15:35] VITALS: BP 117/69; PULSE 71
== END 2023-01-03 15:30 | disposition home or self-care (01) ==
LOC: RADPROMAIN 12:08
PROVIDERS: ATTEND Internal Medicine Gastroenterology
DX: R18.8 Other ascites (principal)
CPT/HCPCS: 82565; 85049; 85610; 36415; 49083; P9047

== ENCOUNTER 2023-02-03 12:21 | Day surgery (SDC) | payer MEDICARE ==
[2023-02-03 13:04] VITALS: RESP 18; TEMP 97.4
[2023-02-03 13:04] LABS: Mean Platelet Volume 9.6; Platelet Count 134 k/uL (150-450)
[2023-02-03 13:09] LABS: African American GFR (CKD) 23 (>60 ml/min/1.73 sqM); Non-African American GFR(CKD) 20 (>60 ml/min/1.73 sqM)
[2023-02-03 13:16] LABS: Prothrombin Time 10.7 sec (9.0-12.0)
[2023-02-03] MEDS: ALBUMIN HUMAN 25% 50 ML in EMPTY BAG 1 BAG IVPB SCH ×4 (13:55→15:05)
--- NOTE | 2023-02-03 15:04 | US ---
Ultrasound-guided paracentesis. DATE OF EXAM: 02/03/2023 CLINICAL HISTORY: Ascites The procedure was discussed with the patient. The risks, complications, benefits, and alternatives we re discussed and any questions were answered. Informed consent was obtained. The patient was placed s upine on the ultrasound table and prepped and draped in the usual sterile fashion. All elements of maximal barrier technique were utilized. Under ultrasound guidance, access into the right lower quadrant was obtained, via the paracentesis catheter system and direct ultrasound guidanc e. Approximately 6 liters of straw-colored fluid was removed. The patient was stable throughout the proc edure and remained stable upon discharge from Department of Radiology. IMPRESSION: Successful paracentesis under ultrasound guidance.
[2023-02-03 15:18] VITALS: BP 122/75; PULSE 85
== END 2023-02-03 14:55 | disposition home or self-care (01) ==
LOC: RADPROMAIN 12:21
PROVIDERS: ATTEND Internal Medicine Gastroenterology
DX: R18.8 Other ascites (principal)
CPT/HCPCS: 82565; 85049; 85610; 36415; 49083; P9047

== ENCOUNTER 2023-02-16 13:50 | Emergency (ER) | payer MEDICARE ==
[2023-02-16 14:01] VITALS: RESP 16
[2023-02-16] MEDS ORDERED: SODIUM CHLORIDE 0.9% 1,000 ML IV STA (15:42)
--- NOTE | 2023-02-16 15:43 | ED ---
Abdominal Pain HPI - General Chief Complaint: Recheck/Abnormal Lab/Rx Stated Complaint: Poss Hernia Time Seen by Provider: 02/16/23 15:15 Source: patient, RN notes reviewed, old records reviewed Mode of arrival: wheelchair Limitations: no limitations - History of Present Illness Initial Comments: This is a 82-year-old male to the emergency department for evaluation patient presents today for evaluation regards to possible hernia, umbilical hernia and abdominal pain. Patient has no travel history no sick contacts no other significant complaints patient was seen by nephrology who provides this patient to come the emergency department for possible hernia. Patient is complaining of some abdominal pain some umbilical abdominal pain without other complaint significant. MD Complaint: abdominal pain -: unknown Location: periumbilical Radiation: none Migration to: no migration Severity: moderate Severity scale (1-10): 4 Quality: stabbing, aching Consistency: intermittent Improves With: nothing Worsens With: nothing Associated Symptoms: nausea Treatments Prior to Arrival: other (0) - Related Data Home Medications Medication Instructions Recorded Confirmed Simvastatin [Zocor] 10 mg PO HS 07/09/14 02/03/23 Aspirin EC [Ecotrin Low Dose] 81 mg PO DAILY 09/05/16 02/03/23 Levothyroxine Sodium [Synthroid] 50 mcg PO HS 05/17/20 02/03/23 Cholecalciferol [Vitamin D3 (25 25 mcg PO DAILY 07/02/21 02/03/23 Mcg = 1000 Iu)] Febuxostat 40 mg PO DAILY 07/02/21 02/03/23 Multivitamins, Thera [Multivitamin 1 tab PO DAILY 07/02/21 02/03/23 (formulary)] Folic Acid 0.4 mg PO DAILY 12/20/21 02/03/23 Torsemide [Demadex] 20 mg PO DAILY PRN 12/20/21 02/03/23 Torsemide [Demadex] 25 mg PO BID 12/20/21 02/03/23 Midodrine [ProAmatine] 10 mg PO DAILY PRN 07/21/22 02/03/23 carvediloL [Coreg] 6.25 mg PO BID 07/21/22 02/03/23 Previous Rx's Medication Instructions Recorded Ferrous Sulfate [Iron (65 MG 325 mg PO BID-W/MEALS tab 12/26/21 Elemental)] Allergies Allergy/AdvReac Type Severity Reaction Status Date / Time No Known Allergies Allergy Verified 02/16/23 13:58 Review of Systems ROS Statement: Those systems with pertinent positive or pertinent negative responses have been documented in the HPI. ROS Other: All systems not noted in ROS Statement are negative. Past Medical History Past Medical History: Atrial Fibrillation, Blood Disorder, Hypertension, Myocardial Infarction ([place]), Osteoarthritis (OA), Renal Disease Additional Past Medical History / Comment(s): See Dr Moreland H&P "borderline diabetic" does not watch diet, hx fx left wrist as child-did not heal right,"2 BULGING DICS AND 5 VERTEBRE ARE COMPRESSED", GOUT, ASBESTOES EXPOSURE THRU PAST WORK., hx ULCER ,gout, patient reports being placed on eliquis r/t a-fib (not on blood thinners per patient). ANEMIA, ascites Last Myocardial Infarction Date:: UNK History of Any Multi-Drug Resistant Organisms: None Reported Past Surgical History: AICD, Heart Catheterization, Joint Replacement, Tonsillectomy Additional Past Surgical History / Comment(s): hussain knee replacements, HUSSAIN CAROTID ENDARTERECTOMY, paracentesis Past Anesthesia/Blood Transfusion Reactions: No Reported Reaction Type of Cardiac Device: AICD Device Placement Date:: 2009 Past Psychological History: No Psychological Hx Reported Smoking Status: Former smoker Past Alcohol Use History: Rare Past Drug Use History: None Reported - Past Family History Father Additional Family Medical History / Comment(s): KILLED BY A TRAIN WHEN PT WAS AGE 9 Mother Family Medical History: No Reported History Additional Family Medical History / Comment(s): open heart surgery Sister(s) Family Medical History: Myocardial Infarction ([place]) Additional Family Medical History / Comment(s): heart stents General Exam Limitations: no limitations General appearance: alert, in no apparent distress, obese Head exam: Present: atraumatic, normocephalic, normal inspection Eye exam: Present: normal appearance, PERRL, EOMI. Absent: scleral icterus, conjunctival injection, periorbital swelling ENT exam: Present: normal exam, mucous membranes moist Neck exam: Present: normal inspection. Absent: tenderness, meningismus, lymphadenopathy Respiratory exam: Present: normal lung sounds bilaterally. Absent: respiratory distress, wheezes, rales, rhonchi, stridor Cardiovascular Exam: Present: regular rate, normal rhythm, normal heart sounds. Absent: systolic murmur, diastolic murmur, rubs, gallop, clicks GI/Abdominal exam: Present: soft, normal bowel sounds. Absent: distended, tenderness, guarding, rebound, rigid Extremities exam: Present: normal inspection, full ROM, normal capillary refill. Absent: tenderness, pedal edema, joint swelling, calf tenderness Back exam: Present: normal inspection Neurological exam: Present: alert, oriented X3, CN II-XII intact Psychiatric exam: Present: normal affect, normal mood Skin exam: Present: warm, dry, intact, normal color. Absent: rash Course Vital Signs 02/16/23 02/16/23 02/16/23 13:58 16:00 18:01 Temperature 97.6 F 98 F 98.1 F Pulse Rate 122 H 81 89 Respiratory 16 16 16 Rate Blood Pressure 106/72 127/89 125/67 O2 Sat by Pulse 98 99 Oximetry - Reevaluation(s) Reevaluation #1: 02/16/23 16:44 Medical records reviewed Reevaluation #2: 02/16/23 16:44 Patient symptoms unchanged Reevaluation #3: 02/16/23 16:44 Patient informed results questions answered Patient does not have hernia as expected Reevaluation #4: 02/16/23 16:44 Was pt. sent in by a medical professional or institution? @ -no Did you speak to anyone other than the patient for history? @ -no Did you review nursing and triage notes? @ -agree Were old charts reviewed? @ -yes Differential Diagnosis? @ -prior EKG interpreted by me (3pts min.)? @ -no X-rays interpreted by me (1pt min.)? @ -no CT interpreted by me (1pt min.)? @ -yes U/S interpreted by me (1pt. min.)? @ -no What testing was considered but not performed? (CT, X-rays, U/S, labs)? Why? @ -no What meds were considered but not given? Why? @ -no Did you discuss the management of the patient with other professionals? @ -Did speak with Dr. Roberts who helps informed of patient's history of prior hospitalization which included recurrent hypoglycemia Did you reconcile home meds? @ -no Was smoking cessation discussed for >3mins.? @ -no Was critical care preformed (if so, how long)? @ -no Were there social determinants of health that impacted care today? How? (Homelessness, low income, unemployed, alcoholism, drug addiction, transportation, low edu. Level, literacy, decrease access to med. care, care home, rehab)? @ -no Was there de-escalation of care discussed even if they declined? (Discuss DNR or withdrawal of care, Hospice)? @ -no What co-morbidities impacted this encounter? (DM, HTN, Smoking, COPD, CAD, Cancer, CVA, Hep., AIDS, mental health diagnosis, sleep apnea, morbid obesity)? @ -no Was patient admitted / discharged? @ -82-year-old male to the emergency department for evaluation of possible hernia. Patient does not have hernia and computed tomography scan here in the ER patient does have history of ascites fluid overload which she gets paracentesis 4. Distress has no significant hernia and can be discharged home Discharge Undiagnosed new problem with uncertain prognosis? @ -no Drug Therapy requiring intensive monitoring for toxicity (Heparin, Nitro, Insulin, Cardizem)? @ -no Were any procedures done? @ -no Diagnosis/symptom? @ -Abdominal pain Acute, or Chronic, or Acute on Chronic? @ -acute Uncomplicated (without systemic symptoms) or Complicated (systemic symptoms)? @ -complicated Side effects of treatment? @ -no Exacerbation, Progression, or Severe Exacerbation] @ -no Poses a threat to life or bodily function? @ -no Reevaluation #5: 02/16/23 16:44 Differential Abdominal Pain Men: Appendicitis, cholecystitis, diverticulosis, ischemic bowel, pancreatitis, hepatitis, UTI, gastroenteritis, AAA, incarcerated hernia, bowel obstruction, constipation, inflammatory bowel, hepatitis, peptic ulcer disease, splenic infarction, perforated viscus, testicular torsion, this is not meant to be an all-inclusive list Medical Decision Making - Medical Decision Making 82-year-old male to the emergency department for evaluation of possible hernia. Patient does not have hernia and computed tomography scan here in the ER patient does have history of ascites fluid overload which she gets paracentesis 4. Distress has no significant hernia and can be discharged home - Lab Data Result diagrams: 02/16/23 15:49 02/16/23 15:49 Lab Results 02/16/23 02/16/23 Range/Units 15:49 15:49 WBC 6.6 (3.8-10.6) k/uL RBC 3.29 L (4.30-5.90) m/uL Hgb 11.3 L (13.0-17.5) gm/dL Hct 33.9 L (39.0-53.0) % MCV 103.2 H (80.0-100.0) fL MCH 34.4 (25.0-35.0) pg MCHC 33.3 (31.0-37.0) g/dL RDW 13.1 (11.5-15.5) % Plt Count 108 L (150-450) k/uL MPV 9.1 Neutrophils % 82 % Lymphocytes % 7 % Monocytes % 5 % Eosinophils % 5 % Basophils % 0 % Neutrophils # 5.4 (1.3-7.7) k/uL Lymphocytes # 0.4 L (1.0-4.8) k/uL Monocytes # 0.3 (0-1.0) k/uL Eosinophils # 0.3 (0-0.7) k/uL Basophils # 0.0 (0-0.2) k/uL Macrocytosis Slight Sodium 137 (137-145) mmol/L Potassium 4.7 (3.5-5.1) mmol/L Chloride 103 (98-107) mmol/L Carbon Dioxide 26 (22-30) mmol/L Anion Gap 8 mmol/L BUN 92 H (9-20) mg/dL Creatinine 3.02 H (0.66-1.25) mg/dL Est GFR (CKD-EPI)AfAm 22 (>60 ml/min/1.73 sqM) Est GFR (CKD-EPI)NonAf 19 (>60 ml/min/1.73 sqM) Glucose 93 (74-99) mg/dL Calcium 8.7 (8.4-10.2) mg/dL Phosphorus 4.1 (2.5-4.5) mg/dL Magnesium 2.7 H (1.6-2.3) mg/dL Total Bilirubin 0.7 (0.2-1.3) mg/dL AST 27 (17-59) U/L ALT 26 (4-49) U/L Alkaline Phosphatase 66 (38-126) U/L Total Protein 5.6 L (6.3-8.2) g/dL Albumin 3.1 L (3.5-5.0) g/dL Amylase 65 (30-110) U/L Lipase 47 (23-300) U/L - Radiology Data Radiology results: report reviewed (CT of the abdomen and pelvis ascites and anasarca in no acute disease), image reviewed Disposition Clinical Impression: Abdominal pain Disposition: HOME SELF-CARE Instructions (If sedation given, give patient instructions): Abdominal Pain (ED) Is patient prescribed a controlled substance at d/c from ED?: No Referrals: Frank Rodrigues MD [Primary Care Provider] - 1-2 days Time of Disposition: 18:00
[2023-02-16 16:07] LABS: Basophils % (A) 0 %; Eosinophils # (A) 0.3 k/uL (0-0.7); Eosinophils % (A) 5 %; HCT 33.9 % (39.0-53.0); HGB 11.3 gm/dL (13.0-17.5); Lymphocytes # (A) 0.4 k/uL (1.0-4.8); Lymphocytes % (A) 7 %; MCH 34.4 pg (25.0-35.0); MCHC 33.3 g/dL (31.0-37.0); MCV 103.2 fL (80.0-100.0); Macrocytosis Slight; Mean Platelet Volume 9.1; Monocytes # (A) 0.3 k/uL (0-1.0); Monocytes % (A) 5 %; Neutrophils # (A) 5.4 k/uL (1.3-7.7); Neutrophils % (A) 82 %; Platelet Count 108 k/uL (150-450); RBC 3.29 m/uL (4.30-5.90); RDW 13.1 % (11.5-15.5); WBC 6.6 k/uL (3.8-10.6)
[2023-02-16 16:26] LABS: ALT 26 U/L (4-49); AST 27 U/L (17-59); African American GFR (CKD) 22 (>60 ml/min/1.73 sqM); Albumin 3.1 g/dL (3.5-5.0); Alkaline Phosphatase 66 U/L (38-126); Amylase 65 U/L (30-110); Anion Gap 8 mmol/L; Blood Urea Nitrogen 92 mg/dL (9-20); Calcium 8.7 mg/dL (8.4-10.2); Carbon Dioxide 26 mmol/L (22-30); Chloride 103 mmol/L (98-107); Glucose 93 mg/dL (74-99); Lipase 47 U/L (23-300); Magnesium 2.7 mg/dL (1.6-2.3); Non-African American GFR(CKD) 19 (>60 ml/min/1.73 sqM); Phosphorus 4.1 mg/dL (2.5-4.5); Potassium 4.7 mmol/L (3.5-5.1); Sodium 137 mmol/L (137-145); Total Bilirubin 0.7 mg/dL (0.2-1.3); Total Protein 5.6 g/dL (6.3-8.2)
--- NOTE | 2023-02-16 17:19 | CT ---
EXAMINATION TYPE: CT abdomen pelvis wo con CT DLP: 1050.9 mGycm, Automated exposure control for dose reduction was used. DATE OF EXAM: 02/16/2023 5:02 PM COMPARISON: Abdominal ultrasound 12/22/2021, CT abdomen pelvis 11/03/2016 CLINICAL INDICATION:Male, 82 years old with history of pain; abdominal pain TECHNIQUE: Axial CT of the abdomen and pelvis. Sagittal and coronal reformats were created on a [employer] workstation. Contrast used: None. Oral contrast used: without Oral Contrast FINDINGS: LOWER CHEST: Cardiomegaly. Partially visualized cardiac defibrillator lead. Small pericardial effusio n. Right pleural effusion with associated passive atelectasis. Multifocal subsegmental atelectasis in the lower lobes bilaterally. CHEST WALL: Bilateral gynecomastia. ABDOMEN LIVER: Unremarkable GALLBLADDER AND BILE DUCTS: Layering increased densities within the lumen consistent with gallstones are present. PANCREAS: Unremarkable. SPLEEN: Unremarkable. ADRENAL GLANDS: Unremarkable. KIDNEYS AND URETERS: Bilateral renal cysts, largest in the right upper pole measures 4.5 cm. No evide nce of hydronephrosis or renal calculus. The ureters are unremarkable. PELVIS BLADDER: Unremarkable REPRODUCTIVE: Unremarkable. ABDOMEN & PELVIS STOMACH AND BOWEL: Stomach and duodenum are unremarkable. No evidence of bowel obstruction. PERITONEUM: Moderate volume ascites. No pneumoperitoneum. VASCULATURE: Moderate atherosclerotic calcifications are present throughout the abdominal aorta and i ts branches. No evidence of aortic aneurysm. MUSCULOSKELETAL: No acute osseous abnormalities. Severe disc degeneration changes are present through out the thoracolumbar spine. LYMPH NODES: No gross evidence for lymphadenopathy. SOFT TISSUE/ABDOMINAL WALL: Diffuse body wall anasarca. Umbilical hernia and a small amount of mesent julia fat and ascites. IMPRESSION: 1. Moderate volume ascites. 2. Findings suggesting a sequelae of volume overload with diffuse body wall anasarca, right pleural e ffusion and cardiomegaly. 3. Additional incidental findings as detailed above.
[2023-02-16 18:03] VITALS: BP 125/67; PULSE 89; TEMP 98.1
== END 2023-02-16 18:25 | disposition home or self-care (01) ==
LOC: EC 13:50
DX: R10.33 Periumbilical pain (principal); I10 Essential (primary) hypertension; I25.2 Old myocardial infarction; E66.9 Obesity, unspecified; Z79.82 Long term (current) use of aspirin; Z79.899 Other long term (current) drug therapy; Z87.891 Personal history of nicotine dependence; Z68.30 Body mass index [BMI] 30.0-30.9, adult
CPT/HCPCS: 36415; 74176; 80053; 82150; 83690; 83735; 84100; 85025; 96360; 99284

== ENCOUNTER 2023-03-03 12:18 | Day surgery (SDC) | payer MEDICARE ==
[2023-03-03 12:54] VITALS: RESP 18; TEMP 97.6
[2023-03-03 12:57] LABS: INR 1.1 (<1.2)
[2023-03-03 13:04] LABS: Mean Platelet Volume 8.6
[2023-03-03 13:21] LABS: Platelet Count 178 k/uL (150-450)
[2023-03-03] MEDS: ALBUMIN HUMAN 25% 50 ML in EMPTY BAG 1 BAG IVPB SCH ×4 (14:00→14:35)
--- NOTE | 2023-03-03 14:16 | US ---
Ultrasound-guided paracentesis. DATE OF EXAM: 03/03/2023 CLINICAL HISTORY: Ascites The procedure was discussed with the patient. The risks, complications, benefits, and alternatives we re discussed and any questions were answered. Informed consent was obtained. The patient was placed s upine on the ultrasound table and prepped and draped in the usual sterile fashion. All elements of maximal barrier technique were utilized. Under ultrasound guidance, access into the right lower quadrant was obtained, via the paracentesis catheter system and direct ultrasound guidanc e. Approximately 6 liters of straw-colored fluid was removed. The patient was stable throughout the proc edure and remained stable upon discharge from Department of Radiology. IMPRESSION: Successful paracentesis under ultrasound guidance.
[2023-03-03 15:37] VITALS: BP 114/68; PULSE 74
== END 2023-03-03 14:50 | disposition home or self-care (01) ==
LOC: RADPROMAIN 12:18
PROVIDERS: ATTEND Internal Medicine Gastroenterology
DX: R18.8 Other ascites (principal)
CPT/HCPCS: 85049; 85610; 36415; 49083; P9047

== ENCOUNTER 2023-03-31 12:23 | Day surgery (SDC) | payer MEDICARE ==
[2023-03-31 12:56] LABS: Mean Platelet Volume 8.9; Platelet Count 145 k/uL (150-450)
[2023-03-31 13:04] VITALS: RESP 16; TEMP 97.6
[2023-03-31 13:04] LABS: African American GFR (CKD) 23 (>60 ml/min/1.73 sqM); INR 1.1 (<1.2); Non-African American GFR(CKD) 20 (>60 ml/min/1.73 sqM); Prothrombin Time 11.3 sec (9.0-12.0)
[2023-03-31] MEDS: ALBUMIN HUMAN 25% 50 ML in EMPTY BAG 1 BAG IVPB SCH ×4 (14:04→14:58)
[2023-03-31 15:33] VITALS: BP 113/69; PULSE 68
--- NOTE | 2023-04-04 08:39 | US ---
Ultrasound-guided paracentesis. DATE OF EXAM: 03/31/2023 CLINICAL HISTORY: Ascites The procedure was discussed with the patient. The risks, complications, benefits, and alternatives we re discussed and any questions were answered. Informed consent was obtained. The patient was placed s upine on the ultrasound table and prepped and draped in the usual sterile fashion. All elements of maximal barrier technique were utilized. Under ultrasound guidance, access into the right lower quadrant was obtained, via the paracentesis catheter system and direct ultrasound guidanc e. Approximately 6 liters of straw-colored fluid was removed. The patient was stable throughout the proc edure and remained stable upon discharge from Department of Radiology. IMPRESSION: Successful paracentesis under ultrasound guidance.
== END 2023-03-31 15:05 | disposition home or self-care (01) ==
LOC: RADPROMAIN 12:23
PROVIDERS: ATTEND Internal Medicine Gastroenterology
DX: R18.8 Other ascites (principal)
CPT/HCPCS: 82565; 85049; 85610; 36415; 49083; P9047

== ENCOUNTER 2023-06-01 10:46 | Day surgery (SDC) | payer MEDICARE ==
[2023-06-01 13:02] LABS: Mean Platelet Volume 9.2; Platelet Count 139 k/uL (150-450)
[2023-06-01 13:03] VITALS: RESP 16; TEMP 97.8
[2023-06-01 13:20] LABS: African American GFR (CKD) 17 (>60 ml/min/1.73 sqM); Non-African American GFR(CKD) 15 (>60 ml/min/1.73 sqM)
[2023-06-01 13:30] LABS: Prothrombin Time 11.1 sec (10.0-12.5)
[2023-06-01] MEDS: ALBUMIN HUMAN 25% 50 ML in EMPTY BAG 1 BAG IVPB SCH ×4 (14:02→14:43)
[2023-06-01 15:22] VITALS: BP 108/57; PULSE 84
--- NOTE | 2023-06-01 15:25 | US ---
Ultrasound-guided paracentesis. DATE OF EXAM: 06/01/2023 CLINICAL HISTORY: Ascites The procedure was discussed with the patient. The risks, complications, benefits, and alternatives we re discussed and any questions were answered. Informed consent was obtained. The patient was placed s upine on the ultrasound table and prepped and draped in the usual sterile fashion. All elements of maximal barrier technique were utilized. Under ultrasound guidance, access into the right lower quadrant was obtained, via the paracentesis catheter system and direct ultrasound guidanc e. Approximately 8.9 liters of straw-colored fluid was removed. The patient was stable throughout the pr ocedure and remained stable upon discharge from Department of Radiology. IMPRESSION: Successful paracentesis under ultrasound guidance.
== END 2023-06-01 15:15 | disposition home or self-care (01) ==
LOC: RADPROMAIN 10:46
PROVIDERS: ATTEND Internal Medicine Gastroenterology
DX: R18.8 Other ascites (principal)
CPT/HCPCS: 82565; 85049; 85610; 36415; 49083; P9047

== ENCOUNTER 2023-06-29 12:26 | Day surgery (SDC) | payer MEDICARE ==
[2023-06-29 13:34] LABS: Mean Platelet Volume 9.3; Platelet Count 140 k/uL (150-450)
[2023-06-29 13:49] VITALS: RESP 18; TEMP 97.7
[2023-06-29 13:51] LABS: INR 1.1 (<1.2); Prothrombin Time 11.5 sec (10.0-12.5)
[2023-06-29 13:58] LABS: African American GFR (CKD) 13 (>60 ml/min/1.73 sqM); Non-African American GFR(CKD) 12 (>60 ml/min/1.73 sqM)
[2023-06-29] MEDS: ALBUMIN HUMAN 25% 50 ML in EMPTY BAG 1 BAG IVPB SCH ×4 (14:25→15:15)
[2023-06-29 15:43] VITALS: BP 106/64; PULSE 88
--- NOTE | 2023-07-05 08:47 | US ---
Ultrasound-guided paracentesis. DATE OF EXAM: 06/29/2023 CLINICAL HISTORY: Ascites The procedure was discussed with the patient. The risks, complications, benefits, and alternatives we re discussed and any questions were answered. Informed consent was obtained. The patient was placed s upine on the ultrasound table and prepped and draped in the usual sterile fashion. All elements of maximal barrier technique were utilized. Under ultrasound guidance, access into the right lower quadrant was obtained, via the paracentesis catheter system and direct ultrasound guidanc e. Approximately 6.4 liters of straw-colored fluid was removed. The patient was stable throughout the pr ocedure and remained stable upon discharge from Department of Radiology. IMPRESSION: Successful paracentesis under ultrasound guidance.
== END 2023-06-29 15:48 | disposition home or self-care (01) ==
LOC: RADPROMAIN 12:26
PROVIDERS: ATTEND Internal Medicine Gastroenterology
DX: R18.8 Other ascites (principal)
CPT/HCPCS: 82565; 85049; 85610; 36415; 49083; P9047

== ENCOUNTER 2023-06-29 15:51 | Inpatient (IN) | payer MEDICARE ==
--- NOTE | 2023-06-29 17:43 | ED ---
General Adult HPI - General Chief complaint: Weakness Stated complaint: kidney issue Time Seen by Provider: 06/29/23 17:13 Source: patient, RN notes reviewed, old records reviewed Mode of arrival: ambulatory Limitations: no limitations - History of Present Illness Initial comments: 82-year-old male patient was sent in from outpatient paracentesis for evaluation of worsening renal function. Patient had been sent in by Dr. Dumont with worsening BUN and creatinine. Patient had a [id number] paracentesis today which he does get routinely. He denies specific complaint. He states he had not been drinking well because he was getting more bloated and uncomfortable. He does report normal urination. No fever. No chest pain. - Related Data Home Medications Medication Instructions Recorded Confirmed Simvastatin [Zocor] 10 mg PO HS 07/09/14 06/29/23 Aspirin EC [Ecotrin Low Dose] 81 mg PO DAILY 09/05/16 06/29/23 Levothyroxine Sodium [Synthroid] 50 mcg PO HS 05/17/20 06/29/23 Febuxostat 40 mg PO DAILY 07/02/21 06/29/23 Multivitamins, Thera [Multivitamin 1 tab PO DAILY 07/02/21 06/29/23 (formulary)] Torsemide [Demadex] 20 mg PO BID 12/20/21 06/29/23 Blood Builder Supplement 1 cap PO BID 06/29/23 06/29/23 Cyanocobalamin (Vitamin B-12) 1,000 mcg PO DAILY 06/29/23 06/29/23 [Vitamin B-12] Midodrine HCl [ProAmatine] 10 mg PO TID PRN 06/29/23 06/29/23 Omeprazole 20 mg PO DAILY 06/29/23 06/29/23 carvediloL 25 mg PO BID 06/29/23 06/29/23 lisinopriL [Zestril] 2.5 mg PO DIRECTED 06/29/23 06/29/23 traMADol HCL 50 mg PO BID 06/29/23 06/29/23 Allergies Allergy/AdvReac Type Severity Reaction Status Date / Time No Known Allergies Allergy Verified 06/29/23 19:25 Review of Systems ROS Statement: Those systems with pertinent positive or pertinent negative responses have been documented in the HPI. ROS Other: All systems not noted in ROS Statement are negative. Past Medical History Past Medical History: Atrial Fibrillation, Blood Disorder, Hypertension, Liver Disease, Myocardial Infarction ([place]), Osteoarthritis (OA) Additional Past Medical History / Comment(s): See Dr Moreland H&Aries "borderline diabetic" does not watch diet, hx fx left wrist as child-did not heal right,"2 BULGING DICS AND 5 VERTEBRE ARE COMPRESSED", GOUT, ASBESTOES EXPOSURE THRU PAST WORK., hx ULCER ,gout, patient reports being placed on eliquis r/t a-fib (not on blood thinners per patient). ANEMIA, ascites Last Myocardial Infarction Date:: UNK History of Any Multi-Drug Resistant Organisms: None Reported Past Surgical History: AICD, Heart Catheterization, Joint Replacement, Tonsillectomy Additional Past Surgical History / Comment(s): hussain knee replacements, HUSSAIN CAROTID ENDARTERECTOMY, paracentesis monthly Past Anesthesia/Blood Transfusion Reactions: No Reported Reaction Type of Cardiac Device: AICD Device Placement Date:: 2009 Past Psychological History: No Psychological Hx Reported Smoking Status: Former smoker Past Alcohol Use History: Rare Past Drug Use History: None Reported - Past Family History Father Additional Family Medical History / Comment(s): KILLED BY A TRAIN WHEN PT WAS AGE 9 Mother Family Medical History: No Reported History Additional Family Medical History / Comment(s): open heart surgery Sister(s) Family Medical History: Myocardial Infarction ([place]) Additional Family Medical History / Comment(s): heart stents General Exam Limitations: no limitations General appearance: alert, in no apparent distress Head exam: Present: atraumatic, normocephalic Eye exam: Present: normal appearance, PERRL Neck exam: Present: normal inspection, full ROM Respiratory exam: Present: normal lung sounds bilaterally. Absent: respiratory distress Cardiovascular Exam: Present: regular rate, normal rhythm GI/Abdominal exam: Present: soft. Absent: distended, tenderness Extremities exam: Present: pedal edema Neurological exam: Present: alert, oriented X3, CN II-XII intact. Absent: motor sensory deficit Skin exam: Present: warm, dry, intact. Absent: cyanosis, diaphoretic Course Vital Signs 06/29/23 06/29/23 16:13 18:22 Temperature 98.1 F Pulse Rate 91 80 Respiratory 16 18 Rate Blood Pressure 96/62 105/61 O2 Sat by Pulse 98 98 Oximetry Medical Decision Making - Medical Decision Making Was pt. sent in by a medical professional or institution (, ROMELIA, HEAD OF BIOLOGY, urgent care, hospital, or snf...) When possible be specific @ -No Did you speak to anyone other than the patient for history (EMS, parent, family, police, friend...)? What history was obtained from this source @ -No Did you review nursing and triage notes (agree or disagree)? Why? @ -I reviewed and agree with nursing and triage notes Were old charts reviewed (outside hosp., previous admission, EMS record, old EKG, old radiological studies, urgent care reports/EKG's, snf records)? Report findings @ -No old charts were reviewed Differential Diagnosis (chest pain, altered mental status, abdominal pain women, abdominal pain men, vaginal bleeding, weakness, fever, dyspnea, syncope, headache, dizziness, GI bleed, back pain, seizure, CVA, palpatations, mental health, musculoskeletal)? @ -[Differential Weakness: Hypoglycemia, shock, sepsis, hyponatremia, anemia, infection, KS, ETOH, adverse medicine reaction, overdose, stroke, this is not meant to be an all-inclusive list. EKG interpreted by me (3pts min.). @ -Atrial fibrillation with PVC rate of 84, QRS duration 135, QTC 437, no ST segment elevation X-rays interpreted by me (1pt min.). @Chest x-ray has been ordered, results pending CT interpreted by me (1pt min.). @ -None done U/S interpreted by me (1pt. min.). @ -None done What testing was considered but not performed or refused? (CT, X-rays, U/S, labs)? Why? @ -None What meds were considered but not given or refused? Why? @ -None Did you discuss the management of the patient with other professionals (professionals i.e. , ROMELIA, HEAD OF BIOLOGY, lab, RT, psych nurse, manager social responsibility, curing oven tender, teacher, public records officer, home health care case manager)? Give summary @ -[Case discussed with Dr. Dumont, patient will be admitted to internal medicine with nephrology on consult for acute on chronic renal failure Was smoking cessation discussed for >3mins.? @ -No Was critical care preformed (if so, how long)? @ -No Were there social determinants of health that impacted care today? How? (Homelessness, low income, unemployed, alcoholism, drug addiction, transportation, low edu. Level, literacy, decrease access to med. care, alf, rehab)? @ -No Was there de-escalation of care discussed even if they declined (Discuss DNR or withdrawal of care, Hospice)? DNR status @ -No What co-morbidities impacted this encounter? (DM, HTN, Smoking, COPD, CAD, Cancer, CVA, ARF, Chemo, Hep., AIDS, mental health diagnosis, sleep apnea, morbid obesity)? @ -[Chronic kidney disease, ascites Was patient admitted / discharged? Hospital course, mention meds given and route, prescriptions, significant lab abnormalities, going to OR and other pe rtinent info. @ -82-year-old male with worsening renal function, sent from radiology for evaluation of elevated creatinine, BUN is 118. He has worsening kidney function. He will be admitted with nephrology on consult with the possibility of need for dialysis. Undiagnosed new problem with uncertain prognosis? @ -No Drug Therapy requiring intensive monitoring for toxicity (Heparin, Nitro, Insulin, Cardizem)? @ -No Were any procedures done? @ -No Diagnosis/symptom? @LESTER on CK D Acute, or Chronic, or Acute on Chronic? @ -[Acute on chronic Uncomplicated (without systemic symptoms) or Complicated (systemic symptoms)? @ -default Side effects of treatment? @ -No Exacerbation, Progression, or Severe Exacerbation? @ -No Poses a threat to life or bodily function? How? (Chest pain, USA, [place], pneumonia, PE, COPD, DKA, ARF, appy, cholecystitis, CVA, Diverticulitis, Homicidal, Suicidal, threat to staff... and all critical care pts) @Yes, worsening renal function - Lab Data Result diagrams: 06/29/23 17:51 06/29/23 17:51 Lab Results 06/29/23 06/29/23 Range/Units 17:51 17:51 WBC 5.8 (3.8-10.6) k/uL RBC 3.46 L (4.30-5.90) m/uL Hgb 11.4 L (13.0-17.5) gm/dL Hct 35.6 L (39.0-53.0) % MCV 102.8 H (80.0-100.0) fL MCH 33.1 (25.0-35.0) pg MCHC 32.2 (31.0-37.0) g/dL RDW 14.2 (11.5-15.5) % Plt Count 120 L (150-450) k/uL MPV 9.5 Neutrophils % 83 % Lymphocytes % 7 % Monocytes % 6 % Eosinophils % 2 % Basophils % 0 % Neutrophils # 4.8 (1.3-7.7) k/uL Lymphocytes # 0.4 L (1.0-4.8) k/uL Monocytes # 0.4 (0-1.0) k/uL Eosinophils # 0.1 (0-0.7) k/uL Basophils # 0.0 (0-0.2) k/uL Hypochromasia Slight Macrocytosis Slight Sodium 138 (137-145) mmol/L Potassium 5.2 H (3.5-5.1) mmol/L Chloride 102 (98-107) mmol/L Carbon Dioxide 22 (22-30) mmol/L Anion Gap 14 mmol/L BUN 118 H* (9-20) mg/dL Creatinine 4.31 H (0.66-1.25) mg/dL Est GFR (CKD-EPI)AfAm 14 (>60 ml/min/1.73 sqM) Est GFR (CKD-EPI)NonAf 12 (>60 ml/min/1.73 sqM) Glucose 119 H (74-99) mg/dL Calcium 8.7 (8.4-10.2) mg/dL Magnesium 2.8 H (1.6-2.3) mg/dL Total Bilirubin 0.4 (0.2-1.3) mg/dL AST 25 (17-59) U/L ALT 19 (4-49) U/L Alkaline Phosphatase 69 (38-126) U/L Total Protein 5.4 L (6.3-8.2) g/dL Albumin 3.4 L (3.5-5.0) g/dL Disposition Clinical Impression: Acute kidney injury superimposed on CKD Disposition: ADMITTED IP TO THIS [facility] Condition: Stable Is patient prescribed a controlled substance at d/c from ED?: No Referrals: Frank Rodrigues MD [Primary Care Provider] - 1-2 days Time of Disposition: 19:42
[2023-06-29 18:00] LABS: Basophils % (A) 0 %; Eosinophils # (A) 0.1 k/uL (0-0.7); Eosinophils % (A) 2 %; HCT 35.6 % (39.0-53.0); HGB 11.4 gm/dL (13.0-17.5); Hypochromasia Slight; Lymphocytes # (A) 0.4 k/uL (1.0-4.8); Lymphocytes % (A) 7 %; MCH 33.1 pg (25.0-35.0); MCHC 32.2 g/dL (31.0-37.0); MCV 102.8 fL (80.0-100.0); Macrocytosis Slight; Mean Platelet Volume 9.5; Monocytes # (A) 0.4 k/uL (0-1.0); Monocytes % (A) 6 %; Neutrophils # (A) 4.8 k/uL (1.3-7.7); Neutrophils % (A) 83 %; Platelet Count 120 k/uL (150-450); RBC 3.46 m/uL (4.30-5.90); RDW 14.2 % (11.5-15.5); WBC 5.8 k/uL (3.8-10.6)
[2023-06-29 18:24] LABS: ALT 19 U/L (4-49); AST 25 U/L (17-59); African American GFR (CKD) 14 (>60 ml/min/1.73 sqM); Albumin 3.4 g/dL (3.5-5.0); Alkaline Phosphatase 69 U/L (38-126); Anion Gap 14 mmol/L; Calcium 8.7 mg/dL (8.4-10.2); Carbon Dioxide 22 mmol/L (22-30); Chloride 102 mmol/L (98-107); Glucose 119 mg/dL (74-99); Magnesium 2.8 mg/dL (1.6-2.3); Non-African American GFR(CKD) 12 (>60 ml/min/1.73 sqM); Potassium 5.2 mmol/L (3.5-5.1); Sodium 138 mmol/L (137-145); Total Bilirubin 0.4 mg/dL (0.2-1.3); Total Protein 5.4 g/dL (6.3-8.2)
[2023-06-29 18:25] LABS: Blood Urea Nitrogen 118 mg/dL (9-20)
[2023-06-29] MEDS ORDERED: NALOXONE 0.4 MG/ML 1 ML VIAL IV PRN (19:34)
--- NOTE | 2023-06-29 20:44 | XR ---
EXAMINATION: XR chest 2V: 06/29/2023 7:46 PM CLINICAL INDICATION: CKD. Inpatient. TECHNIQUE: Departmental protocol COMPARISON: 12/22/2021 FINDINGS: There is a large right pleural effusion with airlessness throughout the right middle lobe and right l ower lobe, consistent with atelectasis but concurrent pneumonia can only be excluded on clinical grou nds. The right upper lung zone is clear and the left lung is nearly entirely clear, other than mild. Hilar small opacities. Attention on follow-up. There is no marie pulmonary edema. No pneumothorax. Single lead cardiac pacemaker redemonstrated.. Cardiac silhouette is mild moderately enlarged, stable . No acute skeletal or soft tissue findings. IMPRESSION: Right pulmonary/pleural abnormalities.
[2023-06-29] MEDS: traMADol 50 MG TAB PO SCH (22:27)
[2023-06-29] MEDS: ATORVASTATIN 10 MG TAB PO SCH (22:27)
[2023-06-29] MEDS: carvediloL 12.5 MG TAB PO SCH (22:27)
[2023-06-29] MEDS: LEVOTHYROXINE 50 MCG TAB PO SCH (22:27)
[2023-06-30] MEDS ORDERED: MIDODRINE 5 MG TAB PO PRN (06:31)
[2023-06-30] MEDS: PANTOPRAZOLE 40 MG TABLET PO SCH (06:45)
[2023-06-30] MEDS: traMADol 50 MG TAB PO SCH ×2 (09:47→22:09)
[2023-06-30] MEDS ORDERED: MAG HYDROX/AL HYDROX/SIMETH 30 ML CUP PO PRN (09:57)
[2023-06-30] MEDS: ALBUMIN HUMAN 25% 50 ML in EMPTY BAG 1 BAG IVPB SCH (10:50)
[2023-06-30 11:02] LABS: Magnesium 2.8 mg/dL (1.5-2.4); Phosphorus 5.4 mg/dL (2.4-5.1)
[2023-06-30 11:23] LABS: Calcium 8.3 mg/dL (8.7-10.3); Carbon Dioxide 23.5 mmol/L (21.6-31.8); Chloride 104 mmol/L (96-109); Glucose 93 mg/dL (70-110); Potassium 4.8 mmol/L (3.5-5.5); Sodium 139 mmol/L (135-145)
[2023-06-30] MEDS: carvediloL 12.5 MG TAB PO SCH ×2 (11:34→22:10)
[2023-06-30] MEDS: CYANOCOBALAMIN 500 MCG TAB PO SCH (11:36)
[2023-06-30] MEDS: FUROSEMIDE 10 MG/ML 10 ML VIAL IV SCH ×2 (11:36→22:10)
[2023-06-30] MEDS: MIDODRINE 5 MG TAB PO SCH ×2 (11:36→17:53)
--- NOTE | 2023-06-30 12:07 | P.HPIM ---
History of Present Illness H&P Date: 06/30/23 Chief Complaint: Generalized weakness * 82-year-old gentleman with past medical history significant for chronic kidney disease, stage IV with baseline creatinine around 3.4, nephrosclerosis, history of cardiorenal syndrome, chronic congestive heart failure with systolic dysfunction ejection fraction around 20%, anemia of chronic kidney disease, iron deficiency anemia chronic lower extremity edema, hypertension, osteoarthritis, coronary artery disease status post PCI and AICD in place, history of atrial fib ablation previously on anticoagulations with Eliquis, history of gastrointestinal bleed, intra-abdominal ascites presents to the emergency department for worsening renal function, patient was sent in by nephrology due to worsening BUN/creatinine and creatinine. Patient did have paracentesis done on 06/29/23 with 6 L of fluid removed. Patient did complain of decreased appetite and had not been having enough oral intake * Workup in ER included EKG which showed atrial fibrillation with rate controlled, no ST segment elevation was noted * Chest x-ray obtained at the time of admission showed bilateral pleural effusion, cardiomegaly noted * Serum chemistry obtained in ER included CBCs which were WBC 5.8 hemoglobin 11.4 platelet count 120 * Basic metabolic panel obtained showed sodium 138 potassium 5.2 carbon dioxide of 22 BU and 118 creatinine 4.31 magnesium of 2.8 AST 25 AST 19 total protein 5.4 * Patient admitted to medical floor as observation with consultation to be obtained from nephrology REVIEW OF SYSTEMS: Weakness, shortness of breath, malaise CONSTITUTIONAL: Weakness, shortness of breath, malaise HEENT: No recent visual problems or hearing problems. Denied any sore throat. CARDIOVASCULAR: No chest pain, orthopnea, PND, no palpitations, no syncope. PULMONARY: Weakness, shortness of breath, malaise GASTROINTESTINAL: No diarrhea, no nausea, no vomiting, no abdominal pain. NEUROLOGICAL: No headaches, no weakness, no numbness. HEMATOLOGICAL: Denies any bleeding or petechiae. GENITOURINARY: Denies any burning micturition, frequency, or urgency. MUSCULOSKELETAL/RHEUMATOLOGICAL: Denies any joint pain, swelling, or any muscle pain. ENDOCRINE: Denies any polyuria or polydipsia. PHYSICAL EXAMINATION: GENERAL: The patient is alert and oriented x3, ill appearance, pale, nasal cannula in place HEENT: Pupils are round and equally reacting to light. EOMI. CARDIOVASCULAR: S1 and S2 present. lower extremity edema noted bilateral PULMONARY: Decreased breath sounds bilaterally, rhonchi audible at bases ABDOMEN: Soft, nontender, abdominal distention. MUSCULOSKELETAL: No joint swelling or deformity. EXTREMITIES: No cyanosis, clubbing, or pedal edema. NEUROLOGICAL: Gross neurological examination did not reveal any focal deficits. Past Medical History Past Medical History: Atrial Fibrillation, Blood Disorder, Hypertension, Liver Disease, Myocardial Infarction ([place]), Osteoarthritis (OA) Additional Past Medical History / Comment(s): See Dr Moreland H&P "borderline diabetic" does not watch diet, hx fx left wrist as child-did not heal right,"2 BULGING DICS AND 5 VERTEBRE ARE COMPRESSED", GOUT, ASBESTOES EXPOSURE THRU PAST WORK., hx ULCER ,gout, patient reports being placed on eliquis r/t a-fib (not on blood thinners per patient). ANEMIA, ascites Last Myocardial Infarction Date:: UNK History of Any Multi-Drug Resistant Organisms: None Reported Past Surgical History: AICD, Heart Catheterization, Joint Replacement, Tonsillectomy Additional Past Surgical History / Comment(s): hussain knee replacements, HUSSAIN CAROTID ENDARTERECTOMY, paracentesis monthly Past Anesthesia/Blood Transfusion Reactions: No Reported Reaction Type of Cardiac Device: AICD Device Placement Date:: 2009 Past Psychological History: No Psychological Hx Reported Smoking Status: Former smoker Past Alcohol Use History: Rare Past Drug Use History: None Reported - Past Family History Father Additional Family Medical History / Comment(s): KILLED BY A TRAIN WHEN PT WAS AGE 9 Mother Family Medical History: No Reported History Additional Family Medical History / Comment(s): open heart surgery Sister(s) Family Medical History: Myocardial Infarction ([place]) Additional Family Medical History / Comment(s): heart stents Medications and Allergies Home Medications Medication Instructions Recorded Confirmed Type Simvastatin [Zocor] 10 mg PO HS 07/09/14 06/29/23 History Aspirin EC [Ecotrin Low Dose] 81 mg PO DAILY 09/05/16 06/29/23 History Levothyroxine Sodium [Synthroid] 50 mcg PO HS 05/17/20 06/29/23 History Febuxostat 40 mg PO DAILY 07/02/21 06/29/23 History Multivitamins, Thera [Multivitamin 1 tab PO DAILY 07/02/21 06/29/23 History (formulary)] Torsemide [Demadex] 20 mg PO BID 12/20/21 06/29/23 History Blood Builder Supplement 1 cap PO BID 06/29/23 06/29/23 History Cyanocobalamin (Vitamin B-12) 1,000 mcg PO DAILY 06/29/23 06/29/23 History [Vitamin B-12] Midodrine HCl [ProAmatine] 10 mg PO TID PRN 06/29/23 06/29/23 History Omeprazole 20 mg PO DAILY 06/29/23 06/29/23 History carvediloL 25 mg PO BID 06/29/23 06/29/23 History lisinopriL [Zestril] 2.5 mg PO DIRECTED 06/29/23 06/29/23 History traMADol HCL 50 mg PO BID 06/29/23 06/29/23 History Allergies Allergy/AdvReac Type Severity Reaction Status Date / Time No Known Allergies Allergy Verified 06/29/23 19:25 Physical Exam Vitals: Vital Signs Temp Pulse Pulse Resp BP BP Pulse Ox 06/30/23 07:00 97.1 F L 82 16 111/62 97 06/30/23 01:28 97.9 F 65 18 98/57 98 06/29/23 22:00 97.9 F 73 20 94/68 98 06/29/23 18:22 80 18 105/61 98 06/29/23 16:13 98.1 F 91 16 96/62 98 Intake and Output 06/29/23 06/30/23 06/30/23 22:59 06:59 14:59 Other: Weight 99.79 kg Results CBC & Chem 7: 06/29/23 17:51 06/30/23 06:49 Labs: Abnormal Lab Results - Last 24 Hours (Table) 06/29/23 06/29/23 Range/Units 17:51 17:51 RBC 3.46 L (4.30-5.90) m/uL Hgb 11.4 L (13.0-17.5) gm/dL Hct 35.6 L (39.0-53.0) % MCV 102.8 H (80.0-100.0) fL Plt Count 120 L (150-450) k/uL Lymphocytes # 0.4 L (1.0-4.8) k/uL Potassium 5.2 H (3.5-5.1) mmol/L BUN 118 H* (9-20) mg/dL Creatinine 4.31 H (0.66-1.25) mg/dL Glucose 119 H (74-99) mg/dL Magnesium 2.8 H (1.6-2.3) mg/dL Total Protein 5.4 L (6.3-8.2) g/dL Albumin 3.4 L (3.5-5.0) g/dL Thrombosis Risk Factor Assmnt - DVT/VTE Prophylaxis DVT/VTE Prophylaxis: Mechanical Prophylaxis ordered Assessment and Plan Assessment: Assessment and plan * Acute renal failure on chronic kidney disease stage IV * Recurrent abdominal ascites status post paracentesis 06/29/2023, 6L * Acute on Chronic congestive heart failure with ejection fraction less than 20% * Bilateral pleural effusion with fluid overload * History of atrial fibrillation * Hypothyroid * History of iron deficiency anemia, on top of anemia of chronic kidney disease * Chronic thrombocytopenia * Liver disease with ascites * In regards to worsening renal failure, consultations obtained from nephrology, patient does have ejection fraction of less than 20% last noted in 2020, we'll consult cardiology, does have bilateral pleural effusion, fluid overload status noted, nephrology on consult will appreciate input, continue to monitor intake and output * In regards to abdominal ascites, patient is status post paracentesis , given albumin secondary to high volume paracentesis * In regards to history of atrial flutter patient continue Coreg, per admission med rec patient is not on Eliquis * In regard to chronic thrombocytopenia continue to monitor platelet count * Regards to hypothyroid continue Synthyroid * CODE STATUS full code Time with Patient: Greater than 30
--- NOTE | 2023-06-30 13:23 | P.NPCON ---
History of Present Illness - Reason for Consult acute renal failure, chronic renal failure - History of Present Illness Reason for consultation: Acute kidney injury on chronic kidney disease History of present illness: Patient is a 82-year-old male seen in renal consultation for acute kidney injury and chronic kidney disease. 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 Patient had blood work done yesterday outpatient and was sent to the ER due to worsening renal failure. Patient's BUN was also elevated at 118 on admission. Patient has history of systolic CHF with ejection fraction of less than 20% and mild to moderate mitral regurgitation. Patient has been feeling weaker. Oral intake has been fair. Has been voiding. Denies gross hematuria. Denies vomiting or diarrhea. Hemodynamically stable. Denies history of diabetes. He was on lisinopril outpatient which is currently held. He has been started on dopamine by cardiology. Patient does have edema in the lower extremities. Patient gets monthly paracentesis with 6-8 L drained. Last paracentesis was yesterday and states 6.4 L were drained. Vital signs are stable. General: No acute distress. HEENT: Head exam is unremarkable. LUNGS: No audible rhonchi or wheezes. HEART: Rate and Rhythm are regular. ABDOMEN: Nontender. EXTREMITITES: 2+ edema. Past Medical History Past Medical History: Atrial Fibrillation, Blood Disorder, Hypertension, Liver Disease, Myocardial Infarction ([place]), Osteoarthritis (OA) Additional Past Medical History / Comment(s): See Dr Moreland H&P "borderline diabetic" does not watch diet, hx fx left wrist as child-did not heal right,"2 BULGING DICS AND 5 VERTEBRE ARE COMPRESSED", GOUT, ASBESTOES EXPOSURE THRU PAST WORK., hx ULCER ,gout, patient reports being placed on eliquis r/t a-fib (not on blood thinners per patient). ANEMIA, ascites Last Myocardial Infarction Date:: UNK History of Any Multi-Drug Resistant Organisms: None Reported Past Surgical History: AICD, Heart Catheterization, Joint Replacement, Tonsillectomy Additional Past Surgical History / Comment(s): hussain knee replacements, HUSSAIN CAROTID ENDARTERECTOMY, paracentesis monthly Past Anesthesia/Blood Transfusion Reactions: No Reported Reaction Type of Cardiac Device: AICD Device Placement Date:: 2009 Past Psychological History: No Psychological Hx Reported Smoking Status: Former smoker Past Alcohol Use History: Rare Past Drug Use History: None Reported - Past Family History Father Additional Family Medical History / Comment(s): KILLED BY A TRAIN WHEN PT WAS AGE 9 Mother Family Medical History: No Reported History Additional Family Medical History / Comment(s): open heart surgery Sister(s) Family Medical History: Myocardial Infarction ([place]) Additional Family Medical History / Comment(s): heart stents Medications and Allergies Home Medications Medication Instructions Recorded Confirmed Type Simvastatin [Zocor] 10 mg PO HS 07/09/14 06/29/23 History Aspirin EC [Ecotrin Low Dose] 81 mg PO DAILY 09/05/16 06/29/23 History Levothyroxine Sodium [Synthroid] 50 mcg PO HS 05/17/20 06/29/23 History Febuxostat 40 mg PO DAILY 07/02/21 06/29/23 History Multivitamins, Thera [Multivitamin 1 tab PO DAILY 07/02/21 06/29/23 History (formulary)] Torsemide [Demadex] 20 mg PO BID 12/20/21 06/29/23 History Blood Builder Supplement 1 cap PO BID 06/29/23 06/29/23 History Cyanocobalamin (Vitamin B-12) 1,000 mcg PO DAILY 06/29/23 06/29/23 History [Vitamin B-12] Midodrine HCl [ProAmatine] 10 mg PO TID PRN 06/29/23 06/29/23 History Omeprazole 20 mg PO DAILY 06/29/23 06/29/23 History carvediloL 25 mg PO BID 06/29/23 06/29/23 History lisinopriL [Zestril] 2.5 mg PO DIRECTED 06/29/23 06/29/23 History traMADol HCL 50 mg PO BID 06/29/23 06/29/23 History Allergies Allergy/AdvReac Type Severity Reaction Status Date / Time No Known Allergies Allergy Verified 06/29/23 19:25 Physical Exam Vitals: Vital Signs Temp Pulse Pulse Resp BP BP Pulse Ox 06/30/23 07:00 97.1 F L 82 16 111/62 97 06/30/23 01:28 97.9 F 65 18 98/57 98 06/29/23 22:00 97.9 F 73 20 94/68 98 06/29/23 18:22 80 18 105/61 98 06/29/23 16:13 98.1 F 91 16 96/62 98 Intake and Output 06/29/23 06/30/23 06/30/23 22:59 06:59 14:59 Intake Total 240 Output Total 0 Balance 240 Intake: Oral 240 Output: Urine 0 Other: Weight 99.79 kg Results - Lab Results Most recent lab results Calcium 8.3 mg/dL (8.7-10.3) L 06/30/23 06:49 Phosphorus 5.4 mg/dL (2.4-5.1) H 06/30/23 06:49 Magnesium 2.8 mg/dL (1.5-2.4) H 06/30/23 06:49 06/29/23 17:51 06/30/23 06:49 Assessment and Plan Plan: Assessment: 1. Acute kidney injury secondary to ATN secondary to cardiorenal syndrome. Creatinine 4.4 today. 2. Chronic kidney disease stage IV with baseline creatinine 2.63 secondary to cardiorenal syndrome. 3. Volume overload. 4. Acute on chronic systolic CHF with ejection fraction of less than 20% with mild to moderate mitral regurgitation. Plan: An IV Lasix 60 mg twice daily. Dopamine started by cardiology. Low-salt diet and 1500 mL fluid restriction. Check phosphorus level. Follow-up echocardiogram. Discussed initiating renal replacement therapy. Patient and family members agreeable. Consult vascular surgery for dialysis catheter placement. Plan for first treatment hemodialysis tomorrow. Patient has expressed interest in peritoneal dialysis outpatient and this will be addressed in the near future. He also had vein mapping done. Thank you for the consultation. I will continue to follow the patient with you during his hospital stay.
[2023-06-30] MEDS: DOBUTamine DRIP 500 MG in DEXTROSE/WATER 1 250ML.BAG IV SCH (14:51)
[2023-06-30] MEDS: DEXTROSE/WATER 1 250ML.BAG with DOPamine DRIP 800 MG IV SCH (14:51)
--- NOTE | 2023-06-30 15:41 | CA ---
Transthoracic Echo Report Name: Kevin Arechiga Age: 82 Gender: M : 1940 Exam Date: 06/30/2023 11:57 Exam Location: [facility] Ht (in): 72 Wt (lb): 220 Ordering Physician: Osbaldo Siddiqui MD Attending/Referring Phys: District Manager [employer] Nidhi Greenberg RDCS Procedure CPT: Indications: Heart failure Cardiac Hx: Technical Quality: Fair Contrast 1: Total Dose (mL): Contrast 2: Total Dose (mL): MEASUREMENTS (Male / Female) Normal Values 2D ECHO LV Diastolic Diameter PLAX 6.4 cm 4.2 - 5.9 / 3.9 - 5.3 cm LV Systolic Diameter PLAX 5.4 cm IVS Diastolic Thickness 0.7 cm 0.6 - 1.0 / 0.6 - 0.9 cm LVPW Diastolic Thickness 1.2 cm 0.6 - 1.0 / 0.6 - 0.9 cm LV Relative Wall Thickness 0.3 RV Internal Dim ED PLAX 4.8 cm LV Diastolic Volume MOD BP 277.1 cm??? 67 - 155 / 56 - 104 cm??? LV Systolic Volume MOD BP 239.1 cm??? 22 - 58 / 19 - 49 cm??? LV Ejection Fraction MOD BP 13.7 % >= 55 % LV Cardiac Index MOD BP 1302.1 cm???/min???m??? LV Diastolic Volume MOD 4C 270.8 cm??? LV Systolic Volume MOD 4C 223.1 cm??? LV Ejection Fraction MOD 4C 17.6 % LV Cardiac Index MOD 4C 1637.0 cm???/min???m??? LV Diastolic Length 4C 9.6 cm LV Systolic Length 4C 9.1 cm LV Diastolic Volume MOD 2C 282.8 cm??? LV Systolic Volume MOD 2C 241.3 cm??? LV Ejection Fraction MOD 2C 14.7 % LV Cardiac Index MOD 2C 1422.4 cm???/min???m??? LV Diastolic Length 2C 9.6 cm LV Systolic Length 2C 9.7 cm LA Volume 125.1 cm??? 18 - 58 / 22 - 52 cm??? LA Volume Index 55.0 cm???/m??? 16 - 28 cm???/m??? M-MODE Aortic Root Diameter MM 4.3 cm LA Systolic Diameter MM 5.1 cm LA Ao Ratio MM 1.2 AV Cusp Separation MM 1.4 cm DOPPLER AV Peak Velocity 113.2 cm/s AV Peak Gradient 5.1 mmHg AV Mean Velocity 75.7 cm/s AV Mean Gradient 2.6 mmHg AV Velocity Time Integral 21.6 cm AI Peak Velocity 357.0 cm/s AI Peak Gradient 51.0 mmHg AI Pressure Half Time 492.7 ms LVOT Peak Velocity 59.3 cm/s LVOT Peak Gradient 1.4 mmHg LVOT Velocity Time Integral 12.4 cm MV Area PHT 3.5 cm??? Mitral E Point Velocity 73.7 cm/s Mitral A Point Velocity 64.3 cm/s Mitral E to A Ratio 1.1 MV Deceleration Time 217.0 ms MV E' Velocity 3.1 cm/s Mitral E to MV E' Ratio 23.8 TR Peak Velocity 311.3 cm/s TR Peak Gradient 38.8 mmHg Right Atrial Pressure 20.0 mmHg Pulmonary Artery Systolic Pressu 58.8 mmHg Right Ventricular Systolic Press 58.8 mmHg FINDINGS Left Ventricle Mildly increased left ventricular diastolic diameter. Severely increased left ventricular diastolic volume. Severely increased left ventricular systolic volume. Severely reduced global left ventricular systolic function. Left ventricular ejection fraction is estimated at < 20 %. Grade 4 diastolic dysfunction. Right Ventricle Moderate right ventricular dilatation. Moderate to severe pulmonary hypertension. Right Atrium Moderate right atrial dilatation. Catheter/pacemaker wire in the right atrial cavity. Left Atrium Severely increased left atrial volume. Moderately increased left atrial area. Mitral Valve Structurally normal mitral valve. Mitral valve thickened. Moderate mitral annular calcification. [id number] mitral regurgitation. Aortic Valve No aortic stenosis. [id number] aortic regurgitation. Tricuspid Valve Severe tricuspid regurgitation. Pulmonic Valve Mild pulmonic regurgitation. Pericardium No pericardial effusion. Aorta Normal size aortic root and proximal ascending aorta. CONCLUSIONS Severe LV systolic dysfunction with an ejection fraction of 20% Moderate to severe pulmonary hypertension Moderate to severe mitral regurgitation Severe tricuspid regurgitation Previewed by: Dr. David Grover MD (Electronically Signed) Final Date: 30 June 2023 15:40
--- NOTE | 2023-06-30 16:03 | P.GSCN ---
History of Present Illness History of present illness: 10-year-old gentleman, patient had a history of acute renal failure. Patient came to the emergency room. And is 4.4. Is 11 and 11 she also has history of atrophy ablation, hypertension, history of liver disease History of ND in the past I was consulted for placement of a dialysis catheter. On examination patient was seen in the emergency room neck supple trachea central chest clear few rhonchi at the lung bases Abdomen soft nontender Vascular 1+ femoral plan is Eschen today under care of nephrology we will wait until the recommendation we will place callus catheter for okay tomorrow we will keep the patient nothing by mouth after midnight Past Medical History Past Medical History: Atrial Fibrillation, Blood Disorder, Hypertension, Liver Disease, Myocardial Infarction (ND), Osteoarthritis (OA) Additional Past Medical History / Comment(s): See Dr Moreland H&P "borderline diabetic" does not watch diet, hx fx left wrist as child-did not heal right,"2 BULGING DICS AND 5 VERTEBRE ARE COMPRESSED", GOUT, ASBESTOES EXPOSURE THRU PAST WORK., hx ULCER ,gout, patient reports being placed on eliquis r/t a-fib (not on blood thinners per patient). ANEMIA, ascites Last Myocardial Infarction Date:: UNK History of Any Multi-Drug Resistant Organisms: None Reported Past Surgical History: AICD, Heart Catheterization, Joint Replacement, Tonsill ectomy Additional Past Surgical History / Comment(s): hussain knee replacements, HUSSAIN CAROTID ENDARTERECTOMY, paracentesis monthly Past Anesthesia/Blood Transfusion Reactions: No Reported Reaction Type of Cardiac Device: AICD Device Placement Date:: 2009 Past Psychological History: No Psychological Hx Reported Smoking Status: Former smoker Past Alcohol Use History: Rare Past Drug Use History: None Reported - Past Family History Father Additional Family Medical History / Comment(s): KILLED BY A TRAIN WHEN PT WAS AGE 9 Mother Family Medical History: No Reported History Additional Family Medical History / Comment(s): open heart surgery Sister(s) Family Medical History: Myocardial Infarction (ND) Additional Family Medical History / Comment(s): heart stents Medications and Allergies Home Medications Medication Instructions Recorded Confirmed Type Simvastatin [Zocor] 10 mg PO HS 07/09/14 06/29/23 History Aspirin EC [Ecotrin Low Dose] 81 mg PO DAILY 09/05/16 06/29/23 History Levothyroxine Sodium [Synthroid] 50 mcg PO HS 05/17/20 06/29/23 History Febuxostat 40 mg PO DAILY 07/02/21 06/29/23 History Multivitamins, Thera [Multivitamin 1 tab PO DAILY 07/02/21 06/29/23 History (formulary)] Torsemide [Demadex] 20 mg PO BID 12/20/21 06/29/23 History Blood Builder Supplement 1 cap PO BID 06/29/23 06/29/23 History Cyanocobalamin (Vitamin B-12) 1,000 mcg PO DAILY 06/29/23 06/29/23 History [Vitamin B-12] Midodrine HCl [ProAmatine] 10 mg PO TID PRN 06/29/23 06/29/23 History Omeprazole 20 mg PO DAILY 06/29/23 06/29/23 History carvediloL 25 mg PO BID 06/29/23 06/29/23 History lisinopriL [Zestril] 2.5 mg PO DIRECTED 06/29/23 06/29/23 History traMADol HCL 50 mg PO BID 06/29/23 06/29/23 History Allergies Allergy/AdvReac Type Severity Reaction Status Date / Time No Known Allergies Allergy Verified 06/29/23 19:25 Surgical - Exam Vital Signs Temp Pulse Resp BP Pulse Ox 98.1 F 91 16 96/62 98 06/29/23 16:13 06/29/23 16:13 06/29/23 16:13 06/29/23 16:13 06/29/23 16:13 Results - Labs 06/29/23 17:51 06/30/23 06:49 Abnormal Lab Results - Last 24 Hours (Table) 06/29/23 06/29/23 06/30/23 Range/Units 17:51 17:51 06:49 RBC 3.46 L (4.30-5.90) m/uL Hgb 11.4 L (13.0-17.5) gm/dL Hct 35.6 L (39.0-53.0) % MCV 102.8 H (80.0-100.0) fL Plt Count 120 L (150-450) k/uL Lymphocytes # 0.4 L (1.0-4.8) k/uL Potassium 5.2 H (3.5-5.1) mmol/L BUN 118 H* 111.0 A* (9-20) mg/dL Creatinine 4.31 H 4.4 H (0.66-1.25) mg/dL Est GFR (CKD-EPI) 13 L (>=60) BUN/Creatinine Ratio 25.23 H (12.00-20.00) Ratio Glucose 119 H (74-99) mg/dL Calcium 8.3 L (8.7-10.3) mg/dL Phosphorus 5.4 H (2.4-5.1) mg/dL Magnesium 2.8 H 2.8 H (1.6-2.3) mg/dL Total Protein 5.4 L (6.3-8.2) g/dL Albumin 3.4 L (3.5-5.0) g/dL Diabetes panel 06/29/23 06/30/23 Range/Units 17:51 06:49 Sodium 138 139 (137-145) mmol/L Potassium 5.2 H 4.8 (3.5-5.1) mmol/L Chloride 102 104 (98-107) mmol/L Carbon Dioxide 22 23.5 (22-30) mmol/L BUN 118 H* 111.0 A* (9-20) mg/dL Creatinine 4.31 H 4.4 H (0.66-1.25) mg/dL Glucose 119 H 93 (74-99) mg/dL Calcium 8.7 8.3 L (8.4-10.2) mg/dL AST 25 (17-59) U/L ALT 19 (4-49) U/L Alkaline Phosphatase 69 (38-126) U/L Total Protein 5.4 L (6.3-8.2) g/dL Albumin 3.4 L (3.5-5.0) g/dL Calcium panel 06/29/23 06/30/23 Range/Units 17:51 06:49 Calcium 8.7 8.3 L (8.4-10.2) mg/dL Phosphorus 5.4 H (2.4-5.1) mg/dL Albumin 3.4 L (3.5-5.0) g/dL Pituitary panel 06/29/23 06/30/23 Range/Units 17:51 06:49 Sodium 138 139 (137-145) mmol/L Potassium 5.2 H 4.8 (3.5-5.1) mmol/L Chloride 102 104 (98-107) mmol/L Carbon Dioxide 22 23.5 (22-30) mmol/L BUN 118 H* 111.0 A* (9-20) mg/dL Creatinine 4.31 H 4.4 H (0.66-1.25) mg/dL Glucose 119 H 93 (74-99) mg/dL Calcium 8.7 8.3 L (8.4-10.2) mg/dL Adrenal panel 06/29/23 06/30/23 Range/Units 17:51 06:49 Sodium 138 139 (137-145) mmol/L Potassium 5.2 H 4.8 (3.5-5.1) mmol/L Chloride 102 104 (98-107) mmol/L Carbon Dioxide 22 23.5 (22-30) mmol/L BUN 118 H* 111.0 A* (9-20) mg/dL Creatinine 4.31 H 4.4 H (0.66-1.25) mg/dL Glucose 119 H 93 (74-99) mg/dL Calcium 8.7 8.3 L (8.4-10.2) mg/dL Total Bilirubin 0.4 (0.2-1.3) mg/dL AST 25 (17-59) U/L ALT 19 (4-49) U/L Alkaline Phosphatase 69 (38-126) U/L Total Protein 5.4 L (6.3-8.2) g/dL Albumin 3.4 L (3.5-5.0) g/dL
--- NOTE | 2023-06-30 16:45 | US ---
EXAMINATION TYPE: US chest DATE OF EXAM: 06/30/2023 COMPARISON: NONE CLINICAL INDICATION: Male, 82 years old with history of Right pleural effusion; TECHNIQUE: Targeted ultrasound of the posterior lower right hemithorax EXAM MEASUREMENTS: Right Pleural Effusion pocket size: 3.2 cm Right skin surface to fluid distance: 3.9 cm Pulmonologists are able to review the images in the patient?s EMR. IMPRESSIONS: 1. Bilateral pleural effusions 2. Some ascites is present within the right abdomen
[2023-06-30] MEDS: ONDANSETRON 4 MG/2 ML VIAL IVP PRN (17:53)
[2023-06-30] MEDS: ATORVASTATIN 10 MG TAB PO SCH (22:09)
[2023-06-30] MEDS: LEVOTHYROXINE 50 MCG TAB PO SCH (22:10)
--- NOTE | 2023-07-01 00:26 | CONS ---
CONSULTATION CHIEF COMPLAINT: Shortness of breath, fatigue, and tiredness. HISTORY OF PRESENT ILLNESS: This is an 82-year-old gentleman with history of dilated cardiomyopathy with severe LV systolic dysfunction, chronic systolic heart failure, status post AICD, moderate aortic regurgitation, who was evaluated by Dr. Dumont, his investigator operator for fatigue, tiredness, and his renal functions have showed a BUN of 108 and a creatinine of 4.4, which is a significant worsening compared to his baseline labs of 3.6 from the beginning of the year. Due to worsening renal functions, he is sent to the emergency room for hospitalization. The patient does not have PND or orthopnea. Has mild bilateral leg edema. At the time of my evaluation, he appears comfortable at rest. Not in any respiratory distress. Hemoglobin is 11.4. AST and ALT are within normal limits. The patient is going to have a central line placed for possible hemodialysis and in the meantime, I will start the patient on dobutamine and dopamine and see if his urine output and kidney functions would improve. At the moment, he appears hemodynamically stable and O2 saturation is 97% on 2 L. PAST MEDICAL HISTORY: Significant for dilated cardiomyopathy, AICD, and hypotension. MEDICATIONS: Medications at home included, 1. Demadex 20 b.i.d. 2. Zocor 10 daily. 3. Omeprazole. 4. Synthroid. 5. Aspirin. 6. Zestril. 7. Carvedilol. ALLERGIES: There are no known drug allergies. FAMILY HISTORY: Negative for premature coronary artery disease. SOCIAL HISTORY: Negative for current smoking, EtOH abuse, or drug abuse. REVIEW OF SYSTEMS: review of systems has been performed. Pertinent are as documented. PHYSICAL EXAMINATION: VITAL SIGNS: The patient is afebrile. Heart rate is 80 beats per minute. Blood pressure is 111/60, respiratory rate is 16, and O2 saturation is 97% on 2 L. NECK: There is no jugular venous distention. Carotid upstroke is normal. There is no bruit. CHEST: Diminished air entry at the bases. I do not hear any crackles or rhonchi. HEART: First and second heart sounds. Systolic murmur at the apex and the nearly diastolic murmur in the aortic area. ABDOMEN: Soft. EXTREMITIES: Mild edema. Peripheral pulses are felt. IMAGING DATA: EKG shows atrial fibrillation with PVCs. LABORATORY DATA: Labs show that the hemoglobin is 11.4, potassium is 4.8, BUN is 111, and creatinine is 4.4. ASSESSMENT: 1. Chronic systolic heart failure, acute on chronic renal failure, rule out cardiorenal syndrome. 2. History of paroxysmal atrial fibrillation, not on anticoagulant, thought not to be a candidate for long-term anticoagulation. I need to review his outpatient records. PLAN: I am going to obtain a 2D echo. Start the patient on dobutamine and dopamine, and see if this would improve his urine output and improve his renal functions. Continue rest of his medications. The patient was on Eliquis in the past for atrial fibrillation, but had GI bleed hence we had to stop it. MMODL / IJN: [id number] /
[2023-07-01] MEDS: MIDODRINE 5 MG TAB PO SCH ×3 (07:11→15:31)
[2023-07-01] MEDS: PANTOPRAZOLE 40 MG TABLET PO SCH (07:11)
[2023-07-01] MEDS: CYANOCOBALAMIN 500 MCG TAB PO SCH (08:09)
[2023-07-01] MEDS: FUROSEMIDE 10 MG/ML 10 ML VIAL IV SCH ×2 (08:09→22:27)
[2023-07-01] MEDS: DOBUTamine DRIP 500 MG in DEXTROSE/WATER 1 250ML.BAG IV SCH (08:09)
[2023-07-01] MEDS: carvediloL 12.5 MG TAB PO SCH ×2 (08:09→22:27)
[2023-07-01] MEDS: traMADol 50 MG TAB PO SCH ×2 (09:58→22:28)
--- NOTE | 2023-07-01 10:58 | P.PN ---
Subjective Patient is seen for follow-up for acute kidney injury on top of chronic kidney disease. Currently maintained on IV Lasix along with dopamine and dobutamine for CHF with reduced ejection fraction. urine output documented at 740 mL. Patient did have nausea yesterday and received Zofran. Awaiting labs from today to decide regarding starting renal replacement therapy. Patient is agreeable if labs are not further improvement. Urine output remains low. No significant shortness of breath today. Objective - Vital Signs Vital signs: Vital Signs Temp 97.8 F 07/01/23 08:06 Pulse 72 07/01/23 08:06 Resp 5 L 07/01/23 08:06 BP 107/61 07/01/23 08:06 Pulse Ox 98 07/01/23 08:06 FiO2 Intake & Output 06/30/23 07/01/23 07/01/23 18:59 06:59 18:59 Intake Total 799.7 19.7 250 Output Total 110 630 250 Balance 689.7 -610.3 0 Weight 104.6 kg Intake: IV 19.7 19.7 DOBUTamine DRIP 500 mg In 15 15 Dextrose/Water 1 250ml. bag @ 5 MCG/KG/MIN 14.969 mls/hr IV .[id number] ABDOULAYE Rx#:[id number] Dextrose/Water 1 250ml. 4.7 4.7 bag @ 2.5 MCG/KG/MIN 4. 678 mls/hr IV .Q24H ABDOULAYE with DOPamine DRIP 800 mg Rx#:[id number] Intake, IV Titration 250 Amount DOBUTamine DRIP 500 mg In 250 Dextrose/Water 1 250ml. 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 Acute kidney injury secondary to ATN secondary to cardiorenal syndrome. Creatinine 4.4 today. 2. Chronic kidney disease stage IV with baseline creatinine 2.63 secondary to cardiorenal syndrome and nephrosclerosis. 3. Volume overload. 4. Acute on chronic systolic CHF with ejection fraction of less than 20% with mild to moderate mitral regurgitation. 5. Hypothyroidism with TSH elevated at 9.3, T4 at 1.07 Plan: Check labs today. We will proceed with dialysis catheter placement if serum creatinine is not further improved. Urine output remains on the lower side. Continue with IV Lasix.
[2023-07-01 11:05] LABS: HCT 35.2 % (39.0-53.0); HGB 11.1 gm/dL (13.0-17.5); Hypochromasia Moderate; MCH 33.5 pg (25.0-35.0); MCHC 31.7 g/dL (31.0-37.0); MCV 105.7 fL (80.0-100.0); Macrocytosis Moderate; Mean Platelet Volume 9.1; Platelet Count 112 k/uL (150-450); RBC 3.33 m/uL (4.30-5.90); RDW 14.3 % (11.5-15.5)
--- NOTE | 2023-07-01 11:10 | P.CNPUL ---
History of Present Illness Consult date: 07/01/23 Requesting physician: Ml Lew Reason for consult: dyspnea, pleural effusion, abnormal CXR/CT Chief complaint: Shortness of breath. History of present illness: Pulmonary consult dated 07/01/2023. 82-year-old male who presents to the emergency department on June 29, complaining of weakness. In addition, the patient complains of shortness of breath, and worsening renal function. We were consulted, yesterday, for a pleural effusion. By ultrasound, the patient has a relatively small effusion, at this point, because he is on room air, without any respiratory issues, it doesn't make any sense to attempt a thoracentesis. Currently, the patient's on dopamine at 2.5 mcg/kg/m, dobutamine at 5 mcg/kg/m, and on room air. White count 5.8, hemoglobin 11.4, hematocrit 35.6, platelet count 120,000. Sodium 139, potassium 4.8, chlorides 104, CO2 24, anion gap 12, BUN 111, and creatinine 4.4. TSH is 9.340. Ultrasound of the right chest reveals a pocket was only 3.2 cm. Chest x-ray shows right-sided pleural/parenchymal changes. Review of Systems REVIEW OF SYSTEMS: CONSTITUTIONAL: Weakness. NEUROLOGIC: [ Negative.] HEENT: [ Negative.] CARDIAC: [Negative.] PULMONARY: Shortness of breath GI: [Negative.] : Worsening renal function. RHEUMATOLOGIC: [ Negative.] IMMUNOLOGIC: [ Negative.] ENDOCRINE: [Negative. 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 ANEMIA, ascites Last Myocardial Infarction Date:: UNK History of Any Multi-Drug Resistant Organisms: None Reported Past Surgical History: AICD, Heart Catheterization, Joint Replacement, Tonsillectomy Additional Past Surgical History / Comment(s): hussain knee replacements, HUSSAIN CAROTID ENDARTERECTOMY, paracentesis monthly Past Anesthesia/Blood Transfusion Reactions: No Reported Reaction Type of Cardiac Device: AICD Device Placement Date:: 2009 Past Psychological History: No Psychological Hx Reported Smoking Status: Former smoker Past Alcohol Use History: Rare Past Drug Use History: None Reported - Past Family History Father Additional Family Medical History / Comment(s): KILLED BY A TRAIN WHEN PT WAS AGE 9 Mother Family Medical History: No Reported History Additional Family Medical History / Comment(s): open heart surgery Sister(s) Family Medical History: Myocardial Infarction ([place]) Additional Family Medical History / Comment(s): heart stents Medications and Allergies Home Medications Medication Instructions Recorded Confirmed Type Simvastatin [Zocor] 10 mg PO HS 07/09/14 06/29/23 History Aspirin EC [Ecotrin Low Dose] 81 mg PO DAILY 09/05/16 06/29/23 History Levothyroxine Sodium [Synthroid] 50 mcg PO HS 05/17/20 06/29/23 History Febuxostat 40 mg PO DAILY 07/02/21 06/29/23 History Multivitamins, Thera [Multivitamin 1 tab PO DAILY 07/02/21 06/29/23 History (formulary)] Torsemide [Demadex] 20 mg PO BID 12/20/21 06/29/23 History Blood Builder Supplement 1 cap PO BID 06/29/23 06/29/23 History Cyanocobalamin (Vitamin B-12) 1,000 mcg PO DAILY 06/29/23 06/29/23 History [Vitamin B-12] Midodrine HCl [ProAmatine] 10 mg PO TID PRN 06/29/23 06/29/23 History Omeprazole 20 mg PO DAILY 06/29/23 06/29/23 History carvediloL 25 mg PO BID 06/29/23 06/29/23 History lisinopriL [Zestril] 2.5 mg PO DIRECTED 06/29/23 06/29/23 History traMADol HCL 50 mg PO BID 06/29/23 06/29/23 History Allergies Allergy/AdvReac Type Severity Reaction Status Date / Time No Known Allergies Allergy Verified 06/29/23 19:25 Physical Exam Osteopathic Statement: *. No significant issues noted on an osteopathic structural exam other than those noted in the History and Physical/Consult. Vitals: Vital Signs Temp Pulse Resp BP Pulse Ox 07/01/23 08:06 97.8 F 72 5 L 107/61 98 07/01/23 04:00 97.5 F L 81 18 112/63 98 07/01/23 00:00 70 18 110/58 97 06/30/23 20:00 97.8 F 76 16 107/62 98 06/30/23 16:00 97.0 F L 78 14 97/59 98 06/30/23 13:51 97.4 F L 78 16 110/65 99 Intake and Output 06/30/23 07/01/23 07/01/23 22:59 06:59 14:59 Intake Total 39.4 250 Output Total 140 600 250 Balance -100.6 -600 0 Intake: IV 39.4 DOBUTamine DRIP 500 mg In 30 Dextrose/Water 1 250ml. bag @ 5 MCG/KG/MIN 14.969 mls/hr IV .[id number] [facility] Rx#:[id number] Dextrose/Water 1 250ml. 9.4 bag @ 2.5 MCG/KG/MIN 4. 678 mls/hr IV .Q24H [facility] with DOPamine DRIP 800 mg Rx#:[id number] Intake, IV Titration 250 Amount DOBUTamine DRIP 500 mg In 250 Dextrose/Water 1 250ml. bag @ 5 MCG/KG/MIN 14.969 mls/hr IV .[id number] [facility] Rx#:[id number] Output: Urine 140 600 250 Uretheral (Ryan) 10 Other: Voiding Method Indwelling Catheter Weight 104.6 kg No acute distress, oriented 3. Currently on room air. No audible wheezing, use of accessory muscles, or conversational dyspnea. HEENT examination is grossly unremarkable. Mucous membranes are moist. No oral lesions. Neck supple. Full range of motion. No adenopathy thyromegaly or neck vein distention. Cardiovascular examination reveals regular rhythm rate. S1-S2 normal. No S3 or S4. No discernible murmur noted. Heart rate 72 bpm. Lungs reveal reduced breath sounds at the right base. Dullness at the right bas e. The left lung is clear. Room air saturation is 98%. No crackles. Abdomen soft, with bowel sounds. No masses or tenderness. Extremities are intact. No cyanosis clubbing or edema. Skin is without rash or lesion. Neurologic examination is brief but nonfocal. Results - Laboratory Findings CBC and BMP: 06/29/23 17:51 06/30/23 06:49 Abnormal lab findings: Abnormal Labs 06/29/23 06/29/23 06/30/23 17:51 17:51 06:49 RBC 3.46 L Hgb 11.4 L Hct 35.6 L MCV 102.8 H Plt Count 120 L Lymphocytes # 0.4 L Potassium 5.2 H BUN 118 H* 111.0 A* Creatinine 4.31 H 4.4 H Est GFR (CKD-EPI) 13 L BUN/Creatinine Ratio 25.23 H Glucose 119 H Calcium 8.3 L Phosphorus 5.4 H Magnesium 2.8 H 2.8 H Total Protein 5.4 L Albumin 3.4 L TSH 06/30/23 06/30/23 06:49 15:25 RBC Hgb Hct MCV Plt Count Lymphocytes # Potassium BUN Creatinine Est GFR (CKD-EPI) BUN/Creatinine Ratio Glucose Calcium Phosphorus 5.4 H Magnesium Total Protein Albumin TSH 9.340 H - Diagnostic Findings Chest x-ray: image reviewed Assessment and Plan Assessment: Shortness of breath, secondary to small right-sided pleural effusion. Thoracentesis not necessary at this time. History of chronic atrial fibrillation. History of chronic renal failure. Questionable new onset hypothyroidism. History of hypertension. Prior history of myocardial infarction. History of borderline diabetes. History of gout. Chronic anemia. History of ascites, with prior paracentesis abdominis. Status post AICD placement. Plan: Plan dated 07/01/2023. The patient has a relatively small right-sided pleural effusion. The pockets o nly 3.2 cm. At this time, it is not worth attempting a thoracentesis, as, it would be likely that he would sustain a pneumothorax. Currently, he's on room air. He's not complaining of any difficulty in his breathing. He is currently on dopamine, and dobutamine. The patient should have thyroid replacement therapy. Additional recommendations and suggestions are forthcoming. Prognosis is guarded. We will continue to follow make recommendations along the way. Time with Patient: Greater than 30
[2023-07-01 11:21] LABS: African American GFR (CKD) 15 (>60 ml/min/1.73 sqM); Anion Gap 10 mmol/L; Calcium 8.2 mg/dL (8.4-10.2); Carbon Dioxide 22 mmol/L (22-30); Chloride 103 mmol/L (98-107); Glucose 86 mg/dL (74-99); Non-African American GFR(CKD) 13 (>60 ml/min/1.73 sqM); Sodium 135 mmol/L (137-145)
[2023-07-01 11:22] LABS: Blood Urea Nitrogen 113 mg/dL (9-20)
--- NOTE | 2023-07-01 12:01 | P.PN ---
Subjective Progress Note Date: 07/01/23 * 82-year-old gentleman with past medical history significant for chronic kidney disease, stage IV with baseline creatinine around 3.4, nephrosclerosis, history of cardiorenal syndrome, chronic congestive heart failure with systolic dysfunction ejection fraction around 20%, anemia of chronic kidney disease, iron deficiency anemia chronic lower extremity edema, hypertension, osteoarthritis, coronary artery disease status post PCI and AICD in place, history of atrial fib ablation previously on anticoagulations with Eliquis, history of gastrointestinal bleed, intra-abdominal ascites presents to the emergency department for worsening renal function, patient was sent in by nephrology due to worsening BUN/creatinine and creatinine. Patient did have paracentesis done on 06/29/23 with 6 L of fluid removed. Patient did complain of decreased appetite and had not been having enough oral intake * Workup in ER included EKG which showed atrial fibrillation with rate controlled, no ST segment elevation was noted * Chest x-ray obtained at the time of admission showed bilateral pleural effusion, cardiomegaly noted * Serum chemistry obtained in ER included CBCs which were WBC 5.8 hemoglobin 11.4 platelet count 120 * Basic metabolic panel obtained showed sodium 138 potassium 5.2 carbon dioxide of 22 BU and 118 creatinine 4.31 magnesium of 2.8 AST 25 AST 19 total protein 5.4 * Patient admitted to medical floor as observation with consultation to be obtained from nephrology * 07/01/2023: Patient seen and evaluated bedside, patient is on dopamine and dobutamine drip, pulmonary medicine consulted, nephrology and cardiology following, vascular surgery consulted. Renal profile reviewed creatinine 4.13, TSH and free T4 levels reviewed patient already on Synthyroid, hemoglobin 11.1. Blood pressure appropriate REVIEW OF SYSTEMS: Weakness, shortness of breath, malaise improved CONSTITUTIONAL: Weakness, shortness of breath, malaise HEENT: No recent visual problems or hearing problems. Denied any sore throat. CARDIOVASCULAR: No chest pain, orthopnea, PND, no palpitations, no syncope. PULMONARY: Weakness, shortness of breath, malaise GASTROINTESTINAL: No diarrhea, no nausea, no vomiting, no abdominal pain. NEUROLOGICAL: No headaches, no weakness, no numbness. HEMATOLOGICAL: Denies any bleeding or petechiae. GENITOURINARY: Denies any burning micturition, frequency, or urgency. MUSCULOSKELETAL/RHEUMATOLOGICAL: Denies any joint pain, swelling, or any muscle pain. ENDOCRINE: Denies any polyuria or polydipsia. PHYSICAL EXAMINATION: GENERAL: The patient is alert and oriented x3, ill appearance, pale, nasal cannula in place HEENT: Pupils are round and equally reacting to light. EOMI. CARDIOVASCULAR: S1 and S2 present. lower extremity edema noted bilateral PULMONARY: Decreased breath sounds bilaterally, rhonchi audible at bases ABDOMEN: Soft, nontender, MUSCULOSKELETAL: No joint swelling or deformity. EXTREMITIES: lower extremity edema noted bilateral NEUROLOGICAL: Gross neurological examination did not reveal any focal deficits. Objective - Vital Signs Vital signs: Vital Signs Temp 97.8 F 07/01/23 08:06 Pulse 76 07/01/23 11:33 Resp 17 07/01/23 11:33 BP 112/63 07/01/23 11:33 Pulse Ox 98 07/01/23 11:33 FiO2 Intake & Output 06/30/23 07/01/23 07/01/23 18:59 06:59 18:59 Intake Total 799.7 19.7 730 Output Total 110 630 250 Balance 689.7 -610.3 480 Weight 104.6 kg Intake: IV 19.7 19.7 DOBUTamine DRIP 500 mg In 15 15 Dextrose/Water 1 250ml. bag @ 5 MCG/KG/MIN 14.969 mls/hr IV .[id number] [facility] Rx#:[id number] Dextrose/Water 1 250ml. 4.7 4.7 bag @ 2.5 MCG/KG/MIN 4. 678 mls/hr IV .Q24H [facility] with DOPamine DRIP 800 mg Rx#:[id number] Intake, IV Titration 250 Amount DOBUTamine DRIP 500 mg In 250 Dextrose/Water 1 250ml. bag @ 5 MCG/KG/MIN 14.969 mls/hr IV .[id number] [facility] Rx#:[id number] Oral 780 480 Output: Urine 110 630 250 Uretheral (Ryan) 10 Other: Voiding Method Indwelling Catheter - Labs CBC & Chem 7: 07/01/23 10:18 07/01/23 10:18 Labs: Abnormal Lab Results - Last 24 Hours (Table) 06/30/23 06/30/23 07/01/23 Range/Units 06:49 15:25 10:18 RBC 3.33 L (4.30-5.90) m/uL Hgb 11.1 L (13.0-17.5) gm/dL Hct 35.2 L (39.0-53.0) % MCV 105.7 H (80.0-100.0) fL Plt Count 112 L (150-450) k/uL Sodium (137-145) mmol/L BUN (9-20) mg/dL Creatinine (0.66-1.25) mg/dL Calcium (8.4-10.2) mg/dL Phosphorus 5.4 H (2.5-4.5) mg/dL TSH 9.340 H (0.350-5.500) UIU/ML 07/01/23 Range/Units 10:18 RBC (4.30-5.90) m/uL Hgb (13.0-17.5) gm/dL Hct (39.0-53.0) % MCV (80.0-100.0) fL Plt Count (150-450) k/uL Sodium 135 L (137-145) mmol/L BUN 113 H* (9-20) mg/dL Creatinine 4.13 H (0.66-1.25) mg/dL Calcium 8.2 L (8.4-10.2) mg/dL Phosphorus (2.5-4.5) mg/dL TSH (0.350-5.500) UIU/ML Assessment and Plan Assessment: Assessment and plan * Acute renal failure on chronic kidney disease stage IV * Recurrent abdominal ascites status post paracentesis 06/29/2023, 6L * Acute on Chronic congestive heart failure with ejection fraction less than 20% * Bilateral pleural effusion with fluid overload * History of atrial fibrillation * Hypothyroid * History of iron deficiency anemia, on top of anemia of chronic kidney disease * Chronic thrombocytopenia * Liver disease with ascites * In regards to worsening renal failure, consultations obtained from nephrology, patient does have ejection fraction of less than 20% last noted in 2020, echocardiogram shows severe LV dysfunction with ejection fraction 20%, moderate to severe pulmonary hypertension, [id number] mitral regurgitation, severe tricuspid regurgitation, continue patient on Coreg, dopamine, dobutamine and Lasix IV. Cardiology, nephrology, pulmonary medicine following * In regards to abdominal ascites, patient is status post paracentesis , given albumin secondary to high volume paracentesis * Regards to bilateral pleural effusion, seen by pulmonary medicine, and no need for thoracentesis * In regards to history of atrial flutter patient continue Coreg, per admission med rec patient is not on Eliquis * In regard to chronic thrombocytopenia continue to monitor platelet count * Regards to hypothyroid continue Synthyroid * CODE STATUS full code Time with Patient: Greater than 30
[2023-07-01] MEDS: DEXTROSE/WATER 1 250ML.BAG with DOPamine DRIP 800 MG IV SCH (13:04)
--- NOTE | 2023-07-01 19:27 | P.CRDCN ---
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 He was noticed to have worsening of his kidney function for which he was asked to come to the hospital. BUN: 13, creatinine 4.13. Patient was on lisinopril as an outpatient which is currently held. In hope of improving his cardiac output and increasing renal perfusion he was started on dopamine and dobutamine drip low doses. REVIEW OF SYSTEMS 14 point review of system is negative except what is mentioned above in HPI. PHYSICAL EXAMINATION Vital signs reviewed. Head: Normocephalic. Eyes: Sclerae nonicteric. Neck: Elevated jugular Lungs: No significant wheezing or rhonchi or crackles Heart: Irregularly irregular, systolic murmur audible. Abdomen: Distended, soft nontender positive bowel sounds no organomegaly. Extremities: No edema, warm extremity. 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 Continue dobutamine drip at 5 g. Discontinue it tomorrow if patient's urine output does not improve. Patient is not in cardiorenal syndrome as patient has good peripheral perfusion, warm extremities He does have volume overload with elevated LV and LA filling pressures on echo Continue Coreg 25 mg daily Use midodrine only as needed Past Medical History Past Medical History: Atrial Fibrillation, Blood Disorder, Hypertension, Liver Disease, Myocardial Infarction ([place]), Osteoarthritis ([place]) Additional Past Medical History / Comment(s): See Dr Moreland H&Aries "borderline diabetic" does not watch diet, hx fx left wrist as child-did not heal right,"2 BULGING DICS AND 5 VERTEBRE ARE COMPRESSED", GOUT, ASBESTOES EXPOSURE THRU PAST WORK., hx ULCER ,gout, patient reports being placed on eliquis r/t a-fib (not on blood thinners per patient). ANEMIA, ascites Last Myocardial Infarction Date:: UNK History of Any Multi-Drug Resistant Organisms: None Reported Past Surgical History: AICD, Heart Catheterization, Joint Replacement, Tonsillectomy Additional Past Surgical History / Comment(s): hussain knee replacements, HUSSAIN CA ROTID ENDARTERECTOMY, paracentesis monthly Past Anesthesia/Blood Transfusion Reactions: No Reported Reaction Type of Cardiac Device: AICD Device Placement Date:: 2009 Past Psychological History: No Psychological Hx Reported Smoking Status: Former smoker Past Alcohol Use History: Rare Past Drug Use History: None Reported - Past Family History Father Additional Family Medical History / Comment(s): KILLED BY A TRAIN WHEN PT WAS AGE 9 Mother Family Medical History: No Reported History Additional Family Medical History / Comment(s): open heart surgery Sister(s) Family Medical History: Myocardial Infarction ([place]) Additional Family Medical History / Comment(s): heart stents Medications and Allergies Home Medications Medication Instructions Recorded Confirmed Type Simvastatin [Zocor] 10 mg PO HS 07/09/14 06/29/23 History Aspirin EC [Ecotrin Low Dose] 81 mg PO DAILY 09/05/16 06/29/23 History Levothyroxine Sodium [Synthroid] 50 mcg PO HS 05/17/20 06/29/23 History Febuxostat 40 mg PO DAILY 07/02/21 06/29/23 History Multivitamins, Thera [Multivitamin 1 tab PO DAILY 07/02/21 06/29/23 History (formulary)] Torsemide [Demadex] 20 mg PO BID 12/20/21 06/29/23 History Blood Builder Supplement 1 cap PO BID 06/29/23 06/29/23 History Cyanocobalamin (Vitamin B-12) 1,000 mcg PO DAILY 06/29/23 06/29/23 History [Vitamin B-12] Midodrine HCl [ProAmatine] 10 mg PO TID PRN 06/29/23 06/29/23 History Omeprazole 20 mg PO DAILY 06/29/23 06/29/23 History carvediloL 25 mg PO BID 06/29/23 06/29/23 History lisinopriL [Zestril] 2.5 mg PO DIRECTED 06/29/23 06/29/23 History traMADol HCL 50 mg PO BID 06/29/23 06/29/23 History Allergies Allergy/AdvReac Type Severity Reaction Status Date / Time No Known Allergies Allergy Verified 06/29/23 19:25 Physical Exam Vitals: Vital Signs Temp Pulse Resp BP Pulse Ox 07/01/23 15:28 85 15 116/71 98 07/01/23 11:33 76 17 112/63 98 07/01/23 08:06 97.8 F 72 5 L 107/61 98 07/01/23 04:00 97.5 F L 81 18 112/63 98 07/01/23 00:00 70 18 110/58 97 06/30/23 20:00 97.8 F 76 16 107/62 98 Intake and Output 07/01/23 07/01/23 07/01/23 06:59 14:59 22:59 Intake Total 848 182 Output Total 600 600 375 Balance -600 248 -193 Intake: Intake, IV Titration 250 Amount DOBUTamine DRIP 500 mg In 250 Dextrose/Water 1 250ml. bag @ 5 MCG/KG/MIN 14.969 mls/hr IV .[id number] [facility] Rx#:[id number] Oral 598 182 Output: Urine 600 600 375 Other: Voiding Method Indwelling Catheter Weight 104.6 kg 104.6 kg Results 07/01/23 10:18 07/01/23 10:18 CBC 07/01/23 Range/Units 10:18 WBC 8.0 (3.8-10.6) k/uL RBC 3.33 L (4.30-5.90) m/uL Hgb 11.1 L (13.0-17.5) gm/dL Hct 35.2 L (39.0-53.0) % Plt Count 112 L (150-450) k/uL Comprehensive Metabolic Panel 07/01/23 Range/Units 10:18 Sodium 135 L (137-145) mmol/L Potassium 4.0 (3.5-5.1) mmol/L Chloride 103 (98-107) mmol/L Carbon Dioxide 22 (22-30) mmol/L BUN 113 H* (9-20) mg/dL Creatinine 4.13 H (0.66-1.25) mg/dL Glucose 86 (74-99) mg/dL Calcium 8.2 L (8.4-10.2) mg/dL Current Medications Generic Name Dose Route Start Last Admin Trade Name Freq PRN Reason Stop Dose Admin Acetaminophen 650 mg 06/30/23 09:57 Acetaminophen Tab 325 Mg Tab PO Q6HR PRN Mild Pain or Fever > 100.5 Al Hydroxide/Mg Hydroxide 15 ml 06/30/23 09:57 Mag Hydrox/Al Hydrox/Simeth 30 Ml Cup PO Q6HR PRN Indigestion Atorvastatin Calcium 10 mg 06/29/23 22:30 06/30/23 22:09 Atorvastatin 10 Mg Tab PO 10 mg HS [facility] Administration Carvedilol 25 mg 06/29/23 22:30 07/01/23 08:09 Carvedilol 12.5 Mg Tab PO 25 mg BID ABD[facility]E Administration Cyanocobalamin 1,000 mcg 06/30/23 09:00 07/01/23 08:09 Cyanocobalamin 500 Mcg Tab PO 1,000 mcg DAILY [facility]E Administration Furosemide 60 mg 06/30/23 11:00 07/01/23 08:09 Furosemide 10 Mg/Ml 10 Ml Vial IV 60 mg Q12HR A[facility]OULAYE Administration Dobutamine HCl/Dextrose 500 mg 250 mls @ 14.969 mls/hr 06/30/23 12:45 07/01/23 08:09 / IV Solution IV 5 mcg/kg/min .[id number] A[facility]LAYE 14.969 mls/hr Administration 5 MCG/KG/MIN Levothyroxine Sodium 50 mcg 06/29/23 22:30 06/30/23 22:10 Levothyroxine 50 Mcg Tab PO 50 mcg HS [facility]LAYE Administration Midodrine 5 mg 06/30/23 12:30 07/01/23 15:31 Midodrine 5 Mg Tab PO Not Given AC-TID [facility] Naloxone HCl 0.2 mg 06/29/23 19:34 Naloxone 0.4 Mg/Ml 1 Ml Vial IV Q2M PRN Opioid Reversal Ondansetron HCl 4 mg 06/30/23 09:57 06/30/23 17:53 Ondansetron 4 Mg/2 Ml Vial IVP 4 mg Q8HR PRN Administration Nausea And Vomiting Pantoprazole Sodium 40 mg 06/30/23 07:30 07/01/23 07:11 Pantoprazole 40 Mg Tablet PO 40 mg [id number] ABDOULAYE Administration Tramadol HCl 50 mg 06/29/23 22:30 07/01/23 09:58 Tramadol 50 Mg Tab PO 50 mg BID ABDOULAYE Administration Intake and Output 07/01/23 07/01/23 07/01/23 06:59 14:59 22:59 Intake Total 848 182 Output Total 600 600 375 Balance -600 248 -193 Intake: Intake, IV Titration 250 Amount DOBUTamine DRIP 500 mg In 250 Dextrose/Water 1 250ml. bag @ 5 MCG/KG/MIN 14.969 mls/hr IV .[id number] [facility] Rx#:[id number] Oral 598 182 Output: Urine 600 600 375 Other: Voiding Method Indwelling Catheter Weight 104.6 kg 104.6 kg Patient Weight 07/02/23 06:59 Weight 104.6 kg 07/01/23 10:18 07/01/23 10:18
[2023-07-01] MEDS: ATORVASTATIN 10 MG TAB PO SCH (22:27)
[2023-07-01] MEDS: LEVOTHYROXINE 50 MCG TAB PO SCH (22:28)
[2023-07-02] MEDS: DOBUTamine DRIP 500 MG in DEXTROSE/WATER 1 250ML.BAG IV SCH ×2 (03:00→18:59)
[2023-07-02] MEDS: PANTOPRAZOLE 40 MG TABLET PO SCH (06:49)
[2023-07-02] MEDS: MIDODRINE 5 MG TAB PO SCH ×3 (06:49→18:59)
[2023-07-02] MEDS: traMADol 50 MG TAB PO SCH ×2 (10:22→19:59)
[2023-07-02] MEDS: FUROSEMIDE 10 MG/ML 10 ML VIAL IV SCH ×2 (10:22→20:00)
[2023-07-02] MEDS: carvediloL 12.5 MG TAB PO SCH ×2 (10:22→20:00)
[2023-07-02] MEDS: CYANOCOBALAMIN 500 MCG TAB PO SCH (10:22)
--- NOTE | 2023-07-02 11:16 | P.PN ---
Subjective Progress Note Date: 07/02/23 Principal diagnosis: Shortness of breath. Pulmonary consult dated 07/01/2023. 82-year-old male who presents to the emergency department on June 29, complaining of weakness. In addition, the patient complains of shortness of breath, and worsening renal function. We were consulted, yesterday, for a pleural effusion. By ultrasound, the patient has a relatively small effusion, at this point, because he is on room air, without any respiratory issues, it doesn't make any sense to attempt a thoracentesis. Currently, the patient's on dopamine at 2.5 mcg/kg/m, dobutamine at 5 mcg/kg/m, and on room air. White count 5.8, hemoglobin 11.4, hematocrit 35.6, platelet count 120,000. Sodium 139, potassium 4.8, chlorides 104, CO2 24, anion gap 12, BUN 111, and creatinine 4.4. TSH is 9.340. Ultrasound of the right chest reveals a pocket was only 3.2 cm. Chest x-ray shows right-sided pleural/parenchymal changes. Progress note dated 07/02/2023. 82-year-old male seen in consultation yesterday. Please see our note above. We were consulted primarily for a right-sided pleural effusion, which by ultrasound, is relatively small. The pocket was only 3.2 cm. Currently, the patient is on oxygen at 3 L, with saturations of 98%. He continues on dobutamine at 5 mcg/kg/m. He is no longer on dopamine. No new labs today. Labs from yesterday have been reviewed. Objective - Vital Signs Vital signs: Vital Signs Temp 97.7 F 07/02/23 08:50 Pulse 87 07/02/23 08:50 Resp 17 07/02/23 08:50 BP 111/67 07/02/23 08:50 Pulse Ox 100 07/02/23 08:50 FiO2 Intake & Output 07/01/23 07/02/23 07/02/23 18:59 06:59 18:59 Intake Total 1030 250 Output Total 975 900 Balance 55 250 -900 Weight 104.6 kg 105.6 kg Intake: Intake, IV Titration 250 250 Amount DOBUTamine DRIP 500 mg In 250 250 Dextrose/Water 1 250ml. bag @ 5 MCG/KG/MIN 14.969 mls/hr IV .[id number] [facility] Rx#:[id number] Oral 780 Output: Urine 975 900 Other: Voiding Method Indwelling Catheter Indwelling Catheter - Exam No acute distress, oriented 3. Currently on 3 L with saturations of 98%. No audible wheezing, use of accessory muscles, or conversational dyspnea. HEENT examination is grossly unremarkable. Mucous membranes are moist. No oral lesions. Neck supple. Full range of motion. No adenopathy thyromegaly or neck vein distention. Cardiovascular examination reveals regular rhythm rate. S1-S2 normal. No S3 or S4. No discernible murmur noted. Heart rate 87 bpm. Lungs reveal reduced breath sounds at the right base. Dullness at the right base. The left lung is clear. No crackles. Abdomen soft, with bowel sounds. No masses or tenderness. Extremities are intact. No cyanosis clubbing or edema. Skin is without rash or lesion. Neurologic examination is brief but nonfocal. - Labs CBC & Chem 7: 07/01/23 10:18 07/01/23 10:18 Labs: Abnormal Lab Results - Last 24 Hours (Table) 07/01/23 Range/Units 10:18 Sodium 135 L (137-145) mmol/L BUN 113 H* (9-20) mg/dL Creatinine 4.13 H (0.66-1.25) mg/dL Calcium 8.2 L (8.4-10.2) mg/dL Assessment and Plan Assessment: Shortness of breath, secondary to small right-sided pleural effusion. Thoracentesis not necessary at this time. History of chronic atrial fibrillation. History of chronic renal failure. Questionable new onset hypothyroidism. History of hypertension. Prior history of myocardial infarction. History of borderline diabetes. History of gout. Chronic anemia. History of ascites, with prior paracentesis abdominis. Status post AICD placement. Plan: Plan dated 07/01/2023. The patient has a relatively small right-sided pleural effusion. The pockets only 3.2 cm. At this time, it is not worth attempting a thoracentesis, as, it would be likely that he would sustain a pneumothorax. Currently, he's on room air. He's not complaining of any difficulty in his breathing. He is currently on dopamine, and dobutamine. The patient should have thyroid replacement therapy. Additional recommendations and suggestions are forthcoming. Prognosis is guarded. We will continue to follow make recommendations along the way. Plan dated 07/02/2023. The patient was seen in consultation yesterday. Ultrasound revealed only a relatively small pleural effusion. Thoracentesis was not performed. Labs, x- rays, and medications are reviewed. The patient is currently very stable. He continues on dobutamine as per cardiology, at 5 mcg/kg/m. He is no longer on dopamine. Labs, x-rays, and medications are reviewed. No chest x-ray today. We will continue to follow make recommendations. Overall prognosis remains guarded. No active pulmonary issues at this time. Saturations are 98-100% on 2 L. Time with Patient: Less than 30
--- NOTE | 2023-07-02 11:29 | P.PN ---
Subjective Patient is seen for follow-up for acute kidney injury on top of chronic kidney disease. Currently maintained on IV Lasix along with dopamine and dobutamine for CHF with reduced ejection fraction. urine output seems to have increased. Creatinine decreased to 4.1 yesterday and therefore hemodialysis was held. No complaints of nausea or vomiting. Tolerating oral intake. Dopamine was discontinued. Patient remains on dobutamine. Objective - Vital Signs Vital signs: Vital Signs Temp 97.7 F 07/02/23 08:50 Pulse 87 07/02/23 08:50 Resp 17 07/02/23 08:50 BP 111/67 07/02/23 08:50 Pulse Ox 100 07/02/23 08:50 FiO2 Intake & Output 07/01/23 07/02/23 07/02/23 18:59 06:59 18:59 Intake Total 1030 250 Output Total 975 900 Balance 55 250 -900 Weight 104.6 kg 105.6 kg Intake: Intake, IV Titration 250 250 Amount DOBUTamine DRIP 500 mg In 250 250 Dextrose/Water 1 250ml. bag @ 5 MCG/KG/MIN 14.969 mls/hr IV .[id number] [facility] Rx#:[id number] Oral 780 Output: Urine 975 900 Other: Voiding Method Indwelling Catheter Indwelling Catheter - Exam Patient is awake, comfortable, no acute distress Alert oriented 3 Examination of the heart S1 and S2 Examination the lungs bilateral breath sounds are heard Abdomen is soft nontender obese Examination lower ex Mittie shows edema 1+ bilaterally, decreased [employer] exam grossly intact - Labs CBC & Chem 7: 07/01/23 10:18 07/01/23 10:18 Assessment and Plan Assessment: 1. Acute kidney injury secondary to ATN secondary to cardiorenal syndrome. Creatinine decreased to 4.1 yesterday and therefore hemodialysis was held. Continue with dobutamine and IV Lasix. 2. Chronic kidney disease stage IV with baseline creatinine 2.63 secondary to cardiorenal syndrome and nephrosclerosis. 3. Volume overload. 4. Acute on chronic systolic CHF with ejection fraction of less than 20% with mild to moderate mitral regurgitation. 5. Hypothyroidism with TSH elevated at 9.3, T4 at 1.07 Plan: Continue with IV Lasix and dobutamine Repeat labs in a.m. Consider decreasing dose of IV Lasix depending on labs from today.
--- NOTE | 2023-07-02 12:12 | P.PN ---
Subjective Progress Note Date: 07/02/23 * 82-year-old gentleman with past medical history significant for chronic kidney disease, stage IV with baseline creatinine around 3.4, nephrosclerosis, history of cardiorenal syndrome, chronic congestive heart failure with systolic dysfunction ejection fraction around 20%, anemia of chronic kidney disease, iron deficiency anemia chronic lower extremity edema, hypertension, osteoarthritis, coronary artery disease status post PCI and AICD in place, history of atrial fib ablation previously on anticoagulations with Eliquis, history of gastrointestinal bleed, intra-abdominal ascites presents to the emergency department for worsening renal function, patient was sent in by nephrology due to worsening BUN/creatinine and creatinine. Patient did have paracentesis done on 06/29/23 with 6 L of fluid removed. Patient did complain of decreased appetite and had not been having enough oral intake * Workup in ER included EKG which showed atrial fibrillation with rate controlled, no ST segment elevation was noted * Chest x-ray obtained at the time of admission showed bilateral pleural effusion, cardiomegaly noted * Serum chemistry obtained in ER included CBCs which were WBC 5.8 hemoglobin 11.4 platelet count 120 * Basic metabolic panel obtained showed sodium 138 potassium 5.2 carbon dioxide of 22 BU and 118 creatinine 4.31 magnesium of 2.8 AST 25 AST 19 total protein 5.4 * Patient admitted to medical floor as observation with consultation to be obtained from nephrology * 07/01/2023: Patient seen and evaluated bedside, patient is on dopamine and dobutamine drip, pulmonary medicine consulted, nephrology and cardiology following, vascular surgery consulted. Renal profile reviewed creatinine 4.13, TSH and free T4 levels reviewed patient already on Synthyroid, hemoglobin 11.1. Blood pressure appropriate * 07/02/2023: Patient seen and evaluated bedside, patient alert and oriented 4, family at bedside, pulmonary medicine, cardiology following, chest ultrasound on howed bilateral pleural effusion REVIEW OF SYSTEMS: Weakness, shortness of breath, malaise improved CONSTITUTIONAL: Weakness, shortness of breath, malaise HEENT: No recent visual problems or hearing problems. Denied any sore throat. CARDIOVASCULAR: No chest pain, orthopnea, PND, no palpitations, no syncope. PULMONARY: Weakness, shortness of breath, malaise GASTROINTESTINAL: No diarrhea, no nausea, no vomiting, no abdominal pain. NEUROLOGICAL: No headaches, no weakness, no numbness. HEMATOLOGICAL: Denies any bleeding or petechiae. GENITOURINARY: Denies any burning micturition, frequency, or urgency. MUSCULOSKELETAL/RHEUMATOLOGICAL: Denies any joint pain, swelling, or any muscle pain. ENDOCRINE: Denies any polyuria or polydipsia. PHYSICAL EXAMINATION: GENERAL: The patient is alert and oriented x3, ill appearance, pale, nasal cannula in place HEENT: Pupils are round and equally reacting to light. EOMI. CARDIOVASCULAR: S1 and S2 present. lower extremity edema noted bilateral PULMONARY: Decreased breath sounds bilaterally, rhonchi audible at bases ABDOMEN: Soft, nontender, MUSCULOSKELETAL: No joint swelling or deformity. EXTREMITIES: lower extremity edema noted bilateral NEUROLOGICAL: Gross neurological examination did not reveal any focal deficits. Objective - Vital Signs Vital signs: Vital Signs Temp 97.7 F 07/02/23 08:50 Pulse 87 07/02/23 08:50 Resp 17 07/02/23 08:50 BP 111/67 07/02/23 08:50 Pulse Ox 100 07/02/23 08:50 FiO2 Intake & Output 07/01/23 07/02/23 07/02/23 18:59 06:59 18:59 Intake Total 1030 250 Output Total 975 900 Balance 55 250 -900 Weight 104.6 kg 105.6 kg Intake: Intake, IV Titration 250 250 Amount DOBUTamine DRIP 500 mg In 250 250 Dextrose/Water 1 250ml. bag @ 5 MCG/KG/MIN 14.969 mls/hr IV .[id number] [facility] Rx#:[id number] Oral 780 Output: Urine 975 900 Other: Voiding Method Indwelling Catheter Indwelling Catheter - Labs CBC & Chem 7: 07/01/23 10:18 07/01/23 10:18 Assessment and Plan Assessment: Assessment and plan * Acute renal failure on chronic kidney disease stage IV * Recurrent abdominal ascites status post paracentesis 06/29/2023, 6L * Acute on Chronic congestive heart failure with ejection fraction less than 20% * Bilateral pleural effusion with fluid overload * History of atrial fibrillation * Hypothyroid * History of iron deficiency anemia, on top of anemia of chronic kidney disease * Chronic thrombocytopenia * Liver disease with ascites * Consult obtained from pulmonary medicine, cardiology, nephrology * In regards to worsening renal failure, consultations obtained from nephrology, patient does have ejection fraction of less than 20% last noted in 2020, echocardiogram shows severe LV dysfunction with ejection fraction 20%, moderate to severe pulmonary hypertension, [id number] mitral regurgitation, severe tricuspid regurgitation, continue patient on Coreg, dopamine, dobutamine and Lasix IV. Cardiology, nephrology, pulmonary medicine following * In regards to abdominal ascites, patient is status post paracentesis , given albumin secondary to high volume paracentesis * Regards to bilateral pleural effusion, seen by pulmonary medicine, and no need for thoracentesis, follow-up chest x-ray completed 07/02 * In regards to history of atrial flutter patient continue Coreg, per admission med rec patient is not on Eliquis * In regard to chronic thrombocytopenia continue to monitor platelet count * Regards to hypothyroid continue Synthyroid * CODE STATUS full code
[2023-07-02 12:41] LABS: HCT 37.4 % (39.0-53.0); HGB 11.8 gm/dL (13.0-17.5); Hypochromasia Slight; MCH 33.3 pg (25.0-35.0); MCHC 31.5 g/dL (31.0-37.0); MCV 105.7 fL (80.0-100.0); Macrocytosis Moderate; Platelet Count 116 k/uL (150-450); RBC 3.54 m/uL (4.30-5.90); RDW 14.3 % (11.5-15.5); WBC 8.2 k/uL (3.8-10.6)
[2023-07-02 13:03] LABS: African American GFR (CKD) 15 (>60 ml/min/1.73 sqM); Anion Gap 13 mmol/L; Calcium 7.9 mg/dL (8.4-10.2); Carbon Dioxide 19 mmol/L (22-30); Chloride 102 mmol/L (98-107); Glucose 110 mg/dL (74-99); Non-African American GFR(CKD) 13 (>60 ml/min/1.73 sqM); Sodium 134 mmol/L (137-145)
[2023-07-02 13:26] LABS: Blood Urea Nitrogen 109 mg/dL (9-20)
--- NOTE | 2023-07-02 14:06 | XR ---
EXAMINATION TYPE: XR chest 2V DATE OF EXAM: 07/02/2023 COMPARISON: 06/29/2023 INDICATION: Short of breath TECHNIQUE: Frontal and lateral views of the chest are obtained. FINDINGS: The heart size is enlarged. The pulmonary vasculature is normal. Right lower lobe infiltrate is present. Small right pleural effusion is present. This is similar to c omparison. Pacemaker overlies left chest. IMPRESSION: 1. Small right pleural effusion with adjacent infiltrate, stable from comparison.
[2023-07-02] MEDS: ATORVASTATIN 10 MG TAB PO SCH (19:59)
[2023-07-02] MEDS: LEVOTHYROXINE 50 MCG TAB PO SCH (19:59)
--- NOTE | 2023-07-02 20:07 | P.PN ---
Subjective Progress Note Date: 07/02/23 Progress note: Patient is currently on low-dose dobutamine drip. I discontinued patient's dopamine drip as his blood pressure was good. His kidney function has borderline he improved to a creatinine of 4.1. With urine output of 1200 mL HISTORY OF PRESENTING ILLNESS 82-year-old male with past medical history of CKD stage IV, end-stage heart failure with EF of 15-20%, severe pulmonary hypertension, moderate AR, moderate MR was being evaluated as an outpatient in his consultant education clinic. He was noticed to have worsening of his kidney function for which he was asked to come to the hospital. BUN: 13, creatinine 4.13. Patient was on lisinopril as an outpatient which is currently held. In hope of improving his cardiac output and increasing renal perfusion he was started on dopamine and dobutamine drip low doses. REVIEW OF SYSTEMS 14 point review of system is negative except what is mentioned above in HPI. PHYSICAL EXAMINATION Vital signs reviewed. Head: Normocephalic. Eyes: Sclerae nonicteric. Neck: Elevated jugular Lungs: No significant wheezing or rhonchi or crackles Heart: Irregularly irregular, systolic murmur audible. Abdomen: Distended, soft nontender positive bowel sounds no organomegaly. Extremities: No edema, warm extremity. 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 Discontinue it tomorrow if patient's urine output does not improve. Patient is not in cardiorenal syndrome as patient has good peripheral perfusion, warm extremities He does have volume overload with elevated LV and LA filling pressures on echo Continue Coreg 25 mg daily Use midodrine only as needed Objective - Vital Signs Vital signs: Vital Signs Temp 97.8 F 07/02/23 16:00 Pulse 72 07/02/23 19:59 Resp 18 07/02/23 19:59 BP 128/68 07/02/23 19:59 Pulse Ox 99 07/02/23 19:59 FiO2 Intake & Output 07/02/23 07/02/23 07/03/23 06:59 18:59 06:59 Intake Total 250 239.255 Output Total 1250 Balance 250 -1010.745 Weight 105.6 kg Intake: Intake, IV Titration 250 239.255 Amount DOBUTamine DRIP 500 mg In 250 239.255 Dextrose/Water 1 250ml. bag @ 5 MCG/KG/MIN 14.969 mls/hr IV .[id number] [facility] Rx#:[id number] Output: Urine 1250 Other: Voiding Method Indwelling Catheter Indwelling Catheter - Labs CBC & Chem 7: 07/02/23 12:07/02/23 12:01 Labs: Abnormal Lab Results - Last 24 Hours (Table) 07/02/23 07/02/23 Range/Units 12: 12: RBC 3.54 L (4.30-5.90) m/uL Hgb 11.8 L (13.0-17.5) gm/dL Hct 37.4 L (39.0-53.0) % MCV 105.7 H (80.0-100.0) fL Plt Count 116 L (150-450) k/uL Sodium 134 L (137-145) mmol/L Carbon Dioxide 19 L (22-30) mmol/L BUN 109 H* (9-20) mg/dL Creatinine 4.13 H (0.66-1.25) mg/dL Glucose 110 H (74-99) mg/dL Calcium 7.9 L (8.4-10.2) mg/dL
[2023-07-02] MEDS: ONDANSETRON 4 MG/2 ML VIAL IVP PRN (20:39)
[2023-07-03] MEDS: MIDODRINE 5 MG TAB PO SCH ×3 (06:24→15:26)
[2023-07-03] MEDS: PANTOPRAZOLE 40 MG TABLET PO SCH (06:24)
[2023-07-03] MEDS: DOBUTamine DRIP 500 MG in DEXTROSE/WATER 1 250ML.BAG IV SCH ×2 (08:05→15:29)
[2023-07-03 08:16] LABS: African American GFR (CKD) 16 (>60 ml/min/1.73 sqM); Anion Gap 10 mmol/L; Calcium 7.6 mg/dL (8.4-10.2); Carbon Dioxide 23 mmol/L (22-30); Chloride 101 mmol/L (98-107); Glucose 96 mg/dL (74-99); Non-African American GFR(CKD) 13 (>60 ml/min/1.73 sqM); Sodium 134 mmol/L (137-145)
[2023-07-03 08:33] LABS: Potassium 4.7 mmol/L (3.5-5.1)
[2023-07-03 08:34] LABS: Blood Urea Nitrogen 109 mg/dL (9-20)
[2023-07-03] MEDS: FUROSEMIDE 10 MG/ML 10 ML VIAL IV SCH ×2 (08:55→20:01)
[2023-07-03] MEDS: CYANOCOBALAMIN 500 MCG TAB PO SCH (08:56)
[2023-07-03] MEDS: traMADol 50 MG TAB PO SCH ×2 (08:56→20:00)
[2023-07-03] MEDS: carvediloL 12.5 MG TAB PO SCH ×2 (08:56→20:00)
--- NOTE | 2023-07-03 10:29 | P.PN ---
Subjective Progress Note Date: 07/03/23 82-year-old male who presents to the emergency department on June 29, complaining of weakness. In addition, the patient complains of shortness of breath, and worsening renal function. We were consulted, yesterday, for a pleural effusion. By ultrasound, the patient has a relatively small effusion, at this point, because he is on room air, without any respiratory issues, it doesn't make any sense to attempt a thoracentesis. Currently, the patient's on dopamine at 2.5 mcg/kg/m, dobutamine at 5 mcg/kg/m, and on room air. White count 5.8, hemoglobin 11.4, hematocrit 35.6, platelet count 120,000. Sodium 139, potassium 4.8, chlorides 104, CO2 24, anion gap 12, BUN 111, and creatinine 4.4. TSH is 9.340. Ultrasound of the right chest reveals a pocket was only 3.2 cm. Chest x-ray shows right-sided pleural/parenchymal changes. Progress note dated 07/02/2023. 82-year-old male seen in consultation yesterday. Please see our note above. We were consulted primarily for a right-sided pleural effusion, which by ultrasound, is relatively small. The pocket was only 3.2 cm. Currently, the p atient is on oxygen at 3 L, with saturations of 98%. He continues on dobutamine at 5 mcg/kg/m. He is no longer on dopamine. No new labs today. Labs from yesterday have been reviewed. On today's evaluation of 07/03/2023, the patient is awake and alert and communicating without having any major distress or difficulties. Is on room air oxygen. His renal function continues to improve. His creatinine is down to 3.9 with a BUN of 109 and his sodium levels at 137. He has no specific complaints. He has small pocket of pleural fluid that was evaluated to the earlier and was decided not to drain the fluid at this point in time. He remains on Lasix 60 mg IV every 12 hours. 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 Objective - Vital Signs Vital signs: Vital Signs Temp 97.7 F 07/03/23 04:00 Pulse 68 07/03/23 08:00 Resp 16 07/03/23 08:00 BP 103/58 07/03/23 08:00 Pulse Ox 96 07/03/23 08:00 FiO2 Intake & Output 07/02/23 07/03/23 07/03/23 18:59 06:59 18:59 Intake Total 239.255 120 180 Output Total 1250 Balance -1010.745 120 180 Weight 149.5 kg Intake: Intake, IV Titration 239.255 Amount DOBUTamine DRIP 500 mg In 239.255 Dextrose/Water 1 250ml. bag @ 5 MCG/KG/MIN 14.969 mls/hr IV .[id number] [facility] Rx#:[id number] Oral 120 180 Output: Urine 1250 Other: Voiding Method Indwelling Catheter Indwelling Catheter Indwelling Catheter - Exam No acute distress, oriented 3. Currently on RA saturations of 98%. No audible wheezing, use of accessory muscles, or conversational dyspnea. HEENT examination is grossly unremarkable. Mucous membranes are moist. No oral lesions. Neck supple. Full range of motion. No adenopathy thyromegaly or neck vein distention. Cardiovascular examination reveals regular rhythm rate. S1-S2 normal. No S3 or S4. No discernible murmur noted. Lungs reveal reduced breath sounds at the right base. Dullness at the right base. The left lung is clear. No crackles. Abdomen soft, with bowel sounds. No masses or tenderness. Extremities are intact. No cyanosis clubbing or edema. Skin is without rash or lesion. Neurologic examination is brief but nonfocal. - Labs CBC & Chem 7: 07/02/23 12:07/03/23 06:25 Labs: Abnormal Lab Results - Last 24 Hours (Table) 07/02/23 07/02/23 07/03/23 Range/Units 12: 12: 06:25 RBC 3.54 L (4.30-5.90) m/uL Hgb 11.8 L (13.0-17.5) gm/dL Hct 37.4 L (39.0-53.0) % MCV 105.7 H (80.0-100.0) fL Plt Count 116 L (150-450) k/uL Sodium 134 L 134 L (137-145) mmol/L Carbon Dioxide 19 L (22-30) mmol/L BUN 109 H* 109 H* (9-20) mg/dL Creatinine 4.13 H 3.95 H (0.66-1.25) mg/dL Glucose 110 H (74-99) mg/dL Calcium 7.9 L 7.6 L (8.4-10.2) mg/dL Assessment and Plan Plan: Acute toxic respiratory failure, the patient is currently on room air oxygen Shortness of breath, multifactorial and the patient has a small right-sided pleural effusion. Thoracentesis not necessary at this time. CHF with severe cardiomyopathy and ejection fraction of 20% History of chronic atrial fibrillation. chronic renal failure stage 4-5 Questionable new onset hypothyroidism. History of hypertension. Prior history of myocardial infarction. History of borderline diabetes. History of gout. Chronic anemia. History of ascites, with prior paracentesis abdominis. Status post AICD placement. Plan Patient is currently on room air oxygen Continue Lasix Continue dopamine at 5 mg/kg/m Monitor renal function No need for immediate thoracentesis of this point in time We'll continue to follow
--- NOTE | 2023-07-03 11:23 | P.PN ---
Subjective Patient is seen for follow-up for acute kidney injury on top of chronic kidney disease. Currently maintained on IV Lasix and dobutamine for CHF with reduced ejection fraction. urine output seems to have increased. Creatinine decreased to 3.9 and therefore no plans on hemodialysis. No complaints of nausea or vomiting. Tolerating oral intake. Patient remains on dobutamine. Objective - Vital Signs Vital signs: Vital Signs Temp 97.7 F 07/03/23 04:00 Pulse 68 07/03/23 08:00 Resp 16 07/03/23 08:00 BP 103/58 07/03/23 08:00 Pulse Ox 96 07/03/23 08:00 FiO2 Intake & Output 07/02/23 07/03/23 07/03/23 18:59 06:59 18:59 Intake Total 239.255 120 180 Output Total 1250 700 Balance -1010.745 120 -520 Weight 149.5 kg Intake: Intake, IV Titration 239.255 Amount DOBUTamine DRIP 500 mg In 239.255 Dextrose/Water 1 250ml. bag @ 5 MCG/KG/MIN 14.969 mls/hr IV .[id number] [facility] Rx#:[id number] Oral 120 180 Output: Urine 1250 700 Other: Voiding Method Indwelling Catheter Indwelling Catheter Indwelling Catheter - Exam Patient is awake, comfortable, no acute distress Alert oriented 3 Examination of the heart S1 and S2 Examination the lungs bilateral breath sounds are heard Abdomen is soft nontender obese Examination lower ex Mittie shows edema 1+ bilaterally, decreased [employer] exam grossly intact - Labs CBC & Chem 7: 07/02/23 12:01 07/03/23 06:25 Labs: Abnormal Lab Results - Last 24 Hours (Table) 07/02/23 07/02/23 07/03/23 Range/Units 12: 12: 06:25 RBC 3.54 L (4.30-5.90) m/uL Hgb 11.8 L (13.0-17.5) gm/dL Hct 37.4 L (39.0-53.0) % MCV 105.7 H (80.0-100.0) fL Plt Count 116 L (150-450) k/uL Sodium 134 L 134 L (137-145) mmol/L Carbon Dioxide 19 L (22-30) mmol/L BUN 109 H* 109 H* (9-20) mg/dL Creatinine 4.13 H 3.95 H (0.66-1.25) mg/dL Glucose 110 H (74-99) mg/dL Calcium 7.9 L 7.6 L (8.4-10.2) mg/dL Assessment and Plan Assessment: 1. Acute kidney injury secondary to ATN secondary to cardiorenal syndrome. Creatinine decreased to 3.9 and therefore hemodialysis was held. Continue with dobutamine and IV Lasix. 2. Chronic kidney disease stage IV with baseline creatinine 2.63 secondary to cardiorenal syndrome and nephrosclerosis. 3. Volume overload. 4. Acute on chronic systolic CHF with ejection fraction of less than 20% with mild to moderate mitral regurgitation. 5. Hypothyroidism with TSH elevated at 9.3, T4 at 1.07 Plan: Continue with IV Lasix and dobutamine Repeat labs in a.m.
--- NOTE | 2023-07-03 13:22 | P.PN ---
Subjective Progress Note Date: 07/03/23 * 82-year-old gentleman with past medical history significant for chronic kidney disease, stage IV with baseline creatinine around 3.4, nephrosclerosis, history of cardiorenal syndrome, chronic congestive heart failure with systolic dysfunction ejection fraction around 20%, anemia of chronic kidney disease, iron deficiency anemia chronic lower extremity edema, hypertension, osteoarthritis, coronary artery disease status post PCI and AICD in place, history of atrial fib ablation previously on anticoagulations with Eliquis, history of gastrointestinal bleed, intra-abdominal ascites presents to the emergency department for worsening renal function, patient was sent in by nephrology due to worsening BUN/creatinine and creatinine. Patient did have paracentesis done on 06/29/23 with 6 L of fluid removed. Patient did complain of decreased appetite and had not been having enough oral intake * Workup in ER included EKG which showed atrial fibrillation with rate controlled, no ST segment elevation was noted * Chest x-ray obtained at the time of admission showed bilateral pleural effusion, cardiomegaly noted * Serum chemistry obtained in ER included CBCs which were WBC 5.8 hemoglobin 11.4 platelet count 120 * Basic metabolic panel obtained showed sodium 138 potassium 5.2 carbon dioxide of 22 BU and 118 creatinine 4.31 magnesium of 2.8 AST 25 AST 19 total protein 5.4 * Patient admitted to medical floor as observation with consultation to be obtained from nephrology * 07/01/2023: Patient seen and evaluated bedside, patient is on dopamine and dobutamine drip, pulmonary medicine consulted, nephrology and cardiology following, vascular surgery consulted. Renal profile reviewed creatinine 4.13, TSH and free T4 levels reviewed patient already on Synthyroid, hemoglobin 11.1. Blood pressure appropriate * 07/02/2023: Patient seen and evaluated bedside, patient alert and oriented 4, family at bedside, pulmonary medicine, cardiology following, chest ultrasound on 1showed bilateral pleural effusion * 07/03/2023: Patient seen and evaluated bedside, patient is alert and oriented 4, creatinine is decreased to 3.9, nephrology for hemodialysis continue patient on Lasix and dobutamine drip for CHF. Cardiology following as well, chest x-ray obtained shows small right pleural effusion stable. Appreciate input from multiple specialities REVIEW OF SYSTEMS: Weakness, shortness of breath, malaise improved CONSTITUTIONAL: Weakness, shortness of breath, malaise HEENT: No recent visual problems or hearing problems. Denied any sore throat. CARDIOVASCULAR: No chest pain, orthopnea, PND, no palpitations, no syncope. PULMONARY: Weakness, shortness of breath, malaise GASTROINTESTINAL: No diarrhea, no nausea, no vomiting, no abdominal pain. NEUROLOGICAL: No headaches, no weakness, no numbness. HEMATOLOGICAL: Denies any bleeding or petechiae. GENITOURINARY: Denies any burning micturition, frequency, or urgency. MUSCULOSKELETAL/RHEUMATOLOGICAL: Denies any joint pain, swelling, or any muscle pain. ENDOCRINE: Denies any polyuria or polydipsia. PHYSICAL EXAMINATION: GENERAL: The patient is alert and oriented x3, ill appearance, pale, nasal cannula in place HEENT: Pupils are round and equally reacting to light. EOMI. CARDIOVASCULAR: S1 and S2 present. lower extremity edema noted bilateral PULMONARY: Decreased breath sounds bilaterally, rhonchi audible at bases ABDOMEN: Soft, nontender, MUSCULOSKELETAL: No joint swelling or deformity. EXTREMITIES: lower extremity edema noted bilateral NEUROLOGICAL: Gross neurological examination did not reveal any focal deficits. Objective - Vital Signs Vital signs: Vital Signs Temp 97.7 F 07/03/23 04:00 Pulse 81 07/03/23 12:42 Resp 18 07/03/23 12:00 BP 107/62 07/03/23 12:00 Pulse Ox 95 07/03/23 12:00 FiO2 Intake & Output 07/02/23 07/03/23 07/03/23 18:59 06:59 18:59 Intake Total 239.255 120 180 Output Total 1250 700 Balance -1010.745 120 -520 Weight 149.5 kg Intake: Intake, IV Titration 239.255 Amount DOBUTamine DRIP 500 mg In 239.255 Dextrose/Water 1 250ml. bag @ 5 MCG/KG/MIN 14.969 mls/hr IV .[id number] [facility] Rx#:[id number] Oral 120 180 Output: Urine 1250 700 Other: Voiding Method Indwelling Catheter Indwelling Catheter Indwelling Catheter - Labs CBC & Chem 7: 07/02/23 12:01 07/03/23 06:25 Labs: Abnormal Lab Results - Last 24 Hours (Table) 07/02/23 07/03/23 Range/Units 12: 06:25 Sodium 134 L 134 L (137-145) mmol/L Carbon Dioxide 19 L (22-30) mmol/L BUN 109 H* 109 H* (9-20) mg/dL Creatinine 4.13 H 3.95 H (0.66-1.25) mg/dL Glucose 110 H (74-99) mg/dL Calcium 7.9 L 7.6 L (8.4-10.2) mg/dL Assessment and Plan Assessment: Assessment and plan * Acute renal failure on chronic kidney disease stage IV * Recurrent abdominal ascites status post paracentesis 06/29/2023, 6L * Acute on Chronic congestive heart failure with ejection fraction less than 20% * Bilateral pleural effusion with fluid overload * History of atrial fibrillation * Hypothyroid * History of iron deficiency anemia, on top of anemia of chronic kidney disease * Chronic thrombocytopenia * Liver disease with ascites * Consult obtained from pulmonary medicine, cardiology, nephrology * In regards to worsening renal failure, consultations obtained from nephrology, patient does have ejection fraction of less than 20% last noted in 2020, echocardiogram shows severe LV dysfunction with ejection fraction 20%, moderate to severe pulmonary hypertension, [id number] mitral regurgitation, severe tricuspid regurgitation>> current medications include dobutamine drip, Coreg, Lasix, Midodrin. Patient has been weaned off dopamine * In regards to abdominal ascites, patient is status post paracentesis , given albumin secondary to high volume paracentesis * Regards to bilateral pleural effusion, seen by pulmonary medicine, and no need for thoracentesis, follow-up chest x-ray completed 07/02, shows stable pleural effusion * In regards to history of atrial flutter patient continue Coreg, per admission med rec patient is not on Eliquis * In regard to chronic thrombocytopenia continue to monitor platelet count, monitor for bleeding precautions * Regards to hypothyroid continue Synthyroid * CODE STATUS full code
--- NOTE | 2023-07-03 13:59 | P.PN ---
Subjective Progress Note Date: 07/03/23 Progress Note Date: 07/02/23 Progress note: Patient is currently on low-dose dobutamine drip. I discontinued patient's dopamine drip as his blood pressure was good. His kidney function has borderline he improved to a creatinine of 4.1. With urine output of 1200 mL HISTORY OF PRESENTING ILLNESS 82-year-old male with past medical history of CKD stage IV, end-stage heart failure with EF of 15-20%, severe pulmonary hypertension, moderate AR, moderate MR was being evaluated as an outpatient in his [facility]. He was noticed to have worsening of his kidney function for which he was asked to come to the hospital. BUN: 13, creatinine 4.13. Patient was on lisinopril as an outpatient which is currently held. In hope of improving his cardiac output and increasing renal perfusion he was started on dopamine and dobutamine drip low doses. 07/03 Patient states that his lower extremity edema is improved. He denies any shortness of breath at this time. He remains on dobutamine drip at 5 g as well as Lasix 60 mg IV every 12 hours managed by nephrology. Blood pressure 103/58, heart rate in the 60s and 70s, pulse ox 96% on room air. Afebrile. Repeat blood work reveals sodium 134, potassium 4.7, BUN 109 and creatinine 3.95. PHYSICAL EXAMINATION Vital signs reviewed. Head: Normocephalic. Eyes: Sclerae nonicteric. Neck: Elevated jugular Lungs: No significant wheezing or rhonchi or crackles Heart: Irregularly irregular, systolic murmur audible. Abdomen: Distended, soft nontender positive bowel sounds no organomegaly. Extremities: No edema, warm extremity. 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 Patient is not in cardiorenal syndrome as patient has good peripheral perfusion, warm extremities He does have volume overload with elevated LV and LA filling pressures on echo Continue Coreg 25 mg daily Use midodrine only as needed Continue IV Lasix per nephrology. Nurse practitioner note has been reviewed, I agree with the documented findings and plan of care. Patient was seen and examined. Objective - Vital Signs Vital signs: Vital Signs Temp 97.7 F 07/03/23 04:00 Pulse 68 07/03/23 08:00 Resp 16 07/03/23 08:00 BP 103/58 07/03/23 08:00 Pulse Ox 96 07/03/23 08:00 FiO2 Intake & Output 07/02/23 07/03/23 07/03/23 18:59 06:59 18:59 Intake Total 239.255 120 180 Output Total 1250 Balance -1010.745 120 180 Weight 149.5 kg Intake: Intake, IV Titration 239.255 Amount DOBUTamine DRIP 500 mg In 239.255 Dextrose/Water 1 250ml. bag @ 5 MCG/KG/MIN 14.969 mls/hr IV .[id number] [facility] Rx#:[id number] Oral 120 180 Output: Urine 1250 Other: Voiding Method Indwelling Catheter Indwelling Catheter Indwelling Catheter - Labs CBC & Chem 7: 07/02/23 12:01 07/03/23 06:25 Labs: Abnormal Lab Results - Last 24 Hours (Table) 07/02/23 07/02/23 07/03/23 Range/Units 12:01 12: 06:25 RBC 3.54 L (4.30-5.90) m/uL Hgb 11.8 L (13.0-17.5) gm/dL Hct 37.4 L (39.0-53.0) % MCV 105.7 H (80.0-100.0) fL Plt Count 116 L (150-450) k/uL Sodium 134 L 134 L (137-145) mmol/L Carbon Dioxide 19 L (22-30) mmol/L BUN 109 H* 109 H* (9-20) mg/dL Creatinine 4.13 H 3.95 H (0.66-1.25) mg/dL Glucose 110 H (74-99) mg/dL Calcium 7.9 L 7.6 L (8.4-10.2) mg/dL
[2023-07-03] MEDS: ACETAMINOPHEN TAB 325 MG TAB PO PRN (15:29)
[2023-07-03] MEDS: LEVOTHYROXINE 50 MCG TAB PO SCH (20:00)
[2023-07-03] MEDS: ATORVASTATIN 10 MG TAB PO SCH (20:01)
[2023-07-04] MEDS: MIDODRINE 5 MG TAB PO SCH ×3 (06:22→16:25)
[2023-07-04] MEDS: PANTOPRAZOLE 40 MG TABLET PO SCH (06:22)
[2023-07-04] MEDS: FUROSEMIDE 10 MG/ML 10 ML VIAL IV SCH ×2 (09:10→20:21)
[2023-07-04] MEDS: traMADol 50 MG TAB PO SCH ×2 (09:10→20:21)
[2023-07-04] MEDS: CYANOCOBALAMIN 500 MCG TAB PO SCH (09:10)
[2023-07-04] MEDS: carvediloL 12.5 MG TAB PO SCH ×2 (09:10→20:22)
--- NOTE | 2023-07-04 09:46 | P.PN ---
Subjective Progress Note Date: 07/04/23 82-year-old male who presents to the emergency department on June 29, complaining of weakness. In addition, the patient complains of shortness of breath, and worsening renal function. We were consulted, yesterday, for a pleural effusion. By ultrasound, the patient has a relatively small effusion, at this point, because he is on room air, without any respiratory issues, it doesn't make any sense to attempt a thoracentesis. Currently, the patient's on dopamine at 2.5 mcg/kg/m, dobutamine at 5 mcg/kg/m, and on room air. White count 5.8, hemoglobin 11.4, hematocrit 35.6, platelet count 120,000. Sodium 139, potassium 4.8, chlorides 104, CO2 24, anion gap 12, BUN 111, and creatinine 4.4. TSH is 9.340. Ultrasound of the right chest reveals a pocket was only 3.2 cm. Chest x-ray shows right-sided pleural/parenchymal changes. Progress note dated 07/02/2023. 82-year-old male seen in consultation yesterday. Please see our note above. We were consulted primarily for a right-sided pleural effusion, which by ultrasound, is relatively small. The pocket was only 3.2 cm. Currently, the p atient is on oxygen at 3 L, with saturations of 98%. He continues on dobutamine at 5 mcg/kg/m. He is no longer on dopamine. No new labs today. Labs from yesterday have been reviewed. On today's evaluation of 07/03/2023, the patient is awake and alert and communicating without having any major distress or difficulties. Is on room air oxygen. His renal function continues to improve. His creatinine is down to 3.9 with a BUN of 109 and his sodium levels at 137. He has no specific complaints. He has small pocket of pleural fluid that was evaluated to the earlier and was decided not to drain the fluid at this point in time. He remains on Lasix 60 mg IV every 12 hours. 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 On 07/04/2023, the patient is being seen for a follow-up. The patient was hospitalized for the Heart failure, shortness of breath and acute hypoxic respiratory failure. He was started on a combination of dopamine and Dobutrex in addition to diuretics. This morning, the patient is still on Lasix 60 mg IV every 12 hours and the patient is on dobutamine at 5 mcg/kg/m. The overall fluid balance over the past 24 hours has been -890 mL. His weight is down by around 1 kg. The BUN is at 109 and the creatinine is at 3.9 and a sodium level is at 134 with a potassium level of 4.7 on those labs are from yesterday. Labs from today is pending. He is on room air oxygen with a pulse ox of 97%. He is known to have impairment of LV function with an ejection fraction of 20% and he has also moderate to severe pulmonary hypertension and moderate to severe mitral regurgitation. He did have a small pleural effusion that we did not drain during this current hospitalization. Objective - Vital Signs Vital signs: Vital Signs Temp 97.8 F 07/03/23 19:58 Pulse 70 07/04/23 08:00 Resp 16 07/04/23 08:00 BP 108/57 07/04/23 08:00 Pulse Ox 97 07/04/23 08:00 FiO2 Intake & Output 07/03/23 07/04/23 07/04/23 18:59 06:59 18:59 Intake Total 610 240 240 Output Total 1000 150 Balance -390 240 90 Weight 148 kg Intake: Intake, IV Titration 250 Amount DOBUTamine DRIP 500 mg In 250 Dextrose/Water 1 250ml. bag @ 5 MCG/KG/MIN 14.969 mls/hr IV .[id number] [facility] Rx#:[id number] Oral 360 240 240 Output: Urine 1000 150 Other: Voiding Method Indwelling Catheter Indwelling Catheter - Exam No acute distress, oriented 3. Currently on RA saturations of 98%. No audible wheezing, use of accessory muscles, or conversational dyspnea. HEENT examination is grossly unremarkable. Mucous membranes are moist. No oral lesions. Neck supple. Full range of motion. No adenopathy thyromegaly or neck vein distention. Cardiovascular examination reveals regular rhythm rate. S1-S2 normal. No S3 or S4. No discernible murmur noted. Lungs reveal reduced breath sounds at the right base. Dullness at the right base. The left lung is clear. No crackles. Abdomen soft, with bowel sounds. No masses or tenderness. Extremities are intact. No cyanosis clubbing or edema. Skin is without rash or lesion. Neurologic examination is brief but nonfocal. - Labs CBC & Chem 7: 07/02/23 12:01 07/03/23 06:25 Assessment and Plan Plan: Acute 56 respiratory failure, the patient is currently on room air oxygen Shortness of breath, multifactorial and the patient has a small right-sided pleural effusion. Thoracentesis not necessary at this time. CHF with severe cardiomyopathy and ejection fraction of 20%, currently on Lasix and dobutamine drip and the patient is a negative fluid balance History of chronic atrial fibrillation. chronic renal failure stage 4-5 Questionable new onset hypothyroidism. History of hypertension. Prior history of myocardial infarction. History of borderline diabetes. History of gout. Chronic anemia. History of ascites, with prior paracentesis abdominis. Status post AICD placement. Plan Patient is currently on room air oxygen Continue Lasix Continue dobutamine at 5 mg/kg/m Awaiting follow-up levels from today. He does have chronic stage 4/5 kidney disease. He is in a negative fluid balance although he continues to have significant amount of edema lower extremities bilaterally Monitor renal function No need for immediate thoracentesis of this point in time We'll continue to follow
[2023-07-04 10:17] LABS: HCT 36.4 % (39.0-53.0); HGB 11.6 gm/dL (13.0-17.5); Hypochromasia Slight; MCH 33.3 pg (25.0-35.0); MCHC 31.8 g/dL (31.0-37.0); MCV 104.6 fL (80.0-100.0); Macrocytosis Moderate; Mean Platelet Volume 8.7; Platelet Count 126 k/uL (150-450); RBC 3.48 m/uL (4.30-5.90); RDW 14.1 % (11.5-15.5); WBC 8.2 k/uL (3.8-10.6)
[2023-07-04 10:34] LABS: African American GFR (CKD) 15 (>60 ml/min/1.73 sqM); Anion Gap 12 mmol/L; Carbon Dioxide 23 mmol/L (22-30); Chloride 98 mmol/L (98-107); Glucose 104 mg/dL (74-99); Non-African American GFR(CKD) 13 (>60 ml/min/1.73 sqM); Sodium 133 mmol/L (137-145)
[2023-07-04 10:37] LABS: Blood Urea Nitrogen 101 mg/dL (9-20)
--- NOTE | 2023-07-04 11:17 | P.PN ---
Subjective Patient is seen for follow-up for acute kidney injury on top of chronic kidney disease. Currently maintained on IV Lasix and dobutamine for CHF with reduced ejection fraction. Urine output seems to have increased. Creatinine decreased to 3.9 and therefore no plans on hemodialysis. Serum creatinine today at 4.1. BUN decreased to 101 No complaints of nausea or vomiting. Tolerating oral intake. Patient remains on dobutamine. Objective - Vital Signs Vital signs: Vital Signs Temp 97.8 F 07/03/23 19:58 Pulse 70 07/04/23 08:00 Resp 16 07/04/23 08:00 BP 108/57 07/04/23 08:00 Pulse Ox 97 07/04/23 08:00 FiO2 Intake & Output 07/03/23 07/04/23 07/04/23 18:59 06:59 18:59 Intake Total 610 240 240 Output Total 1000 150 Balance -390 240 90 Weight 148 kg Intake: Intake, IV Titration 250 Amount DOBUTamine DRIP 500 mg In 250 Dextrose/Water 1 250ml. bag @ 5 MCG/KG/MIN 14.969 mls/hr IV .[id number] [facility] Rx#:[id number] Oral 360 240 240 Output: Urine 1000 150 Other: Voiding Method Indwelling Catheter Indwelling Catheter - Exam Patient is awake, comfortable, no acute distress Alert oriented 3 Examination of the heart S1 and S2 Examination the lungs bilateral breath sounds are heard Abdomen is soft nontender obese Examination lower ex Mittie shows edema 1+ bilaterally, decreased [employer] exam grossly intact - Labs CBC & Chem 7: 07/04/23 09:21 07/04/23 09:21 Labs: Abnormal Lab Results - Last 24 Hours (Table) 07/04/23 07/04/23 Range/Units 09:21 09:21 RBC 3.48 L (4.30-5.90) m/uL Hgb 11.6 L (13.0-17.5) gm/dL Hct 36.4 L (39.0-53.0) % MCV 104.6 H (80.0-100.0) fL Plt Count 126 L (150-450) k/uL Sodium 133 L (137-145) mmol/L BUN 101 H* (9-20) mg/dL Creatinine 4.12 H (0.66-1.25) mg/dL Glucose 104 H (74-99) mg/dL Calcium 8.0 L (8.4-10.2) mg/dL Assessment and Plan Assessment: 1. Acute kidney injury secondary to ATN secondary to cardiorenal syndrome. Creatinine decreased to 3.9 and therefore hemodialysis was held. Maintained on dobutamine and IV Lasix. 2. Chronic kidney disease stage IV with baseline creatinine 2.63 secondary to c ardiorenal syndrome and nephrosclerosis. 3. Volume overload, slowly improving 4. Acute on chronic systolic CHF with ejection fraction of less than 20% with mild to moderate mitral regurgitation. 5. Hypothyroidism with TSH elevated at 9.3, T4 at 1.07 Plan: Continue with IV Lasix Possible discontinuation of dobutamine today Repeat labs in a.m. serum creatinine has not decreased further on labs from today.
--- NOTE | 2023-07-04 14:11 | P.PN ---
Subjective Progress Note Date: 07/04/23 * 82-year-old gentleman with past medical history significant for chronic kidney disease, stage IV with baseline creatinine around 3.4, nephrosclerosis, history of cardiorenal syndrome, chronic congestive heart failure with systolic dysfunction ejection fraction around 20%, anemia of chronic kidney disease, iron deficiency anemia chronic lower extremity edema, hypertension, osteoarthritis, coronary artery disease status post PCI and AICD in place, history of atrial fib ablation previously on anticoagulations with Eliquis, history of gastrointestinal bleed, intra-abdominal ascites presents to the emergency department for worsening renal function, patient was sent in by nephrology due to worsening BUN/creatinine and creatinine. Patient did have paracentesis done on 06/29/23 with 6 L of fluid removed. Patient did complain of decreased appetite and had not been having enough oral intake * Workup in ER included EKG which showed atrial fibrillation with rate controlled, no ST segment elevation was noted * Chest x-ray obtained at the time of admission showed bilateral pleural effusion, cardiomegaly noted * Serum chemistry obtained in ER included CBCs which were WBC 5.8 hemoglobin 11.4 platelet count 120 * Basic metabolic panel obtained showed sodium 138 potassium 5.2 carbon dioxide of 22 BU and 118 creatinine 4.31 magnesium of 2.8 AST 25 AST 19 total protein 5.4 * Patient admitted to medical floor as observation with consultation to be obtained from nephrology * 07/01/2023: Patient seen and evaluated bedside, patient is on dopamine and dobutamine drip, pulmonary medicine consulted, nephrology and cardiology following, vascular surgery consulted. Renal profile reviewed creatinine 4.13, TSH and free T4 levels reviewed patient already on Synthyroid, hemoglobin 11.1. Blood pressure appropriate * 07/02/2023: Patient seen and evaluated bedside, patient alert and oriented 4, family at bedside, pulmonary medicine, cardiology following, chest ultrasound on 1showed bilateral pleural effusion * 07/03/2023: Patient seen and evaluated bedside, patient is alert and oriented 4, creatinine is decreased to 3.9, nephrology for hemodialysis continue patient on Lasix and dobutamine drip for CHF. Cardiology following as well, chest x-ray obtained shows small right pleural effusion stable. Appreciate input from multiple specialities * 07/04/2023: Patient seen and evaluated bedside, patient noted to have significant improvement, on dobutamine drip shortness of breath is improved patient is receiving IV Lasix, patient has negative fluid balance, family at bedside, per nephrology no plan for hemodialysis at this point REVIEW OF SYSTEMS: Weakness, shortness of breath, malaise improved CONSTITUTIONAL: Weakness, shortness of breath, malaise HEENT: No recent visual problems or hearing problems. Denied any sore throat. CARDIOVASCULAR: No chest pain, orthopnea, PND, no palpitations, no syncope. PULMONARY: Weakness, shortness of breath, malaise GASTROINTESTINAL: No diarrhea, no nausea, no vomiting, no abdominal pain. NEUROLOGICAL: No headaches, no weakness, no numbness. HEMATOLOGICAL: Denies any bleeding or petechiae. GENITOURINARY: Denies any burning micturition, frequency, or urgency. MUSCULOSKELETAL/RHEUMATOLOGICAL: Denies any joint pain, swelling, or any muscle pain. ENDOCRINE: Denies any polyuria or polydipsia. PHYSICAL EXAMINATION: GENERAL: The patient is alert and oriented x3, ill appearance improved, pale, nasal cannula in place HEENT: Pupils are round and equally reacting to light. EOMI. CARDIOVASCULAR: S1 and S2 present. lower extremity edema noted bilateral PULMONARY: Improved breath sounds bilaterally ABDOMEN: Soft, nontender, MUSCULOSKELETAL: No joint swelling or deformity. EXTREMITIES: lower extremity edema noted bilateral improved NEUROLOGICAL: Gross neurological examination did not reveal any focal deficits. Objective - Vital Signs Vital signs: Vital Signs Temp 97.8 F 07/03/23 19:58 Pulse 70 07/04/23 12:00 Resp 16 07/04/23 12:00 BP 114/58 07/04/23 12:00 Pulse Ox 100 07/04/23 12:00 FiO2 Intake & Output 07/03/23 07/04/23 07/04/23 18:59 06:59 18:59 Intake Total 610 240 480 Output Total 1000 150 Balance -390 240 330 Weight 148 kg Intake: Intake, IV Titration 250 Amount DOBUTamine DRIP 500 mg In 250 Dextrose/Water 1 250ml. bag @ 5 MCG/KG/MIN 14.969 mls/hr IV .[id number] [facility] Rx#:[id number] Oral 360 240 480 Output: Urine 1000 150 Other: Voiding Method Indwelling Catheter Indwelling Catheter Indwelling Catheter - Labs CBC & Chem 7: 07/04/23 09:21 07/04/23 09:21 Labs: Abnormal Lab Results - Last 24 Hours (Table) 07/04/23 07/04/23 Range/Units 09:21 09:21 RBC 3.48 L (4.30-5.90) m/uL Hgb 11.6 L (13.0-17.5) gm/dL Hct 36.4 L (39.0-53.0) % MCV 104.6 H (80.0-100.0) fL Plt Count 126 L (150-450) k/uL Sodium 133 L (137-145) mmol/L BUN 101 H* (9-20) mg/dL Creatinine 4.12 H (0.66-1.25) mg/dL Glucose 104 H (74-99) mg/dL Calcium 8.0 L (8.4-10.2) mg/dL Assessment and Plan Assessment: Assessment and plan * Acute renal failure on chronic kidney disease stage IV * Recurrent abdominal ascites status post paracentesis 06/29/2023, 6L * Acute on Chronic congestive heart failure with ejection fraction less than 20% * Bilateral pleural effusion with fluid overload * History of atrial fibrillation * Hypothyroid * History of iron deficiency anemia, on top of anemia of chronic kidney disease * Chronic thrombocytopenia * Liver disease with ascites * Consult obtained from pulmonary medicine, cardiology, nephrology * In regards to worsening renal failure, consultations obtained from nephrology, patient does have ejection fraction of less than 20% last noted in 2020, ec hocardiogram shows severe LV dysfunction with ejection fraction 20%, moderate to severe pulmonary hypertension, [id number] mitral regurgitation, severe tricuspid regurgitation>> current medications include dobutamine drip, Coreg, Lasix, Midodrine. Patient has been weaned off dopamine * In regards to abdominal ascites, patient is status post paracentesis , given albumin secondary to high volume paracentesis * Regards to bilateral pleural effusion, seen by pulmonary medicine, and no need for thoracentesis, follow-up chest x-ray completed 07/02, shows stable pleural effusion * In regards to history of atrial flutter patient continue Coreg, per admission med rec patient is not on Eliquis * In regard to chronic thrombocytopenia continue to monitor platelet count, monitor for bleeding precautions * Regards to hypothyroid continue Synthyroid * CODE STATUS full code
[2023-07-04 14:39] VITALS: BMI 44.2
--- NOTE | 2023-07-04 15:18 | P.PN ---
Subjective Progress Note Date: 07/04/23 Progress Note Date: 07/02/23 Progress note: Patient is currently on low-dose dobutamine drip. I discontinued patient's dopamine drip as his blood pressure was good. His kidney function has borderline he improved to a creatinine of 4.1. With urine output of 1200 mL HISTORY OF PRESENTING ILLNESS 82-year-old male with past medical history of CKD stage IV, end-stage heart failure with EF of 15-20%, severe pulmonary hypertension, moderate AR, moderate MR was being evaluated as an outpatient in his [facility] operations [facility] clinic. He was noticed to have worsening of his kidney function for which he was asked to come to the hospital. BUN: 13, creatinine 4.13. Patient was on lisinopril as an outpatient which is currently held. In hope of improving his cardiac output and increasing renal perfusion he was started on dopamine and dobutamine drip low doses. 07/03 Patient states that his lower extremity edema is improved. He denies any shortness of breath at this time. He remains on dobutamine drip at 5 g as well as Lasix 60 mg IV every 12 hours managed by nephrology. Blood pressure 103/58, heart rate in the 60s and 70s, pulse ox 96% on room air. Afebrile. Repeat blood work reveals sodium 134, potassium 4.7, BUN 109 and creatinine 3.95. 07/04 Patient states that his breathing is a little bit better from yesterday. He den ies having any chest pain pressure or tightness. He still has some lower extremity edema. No dizziness. He states that he slept okay last night. Patient has been afebrile, heart rate in 70s to 90s, blood pressure 121/64, pulse ox 94% on 2 L nasal cannula. Repeat blood work reveals creatinine 4.1, BUN 101.. Nephrology does not plan for dialysis. Patient has been on IV Lasix and dobutamine. PHYSICAL EXAMINATION Vital signs reviewed. Head: Normocephalic. Eyes: Sclerae nonicteric. Neck: Elevated jugular Lungs: No significant wheezing or rhonchi or crackles Heart: Irregularly irregular, systolic murmur audible. Abdomen: Distended, soft nontender positive bowel sounds no organomegaly. Extremities: 1+ edema, warm extremity. 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 Continue Coreg 25 mg twice daily Use midodrine only as needed Continue IV Lasix per nephrology. Prognosis guarded. Nurse practitioner note has been reviewed, I agree with the documented findings and plan of care. Patient was seen and examined. Objective - Vital Signs Vital signs: Vital Signs Temp 97.8 F 07/03/23 19:58 Pulse 70 07/04/23 08:00 Resp 16 07/04/23 08:00 BP 108/57 07/04/23 08:00 Pulse Ox 97 07/04/23 08:00 FiO2 Intake & Output 07/03/23 07/04/23 07/04/23 18:59 06:59 18:59 Intake Total 610 240 240 Output Total 1000 150 Balance -390 240 90 Weight 148 kg Intake: Intake, IV Titration 250 Amount DOBUTamine DRIP 500 mg In 250 Dextrose/Water 1 250ml. bag @ 5 MCG/KG/MIN 14.969 mls/hr IV .[id number] [facility] Rx#:[id number] Oral 360 240 240 Output: Urine 1000 150 Other: Voiding Method Indwelling Catheter Indwelling Catheter - Labs CBC & Chem 7: 07/04/23 09:21 07/04/23 09:21 Labs: Abnormal Lab Results - Last 24 Hours (Table) 07/04/23 07/04/23 Range/Units 09:21 09:21 RBC 3.48 L (4.30-5.90) m/uL Hgb 11.6 L (13.0-17.5) gm/dL Hct 36.4 L (39.0-53.0) % MCV 104.6 H (80.0-100.0) fL Plt Count 126 L (150-450) k/uL Sodium 133 L (137-145) mmol/L BUN 101 H* (9-20) mg/dL Creatinine 4.12 H (0.66-1.25) mg/dL Glucose 104 H (74-99) mg/dL Calcium 8.0 L (8.4-10.2) mg/dL
[2023-07-04] MEDS: LEVOTHYROXINE 50 MCG TAB PO SCH (20:22)
[2023-07-04] MEDS: ATORVASTATIN 10 MG TAB PO SCH (20:22)
[2023-07-04] MEDS: DOBUTamine DRIP 500 MG in DEXTROSE/WATER 1 250ML.BAG IV SCH (22:27)
[2023-07-05] MEDS: MIDODRINE 5 MG TAB PO SCH ×3 (06:24→16:09)
[2023-07-05] MEDS: PANTOPRAZOLE 40 MG TABLET PO SCH (06:24)
[2023-07-05] MEDS: CYANOCOBALAMIN 500 MCG TAB PO SCH (09:02)
[2023-07-05] MEDS: ACETAMINOPHEN TAB 325 MG TAB PO PRN (09:02)
[2023-07-05] MEDS: traMADol 50 MG TAB PO SCH ×2 (09:02→20:10)
[2023-07-05] MEDS: carvediloL 12.5 MG TAB PO SCH ×2 (09:03→20:10)
[2023-07-05] MEDS: FUROSEMIDE 10 MG/ML 10 ML VIAL IV SCH ×2 (09:03→20:10)
[2023-07-05 10:34] LABS: HCT 36.3 % (39.0-53.0); HGB 11.4 gm/dL (13.0-17.5); Hypochromasia Moderate; MCHC 31.4 g/dL (31.0-37.0); Macrocytosis Moderate; Mean Platelet Volume 8.6; Platelet Count 121 k/uL (150-450); RBC 3.46 m/uL (4.30-5.90); RDW 14.1 % (11.5-15.5); WBC 8.2 k/uL (3.8-10.6)
[2023-07-05 10:48] LABS: African American GFR (CKD) 15 (>60 ml/min/1.73 sqM); Anion Gap 13 mmol/L; Calcium 7.9 mg/dL (8.4-10.2); Carbon Dioxide 22 mmol/L (22-30); Chloride 97 mmol/L (98-107); Glucose 114 mg/dL (74-99); Non-African American GFR(CKD) 13 (>60 ml/min/1.73 sqM); Potassium 4.1 mmol/L (3.5-5.1); Sodium 132 mmol/L (137-145)
[2023-07-05 10:50] LABS: Blood Urea Nitrogen 103 mg/dL (9-20)
--- NOTE | 2023-07-05 10:52 | P.PN ---
Subjective Progress Note Date: 07/05/23 82-year-old male who presents to the emergency department on June 29, complaining of weakness. In addition, the patient complains of shortness of breath, and worsening renal function. We were consulted, yesterday, for a pleural effusion. By ultrasound, the patient has a relatively small effusion, at this point, because he is on room air, without any respiratory issues, it doesn't make any sense to attempt a thoracentesis. Currently, the patient's on dopamine at 2.5 mcg/kg/m, dobutamine at 5 mcg/kg/m, and on room air. White count 5.8, hemoglobin 11.4, hematocrit 35.6, platelet count 120,000. Sodium 139, potassium 4.8, chlorides 104, CO2 24, anion gap 12, BUN 111, and creatinine 4.4. TSH is 9.340. Ultrasound of the right chest reveals a pocket was only 3.2 cm. Chest x-ray shows right-sided pleural/parenchymal changes. Progress note dated 07/02/2023. 82-year-old male seen in consultation yesterday. Please see our note above. We were consulted primarily for a right-sided pleural effusion, which by ultrasound, is relatively small. The pocket was only 3.2 cm. Currently, the p atient is on oxygen at 3 L, with saturations of 98%. He continues on dobutamine at 5 mcg/kg/m. He is no longer on dopamine. No new labs today. Labs from yesterday have been reviewed. On today's evaluation of 07/03/2023, the patient is awake and alert and communicating without having any major distress or difficulties. Is on room air oxygen. His renal function continues to improve. His creatinine is down to 3.9 with a BUN of 109 and his sodium levels at 137. He has no specific complaints. He has small pocket of pleural fluid that was evaluated to the earlier and was decided not to drain the fluid at this point in time. He remains on Lasix 60 mg IV every 12 hours. 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 On 07/04/2023, the patient is being seen for a follow-up. The patient was hospitalized for the Heart failure, shortness of breath and acute hypoxic respiratory failure. He was started on a combination of dopamine and Dobutrex in addition to diuretics. This morning, the patient is still on Lasix 60 mg IV every 12 hours and the patient is on dobutamine at 5 mcg/kg/m. The overall fluid balance over the past 24 hours has been -890 mL. His weight is down by around 1 kg. The BUN is at 109 and the creatinine is at 3.9 and a sodium level is at 134 with a potassium level of 4.7 on those labs are from yesterday. Labs from today is pending. He is on room air oxygen with a pulse ox of 97%. He is known to have impairment of LV function with an ejection fraction of 20% and he has also moderate to severe pulmonary hypertension and moderate to severe mitral regurgitation. He did have a small pleural effusion that we did not drain during this current hospitalization. 07/05/2023, the patient is on room air oxygen. The patient is sitting up on a chair. He does have some limited edema lower extremities bilaterally. He remains on Lasix. He remains on dobutamine running at 2.5 microvascular kilogram per minutes. The patient's labs from yesterday Showed a BUN of 101 and a creatinine of 4.12. Sodium is at 133, potassium is at 4, WBC count of 8.2 with a hemoglobin of 11.6. Is net fluid balance over the past 24 hours has been -150 mL. The produced a total of 1 L of urine output yesterday. Nephrology has been involved in the case and the patient is being considered for hemodialysis. Labs from today are still pending. Objective - Vital Signs Vital signs: Vital Signs Temp 97.9 F 07/05/23 04:00 Pulse 79 07/05/23 08:00 Resp 16 07/05/23 08:00 BP 98/52 07/05/23 08:00 Pulse Ox 98 07/05/23 09:03 FiO2 Intake & Output 07/04/23 07/05/23 07/05/23 18:59 06:59 18:59 Intake Total 848 0 668.733 Output Total 700 825 Balance 148 -825 668.733 Weight 148 kg 106.1 kg Intake: Intake, IV Titration 250 128.733 Amount DOBUTamine DRIP 500 mg In 250 128.733 Dextrose/Water 1 250ml. bag @ 2.5 MCG/KG/MIN 7. 484 mls/hr IV .Q24H [facility] Rx#:[id number] Oral 598 0 540 Output: Urine 700 825 Other: Voiding Method Indwelling Catheter Indwelling Catheter # Voids 0 - Exam No acute distress, oriented 3. Currently on RA saturations of 98%. No audible wheezing, use of accessory muscles, or conversational dyspnea. HEENT examination is grossly unremarkable. Mucous membranes are moist. No oral lesions. Neck supple. Full range of motion. No adenopathy thyromegaly or neck vein distention. Cardiovascular examination reveals regular rhythm rate. S1-S2 normal. No S3 or S4. No discernible murmur noted. Lungs reveal reduced breath sounds at the right base. Dullness at the right base. The left lung is clear. No crackles. Abdomen soft, with bowel sounds. No masses or tenderness. Extremities are intact. No cyanosis clubbing or edema. Skin is without rash or lesion. Neurologic examination is brief but nonfocal. - Labs CBC & Chem 7: 07/05/23 10:00 07/05/23 10:00 Assessment and Plan Plan: Acute hypoxic respiratory failure, the patient is currently on room air oxygen Shortness of breath, multifactorial and the patient has a small right-sided p leural effusion. Thoracentesis not necessary at this time. CHF with severe cardiomyopathy and ejection fraction of 20%, currently on Lasix and dobutamine drip and the patient is a negative fluid balance History of chronic atrial fibrillation. chronic renal failure stage 4-5, creatinine is up to 4.1 with elevated BUN Questionable new onset hypothyroidism. History of hypertension. Prior history of myocardial infarction. History of borderline diabetes. History of gout. Chronic anemia. History of ascites, with prior paracentesis abdominis. Status post AICD placement. Plan Patient is currently on room air oxygen Continue Lasix Continue dobutamine at 2.5 mg/kg/m Continue IV Lasix Patient is being considered for hemodialysis. A temporary Vas-Cath will be inserted today Awaiting follow-up levels from today. He does have chronic stage 5 kidney disease. He is in a negative fluid balance although he continues to have significant amount of edema lower extremities bilaterally Monitor renal function No need for immediate thoracentesis of this point in time We'll continue to follow
--- NOTE | 2023-07-05 11:08 | P.PN ---
Subjective Patient is seen for follow-up for acute kidney injury on top of chronic kidney disease. Currently maintained on IV Lasix and dobutamine for CHF with reduced ejection fraction. Serum creatinine has decreased initially to 3.9 mg/dL but increase back to 4.1 yesterday. BUN remains significantly elevated and patient continues to have edema. Discussed with the patient today regarding starting renal replacement therapy and he is agreeable. We will proceed with vascular surgery consult with plans for first treatment tomorrow. Objective - Vital Signs Vital signs: Vital Signs Temp 97.9 F 07/05/23 04:00 Pulse 79 07/05/23 08:00 Resp 16 07/05/23 08:00 BP 98/52 07/05/23 08:00 Pulse Ox 98 07/05/23 09:03 FiO2 Intake & Output 07/04/23 07/05/23 07/05/23 18:59 06:59 18:59 Intake Total 848 0 668.733 Output Total 700 825 275 Balance 148 -825 393.733 Weight 148 kg 106.1 kg Intake: Intake, IV Titration 250 128.733 Amount DOBUTamine DRIP 500 mg In 250 128.733 Dextrose/Water 1 250ml. bag @ 2.5 MCG/KG/MIN 7. 484 mls/hr IV .Q24H [facility] Rx#:[id number] Oral 598 0 540 Output: Urine 700 825 275 Other: Voiding Method Indwelling Catheter Indwelling Catheter # Voids 0 - Exam Patient is awake, comfortable, no acute distress Alert oriented 3 Examination of the heart S1 and S2 Examination the lungs bilateral breath sounds are heard Abdomen is soft nontender obese Examination lower extremities shows edema 1+ bilaterally, decreased [employer] exam grossly intact - Labs CBC & Chem 7: 07/05/23 10:00 07/05/23 10:00 Labs: Abnormal Lab Results - Last 24 Hours (Table) 07/05/23 07/05/23 Range/Units 10:00 10:00 RBC 3.46 L (4.30-5.90) m/uL Hgb 11.4 L (13.0-17.5) gm/dL Hct 36.3 L (39.0-53.0) % MCV 105.0 H (80.0-100.0) fL Plt Count 121 L (150-450) k/uL Sodium 132 L (137-145) mmol/L Chloride 97 L (98-107) mmol/L BUN 103 H* (9-20) mg/dL Creatinine 4.02 H (0.66-1.25) mg/dL Glucose 114 H (74-99) mg/dL Calcium 7.9 L (8.4-10.2) mg/dL Assessment and Plan Assessment: 1. Acute kidney injury secondary to ATN secondary to cardiorenal syndrome. Creatinine decreased to 3.9 and therefore hemodialysis was held but repeat creatinine from yesterday was 4.1. Patient also remains with significant edema with BUN up to 101 therefore we will proceed with renal replacement therapy and plan for first treatment of hemodialysis tomorrow. 2. Chronic kidney disease stage IV with baseline creatinine 2.63 secondary to cardiorenal syndrome and nephrosclerosis. 3. Volume overload, slowly improving 4. Acute on chronic systolic CHF with ejection fraction of less than 20% with mild to moderate mitral regurgitation. 5. Hypothyroidism with TSH elevated at 9.3, T4 at 1.07 Plan: Proceed with vascular surgery consult and placement of dialysis catheter with plans for first treatment of hemodialysis tomorrow. Discharge planning to arrange for outpatient care time in [place].
--- NOTE | 2023-07-05 12:07 | P.PN ---
Subjective Progress Note Date: 07/05/23 * 82-year-old gentleman with past medical history significant for chronic kidney disease, stage IV with baseline creatinine around 3.4, nephrosclerosis, history of cardiorenal syndrome, chronic congestive heart failure with systolic dysfunction ejection fraction around 20%, anemia of chronic kidney disease, iron deficiency anemia chronic lower extremity edema, hypertension, osteoarthritis, coronary artery disease status post PCI and AICD in place, history of atrial fib ablation previously on anticoagulations with Eliquis, history of gastrointestinal bleed, intra-abdominal ascites presents to the emergency department for worsening renal function, patient was sent in by nephrology due to worsening BUN/creatinine and creatinine. Patient did have paracentesis done on 06/29/23 with 6 L of fluid removed. Patient did complain of decreased appetite and had not been having enough oral intake * Workup in ER included EKG which showed atrial fibrillation with rate controlled, no ST segment elevation was noted * Chest x-ray obtained at the time of admission showed bilateral pleural effusion, cardiomegaly noted * Serum chemistry obtained in ER included CBCs which were WBC 5.8 hemoglobin 11.4 platelet count 120 * Basic metabolic panel obtained showed sodium 138 potassium 5.2 carbon dioxide of 22 BU and 118 creatinine 4.31 magnesium of 2.8 AST 25 AST 19 total protein 5.4 * Patient admitted to medical floor as observation with consultation to be obtained from nephrology * 07/01/2023: Patient seen and evaluated bedside, patient is on dopamine and dobutamine drip, pulmonary medicine consulted, nephrology and cardiology following, vascular surgery consulted. Renal profile reviewed creatinine 4.13, TSH and free T4 levels reviewed patient already on Synthyroid, hemoglobin 11.1. Blood pressure appropriate * 07/02/2023: Patient seen and evaluated bedside, patient alert and oriented 4, family at bedside, pulmonary medicine, cardiology following, chest ultrasound on 1showed bilateral pleural effusion * 07/03/2023: Patient seen and evaluated bedside, patient is alert and oriented 4, creatinine is decreased to 3.9, nephrology for hemodialysis continue patient on Lasix and dobutamine drip for CHF. Cardiology following as well, chest x-ray obtained shows small right pleural effusion stable. Appreciate input from multiple specialities * 07/04/2023: Patient seen and evaluated bedside, patient noted to have significant improvement, on dobutamine drip shortness of breath is improved patient is receiving IV Lasix, patient has negative fluid balance, family at bedside, per nephrology no plan for hemodialysis at this point * 07/05/2023: Patient seen and evaluated bedside, appreciate input from neph rology as well as pulmonary medicine. Plan to get hemodialysis catheter placed today, patient on dobutamine drip, cardiology to wean off drip as tolerated. Blood work reviewed, platelet count 121, hemoglobin 11.4, sodium 132, creatinine 4.02, patient is in agreement with initiation of hemodialysis REVIEW OF SYSTEMS: Weakness, shortness of breath, malaise improved CONSTITUTIONAL: Weakness, shortness of breath, malaise HEENT: No recent visual problems or hearing problems. Denied any sore throat. CARDIOVASCULAR: No chest pain, orthopnea, PND, no palpitations, no syncope. PULMONARY: Weakness, shortness of breath, malaise GASTROINTESTINAL: No diarrhea, no nausea, no vomiting, no abdominal pain. NEUROLOGICAL: No headaches, no weakness, no numbness. HEMATOLOGICAL: Denies any bleeding or petechiae. GENITOURINARY: Denies any burning micturition, frequency, or urgency. MUSCULOSKELETAL/RHEUMATOLOGICAL: Denies any joint pain, swelling, or any muscle pain. ENDOCRINE: Denies any polyuria or polydipsia. PHYSICAL EXAMINATION: GENERAL: The patient is alert and oriented x3, ill appearance improved, pale, nasal cannula in place HEENT: Pupils are round and equally reacting to light. EOMI. CARDIOVASCULAR: S1 and S2 present. lower extremity edema noted bilateral PULMONARY: Improved breath sounds bilaterally ABDOMEN: Soft, nontender, MUSCULOSKELETAL: No joint swelling or deformity. EXTREMITIES: lower extremity edema noted bilateral improved NEUROLOGICAL: Gross neurological examination did not reveal any focal deficits. Objective - Vital Signs Vital signs: Vital Signs Temp 97.9 F 07/05/23 04:00 Pulse 79 07/05/23 08:00 Resp 16 07/05/23 08:00 BP 98/52 07/05/23 08:00 Pulse Ox 98 07/05/23 09:03 FiO2 Intake & Output 07/04/23 07/05/23 07/05/23 18:59 06:59 18:59 Intake Total 848 0 668.733 Output Total 700 825 275 Balance 148 -825 393.733 Weight 148 kg 106.1 kg Intake: Intake, IV Titration 250 128.733 Amount DOBUTamine DRIP 500 mg In 250 128.733 Dextrose/Water 1 250ml. bag @ 2.5 MCG/KG/MIN 7. 484 mls/hr IV .Q24H [facility] Rx#:[id number] Oral 598 0 540 Output: Urine 700 825 275 Other: Voiding Method Indwelling Catheter Indwelling Catheter Indwelling Catheter # Voids 0 - Labs CBC & Chem 7: 07/05/23 10:00 07/05/23 10:00 Labs: Abnormal Lab Results - Last 24 Hours (Table) 07/05/23 07/05/23 Range/Units 10:00 10:00 RBC 3.46 L (4.30-5.90) m/uL Hgb 11.4 L (13.0-17.5) gm/dL Hct 36.3 L (39.0-53.0) % MCV 105.0 H (80.0-100.0) fL Plt Count 121 L (150-450) k/uL Sodium 132 L (137-145) mmol/L Chloride 97 L (98-107) mmol/L BUN 103 H* (9-20) mg/dL Creatinine 4.02 H (0.66-1.25) mg/dL Glucose 114 H (74-99) mg/dL Calcium 7.9 L (8.4-10.2) mg/dL Assessment and Plan Assessment: Assessment and plan * Acute renal failure on chronic kidney disease stage IV * Recurrent abdominal ascites status post paracentesis 06/29/2023, 6L * Acute on Chronic congestive heart failure with ejection fraction less than 20% * Bilateral pleural effusion with fluid overload * History of atrial fibrillation * Hypothyroid * History of iron deficiency anemia, on top of anemia of chronic kidney disease * Chronic thrombocytopenia * Liver disease with ascites * Consult obtained from pulmonary medicine, cardiology, nephrology * In regards to worsening renal failure, consultations obtained from nephrology, patient does have ejection fraction of less than 20% last noted in 2020, echocardiogram shows severe LV dysfunction with ejection fraction 20%, moderate to severe pulmonary hypertension, [id number] mitral regurgit ation, severe tricuspid regurgitation>> current medications include dobutamine drip, Coreg, Lasix, Midodrine. Patient has been weaned off dopamine, plan to initiate hemodialysis, patient will get catheter and first session on 07/06 * In regards to abdominal ascites, patient is status post paracentesis , given albumin secondary to high volume paracentesis * Regards to bilateral pleural effusion, seen by pulmonary medicine, and no need for thoracentesis, follow-up chest x-ray completed 07/02, shows stable pleural effusion * In regards to history of atrial flutter patient continue Coreg, per admission med rec patient is not on Eliquis * In regard to chronic thrombocytopenia continue to monitor platelet count, monitor for bleeding precautions * Regards to hypothyroid continue Synthyroid * CODE STATUS full code Time with Patient: Greater than 30
--- NOTE | 2023-07-05 13:12 | P.PN ---
Subjective Progress Note Date: 07/05/23 Progress Note Date: 07/02/23 Progress note: Patient is currently on low-dose dobutamine drip. I discontinued patient's dopamine drip as his blood pressure was good. His kidney function has borderline he improved to a creatinine of 4.1. With urine output of 1200 mL HISTORY OF PRESENTING ILLNESS 82-year-old male with past medical history of CKD stage IV, end-stage heart failure with EF of 15-20%, severe pulmonary hypertension, moderate AR, moderate MR was being evaluated as an outpatient [facility]. He was noticed to have worsening of his kidney function for which he was asked to come to the hospital. BUN: 13, creatinine 4.13. Patient was on lisinopril as an outpatient which is currently held. In hope of improving his cardiac output and increasing renal perfusion he was started on dopamine and dobutamine drip low doses. 07/03 Patient states that his lower extremity edema is improved. He denies any shortness of breath at this time. He remains on dobutamine drip at 5 g as well as Lasix 60 mg IV every 12 hours managed by nephrology. Blood pressure 103/58, heart rate in the 60s and 70s, pulse ox 96% on room air. Afebrile. Repeat blood work reveals sodium 134, potassium 4.7, BUN 109 and creatinine 3.95. 07/04 Patient states that his breathing is a little bit better from yesterday. He denies having any chest pain pressure or tightness. He still has some lower e xtremity edema. No dizziness. He states that he slept okay last night. Patient has been afebrile, heart rate in 70s to 90s, blood pressure 121/64, pulse ox 94% on 2 L nasal cannula. Repeat blood work reveals creatinine 4.1, BUN 101.. Nephrology does not plan for dialysis. Patient has been on IV Lasix and dobutamine. 07/05 Patient states that his breathing is getting better. He denies any chest pain, no dizziness. No palpitations. He has minimal edema. He has been maintained on dobutamine decreased yesterday to 2.5 g. He is on Lasix 60 mg IV every 12 hours per nephrology. Blood pressure is 94/58, heart rate 75, afebrile, pulse ox 95% on room air. Repeat blood work reveals hemoglobin 11.4. Sodium 132, potassium 4.1, BUN 103, creatinine 4.02. PHYSICAL EXAMINATION Vital signs reviewed. Head: Normocephalic. Eyes: Sclerae nonicteric. Neck: Elevated jugular Lungs: No significant wheezing or rhonchi or crackles Heart: Irregularly irregular, systolic murmur audible. Abdomen: Distended, soft nontender positive bowel sounds no organomegaly. Extremities: Minimal edema, warm extremity. 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 Continue Coreg 25 mg twice daily Use midodrine only as needed Continue IV Lasix per nephrology. Prognosis guarded. Nurse practitioner note has been reviewed, I agree with the documented findings and plan of care. Patient was seen and examined. Objective - Vital Signs Vital signs: Vital Signs Temp 97.9 F 07/05/23 04:00 Pulse 86 07/05/23 04:00 Resp 18 07/05/23 04:00 BP 122/79 07/05/23 04:00 Pulse Ox 95 07/05/23 04:00 FiO2 Intake & Output 07/04/23 07/05/23 07/05/23 18:59 06:59 18:59 Intake Total 848 0 128.733 Output Total 700 825 Balance 148 -825 128.733 Weight 148 kg 106.1 kg Intake: Intake, IV Titration 250 128.733 Amount DOBUTamine DRIP 500 mg In 250 128.733 Dextrose/Water 1 250ml. bag @ 2.5 MCG/KG/MIN 7. 484 mls/hr IV .Q24H [facility] Rx#:[id number] Oral 598 0 Output: Urine 700 825 Other: Voiding Method Indwelling Catheter Indwelling Catheter # Voids 0 - Labs CBC & Chem 7: 07/05/23 10:00 07/05/23 10:00 Labs: Abnormal Lab Results - Last 24 Hours (Table) 07/04/23 07/04/23 Range/Units 09:21 09:21 RBC 3.48 L (4.30-5.90) m/uL Hgb 11.6 L (13.0-17.5) gm/dL Hct 36.4 L (39.0-53.0) % MCV 104.6 H (80.0-100.0) fL Plt Count 126 L (150-450) k/uL Sodium 133 L (137-145) mmol/L BUN 101 H* (9-20) mg/dL Creatinine 4.12 H (0.66-1.25) mg/dL Glucose 104 H (74-99) mg/dL Calcium 8.0 L (8.4-10.2) mg/dL
[2023-07-05] MEDS ORDERED: fentaNYL (PF) 50 MCG/1 ML VIAL IVP ONE (14:24)
[2023-07-05] MEDS ORDERED: LIDOCAINE 1% INJ 10MG/ML (20 ML MDV) SQ ONE (14:24)
[2023-07-05] MEDS ORDERED: MIDAZOLAM 2 MG/2 ML VIAL IVP ONE (14:24)
[2023-07-05] MEDS ORDERED: SODIUM CHLORIDE 0.9% 250 ML IV ONE (14:31)
--- NOTE | 2023-07-05 15:50 | OP ---
OPERATIVE REPORT DATE OF SERVICE : PREOPERATIVE DIAGNOSIS: [id number] renal failure. POSTOPERATIVE DIAGNOSIS: [id number] renal failure. PROCEDURE PERFORMED: Ultrasound-guided 23 cm dialysis catheter, right jugular approach. DESCRIPTION OF PROCEDURE: The patient was brought to the cath lab tech. Right side of the neck and chest was prepped, and drapes were applied in a sterile manner. This patient had bilateral carotid endarterectomy done in the past. Ultrasound-guided micropuncture was introduced into the right jugular vein, and micropuncture guidewire was passed. A 4-Greek dilator was advanced on top of the guidewire. Then, with hand injection, I injected 10 mL of dye, and vena cava was found to be patent, and also, jugular vein was patent. After that, we created a tunnel. Through the tunnel, we brought 23 cm dialysis catheter. Dilator was advanced. Then, sheath was advanced. Through the sheath, we introduced the dialysis catheter. Tip of the catheter was in superior vena cava-atrial junction. Flushed with heparin saline and hep-locked. Secured with 3-0 nylon. The patient tolerated the procedure well. MMODL / IJN: [id number] /
--- NOTE | 2023-07-05 15:58 | XR ---
EXAMINATION TYPE: XR chest 1V confirm line [facility] DATE OF EXAM: 07/05/2023 COMPARISON: 07/02/2023 HISTORY: Line placement TECHNIQUE: Single frontal view of the chest is obtained. FINDINGS: Cardiac device, cardiomegaly and right-sided consolidation with moderate pleural effusion stable. There is a right-sided dialysis catheter with the tip overlying the caval atrial junction. No sizable pneumothorax. Hypertrophic change of the AC joints and degenerative change of the spine. Ofelia pected degree of underlying COPD. IMPRESSION: 1. Right sided dialysis catheter the tip overlying the cavoatrial junction and no sizable pneumothora x. 2. Stable moderate right-sided pleural effusion and consolidation.
--- NOTE | 2023-07-05 16:01 | IR ---
EXAMINATION TYPE: IR cvc insert central tunneled DATE OF EXAM: 07/05/2023 COMPARISON: NONE HISTORY: Fluoroscopy time. Fluoroscopy was provided to the referring clinician.
[2023-07-05] MEDS: LEVOTHYROXINE 50 MCG TAB PO SCH (20:10)
[2023-07-05] MEDS: ATORVASTATIN 10 MG TAB PO SCH (20:10)
[2023-07-05] MEDS: DOBUTamine DRIP 500 MG in DEXTROSE/WATER 1 250ML.BAG IV SCH (22:57)
[2023-07-06] MEDS: MIDODRINE 5 MG TAB PO SCH ×3 (06:26→17:19)
[2023-07-06] MEDS: PANTOPRAZOLE 40 MG TABLET PO SCH (06:26)
[2023-07-06] MEDS: FUROSEMIDE 10 MG/ML 10 ML VIAL IV SCH ×2 (10:25→20:18)
[2023-07-06] MEDS: carvediloL 12.5 MG TAB PO SCH ×2 (10:25→20:19)
[2023-07-06] MEDS: traMADol 50 MG TAB PO SCH ×2 (10:26→20:19)
[2023-07-06] MEDS: CYANOCOBALAMIN 500 MCG TAB PO SCH (10:26)
--- NOTE | 2023-07-06 12:10 | P.PN ---
Subjective Patient is seen for follow-up for acute kidney injury on top of chronic kidney disease. Currently maintained on IV Lasix and dobutamine for CHF with reduced ejection fraction. Serum creatinine has decreased initially to 3.9 mg/dL but increase back to 4.1 . BUN remains significantly elevated and patient continues to have edema, therefore we will proceed with renal replacement therapy. Patient has agreed to proceed with renal replacement therapy. Status post right IJ permacath placement. Patient is scheduled for his first treatment today. Objective - Vital Signs Vital signs: Vital Signs Temp 98.0 F 07/06/23 10:17 Pulse 94 07/06/23 10:17 Resp 18 07/06/23 10:17 BP 100/59 07/06/23 10:17 Pulse Ox 98 07/06/23 10:17 FiO2 Intake & Output 07/05/23 07/06/23 07/06/23 18:59 06:59 18:59 Intake Total 688.733 358.996 336.939 Output Total 275 650 200 Balance 413.733 -291.004 136.939 Weight 149 kg Intake: IV 20 10 Invasive Line 2 10 Intake, IV Titration 128.733 118.996 86.939 Amount DOBUTamine DRIP 500 mg In 128.733 118.996 86.939 Dextrose/Water 1 250ml. bag @ 2.5 MCG/KG/MIN 7. 484 mls/hr IV .Q24H [facility] Rx#:[id number] Oral 540 240 240 Output: Urine 275 650 200 Other: Voiding Method Indwelling Catheter Indwelling Catheter Indwelling Catheter - Exam Patient is awake, comfortable, no acute distress Alert oriented 3 Examination of the heart S1 and S2 Examination the lungs bilateral breath sounds are heard Abdomen is soft nontender obese Examination lower extremities shows edema 1+ bilaterally, decreased [employer] PROGRAMMER exam grossly intact - Labs CBC & Chem 7: 07/05/23 10:00 07/05/23 10:00 Assessment and Plan Assessment: 1. Acute kidney injury secondary to ATN secondary to cardiorenal syndrome. Creatinine decreased to 3.9 and therefore hemodialysis was held but repeat creatinine was 4.1. Patient also remains with significant edema with BUN up to 101 therefore we will proceed with renal replacement therapy and plan for first treatment of hemodialysis today. Right IJ permacath was placed yesterday. 2. Chronic kidney disease stage IV with baseline creatinine 2.63 secondary to cardiorenal syndrome and nephrosclerosis. 3. Volume overload, expect further improvement with dialysis 4. Acute on chronic systolic CHF with ejection fraction of less than 20% with mild to moderate mitral regurgitation. 5. Hypothyroidism with TSH elevated at 9.3, T4 at 1.07 Plan: Hemodialysis today and in a.m. DC Ryan catheter and monitor post void residual Can DC dobutamine. Awaiting outpatient chair time
--- NOTE | 2023-07-06 13:06 | P.PN ---
Subjective Progress Note Date: 07/06/23 * 82-year-old gentleman with past medical history significant for chronic kidney disease, stage IV with baseline creatinine around 3.4, nephrosclerosis, history of cardiorenal syndrome, chronic congestive heart failure with systolic dysfunction ejection fraction around 20%, anemia of chronic kidney disease, iron deficiency anemia chronic lower extremity edema, hypertension, osteoarthritis, coronary artery disease status post PCI and AICD in place, history of atrial fib ablation previously on anticoagulations with Eliquis, history of gastrointestinal bleed, intra-abdominal ascites presents to the emergency department for worsening renal function, patient was sent in by nephrology due to worsening BUN/creatinine and creatinine. Patient did have paracentesis done on 06/29/23 with 6 L of fluid removed. Patient did complain of decreased appetite and had not been having enough oral intake * Workup in ER included EKG which showed atrial fibrillation with rate controlled, no ST segment elevation was noted * Chest x-ray obtained at the time of admission showed bilateral pleural effusion, cardiomegaly noted * Serum chemistry obtained in ER included CBCs which were WBC 5.8 hemoglobin 11.4 platelet count 120 * Basic metabolic panel obtained showed sodium 138 potassium 5.2 carbon dioxide of 22 BU and 118 creatinine 4.31 magnesium of 2.8 AST 25 AST 19 total protein 5.4 * Patient admitted to medical floor as observation with consultation to be obtained from nephrology * 07/01/2023: Patient seen and evaluated bedside, patient is on dopamine and dobutamine drip, pulmonary medicine consulted, nephrology and cardiology following, vascular surgery consulted. Renal profile reviewed creatinine 4.13, TSH and free T4 levels reviewed patient already on Synthyroid, hemoglobin 11.1. Blood pressure appropriate * 07/02/2023: Patient seen and evaluated bedside, patient alert and oriented 4, family at bedside, pulmonary medicine, cardiology following, chest ultrasound on 1showed bilateral pleural effusion * 07/03/2023: Patient seen and evaluated bedside, patient is alert and oriented 4, creatinine is decreased to 3.9, nephrology for hemodialysis continue patient on Lasix and dobutamine drip for CHF. Cardiology following as well, chest x-ray obtained shows small right pleural effusion stable. Appreciate input from multiple specialities * 07/04/2023: Patient seen and evaluated bedside, patient noted to have significant improvement, on dobutamine drip shortness of breath is improved patient is receiving IV Lasix, patient has negative fluid balance, family at bedside, per nephrology no plan for hemodialysis at this point * 07/05/2023: Patient seen and evaluated bedside, appreciate input from neph rology as well as pulmonary medicine. Plan to get hemodialysis catheter placed today, patient on dobutamine drip, cardiology to wean off drip as tolerated. Blood work reviewed, platelet count 121, hemoglobin 11.4, sodium 132, creatinine 4.02, patient is in agreement with initiation of hemodialysis * 07/06/2023: Patient seen and evaluated bedside, patient in general appears well, patient does have right anterior chest wall hemodialysis cath in place. Nephrology following, plan for initiation of hemodialysis 07/06. Patient has been weaned off dobutamine drip. Hemoglobin noted to be 11.4, platelet 121, serum sodium 132 creatinine 4.0 to REVIEW OF SYSTEMS: Weakness, shortness of breath, malaise improved CONSTITUTIONAL: Weakness, shortness of breath, malaise HEENT: No recent visual problems or hearing problems. Denied any sore throat. CARDIOVASCULAR: No chest pain, orthopnea, PND, no palpitations, no syncope. PULMONARY: Weakness, shortness of breath, malaise GASTROINTESTINAL: No diarrhea, no nausea, no vomiting, no abdominal pain. NEUROLOGICAL: No headaches, no weakness, no numbness. HEMATOLOGICAL: Denies any bleeding or petechiae. GENITOURINARY: Denies any burning micturition, frequency, or urgency. MUSCULOSKELETAL/RHEUMATOLOGICAL: Denies any joint pain, swelling, or any muscle pain. ENDOCRINE: Denies any polyuria or polydipsia. PHYSICAL EXAMINATION: GENERAL: The patient is alert and oriented x3, ill appearance improved, pale, nasal cannula in place, right anterior chest wall hemodialysis catheter HEENT: Pupils are round and equally reacting to light. EOMI. CARDIOVASCULAR: S1 and S2 present. lower extremity edema noted bilateral PULMONARY: Improved breath sounds bilaterally ABDOMEN: Soft, nontender, MUSCULOSKELETAL: No joint swelling or deformity. EXTREMITIES: lower extremity edema noted bilateral improved NEUROLOGICAL: Gross neurological examination did not reveal any focal deficits. Objective - Vital Signs Vital signs: Vital Signs Temp 97.8 F 07/06/23 12:31 Pulse 69 07/06/23 12:31 Resp 16 07/06/23 12:31 BP 95/58 07/06/23 12:31 Pulse Ox 100 07/06/23 12:31 FiO2 Intake & Output 07/05/23 07/06/23 07/06/23 18:59 06:59 18:59 Intake Total 688.733 358.996 694.939 Output Total 275 650 200 Balance 413.733 -291.004 494.939 Weight 149 kg Intake: IV 20 10 Invasive Line 2 10 Intake, IV Titration 128.733 118.996 86.939 Amount DOBUTamine DRIP 500 mg In 128.733 118.996 86.939 Dextrose/Water 1 250ml. bag @ 2.5 MCG/KG/MIN 7. 484 mls/hr IV .Q24H [facility] Rx#:[id number] Oral 540 240 598 Output: Urine 275 650 200 Other: Voiding Method Indwelling Catheter Indwelling Catheter Indwelling Catheter - Labs CBC & Chem 7: 07/05/23 10:00 07/05/23 10:00 Assessment and Plan Assessment: Assessment and plan * Acute renal failure on chronic kidney disease stage IV * Recurrent abdominal ascites status post paracentesis 06/29/2023, 6L * Acute on Chronic congestive heart failure with ejection fraction less than 20% * Bilateral pleural effusion with fluid overload * History of atrial fibrillation * Hypothyroid * History of iron deficiency anemia, on top of anemia of chronic kidney disease * Chronic thrombocytopenia * Liver disease with ascites * Consult obtained from pulmonary medicine, cardiology, nephrology * In regards to worsening renal failure, consultations obtained from nephrology, patient does have ejection fraction of less than 20% last noted in 2020, echocardiogram shows severe LV dysfunction with ejection fraction 20%, moderate to severe pulmonary hypertension, [id number] mitral regurgitation, severe tricuspid regurgitation>> current medications include , Coreg, Lasix, Midodrine. Patient has been weaned off dopamine and dobutamine drip, plan to initiate hemodialysis, patient will get catheter and first session on 07/06 * In regards to abdominal ascites, patient is status post paracentesis , given albumin secondary to high volume paracentesis * Regards to bilateral pleural effusion, seen by pulmonary medicine, and no need for thoracentesis, follow-up chest x-ray completed 07/02, shows stable pleural effusion * In regards to history of atrial flutter patient continue Coreg, per admission med rec patient is not on Eliquis * In regard to chronic thrombocytopenia continue to monitor platelet count, monitor for bleeding precautions * Regards to hypothyroid continue Synthyroid * CODE STATUS full code
--- NOTE | 2023-07-06 13:48 | P.PN ---
Subjective Progress Note Date: 07/06/23 Progress Note Date: 07/02/23 Progress note: Patient is currently on low-dose dobutamine drip. I discontinued patient's dopamine drip as his blood pressure was good. His kidney function has borderline he improved to a creatinine of 4.1. 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 He was noticed to have worsening of his kidney function for which he was asked to come to the hospital. BUN: 13, creatinine 4.13. Patient was on lisinopril as an outpatient which is currently held. In hope of improving his cardiac output and increasing renal perfusion he was started on dopamine and dobutamine drip low doses. 07/03 Patient states that his lower extremity edema is improved. He denies any shortness of breath at this time. He remains on dobutamine drip at 5 g as well as Lasix 60 mg IV every 12 hours managed by nephrology. Blood pressure 103/58, heart rate in the 60s and 70s, pulse ox 96% on room air. Afebrile. Repeat blood work reveals sodium 134, potassium 4.7, BUN 109 and creatinine 3.95. 07/04 Patient states that his breathing is a little bit better from yesterday. He denies having any chest pain pressure or tightness. He still has some lower e xtremity edema. No dizziness. He states that he slept okay last night. Patient has been afebrile, heart rate in 70s to 90s, blood pressure 121/64, pulse ox 94% on 2 L nasal cannula. Repeat blood work reveals creatinine 4.1, BUN 101.. Nephrology does not plan for dialysis. Patient has been on IV Lasix and dobutamine. 07/05 Patient states that his breathing is getting better. He denies any chest pain, no dizziness. No palpitations. He has minimal edema. He has been maintained on dobutamine decreased yesterday to 2.5 g. He is on Lasix 60 mg IV every 12 hours per nephrology. Blood pressure is 94/58, heart rate 75, afebrile, pulse ox 95% on room air. Repeat blood work reveals hemoglobin 11.4. Sodium 132, potassium 4.1, BUN 103, creatinine 4.02. 07/06 Metal Caster see has discontinued dobutamine drip this morning. Repeat lab work is not available this morning at the time of this dictation. Blood pressure is 100/59, heart rate 94, afebrile, pulse ox 98% on room air. Chest x-ray reveals right-sided dialysis catheter and no sizable pneumothorax, stable moderate right-sided pleural effusion and consolidation. Patient is status post right jugular dialysis catheter placement by Dr. Roberts. Patient to start hemodialysis today. He is continued on Lasix 60 mg IV every 12 hours. Patient states that his breathing is not bad today. No chest pain and no dizziness. He states he didn't sleep last night. PHYSICAL EXAMINATION Vital signs reviewed. Head: Normocephalic. Eyes: Sclerae nonicteric. Neck: Elevated jugular Lungs: No significant wheezing or rhonchi or crackles Heart: Irregularly irregular, systolic murmur audible. Abdomen: Distended, soft nontender positive bowel sounds no organomegaly. Extremities: Minimal edema, warm extremity. 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 Prognosis guarded. Nurse practitioner note has been reviewed, I agree with the documented findings and plan of care. Patient was seen and examined. Objective - Vital Signs Vital signs: Vital Signs Temp 98.0 F 07/06/23 10:17 Pulse 94 07/06/23 10:17 Resp 18 07/06/23 10:17 BP 100/59 07/06/23 10:17 Pulse Ox 98 07/06/23 10:17 FiO2 Intake & Output 07/05/23 07/06/23 07/06/23 18:59 06:59 18:59 Intake Total 688.733 358.996 336.939 Output Total 275 650 200 Balance 413.733 -291.004 136.939 Weight 149 kg Intake: IV 20 10 Invasive Line 2 10 Intake, IV Titration 128.733 118.996 86.939 Amount DOBUTamine DRIP 500 mg In 128.733 118.996 86.939 Dextrose/Water 1 250ml. bag @ 2.5 MCG/KG/MIN 7. 484 mls/hr IV .Q24H [facility] Rx#:[id number] Oral 540 240 240 Output: Urine 275 650 200 Other: Voiding Method Indwelling Catheter Indwelling Catheter Indwelling Catheter - Labs CBC & Chem 7: 07/05/23 10:00 07/05/23 10:00
--- NOTE | 2023-07-06 14:49 | P.PN ---
Subjective Progress Note Date: 07/06/23 82-year-old male who presents to the emergency department on June 29, complaining of weakness. In addition, the patient complains of shortness of breath, and worsening renal function. We were consulted, yesterday, for a pleural effusion. By ultrasound, the patient has a relatively small effusion, at this point, because he is on room air, without any respiratory issues, it doesn't make any sense to attempt a thoracentesis. Currently, the patient's on dopamine at 2.5 mcg/kg/m, dobutamine at 5 mcg/kg/m, and on room air. White count 5.8, hemoglobin 11.4, hematocrit 35.6, platelet count 120,000. Sodium 139, potassium 4.8, chlorides 104, CO2 24, anion gap 12, BUN 111, and creatinine 4.4. TSH is 9.340. Ultrasound of the right chest reveals a pocket was only 3.2 cm. Chest x-ray shows right-sided pleural/parenchymal changes. Progress note dated 07/02/2023. 82-year-old male seen in consultation yesterday. Please see our note above. We were consulted primarily for a right-sided pleural effusion, which by ultrasound, is relatively small. The pocket was only 3.2 cm. Currently, the p atient is on oxygen at 3 L, with saturations of 98%. He continues on dobutamine at 5 mcg/kg/m. He is no longer on dopamine. No new labs today. Labs from yesterday have been reviewed. On today's evaluation of 07/03/2023, the patient is awake and alert and communicating without having any major distress or difficulties. Is on room air oxygen. His renal function continues to improve. His creatinine is down to 3.9 with a BUN of 109 and his sodium levels at 137. He has no specific complaints. He has small pocket of pleural fluid that was evaluated to the earlier and was decided not to drain the fluid at this point in time. He remains on Lasix 60 mg IV every 12 hours. 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 On 07/04/2023, the patient is being seen for a follow-up. The patient was hospitalized for the Heart failure, shortness of breath and acute hypoxic respiratory failure. He was started on a combination of dopamine and Dobutrex in addition to diuretics. This morning, the patient is still on Lasix 60 mg IV every 12 hours and the patient is on dobutamine at 5 mcg/kg/m. The overall fluid balance over the past 24 hours has been -890 mL. His weight is down by around 1 kg. The BUN is at 109 and the creatinine is at 3.9 and a sodium level is at 134 with a potassium level of 4.7 on those labs are from yesterday. Labs from today is pending. He is on room air oxygen with a pulse ox of 97%. He is known to have impairment of LV function with an ejection fraction of 20% and he has also moderate to severe pulmonary hypertension and moderate to severe mitral regurgitation. He did have a small pleural effusion that we did not drain during this current hospitalization. 07/05/2023, the patient is on room air oxygen. The patient is sitting up on a chair. He does have some limited edema lower extremities bilaterally. He remains on Lasix. He remains on dobutamine running at 2.5 microvascular kilogram per minutes. The patient's labs from yesterday Showed a BUN of 101 and a creatinine of 4.12. Sodium is at 133, potassium is at 4, WBC count of 8.2 with a hemoglobin of 11.6. Is net fluid balance over the past 24 hours has been -150 mL. The produced a total of 1 L of urine output yesterday. Nephrology has been involved in the case and the patient is being considered for hemodialysis. Labs from today are still pending. On 07/06/2023, the patient is doing well. The patient was given a permacath and the patient is going to be started on hemodialysis today. Chest x-ray shows a small right-sided pleural effusion. Left lung is essentially clear this point in time. The patient was taken off dobutamine. He remains on Lasix 60 mg IV every 12 hours. No significant shortness of breath at rest. He remains on room air oxygen. BUN is at 103 with a creatinine of 4.02. Sodium levels of 132. Potassium levels at 4.1. The bronchoscope was at 8.2 with a hemoglobin of 11.4. No encephalopathy. No altered mentation at this point in time. Objective - Vital Signs Vital signs: Vital Signs Temp 98.0 F 07/06/23 10:17 Pulse 94 07/06/23 10:17 Resp 18 07/06/23 10:17 BP 100/59 07/06/23 10:17 Pulse Ox 98 07/06/23 10:17 FiO2 Intake & Output 07/05/23 07/06/23 07/06/23 18:59 06:59 18:59 Intake Total 688.733 358.996 336.939 Output Total 275 650 200 Balance 413.733 -291.004 136.939 Weight 149 kg Intake: IV 20 10 Invasive Line 2 10 Intake, IV Titration 128.733 118.996 86.939 Amount DOBUTamine DRIP 500 mg In 128.733 118.996 86.939 Dextrose/Water 1 250ml. bag @ 2.5 MCG/KG/MIN 7. 484 mls/hr IV .Q24H [facility] Rx#:[id number] Oral 540 240 240 Output: Urine 275 650 200 Other: Voiding Method Indwelling Catheter Indwelling Catheter Indwelling Catheter - Exam No acute distress, oriented 3. Currently on RA saturations of 98%. No audible wheezing, use of accessory muscles, or conversational dyspnea. HEENT examination is grossly unremarkable. Mucous membranes are moist. No oral lesions. Neck supple. Full range of motion. No adenopathy thyromegaly or neck vein distention. Cardiovascular examination reveals regular rhythm rate. S1-S2 normal. No S3 or S4. No discernible murmur noted. Lungs reveal reduced breath sounds at the right base. Dullness at the right base. The left lung is clear. No crackles. Abdomen soft, with bowel sounds. No masses or tenderness. Extremities are intact. No cyanosis clubbing or edema. Skin is without rash or lesion. Neurologic examination is brief but nonfocal. - Labs CBC & Chem 7: 07/05/23 10:00 07/05/23 10:00 Assessment and Plan Plan: Acute hypoxic respiratory failure, the patient is currently on room air oxygen, clinically stable and the patient continues to have a small right-sided pleural effusion. Shortness of breath, multifactorial and the patient has a small right-sided pleural effusion. Thoracentesis not necessary at this time. This will improve with hemodialysis. CHF with severe cardiomyopathy and ejection fraction of 20%, currently on Lasix and dobutamine drip and the patient is a negative fluid balance History of chronic atrial fibrillation. 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 Questionable new onset hypothyroidism. History of hypertension. Prior history of myocardial infarction. History of borderline diabetes. History of gout. Chronic anemia. History of ascites, with prior paracentesis abdominis. Status post AICD placement. Plan Patient is currently on room air oxygen Continue Lasix, 60 mg IV every 12 hours Hemodialysis today Dobutamine has been discontinued Continue dobutamine at 2.5 mg/kg/m He is in a negative fluid balance although he continues to have significant amount of edema lower extremities bilaterally Monitor renal function No need for immediate thoracentesis of this point in time We'll continue to follow
[2023-07-06 18:07] LABS: HCT 34.3 % (39.0-53.0); HGB 11.3 gm/dL (13.0-17.5); Hypochromasia Slight; MCH 33.9 pg (25.0-35.0); MCV 102.8 fL (80.0-100.0); Macrocytosis Slight; Mean Platelet Volume 9.2; Platelet Count 121 k/uL (150-450); RBC 3.34 m/uL (4.30-5.90); WBC 7.6 k/uL (3.8-10.6)
[2023-07-06 18:31] LABS: African American GFR (CKD) 24 (>60 ml/min/1.73 sqM); Anion Gap 9 mmol/L; Blood Urea Nitrogen 71 mg/dL (9-20); Calcium 7.7 mg/dL (8.4-10.2); Carbon Dioxide 25 mmol/L (22-30); Chloride 98 mmol/L (98-107); Glucose 111 mg/dL (74-99); Non-African American GFR(CKD) 21 (>60 ml/min/1.73 sqM); Potassium 3.9 mmol/L (3.5-5.1); Sodium 132 mmol/L (137-145)
[2023-07-06] MEDS: ATORVASTATIN 10 MG TAB PO SCH (20:19)
[2023-07-06] MEDS: LEVOTHYROXINE 50 MCG TAB PO SCH (20:19)
[2023-07-07 02:25] LABS: Hepatitis B Surface Antigen Nonreactive
[2023-07-07 02:53] LABS: Hepatitis B Surface AB- Quant 3.5 mIU/mL
[2023-07-07] MEDS: PANTOPRAZOLE 40 MG TABLET PO SCH (06:07)
[2023-07-07] MEDS: MIDODRINE 5 MG TAB PO SCH ×3 (06:07→17:30)
[2023-07-07 09:26] LABS: African American GFR (CKD) 20 (>60 ml/min/1.73 sqM); Anion Gap 10 mmol/L; Blood Urea Nitrogen 79 mg/dL (9-20); Calcium 7.8 mg/dL (8.4-10.2); Carbon Dioxide 25 mmol/L (22-30); Chloride 97 mmol/L (98-107); Glucose 140 mg/dL (74-99); Non-African American GFR(CKD) 17 (>60 ml/min/1.73 sqM); Sodium 132 mmol/L (137-145)
[2023-07-07] MEDS: FUROSEMIDE 10 MG/ML 10 ML VIAL IV SCH ×2 (09:27→21:02)
[2023-07-07] MEDS: traMADol 50 MG TAB PO SCH ×2 (09:27→20:54)
[2023-07-07] MEDS: carvediloL 12.5 MG TAB PO SCH ×2 (09:27→20:53)
[2023-07-07] MEDS: CYANOCOBALAMIN 500 MCG TAB PO SCH (09:28)
[2023-07-07 09:34] LABS: Potassium 4.5 mmol/L (3.5-5.1)
--- NOTE | 2023-07-07 11:20 | P.PN ---
Subjective Progress Note Date: 07/07/23 * 82-year-old gentleman with past medical history significant for chronic kidney disease, stage IV with baseline creatinine around 3.4, nephrosclerosis, history of cardiorenal syndrome, chronic congestive heart failure with systolic dysfunction ejection fraction around 20%, anemia of chronic kidney disease, iron deficiency anemia chronic lower extremity edema, hypertension, osteoarthritis, coronary artery disease status post PCI and AICD in place, history of atrial fib ablation previously on anticoagulations with Eliquis, history of gastrointestinal bleed, intra-abdominal ascites presents to the emergency department for worsening renal function, patient was sent in by nephrology due to worsening BUN/creatinine and creatinine. Patient did have paracentesis done on 06/29/23 with 6 L of fluid removed. Patient did complain of decreased appetite and had not been having enough oral intake * Workup in ER included EKG which showed atrial fibrillation with rate controlled, no ST segment elevation was noted * Chest x-ray obtained at the time of admission showed bilateral pleural effusion, cardiomegaly noted * Serum chemistry obtained in ER included CBCs which were WBC 5.8 hemoglobin 11.4 platelet count 120 * Basic metabolic panel obtained showed sodium 138 potassium 5.2 carbon dioxide of 22 BU and 118 creatinine 4.31 magnesium of 2.8 AST 25 AST 19 total protein 5.4 * Patient admitted to medical floor as observation with consultation to be obtained from nephrology * 07/01/2023: Patient seen and evaluated bedside, patient is on dopamine and dobutamine drip, pulmonary medicine consulted, nephrology and cardiology following, vascular surgery consulted. Renal profile reviewed creatinine 4.13, TSH and free T4 levels reviewed patient already on Synthyroid, hemoglobin 11.1. Blood pressure appropriate * 07/02/2023: Patient seen and evaluated bedside, patient alert and oriented 4, family at bedside, pulmonary medicine, cardiology following, chest ultrasound on 1showed bilateral pleural effusion * 07/03/2023: Patient seen and evaluated bedside, patient is alert and oriented 4, creatinine is decreased to 3.9, nephrology for hemodialysis continue patient on Lasix and dobutamine drip for CHF. Cardiology following as well, chest x-ray obtained shows small right pleural effusion stable. Appreciate input from multiple specialities * 07/04/2023: Patient seen and evaluated bedside, patient noted to have significant improvement, on dobutamine drip shortness of breath is improved patient is receiving IV Lasix, patient has negative fluid balance, family at bedside, per nephrology no plan for hemodialysis at this point * 07/05/2023: Patient seen and evaluated bedside, appreciate input from neph rology as well as pulmonary medicine. Plan to get hemodialysis catheter placed today, patient on dobutamine drip, cardiology to wean off drip as tolerated. Blood work reviewed, platelet count 121, hemoglobin 11.4, sodium 132, creatinine 4.02, patient is in agreement with initiation of hemodialysis * 07/06/2023: Patient seen and evaluated bedside, patient in general appears well, patient does have right anterior chest wall hemodialysis cath in place. Nephrology following, plan for initiation of hemodialysis 07/06. Patient has been weaned off dobutamine drip. Hemoglobin noted to be 11.4, platelet 121, serum sodium 132 creatinine 4.2 * 07/07/2023: Patient seen and evaluated bedside, son at bedside as well. Second run of hemodialysis done today, patient has chair time for dialysis on 07/11/2023. Patient will get another session of hemodialysis 07/08 and if stable plan to discharge home with family. Nephrology aware that patient will need hemodialysis prior to discharge. Patient is setup Monday, , Monday. Continue cardiac regimen including Coreg, Midrin for blood pressure support. Upon discharge need for Lasix to be determined depending on blood pressure. Cardiology following as well REVIEW OF SYSTEMS: Weakness, shortness of breath, malaise improved CONSTITUTIONAL: Weakness, shortness of breath, malaise HEENT: No recent visual problems or hearing problems. Denied any sore throat. CARDIOVASCULAR: No chest pain, orthopnea, PND, no palpitations, no syncope. PULMONARY: Weakness, shortness of breath, malaise GASTROINTESTINAL: No diarrhea, no nausea, no vomiting, no abdominal pain. NEUROLOGICAL: No headaches, no weakness, no numbness. HEMATOLOGICAL: Denies any bleeding or petechiae. GENITOURINARY: Denies any burning micturition, frequency, or urgency. MUSCULOSKELETAL/RHEUMATOLOGICAL: Denies any joint pain, swelling, or any muscle pain. ENDOCRINE: Denies any polyuria or polydipsia. PHYSICAL EXAMINATION: GENERAL: The patient is alert and oriented x3, ill appearance improved, pale, nasal cannula in place, right anterior chest wall hemodialysis catheter HEENT: Pupils are round and equally reacting to light. EOMI. CARDIOVASCULAR: S1 and S2 present. lower extremity edema noted bilateral PULMONARY: Improved breath sounds bilaterally ABDOMEN: Soft, nontender, MUSCULOSKELETAL: No joint swelling or deformity. EXTREMITIES: lower extremity edema noted bilateral improved NEUROLOGICAL: Gross neurological examination did not reveal any focal deficits. Objective - Vital Signs Vital signs: Vital Signs Temp 98.1 F 07/07/23 09:22 Pulse 63 07/07/23 09:22 Resp 18 07/07/23 09:22 BP 112/64 07/07/23 09:22 Pulse Ox 99 07/07/23 09:22 FiO2 Intake & Output 07/06/23 07/07/23 07/07/23 18:59 06:59 18:59 Intake Total 1194.939 128 Output Total 2000 200 Balance -805.061 -200 128 Weight 151 kg Intake: IV 10 10 Invasive Line 1 10 Invasive Line 2 10 Intake, IV Titration 86.939 Amount DOBUTamine DRIP 500 mg In 86.939 Dextrose/Water 1 250ml. bag @ 2.5 MCG/KG/MIN 7. 484 mls/hr IV .Q24H [facility] Rx#:[id number] Oral 598 118 Hemodialysis 500 Output: Gastric Drainage 0 Urine 350 200 Post Void Residual 150 Stool 0 Urine/Stool Mix 0 Emesis 0 Oral Regurgitation 0 Hemodialysis 1500 Other 0 Other: Voiding Method Indwelling Catheter Indwelling Catheter Indwelling Catheter # Voids 0 # Bowel Movements 0 - Labs CBC & Chem 7: 07/06/23 17:42 07/07/23 08:14 Labs: Abnormal Lab Results - Last 24 Hours (Table) 07/06/23 07/06/23 07/07/23 Range/Units 17:42 17:42 08:14 RBC 3.34 L (4.30-5.90) m/uL Hgb 11.3 L (13.0-17.5) gm/dL Hct 34.3 L (39.0-53.0) % MCV 102.8 H (80.0-100.0) fL Plt Count 121 L (150-450) k/uL Sodium 132 L 132 L (137-145) mmol/L Chloride 97 L (98-107) mmol/L BUN 71 H 79 H (9-20) mg/dL Creatinine 2.76 H 3.22 H (0.66-1.25) mg/dL Glucose 111 H 140 H (74-99) mg/dL Calcium 7.7 L 7.8 L (8.4-10.2) mg/dL Assessment and Plan Assessment: Assessment and plan * Acute renal failure on chronic kidney disease stage IV * Recurrent abdominal ascites status post paracentesis 06/29/2023, 6L * Acute on Chronic congestive heart failure with ejection fraction less than 20% * Bilateral pleural effusion with fluid overload * History of atrial fibrillation * Hypothyroid * History of iron deficiency anemia, on top of anemia of chronic kidney disease * Chronic thrombocytopenia * Liver disease with ascites * Consult obtained from pulmonary medicine, cardiology, nephrology * In regards to worsening renal failure, consultations obtained from nephrology, patient does have ejection fraction of less than 20% last noted in 2020, echocardiogram shows severe LV dysfunction with ejection fraction 20%, moderate to severe pulmonary hypertension, [id number] mitral regurgitation, severe tricuspid regurgitation>> current medications include , Coreg, Lasix, Midodrine. Patient has been weaned off dopamine and dobutamine drip, status post hemodialysis started this hospitalization. Patient to get second session on 07/07, third session of 07/08 and then discharge home * In regards to abdominal ascites, patient is status post paracentesis , given albumin secondary to high volume paracentesis * Regards to bilateral pleural effusion, seen by pulmonary medicine, and no need for thoracentesis, follow-up chest x-ray completed 07/02, shows stable pleural effusion * In regards to history of atrial flutter patient continue Coreg, per admission med rec patient is not on Eliquis * In regard to chronic thrombocytopenia continue to monitor platelet count, monitor for bleeding precautions * Regards to hypothyroid continue Synthyroid * CODE STATUS full code Time with Patient: Greater than 30
--- NOTE | 2023-07-07 12:31 | P.PN ---
Subjective Patient is seen for follow-up for acute kidney injury on top of chronic kidney disease. Patient has underlying CHF and cardiomyopathy. Status post dobutamine and dopamine with some improvement in renal function however patient continued to be significantly volume overloaded and therefore he was started on hemodialysis on 07/06/2023. Tolerating treatment well. Patient is seen on hemodialysis. Objective - Vital Signs Vital signs: Vital Signs Temp 98.1 F 07/07/23 09:22 Pulse 63 07/07/23 09:22 Resp 18 07/07/23 09:22 BP 112/64 07/07/23 09:22 Pulse Ox 99 07/07/23 09:22 FiO2 Intake & Output 07/06/23 07/07/23 07/07/23 18:59 06:59 18:59 Intake Total 1194.939 128 Output Total 2000 200 Balance -805.061 -200 128 Weight 151 kg Intake: IV 10 10 Invasive Line 1 10 Invasive Line 2 10 Intake, IV Titration 86.939 Amount DOBUTamine DRIP 500 mg In 86.939 Dextrose/Water 1 250ml. bag @ 2.5 MCG/KG/MIN 7. 484 mls/hr IV .Q24H [facility] Rx#:[id number] Oral 598 118 Hemodialysis 500 Output: Gastric Drainage 0 Urine 350 200 Post Void Residual 150 Stool 0 Urine/Stool Mix 0 Emesis 0 Oral Regurgitation 0 Hemodialysis 1500 Other 0 Other: Voiding Method Indwelling Catheter Indwelling Catheter Indwelling Catheter # Voids 0 # Bowel Movements 0 - Exam Patient is awake, comfortable, no acute distress Alert oriented 3 Examination of the heart S1 and S2 Examination the lungs bilateral breath sounds are heard Abdomen is soft nontender obese Examination lower extremities shows edema 1+ bilaterally, decreased WELFARE VISITOR exam grossly intact - Labs CBC & Chem 7: 07/06/23 17:42 07/07/23 08:14 Labs: Abnormal Lab Results - Last 24 Hours (Table) 07/06/23 07/06/23 07/07/23 Range/Units 17:42 17:42 08:14 RBC 3.34 L (4.30-5.90) m/uL Hgb 11.3 L (13.0-17.5) gm/dL Hct 34.3 L (39.0-53.0) % MCV 102.8 H (80.0-100.0) fL Plt Count 121 L (150-450) k/uL Sodium 132 L 132 L (137-145) mmol/L Chloride 97 L (98-107) mmol/L BUN 71 H 79 H (9-20) mg/dL Creatinine 2.76 H 3.22 H (0.66-1.25) mg/dL Glucose 111 H 140 H (74-99) mg/dL Calcium 7.7 L 7.8 L (8.4-10.2) mg/dL Assessment and Plan Assessment: 1. Acute kidney injury secondary to ATN secondary to cardiorenal syndrome. Creatinine decreased to 3.9 and therefore hemodialysis was held but repeat creatinine was 4.1. Patient also remains with significant edema with BUN up to 101 and therefore patient was started on renal replacement therapy on 07/06/2023. 2. Chronic kidney disease stage IV with baseline creatinine 2.63 secondary to cardiorenal syndrome and nephrosclerosis. 3. Volume overload, expect further improvement with dialysis 4. Acute on chronic systolic CHF with ejection fraction of less than 20% with mild to moderate mitral regurgitation. 5. Hypothyroidism with TSH elevated at 9.3, T4 at 1.07 Plan: Third treatment of hemodialysis tomorrow. Patient can be discharged with plans to follow-up as outpatient for hemodialysis on Monday in [place].
--- NOTE | 2023-07-07 13:00 | P.PN ---
Subjective Progress Note Date: 07/07/23 82-year-old male who presents to the emergency department on June 29, complaining of weakness. In addition, the patient complains of shortness of breath, and worsening renal function. We were consulted, yesterday, for a pleural effusion. By ultrasound, the patient has a relatively small effusion, at this point, because he is on room air, without any respiratory issues, it doesn't make any sense to attempt a thoracentesis. Currently, the patient's on dopamine at 2.5 mcg/kg/m, dobutamine at 5 mcg/kg/m, and on room air. White count 5.8, hemoglobin 11.4, hematocrit 35.6, platelet count 120,000. Sodium 139, potassium 4.8, chlorides 104, CO2 24, anion gap 12, BUN 111, and creatinine 4.4. TSH is 9.340. Ultrasound of the right chest reveals a pocket was only 3.2 cm. Chest x-ray shows right-sided pleural/parenchymal changes. Progress note dated 07/02/2023. 82-year-old male seen in consultation yesterday. Please see our note above. We were consulted primarily for a right-sided pleural effusion, which by ultrasound, is relatively small. The pocket was only 3.2 cm. Currently, the p atient is on oxygen at 3 L, with saturations of 98%. He continues on dobutamine at 5 mcg/kg/m. He is no longer on dopamine. No new labs today. Labs from yesterday have been reviewed. On today's evaluation of 07/03/2023, the patient is awake and alert and communicating without having any major distress or difficulties. Is on room air oxygen. His renal function continues to improve. His creatinine is down to 3.9 with a BUN of 109 and his sodium levels at 137. He has no specific complaints. He has small pocket of pleural fluid that was evaluated to the earlier and was decided not to drain the fluid at this point in time. He remains on Lasix 60 mg IV every 12 hours. 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 On 07/04/2023, the patient is being seen for a follow-up. The patient was hospitalized for the Heart failure, shortness of breath and acute hypoxic respiratory failure. He was started on a combination of dopamine and Dobutrex in addition to diuretics. This morning, the patient is still on Lasix 60 mg IV every 12 hours and the patient is on dobutamine at 5 mcg/kg/m. The overall fluid balance over the past 24 hours has been -890 mL. His weight is down by around 1 kg. The BUN is at 109 and the creatinine is at 3.9 and a sodium level is at 134 with a potassium level of 4.7 on those labs are from yesterday. Labs from today is pending. He is on room air oxygen with a pulse ox of 97%. He is known to have impairment of LV function with an ejection fraction of 20% and he has also moderate to severe pulmonary hypertension and moderate to severe mitral regurgitation. He did have a small pleural effusion that we did not drain during this current hospitalization. 07/05/2023, the patient is on room air oxygen. The patient is sitting up on a chair. He does have some limited edema lower extremities bilaterally. He remains on Lasix. He remains on dobutamine running at 2.5 microvascular kilogram per minutes. The patient's labs from yesterday Showed a BUN of 101 and a creatinine of 4.12. Sodium is at 133, potassium is at 4, WBC count of 8.2 with a hemoglobin of 11.6. Is net fluid balance over the past 24 hours has been -150 mL. The produced a total of 1 L of urine output yesterday. Nephrology has been involved in the case and the patient is being considered for hemodialysis. Labs from today are still pending. On 07/06/2023, the patient is doing well. The patient was given a permacath and the patient is going to be started on hemodialysis today. Chest x-ray shows a small right-sided pleural effusion. Left lung is essentially clear this point in time. The patient was taken off dobutamine. He remains on Lasix 60 mg IV every 12 hours. No significant shortness of breath at rest. He remains on room air oxygen. BUN is at 103 with a creatinine of 4.02. Sodium levels of 132. Potassium levels at 4.1. The bronchoscope was at 8.2 with a hemoglobin of 11.4. No encephalopathy. No altered mentation at this point in time. on today's evaluation of 07/07/2023, the patient is doing well. The patient underwent the permacath insertion and the patient is going through his second hemodialysis. The patient underwent hemodialysis yesterday with a total of 1 L of ultrafiltration. He was able to tolerate that. He'll be undergoing a second session today with a total of 1.5 L of ultrafiltration. He is doing extremely well. No respiratory difficulties. His resting comfortably in bed. Hemodynamically stable. Ryan catheter was removed and the patient is producing some urine output at this point in time.Yet is at 70 with a creatinine of 3.2. Sodium levels of 132 with a potassium level of 4.5. Bicarb is at 25. Objective - Vital Signs Vital signs: Vital Signs Temp 98.1 F 07/07/23 09:22 Pulse 63 07/07/23 09:22 Resp 18 07/07/23 09:22 BP 112/64 07/07/23 09:22 Pulse Ox 99 07/07/23 09:22 FiO2 Intake & Output 07/06/23 07/07/23 07/07/23 18:59 06:59 18:59 Intake Total 1194.939 128 Output Total 1999 200 Balance -805.061 -200 128 Weight 151 kg Intake: IV 10 10 Invasive Line 1 10 Invasive Line 2 10 Intake, IV Titration 86.939 Amount DOBUTamine DRIP 500 mg In 86.939 Dextrose/Water 1 250ml. bag @ 2.5 MCG/KG/MIN 7. 484 mls/hr IV .Q24H [facility] Rx#:[id number] Oral 598 118 Hemodialysis 500 Output: Gastric Drainage 0 Urine 350 200 Post Void Residual 150 Stool 0 Urine/Stool Mix 0 Emesis 0 Oral Regurgitation 0 Hemodialysis 1500 Other 0 Other: Voiding Method Indwelling Catheter Indwelling Catheter # Voids 0 # Bowel Movements 0 - Exam No acute distress, oriented 3. Currently on RA saturations of 98%. No audible wheezing, use of accessory muscles, or conversational dyspnea. HEENT examination is grossly unremarkable. Mucous membranes are moist. No oral lesions. Neck supple. Full range of motion. No adenopathy thyromegaly or neck vein distention. Cardiovascular examination reveals regular rhythm rate. S1-S2 normal. No S3 or S4. No discernible murmur noted. Lungs reveal reduced breath sounds at the right base. Dullness at the right base. The left lung is clear. No crackles. Abdomen soft, with bowel sounds. No masses or tenderness. Extremities are intact. No cyanosis clubbing or edema. Skin is without rash or lesion. Neurologic examination is brief but nonfocal. - Labs CBC & Chem 7: 07/06/23 17:42 07/07/23 08:14 Labs: Abnormal Lab Results - Last 24 Hours (Table) 07/06/23 07/06/23 07/07/23 Range/Units 17:42 17:42 08:14 RBC 3.34 L (4.30-5.90) m/uL Hgb 11.3 L (13.0-17.5) gm/dL Hct 34.3 L (39.0-53.0) % MCV 102.8 H (80.0-100.0) fL Plt Count 121 L (150-450) k/uL Sodium 132 L 132 L (137-145) mmol/L Chloride 97 L (98-107) mmol/L BUN 71 H 79 H (9-20) mg/dL Creatinine 2.76 H 3.22 H (0.66-1.25) mg/dL Glucose 111 H 140 H (74-99) mg/dL Calcium 7.7 L 7.8 L (8.4-10.2) mg/dL Assessment and Plan Plan: Acute hypoxic respiratory failure, the patient is currently on room air oxygen, clinically stable and the patient continues to have a small right-sided pleural effusion. This is anticipated to improve with hemodialysis. Shortness of breath, multifactorial and the patient has a small right-sided pleural effusion. Thoracentesis not necessary at this time. This will improve with hemodialysis. CHF with severe cardiomyopathy and ejection fraction of 20%, currently on Lasix and dobutamine drip and the patient is a negative fluid balance History of chronic atrial fibrillation. 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 Questionable new onset hypothyroidism. History of hypertension. Prior history of myocardial infarction. History of borderline diabetes. History of gout. Chronic anemia. History of ascites, with prior paracentesis abdominis. Status post AICD placement. Plan the patient is undergoing hemodialysis and is going through his second session. Patient is currently on room air oxygen Continue Lasix, 60 mg IV every 12 hours Hemodialysis today He is in a negative fluid balance although he continues to have significant amount of edema lower extremities bilaterally Monitor renal function No need for immediate thoracentesis of this point in time We'll continue to follow
--- NOTE | 2023-07-07 13:53 | P.PN ---
Subjective Progress Note Date: 07/07/23 Progress Note Date: 07/02/23 Progress note: Patient is currently on low-dose dobutamine drip. I discontinued patient's dopamine drip as his blood pressure was good. His kidney function has borderline he improved to a creatinine of 4.1. With urine output of 1200 mL HISTORY OF PRESENTING ILLNESS 82-year-old male with past medical history of CKD stage IV, end-stage heart failure with EF of 15-20%, severe pulmonary hypertension, moderate AR, moderate MR was being evaluated as an outpatient in his under water assistant clinic. He was noticed to have worsening of his kidney function for which he was asked to come to the hospital. BUN: 13, creatinine 4.13. Patient was on lisinopril as an outpatient which is currently held. In hope of improving his cardiac output and increasing renal perfusion he was started on dopamine and dobutamine drip low doses. 07/03 Patient states that his lower extremity edema is improved. He denies any shortness of breath at this time. He remains on dobutamine drip at 5 g as well as Lasix 60 mg IV every 12 hours managed by nephrology. Blood pressure 103/58, heart rate in the 60s and 70s, pulse ox 96% on room air. Afebrile. Repeat blood work reveals sodium 134, potassium 4.7, BUN 109 and creatinine 3.95. 07/04 Patient states that his breathing is a little bit better from yesterday. He denies having any chest pain pressure or tightness. He still has some lower e xtremity edema. No dizziness. He states that he slept okay last night. Patient has been afebrile, heart rate in 70s to 90s, blood pressure 121/64, pulse ox 94% on 2 L nasal cannula. Repeat blood work reveals creatinine 4.1, BUN 101.. Nephrology does not plan for dialysis. Patient has been on IV Lasix and dobutamine. 07/05 Patient states that his breathing is getting better. He denies any chest pain, no dizziness. No palpitations. He has minimal edema. He has been maintained on dobutamine decreased yesterday to 2.5 g. He is on Lasix 60 mg IV every 12 hours per nephrology. Blood pressure is 94/58, heart rate 75, afebrile, pulse ox 95% on room air. Repeat blood work reveals hemoglobin 11.4. Sodium 132, potassium 4.1, BUN 103, creatinine 4.02. 07/06 Litigation Services Manager see has discontinued dobutamine drip this morning. Repeat lab work is not available this morning at the time of this dictation. Blood pressure is 100/59, heart rate 94, afebrile, pulse ox 98% on room air. Chest x-ray reveals right-sided dialysis catheter and no sizable pneumothorax, stable moderate right-sided pleural effusion and consolidation. Patient is status post right jugular dialysis catheter placement by Dr. Roberts. Patient to start hemodialysis today. He is continued on Lasix 60 mg IV every 12 hours. Patient states that his breathing is not bad today. No chest pain and no dizziness. He states he didn't sleep last night. 07/07 Patient is undergoing his second dialysis treatment. He states he is feeling better today. No chest tightness. No nausea, no dizziness. Repeat blood work reveals BUN 79, creatinine 3.22. Blood pressure 112/64, heart rate 63, pulse ox 99% on 2 L. PHYSICAL EXAMINATION Vital signs reviewed. Head: Normocephalic. Eyes: Sclerae nonicteric. Neck: Elevated jugular Lungs: No significant wheezing or rhonchi or crackles Heart: Irregularly irregular, systolic murmur audible. Abdomen: Distended, soft nontender positive bowel sounds no organomegaly. Extremities: Minimal edema, warm extremity. 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 Prognosis guarded. Nurse practitioner note has been reviewed, I agree with the documented findings and plan of care. Patient was seen and examined. Objective - Vital Signs Vital signs: Vital Signs Temp 98.1 F 07/07/23 09:22 Pulse 63 07/07/23 09:22 Resp 18 07/07/23 09:22 BP 112/64 07/07/23 09:22 Pulse Ox 99 07/07/23 09:22 FiO2 Intake & Output 07/06/23 07/07/23 07/07/23 18:59 06:59 18:59 Intake Total 1194.939 128 Output Total 2000 200 Balance -805.061 -200 128 Weight 151 kg Intake: IV 10 10 Invasive Line 1 10 Invasive Line 2 10 Intake, IV Titration 86.939 Amount DOBUTamine DRIP 500 mg In 86.939 Dextrose/Water 1 250ml. bag @ 2.5 MCG/KG/MIN 7. 484 mls/hr IV .Q24H [facility] Rx#:[id number] Oral 598 118 Hemodialysis 500 Output: Gastric Drainage 0 Urine 350 200 Post Void Residual 150 Stool 0 Urine/Stool Mix 0 Emesis 0 Oral Regurgitation 0 Hemodialysis 1500 Other 0 Other: Voiding Method Indwelling Catheter Indwelling Catheter # Voids 0 # Bowel Movements 0 - Labs CBC & Chem 7: 07/06/23 17:42 07/07/23 08:14 Labs: Abnormal Lab Results - Last 24 Hours (Table) 07/06/23 07/06/23 07/07/23 Range/Units 17:42 17:42 08:14 RBC 3.34 L (4.30-5.90) m/uL Hgb 11.3 L (13.0-17.5) gm/dL Hct 34.3 L (39.0-53.0) % MCV 102.8 H (80.0-100.0) fL Plt Count 121 L (150-450) k/uL Sodium 132 L 132 L (137-145) mmol/L Chloride 97 L (98-107) mmol/L BUN 71 H 79 H (9-20) mg/dL Creatinine 2.76 H 3.22 H (0.66-1.25) mg/dL Glucose 111 H 140 H (74-99) mg/dL Calcium 7.7 L 7.8 L (8.4-10.2) mg/dL
[2023-07-07] MEDS: ACETAMINOPHEN TAB 325 MG TAB PO PRN (17:36)
[2023-07-07] MEDS: LEVOTHYROXINE 50 MCG TAB PO SCH (20:53)
[2023-07-07] MEDS: ATORVASTATIN 10 MG TAB PO SCH (20:54)
[2023-07-08] MEDS: PANTOPRAZOLE 40 MG TABLET PO SCH (06:29)
[2023-07-08] MEDS: MIDODRINE 5 MG TAB PO SCH ×3 (06:29→16:30)
[2023-07-08] MEDS: carvediloL 12.5 MG TAB PO SCH ×2 (08:09→20:04)
[2023-07-08] MEDS: CYANOCOBALAMIN 500 MCG TAB PO SCH (08:10)
[2023-07-08] MEDS: FUROSEMIDE 10 MG/ML 10 ML VIAL IV SCH (08:54)
--- NOTE | 2023-07-08 09:16 | P.PN ---
Subjective Patient is seen in follow-up for acute kidney injury on chronic kidney disease, hemodialysis dependent. Denies chest pain or shortness of breath. On nasal cannula. Vital signs are stable. General: No acute distress. HEENT: Head exam is unremarkable. On nasal cannula. LUNGS: No audible rhonchi or wheezes. HEART: Rate and Rhythm are regular. ABDOMEN: Nontender. EXTREMITITES: 1+ edema. Objective - Vital Signs Vital signs: Vital Signs Temp 97.9 F 07/08/23 08:09 Pulse 70 07/08/23 08:09 Resp 16 07/08/23 08:09 BP 89/51 07/08/23 08:09 Pulse Ox 97 07/08/23 09:02 FiO2 2 07/08/23 09:02 Intake & Output 07/07/23 07/08/23 07/08/23 18:59 06:59 18:59 Intake Total 618 260 120 Output Total 200 200 Balance 418 60 120 Weight 148 kg Intake: IV 20 20 Invasive Line 1 10 Invasive Line 4 10 20 Oral 598 240 120 Output: Urine 200 200 Straight 200 Stool 0 Other: Voiding Method Indwelling Catheter Toilet Urinal # Voids 1 # Bowel Movements 1 - Labs CBC & Chem 7: 07/06/23 17:42 07/07/23 08:14 Labs: Abnormal Lab Results - Last 24 Hours (Table) 07/07/23 Range/Units 08:14 Sodium 132 L (137-145) mmol/L Chloride 97 L (98-107) mmol/L BUN 79 H (9-20) mg/dL Creatinine 3.22 H (0.66-1.25) mg/dL Glucose 140 H (74-99) mg/dL Calcium 7.8 L (8.4-10.2) mg/dL Assessment and Plan Plan: Assessment: 1. Acute kidney injury secondary to ATN secondary to cardiorenal syndrome. Started on hemodialysis 07/06/2023. Has permacath. 2. Chronic kidney disease stage IV with baseline creatinine 2.63 secondary to cardiorenal syndrome. 3. Volume overload. Improved with diuresis and ultrafiltration. 4. Acute on chronic systolic CHF with ejection fraction of less than 20% with mild to moderate mitral regurgitation. 5. Hypervolemic hyponatremia. Plan: Hemodialysis today. Patient will be maintained on Monday schedule outpatient. Increase dose of midodrine to 10 mg 3 times daily. Hold for systolic blood pressure greater than 110. Advised patient to maintain low salt diet and fluid restriction of less than 50 ounces per day. Stop IV Lasix. Add torsemide 40 mg once daily. Check phosphorus level.
[2023-07-08 11:44] LABS: African American GFR (CKD) 22 (>60 ml/min/1.73 sqM); Anion Gap 11 mmol/L; Blood Urea Nitrogen 57 mg/dL (9-20); Calcium 7.8 mg/dL (8.4-10.2); Carbon Dioxide 24 mmol/L (22-30); Chloride 96 mmol/L (98-107); Glucose 128 mg/dL (74-99); Non-African American GFR(CKD) 19 (>60 ml/min/1.73 sqM); Phosphorus 3.7 mg/dL (2.5-4.5); Potassium 4.2 mmol/L (3.5-5.1); Sodium 131 mmol/L (137-145)
--- NOTE | 2023-07-08 11:54 | P.PN ---
Subjective HISTORY OF PRESENT ILLNESS: 82-year-old male with past medical history of CKD stage IV, end-stage heart failure with EF of 15-20%, severe pulmonary hypertension, moderate AR, moderate MR was being evaluated as an outpatient in his telecommunicator clinic. He was noticed to have worsening of his kidney function for which he was asked to come to the hospital. BUN: 13, creatinine 4.13. Patient was on lisinopril as an outpatient which is currently held. In hope of improving his cardiac output and increasing renal perfusion he was started on dopamine and dobutamine drip low doses. 07/03 Patient states that his lower extremity edema is improved. He denies any shortness of breath at this time. He remains on dobutamine drip at 5 g as well as Lasix 60 mg IV every 12 hours managed by nephrology. Blood pressure 103/58, heart rate in the 60s and 70s, pulse ox 96% on room air. Afebrile. Repeat blood work reveals sodium 134, potassium 4.7, BUN 109 and creatinine 3.95. 07/04 Patient states that his breathing is a little bit better from yesterday. He denies having any chest pain pressure or tightness. He still has some lower extremity edema. No dizziness. He states that he slept okay last night. Patient has been afebrile, heart rate in 70s to 90s, blood pressure 121/64, pulse ox 94% on 2 L nasal cannula. Repeat blood work reveals creatinine 4.1, BUN 101.. Nephrology does not plan for dialysis. Patient has been on IV Lasix and dobutamine. 07/05 Patient states that his breathing is getting better. He denies any chest pain, no dizziness. No palpitations. He has minimal edema. He has been maintained on dobutamine decreased yesterday to 2.5 g. He is on Lasix 60 mg IV every 12 hours per nephrology. Blood pressure is 94/58, heart rate 75, afebrile, pulse ox 95% on room air. Repeat blood work reveals hemoglobin 11.4. Sodium 132, potassium 4.1, BUN 103, creatinine 4.02. 07/06 Clerical Transcriber see has discontinued dobutamine drip this morning. Repeat lab work is not available this morning at the time of this dictation. Blood pressure is 100/59, heart rate 94, afebrile, pulse ox 98% on room air. Chest x-ray reveals right-sided dialysis catheter and no sizable pneumothorax, stable moderate r ight-sided pleural effusion and consolidation. Patient is status post right jugular dialysis catheter placement by Dr. Roberts. Patient to start hemodialysis today. He is continued on Lasix 60 mg IV every 12 hours. Patient states that his breathing is not bad today. No chest pain and no dizziness. He states he didn't sleep last night. 07/07 Patient is undergoing his second dialysis treatment. He states he is feeling better today. No chest tightness. No nausea, no dizziness. Repeat blood work reveals BUN 79, creatinine 3.22. Blood pressure 112/64, heart rate 63, pulse ox 99% on 2 L. Echocardiogram revealed an EF of 15-20%, elevated left atrial and ventricular filling pressures, moderate AR, moderate MR 07/08/2023 Patient examined this morning at the bedside. Patient currently denies chest pain or pressure. He reports improvement in his shortness of breath. Patient has been transitioned from IV Lasix to oral Demadex. He is scheduled to undergo hemodialysis today. PHYSICAL EXAM: VITAL SIGNS: Reviewed. GENERAL: Well-developed in no acute distress. NECK: Supple. No JVD or thyromegaly LUNGS: Respirations even and unlabored. Lungs essentially clear to auscultation bilaterally. HEART: Irregular rate and rhythm. S1 and S2 heard. Systolic murmur noted. EXTREMITIES: Normal range of motion. No clubbing or cyanosis. Peripheral pulses intact. Trace bilateral lower extremity edema ASSESSMENT: Acute kidney injury with oliguric ATN CKD stage IV--started hemodialysis Dilated cardiomyopathy with EF of 15-20%, NYHA class IV, ACC class D Chronic atrial fibrillation Moderate aortic regurgitation and moderate mitral regurgitation PLAN: Continue current cardiac medications Patient has been transitioned to oral diuretics Patient to undergo hemodialysis today per nephrology Further recommendations pending patient's course Nurse practitioner note has been reviewed by physician. Signing provider agrees with the documented findings, assessment, and plan of care. Objective - Vital Signs Vital signs: Vital Signs Temp 97.9 F 07/08/23 08:09 Pulse 70 07/08/23 08:09 Resp 16 07/08/23 08:09 BP 89/51 07/08/23 08:09 Pulse Ox 97 07/08/23 09:02 FiO2 2 07/08/23 09:02 Intake & Output 07/07/23 07/08/23 07/08/23 18:59 06:59 18:59 Intake Total 618 260 130 Output Total 200 200 Balance 418 60 130 Weight 148 kg Intake: IV 20 20 10 Invasive Line 1 10 Invasive Line 4 10 20 10 Oral 598 240 120 Output: Urine 200 200 Straight 200 Stool 0 Other: Voiding Method Indwelling Catheter Toilet Toilet Urinal Urinal # Voids 1 # Bowel Movements 1 - Labs CBC & Chem 7: 07/06/23 17:42 07/08/23 10:57
[2023-07-08] MEDS: traMADol 50 MG TAB PO SCH ×2 (12:17→20:05)
--- NOTE | 2023-07-08 13:33 | P.PN ---
Subjective Progress Note Date: 07/08/23 82-year-old male who presents to the emergency department on June 29, complaining of weakness. In addition, the patient complains of shortness of breath, and worsening renal function. We were consulted, yesterday, for a pleural effusion. By ultrasound, the patient has a relatively small effusion, at this point, because he is on room air, without any respiratory issues, it doesn't make any sense to attempt a thoracentesis. Currently, the patient's on dopamine at 2.5 mcg/kg/m, dobutamine at 5 mcg/kg/m, and on room air. White count 5.8, hemoglobin 11.4, hematocrit 35.6, platelet count 120,000. Sodium 139, potassium 4.8, chlorides 104, CO2 24, anion gap 12, BUN 111, and creatinine 4.4. TSH is 9.340. Ultrasound of the right chest reveals a pocket was only 3.2 cm. Chest x-ray shows right-sided pleural/parenchymal changes. Progress note dated 07/02/2023. 82-year-old male seen in consultation yesterday. Please see our note above. We were consulted primarily for a right-sided pleural effusion, which by ultrasound, is relatively small. The pocket was only 3.2 cm. Currently, the p atient is on oxygen at 3 L, with saturations of 98%. He continues on dobutamine at 5 mcg/kg/m. He is no longer on dopamine. No new labs today. Labs from yesterday have been reviewed. On today's evaluation of 07/03/2023, the patient is awake and alert and communicating without having any major distress or difficulties. Is on room air oxygen. His renal function continues to improve. His creatinine is down to 3.9 with a BUN of 109 and his sodium levels at 137. He has no specific complaints. He has small pocket of pleural fluid that was evaluated to the earlier and was decided not to drain the fluid at this point in time. He remains on Lasix 60 mg IV every 12 hours. 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 On 07/04/2023, the patient is being seen for a follow-up. The patient was hospitalized for the Heart failure, shortness of breath and acute hypoxic respiratory failure. He was started on a combination of dopamine and Dobutrex in addition to diuretics. This morning, the patient is still on Lasix 60 mg IV every 12 hours and the patient is on dobutamine at 5 mcg/kg/m. The overall fluid balance over the past 24 hours has been -890 mL. His weight is down by around 1 kg. The BUN is at 109 and the creatinine is at 3.9 and a sodium level is at 134 with a potassium level of 4.7 on those labs are from yesterday. Labs from today is pending. He is on room air oxygen with a pulse ox of 97%. He is known to have impairment of LV function with an ejection fraction of 20% and he has also moderate to severe pulmonary hypertension and moderate to severe mitral regurgitation. He did have a small pleural effusion that we did not drain during this current hospitalization. 07/05/2023, the patient is on room air oxygen. The patient is sitting up on a chair. He does have some limited edema lower extremities bilaterally. He remains on Lasix. He remains on dobutamine running at 2.5 microvascular kilogram per minutes. The patient's labs from yesterday Showed a BUN of 101 and a creatinine of 4.12. Sodium is at 133, potassium is at 4, WBC count of 8.2 with a hemoglobin of 11.6. Is net fluid balance over the past 24 hours has been -150 mL. The produced a total of 1 L of urine output yesterday. Nephrology has been involved in the case and the patient is being considered for hemodialysis. Labs from today are still pending. On 07/06/2023, the patient is doing well. The patient was given a permacath and the patient is going to be started on hemodialysis today. Chest x-ray shows a small right-sided pleural effusion. Left lung is essentially clear this point in time. The patient was taken off dobutamine. He remains on Lasix 60 mg IV every 12 hours. No significant shortness of breath at rest. He remains on room air oxygen. BUN is at 103 with a creatinine of 4.02. Sodium levels of 132. Potassium levels at 4.1. The bronchoscope was at 8.2 with a hemoglobin of 11.4. No encephalopathy. No altered mentation at this point in time. on today's evaluation of 07/07/2023, the patient is doing well. The patient underwent the permacath insertion and the patient is going through his second hemodialysis. The patient underwent hemodialysis yesterday with a total of 1 L of ultrafiltration. He was able to tolerate that. He'll be undergoing a second session today with a total of 1.5 L of ultrafiltration. He is doing extremely well. No respiratory difficulties. His resting comfortably in bed. Hemodynamically stable. Ryan catheter was removed and the patient is producing some urine output at this point in time.Yet is at 70 with a creatinine of 3.2. Sodium levels of 132 with a potassium level of 4.5. Bicarb is at 25. On 07/08/2023, the patient is doing well. No specific complaints. He underwent hemodialysis yesterday and he was able to tolerate a total of 1.5 L of ultr afiltration. Another session to be done today. He was taken off the IV Lasix. He was started on Demadex 40 mg by mouth daily. The BUN is a 57 with a creatinine of 2.9. Sodium is at 131. Potassium levels at 4.2. He is currently on 2 L of oxygen nasal cannula with a pulse ox of 97-100%. Objective - Vital Signs Vital signs: Vital Signs Temp 97.9 F 07/08/23 08:09 Pulse 70 07/08/23 08:09 Resp 16 07/08/23 08:09 BP 89/51 07/08/23 08:09 Pulse Ox 97 07/08/23 09:02 FiO2 2 07/08/23 09:02 Intake & Output 07/07/23 07/08/23 07/08/23 18:59 06:59 18:59 Intake Total 618 260 130 Output Total 200 200 Balance 418 60 130 Weight 148 kg Intake: IV 20 20 10 Invasive Line 1 10 Invasive Line 4 10 20 10 Oral 598 240 120 Output: Urine 200 200 Straight 200 Stool 0 Other: Voiding Method Indwelling Catheter Toilet Toilet Urinal Urinal # Voids 1 # Bowel Movements 1 - Exam No acute distress, oriented 3. Currently on 2 L O2 nasal cannula saturations of 98%. No audible wheezing, use of accessory muscles, or conversational dyspnea. HEENT examination is grossly unremarkable. Mucous membranes are moist. No oral lesions. Neck supple. Full range of motion. No adenopathy thyromegaly or neck vein distention. Cardiovascular examination reveals regular rhythm rate. S1-S2 normal. No S3 or S4. No discernible murmur noted. Lungs reveal reduced breath sounds at the right base. Dullness at the right base. The left lung is clear. No crackles. Abdomen soft, with bowel sounds. No masses or tenderness. Extremities are intact. No cyanosis clubbing or edema. Skin is without rash or lesion. Neurologic examination is brief but nonfocal. - Labs CBC & Chem 7: 07/06/23 17:42 07/08/23 10:57 Assessment and Plan Plan: Acute hypoxic respiratory failure, the patient is currently on room air oxygen, clinically stable and the patient continues to have a small right-sided pleural effusion. This is anticipated to improve with hemodialysis. Shortness of breath, multifactorial and the patient has a small right-sided pleural effusion. Thoracentesis not necessary at this time. This will improve with hemodialysis. CHF with severe cardiomyopathy and ejection fraction of 20%, currently on Lasix and dobutamine drip and the patient is a negative fluid balance History of chronic atrial fibrillation. 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 Questionable new onset hypothyroidism. History of hypertension. Prior history of myocardial infarction. History of borderline diabetes. History of gout. Chronic anemia. History of ascites, with prior paracentesis abdominis. Status post AICD placement. Plan the patient is to undergo hemodialysis 3 times a week Patient is currently on 2 L O2 nasal cannula Continue Demadex and stop the IV Lasix Hemodialysis today He is in a negative fluid balance although he continues to have significant amount of edema lower extremities bilaterally Monitor renal function No need for immediate thoracentesis of this point in time We'll continue to follow
[2023-07-08] MEDS: LEVOTHYROXINE 50 MCG TAB PO SCH (20:04)
[2023-07-08] MEDS: ATORVASTATIN 10 MG TAB PO SCH (20:05)
--- NOTE | 2023-07-09 00:33 | P.PN ---
Subjective 82-year-old gentleman with past medical history significant for chronic kidney disease, stage IV with baseline creatinine around 3.4, nephrosclerosis, history of cardiorenal syndrome, chronic congestive heart failure with systolic dysfunction ejection fraction around 20%, anemia of chronic kidney disease, iron deficiency anemia chronic lower extremity edema, hypertension, osteoarthritis, coronary artery disease status post PCI and AICD in place, history of atrial fib ablation previously on anticoagulations with Eliquis, history of gastrointes tinal bleed, intra-abdominal ascites presents to the emergency department for worsening renal function, patient was sent in by nephrology due to worsening BUN/creatinine and creatinine. Patient did have paracentesis done on 06/29/23 with 6 L of fluid removed. Patient did complain of decreased appetite and had not been having enough oral intake Workup in ER included EKG which showed atrial fibrillation with rate controlled, no ST segment elevation was noted Chest x-ray obtained at the time of admission showed bilateral pleural effusion, cardiomegaly noted Serum chemistry obtained in ER included CBCs which were WBC 5.8 hemoglobin 11.4 platelet count 120 Basic metabolic panel obtained showed sodium 138 potassium 5.2 carbon dioxide of 22 BU and 118 creatinine 4.31 magnesium of 2.8 AST 25 AST 19 total protein 5.4 Patient admitted to medical floor as observation with consultation to be obtained from nephrology 07/01/2023: Patient seen and evaluated bedside, patient is on dopamine and dobutamine drip, pulmonary medicine consulted, nephrology and cardiology following, vascular surgery consulted. Renal profile reviewed creatinine 4.13, TSH and free T4 levels reviewed patient already on Synthyroid, hemoglobin 11.1. Blood pressure appropriate 07/02/2023: Patient seen and evaluated bedside, patient alert and oriented 4, family at bedside, pulmonary medicine, cardiology following, chest ultrasound on howed bilateral pleural effusion 07/03/2023: Patient seen and evaluated bedside, patient is alert and oriented 4, creatinine is decreased to 3.9, nephrology for hemodialysis continue patient on Lasix and dobutamine drip for CHF. Cardiology following as well, chest x-ray obtained shows small right pleural effusion stable. Appreciate input from multiple specialities 07/04/2023: Patient seen and evaluated bedside, patient noted to have significant improvement, on dobutamine drip shortness of breath is improved patient is receiving IV Lasix, patient has negative fluid balance, family at bedside, per nephrology no plan for hemodialysis at this point 07/05/2023: Patient seen and evaluated bedside, appreciate input from nephrology as well as pulmonary medicine. Plan to get hemodialysis catheter placed today, patient on dobutamine drip, cardiology to wean off drip as tolerated. Blood work reviewed, platelet count 121, hemoglobin 11.4, sodium 132, creatinine 4.02, patient is in agreement with initiation of hemodialysis 07/06/2023: Patient seen and evaluated bedside, patient in general appears well, patient does have right anterior chest wall hemodialysis cath in place. Nephrology following, plan for initiation of hemodialysis 07/06. Patient has been weaned off dobutamine drip. Hemoglobin noted to be 11.4, platelet 121, serum sodium 132 creatinine 4.2 07/07/2023: Patient seen and evaluated bedside, son at bedside as well. Second run of hemodialysis done today, patient has chair time for dialysis on 07/11/2023. Patient will get another session of hemodialysis 07/08 and if stable plan to discharge home with family. Nephrology aware that patient will need hemodialysis prior to discharge. Patient is setup Monday, , Monday. Continue cardiac regimen including Coreg, Midrin for blood pressure support. Upon discharge need for Lasix to be determined depending on blood pressure. Cardiology following as well 07/08/2023 Patient awake alert sitting comfortable Complains from the toe was enough of blood from his hemodialysis catheter which was going on for last few days since he had this catheter placement for his acute kidney injury on chronic kidney disease. His urine for hemodialysis today He is also kept on IV Lasix 60 mg twice daily which is switched to oral torsemide today. Dose of midodrine also increase 5-10 mg 3 times a day. He is currently on 2 L oxygen via nasal cannula, at home he also told me he was in 2 L but mainly at night. Objective - Vital Signs Vital signs: Vital Signs Temp 97.9 F 07/08/23 08:09 Pulse 70 07/08/23 08:09 Resp 16 07/08/23 08:09 BP 89/51 07/08/23 08:09 Pulse Ox 97 07/08/23 09:02 FiO2 2 07/08/23 09:02 Intake & Output 07/07/23 07/08/23 07/08/23 18:59 06:59 18:59 Intake Total 618 260 130 Output Total 200 200 Balance 418 60 130 Weight 148 kg Intake: IV 20 20 10 Invasive Line 1 10 Invasive Line 4 10 20 10 Oral 598 240 120 Output: Urine 200 200 Straight 200 Stool 0 Other: Voiding Method Indwelling Catheter Toilet Toilet Urinal Urinal # Voids 1 # Bowel Movements 1 - Exam GENERAL: The patient is alert and oriented x3, not in any acute distress. Well developed, well nourished. HEENT: Pupils are round and equally reacting to light. EOMI. No scleral icterus. No conjunctival pallor. Normocephalic, atraumatic. No pharyngeal erythema. No thyromegaly. CARDIOVASCULAR: S1 and S2 present. No murmurs, rubs, or gallops. PULMONARY: Chest is clear to auscultation, no wheezing , no crackles. ABDOMEN: Soft, nontender, nondistended, normoactive bowel sounds. No palpable organomegaly. MUSCULOSKELETAL: No joint swelling or deformity. EXTREMITIES: No cyanosis, clubbing, or pedal edema. NEUROLOGICAL: Gross neurological examination did not reveal any focal deficits. SKIN: No rashes. no petechiae. - Labs CBC & Chem 7: 07/06/23 17:42 07/08/23 10:57 Labs: Abnormal Lab Results - Last 24 Hours (Table) 07/08/23 Range/Units 10:57 Sodium 131 L (137-145) mmol/L Chloride 96 L (98-107) mmol/L BUN 57 H (9-20) mg/dL Creatinine 2.93 H (0.66-1.25) mg/dL Glucose 128 H (74-99) mg/dL Calcium 7.8 L (8.4-10.2) mg/dL Assessment and Plan Assessment: Acute renal failure on chronic kidney disease stage IV Recurrent abdominal ascites status post paracentesis 06/29/2023, 6L Acute on Chronic congestive heart failure with ejection fraction less than 20% Bilateral pleural effusion with fluid overload History of atrial fibrillation Hypothyroid History of iron deficiency anemia, on top of anemia of chronic kidney disease Chronic thrombocytopenia Liver disease with ascites Plan: 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 Continue same treatment. Continue with symptomatic treatment. Resume home medication. Monitor labs and vitals. DVT and GI prophylaxis. Further recommendations as per clinical course of the patient DVT prophylaxis: no Subcutaneous heparin patient's somewhat mobile and he has was blood from his dialysis catheter. Continue with SCD GI Prophylaxis: Ppi PT/OT: Pending Prognosis is guarded
[2023-07-09] MEDS: MIDODRINE 5 MG TAB PO SCH ×2 (06:30→11:41)
[2023-07-09] MEDS: PANTOPRAZOLE 40 MG TABLET PO SCH (06:31)
[2023-07-09] MEDS: traMADol 50 MG TAB PO SCH (08:02)
[2023-07-09] MEDS: CYANOCOBALAMIN 500 MCG TAB PO SCH (08:02)
[2023-07-09] MEDS: carvediloL 12.5 MG TAB PO SCH (08:03)
[2023-07-09] MEDS ORDERED: TORSEMIDE 20 MG TAB PO SCH (09:00)
[2023-07-09 09:23] VITALS: TEMP 98.3
--- NOTE | 2023-07-09 11:36 | P.PN ---
Subjective Patient is seen in follow-up for acute kidney injury on chronic kidney disease, hemodialysis dependent. Denies chest pain or shortness of breath. On nasal cannula. Tolerated 1.7 L ultrafiltration yesterday. Wants to go home. Vital signs are stable. General: No acute distress. HEENT: Head exam is unremarkable. On nasal cannula. LUNGS: No audible rhonchi or wheezes. HEART: Rate and Rhythm are regular. ABDOMEN: Nontender. EXTREMITITES: 1+ edema. Objective - Vital Signs Vital signs: Vital Signs Temp 98.3 F 07/09/23 08:02 Pulse 72 07/09/23 08:02 Resp 16 07/09/23 08:02 BP 94/52 07/09/23 08:02 Pulse Ox 100 07/09/23 09:29 FiO2 2 07/09/23 09:29 Intake & Output 07/08/23 07/09/23 07/09/23 18:59 06:59 18:59 Intake Total 784 490 Output Total 1950 150 0 Balance -1166 -150 490 Weight 105.7 kg Intake: IV 20 10 Invasive Line 4 20 10 Oral 364 480 Hemodialysis 400 Output: Gastric Drainage 0 Urine 200 150 0 Stool 0 0 Urine/Stool Mix 0 Emesis 0 Oral Regurgitation 0 Hemodialysis 1750 Other 0 Other: Voiding Method Toilet Toilet Toilet Urinal Urinal Urinal # Voids 1 1 # Bowel Movements 1 2 - Labs CBC & Chem 7: 07/06/23 17:42 07/08/23 10:57 Labs: Abnormal Lab Results - Last 24 Hours (Table) 07/08/23 Range/Units 10:57 Sodium 131 L (137-145) mmol/L Chloride 96 L (98-107) mmol/L BUN 57 H (9-20) mg/dL Creatinine 2.93 H (0.66-1.25) mg/dL Glucose 128 H (74-99) mg/dL Calcium 7.8 L (8.4-10.2) mg/dL Assessment and Plan Plan: Assessment: 1. Acute kidney injury secondary to ATN secondary to cardiorenal syndrome. Started on hemodialysis 07/06/2023. Has permacath. 2. Chronic kidney disease stage IV with baseline creatinine 2.63 secondary to cardiorenal syndrome. 3. Volume overload. Improved with diuresis and ultrafiltration. 4. Acute on chronic systolic CHF with ejection fraction of less than 20% with mild to moderate mitral regurgitation. 5. Hypervolemic hyponatremia. Plan: Hemodialysis Monday. Patient will be maintained on Monday schedule outpatient. Increased dose of midodrine to 10 mg 3 times daily. Hold for systolic blood pressure greater than 110. Advised patient to maintain low salt diet and fluid restriction of less than 50 ounces per day. Maintain torsemide. Phosphorus level 3.7 dated 07/08/2023.
[2023-07-09 11:44] VITALS: BP 93/57; PULSE 68; RESP 18
--- NOTE | 2023-07-09 12:01 | P.PN ---
Subjective Progress Note Date: 07/09/23 82-year-old male who presents to the emergency department on June 29, complaining of weakness. In addition, the patient complains of shortness of breath, and worsening renal function. We were consulted, yesterday, for a pleural effusion. By ultrasound, the patient has a relatively small effusion, at this point, because he is on room air, without any respiratory issues, it doesn't make any sense to attempt a thoracentesis. Currently, the patient's on dopamine at 2.5 mcg/kg/m, dobutamine at 5 mcg/kg/m, and on room air. White count 5.8, hemoglobin 11.4, hematocrit 35.6, platelet count 120,000. Sodium 139, potassium 4.8, chlorides 104, CO2 24, anion gap 12, BUN 111, and creatinine 4.4. TSH is 9.340. Ultrasound of the right chest reveals a pocket was only 3.2 cm. Chest x-ray shows right-sided pleural/parenchymal changes. Progress note dated 07/02/2023. 82-year-old male seen in consultation yesterday. Please see our note above. We were consulted primarily for a right-sided pleural effusion, which by ultrasound, is relatively small. The pocket was only 3.2 cm. Currently, the p atient is on oxygen at 3 L, with saturations of 98%. He continues on dobutamine at 5 mcg/kg/m. He is no longer on dopamine. No new labs today. Labs from yesterday have been reviewed. On today's evaluation of 07/03/2023, the patient is awake and alert and communicating without having any major distress or difficulties. Is on room air oxygen. His renal function continues to improve. His creatinine is down to 3.9 with a BUN of 109 and his sodium levels at 137. He has no specific complaints. He has small pocket of pleural fluid that was evaluated to the earlier and was decided not to drain the fluid at this point in time. He remains on Lasix 60 mg IV every 12 hours. 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 On 07/04/2023, the patient is being seen for a follow-up. The patient was hospitalized for the Heart failure, shortness of breath and acute hypoxic respiratory failure. He was started on a combination of dopamine and Dobutrex in addition to diuretics. This morning, the patient is still on Lasix 60 mg IV every 12 hours and the patient is on dobutamine at 5 mcg/kg/m. The overall fluid balance over the past 24 hours has been -890 mL. His weight is down by around 1 kg. The BUN is at 109 and the creatinine is at 3.9 and a sodium level is at 134 with a potassium level of 4.7 on those labs are from yesterday. Labs from today is pending. He is on room air oxygen with a pulse ox of 97%. He is known to have impairment of LV function with an ejection fraction of 20% and he has also moderate to severe pulmonary hypertension and moderate to severe mitral regurgitation. He did have a small pleural effusion that we did not drain during this current hospitalization. 07/05/2023, the patient is on room air oxygen. The patient is sitting up on a chair. He does have some limited edema lower extremities bilaterally. He remains on Lasix. He remains on dobutamine running at 2.5 microvascular kilogram per minutes. The patient's labs from yesterday Showed a BUN of 101 and a creatinine of 4.12. Sodium is at 133, potassium is at 4, WBC count of 8.2 with a hemoglobin of 11.6. Is net fluid balance over the past 24 hours has been -150 mL. The produced a total of 1 L of urine output yesterday. Nephrology has been involved in the case and the patient is being considered for hemodialysis. Labs from today are still pending. On 07/06/2023, the patient is doing well. The patient was given a permacath and the patient is going to be started on hemodialysis today. Chest x-ray shows a small right-sided pleural effusion. Left lung is essentially clear this point in time. The patient was taken off dobutamine. He remains on Lasix 60 mg IV every 12 hours. No significant shortness of breath at rest. He remains on room air oxygen. BUN is at 103 with a creatinine of 4.02. Sodium levels of 132. Potassium levels at 4.1. The bronchoscope was at 8.2 with a hemoglobin of 11.4. No encephalopathy. No altered mentation at this point in time. on today's evaluation of 07/07/2023, the patient is doing well. The patient underwent the permacath insertion and the patient is going through his second hemodialysis. The patient underwent hemodialysis yesterday with a total of 1 L of ultrafiltration. He was able to tolerate that. He'll be undergoing a second session today with a total of 1.5 L of ultrafiltration. He is doing extremely well. No respiratory difficulties. His resting comfortably in bed. Hemodynamically stable. Ryan catheter was removed and the patient is producing some urine output at this point in time.Yet is at 70 with a creatinine of 3.2. Sodium levels of 132 with a potassium level of 4.5. Bicarb is at 25. On 07/08/2023, the patient is doing well. No specific complaints. He underwent hemodialysis yesterday and he was able to tolerate a total of 1.5 L of ultr afiltration. Another session to be done today. He was taken off the IV Lasix. He was started on Demadex 40 mg by mouth daily. The BUN is a 57 with a creatinine of 2.9. Sodium is at 131. Potassium levels at 4.2. He is currently on 2 L of oxygen nasal cannula with a pulse ox of 97-100%. On 07/09/2023, the patient is doing well. The patient underwent a third session of hemodialysis yesterday with ultrafiltration of 1.7 L of fluid. He has no specific complaints. He wants to go home. Labs are stable. BUN is at 77 with a creatinine of 2.9. Potassium levels at 4.2. Producing urine. Objective - Vital Signs Vital signs: Vital Signs Temp 98.3 F 07/09/23 08:02 Pulse 72 07/09/23 08:02 Resp 16 07/09/23 08:02 BP 94/52 07/09/23 08:02 Pulse Ox 100 07/09/23 09:29 FiO2 2 07/09/23 09:29 Intake & Output 07/08/23 07/09/23 07/09/23 18:59 06:59 18:59 Intake Total 784 490 Output Total 1950 150 0 Balance -1166 -150 490 Weight 105.7 kg Intake: IV 20 10 Invasive Line 4 20 10 Oral 364 480 Hemodialysis 400 Output: Gastric Drainage 0 Urine 200 150 0 Stool 0 0 Urine/Stool Mix 0 Emesis 0 Oral Regurgitation 0 Hemodialysis 1750 Other 0 Other: Voiding Method Toilet Toilet Toilet Urinal Urinal Urinal # Voids 1 1 # Bowel Movements 1 2 - Exam No acute distress, oriented 3. Currently on 2 L O2 nasal cannula saturations of 98%. No audible wheezing, use of accessory muscles, or conversational dyspnea. HEENT examination is grossly unremarkable. Mucous membranes are moist. No oral lesions. Neck supple. Full range of motion. No adenopathy thyromegaly or neck vein distention. Cardiovascular examination reveals regular rhythm rate. S1-S2 normal. No S3 or S4. No discernible murmur noted. Lungs reveal reduced breath sounds at the right base. Dullness at the right base. The left lung is clear. No crackles. Abdomen soft, with bowel sounds. No masses or tenderness. Extremities are intact. No cyanosis clubbing or edema. Skin is without rash or lesion. Neurologic examination is brief but nonfocal. - Labs CBC & Chem 7: 07/06/23 17:42 07/08/23 10:57 Labs: Abnormal Lab Results - Last 24 Hours (Table) 07/08/23 Range/Units 10:57 Sodium 131 L (137-145) mmol/L Chloride 96 L (98-107) mmol/L BUN 57 H (9-20) mg/dL Creatinine 2.93 H (0.66-1.25) mg/dL Glucose 128 H (74-99) mg/dL Calcium 7.8 L (8.4-10.2) mg/dL Assessment and Plan Plan: Acute hypoxic respiratory failure, the patient is currently on room air oxygen, clinically stable and the patient continues to have a small right-sided pleural effusion. This is anticipated to improve with hemodialysis. Shortness of breath, multifactorial and the patient has a small right-sided pleural effusion. Thoracentesis not necessary at this time. This will improve with hemodialysis. CHF with severe cardiomyopathy and ejection fraction of 20%, currently on Lasix and dobutamine drip and the patient is a negative fluid balance History of chronic atrial fibrillation. 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 Questionable new onset hypothyroidism. History of hypertension. Prior history of myocardial infarction. History of borderline diabetes. History of gout. Chronic anemia. History of ascites, with prior paracentesis abdominis. Status post AICD placement. Plan the patient is to undergo hemodialysis 3 times a week, last hemodialysis session was yesterday with a 1.7 L of ultrafiltration Patient is currently on 2 L O2 nasal cannula Continue Demadex 40 mg by mouth daily Hemodialysis done yesterday He is in a negative fluid balance although he continues to have significant amount of edema lower extremities bilaterally Monitor renal function No need for immediate thoracentesis of this point in time Will likely go home
--- NOTE | 2023-07-09 14:42 | P.PN ---
Subjective Progress Note Date: 07/09/23 PROGRESS NOTE The patient is an 10-year-old male with known history of severe nonischemic myopathy who presented with CHF and cardiorenal syndrome. Dialysis was started with improvement in his breathing, energy and peripheral edema. He's feeling better today. He is anxious to go home. He is scheduled to undergo dialysis in [place] on Monday. Hemodynamically he is stable. Medications: Midodrine 10 mg 3 times a day, Demadex, Coreg 25 mg twice a day, Lipitor 10 mg daily PHYSICAL EXAMINATION: Blood pressure 93/60 heart rate 60 LUNGS: Clear to auscultation HEART: Irregular rate and rhythm, S1, S2. No S3. Holosystolic murmur ABDOMEN: Soft, nontender, no organomegaly EXTREMETIES: +1 edema IMPRESSION: 1. Severe nonischemic cardiomyopathy with CHF 2. Renal failure started hemodialysis 3. Hyperlipidemia 4. Atrial fibrillation PLAN: 1. Continue present therapy 2. Discharged home today 3. Follow-up as an outpatient 4. Dialysis as scheduled Objective - Vital Signs Vital signs: Vital Signs Temp 98.3 F 07/09/23 08:02 Pulse 68 07/09/23 11:40 Resp 18 07/09/23 11:40 BP 93/57 07/09/23 11:40 Pulse Ox 99 07/09/23 11:40 FiO2 2 07/09/23 09:29 Intake & Output 07/08/23 07/09/23 07/09/23 18:59 06:59 18:59 Intake Total 784 620 Output Total 1950 150 150 Balance -1166 -150 470 Weight 105.7 kg Intake: IV 20 20 Invasive Line 4 20 20 Oral 364 600 Hemodialysis 400 Output: Gastric Drainage 0 Urine 200 150 150 Stool 0 0 Urine/Stool Mix 0 Emesis 0 Oral Regurgitation 0 Hemodialysis 1750 Other 0 Other: Voiding Method Toilet Toilet Toilet Urinal Urinal Urinal # Voids 1 1 # Bowel Movements 1 2 1 - Labs CBC & Chem 7: 07/06/23 17:42 07/08/23 10:57
== END 2023-07-09 15:15 | disposition home health service (06) | DRG 291 ==
LOC: EC 15:51 → 6NMEDSUR 19:42 → OBSVTOIN 06-30 10:04 → 3SCARD 06-30 14:09
PROVIDERS: ADMIT Hospitalist; ATTEND Hospitalist
PROC: 0W9G3ZZ Drainage of Peritoneal Cavity, Percutaneous Approach (ICD-10-PCS; 2023-06-29)
PROC: B5181ZA Fluoroscopy of Superior Vena Cava using Low Osmolar Contrast, Guidance (ICD-10-PCS; 2023-07-05)
PROC: B548ZZA Ultrasonography of Superior Vena Cava, Guidance (ICD-10-PCS; 2023-07-05)
PROC: 0JH63XZ Insertion of Tunneled Vascular Access Device into Chest Subcutaneous Tissue and Fascia, Percutaneous Approach (ICD-10-PCS; principal; 2023-07-05 08:30)
PROC: 02HV33Z Insertion of Infusion Device into Superior Vena Cava, Percutaneous Approach (ICD-10-PCS; 2023-07-05 08:30)
PROC: 5A1D70Z Performance of Urinary Filtration, Intermittent, Less than 6 Hours Per Day (ICD-10-PCS; 2023-07-05 08:30)
DX: I13.0 Hypertensive heart and chronic kidney disease with heart failure and stage 1 through stage 4 chronic kidney disease, or unspecified chronic kidney disease (principal); I50.23 Acute on chronic systolic (congestive) heart failure; N17.0 Acute kidney failure with tubular necrosis; R65.21 Severe sepsis with septic shock; R18.8 Other ascites; N18.4 Chronic kidney disease, stage 4 (severe); I48.20 Chronic atrial fibrillation, unspecified; I48.92 Unspecified atrial flutter; E87.1 Hypo-osmolality and hyponatremia; E11.22 Type 2 diabetes mellitus with diabetic chronic kidney disease; Z95.810 Presence of automatic (implantable) cardiac defibrillator; I48.0 Paroxysmal atrial fibrillation; I27.20 Pulmonary hypertension, unspecified; I50.84 End stage heart failure; I08.3 Combined rheumatic disorders of mitral, aortic and tricuspid valves; I42.0 Dilated cardiomyopathy; R34 Anuria and oliguria; D69.6 Thrombocytopenia, unspecified; E03.9 Hypothyroidism, unspecified; Z79.890 Hormone replacement therapy; D63.1 Anemia in chronic kidney disease; I08.0 Rheumatic disorders of both mitral and aortic valves; E87.70 Fluid overload, unspecified; E78.5 Hyperlipidemia, unspecified; K76.9 Liver disease, unspecified; I25.2 Old myocardial infarction; I49.3 Ventricular premature depolarization; Z79.82 Long term (current) use of aspirin; M10.9 Gout, unspecified; Z82.49 Family history of ischemic heart disease and other diseases of the circulatory system; Z79.899 Other long term (current) drug therapy; Z96.653 Presence of artificial knee joint, bilateral; Z87.891 Personal history of nicotine dependence; Z98.61 Coronary angioplasty status; Z99.2 Dependence on renal dialysis
CPT/HCPCS: 36415; 36558; 51702; 71046; 76604; 76937; 77001; 80048; 80053; 83735; 84100; 84439; 84443; 85025; 85027; 86706; 87340; 90935; 93005; 93306; 94760; 96374; 96375; 99285

== ENCOUNTER → 2023-06-29 | Outpatient (CLI) | payer MEDICARE ==
--- NOTE | 2023-06-29 09:24 | US ---
EXAMINATION TYPE: US liver DATE OF EXAM: 06/29/2023 COMPARISON: NONE CLINICAL INDICATION: Male, 82 years old with history of K74.60 CIRRHOSIS OF LIVER; cirrhosis TECHNIQUE: Multiple sonographic images of the right upper quadrant are obtained. 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 Ascites.
== END | disposition home or self-care (01) ==
LOC: RADUSWWP 07:58
PROVIDERS: ATTEND Internal Medicine Gastroenterology
DX: K74.60 Unspecified cirrhosis of liver (principal); N28.1 Cyst of kidney, acquired; R18.8 Other ascites
CPT/HCPCS: 76705

== ENCOUNTER 2023-07-28 08:39 | Day surgery (SDC) | payer MEDICARE ==
[2023-07-28 09:20] LABS: Mean Platelet Volume 8.9; Platelet Count 155 k/uL (150-450)
[2023-07-28 09:29] LABS: Prothrombin Time 11.2 sec (10.0-12.5)
[2023-07-28 09:31] VITALS: RESP 16; TEMP 97.7
[2023-07-28 09:32] LABS: African American GFR (CKD) 30 (>60 ml/min/1.73 sqM); Non-African American GFR(CKD) 26 (>60 ml/min/1.73 sqM)
[2023-07-28] MEDS: ALBUMIN HUMAN 25% 50 ML in EMPTY BAG 1 BAG IVPB SCH ×4 (09:47→10:56)
[2023-07-28 11:09] VITALS: BP 109/61; PULSE 71
--- NOTE | 2023-08-01 09:28 | US ---
EXAMINATION TYPE: US paracentesis abd w/image DATE OF EXAM: 07/28/2023 10:26 AM CLINICAL INDICATION:Male, 82 years old with history of R18.8 ascites; COMPARISON: 06/19/2023 ATTENDING: Dr. Frank Sanchez PROCEDURE: Informed consent was obtained. The risks of the procedure were extensively explained incl uding risk of damage to surrounding bowel with perforation and need for additional procedures. Proced ure was performed in the ultrasound procedure suite. Ultrasound imaging of the abdomen demonstrate as citic fluid. An appropriate access site was localized to the right lower abdomen. Timeout was taken p er protocol. The skin was prepped and draped in the usual sterile fashion and then locally anesthetiz ed with 1% lidocaine. The peritoneal cavity was then accessed via a 5-Albanian one-step needle/cathete r. Approximately 8100 cc of clear straw-colored fluid was obtained. Postprocedural imaging of the ab domen demonstrate a minimal amount of abdominal fluid. Patient tolerated procedure well without immediate complication. Hemostasis at the procedural site w as obtained with a sterile bandage placed. The patient was monitored in the holding area following th e procedure and was subsequently discharged in stable condition. IMPRESSION: Ultrasound guided paracentesis, with approximately 8100 cc of clear straw-colored fluid drained. No i mmediate complications were evident.
== END 2023-07-28 11:20 | disposition home or self-care (01) ==
LOC: RADPROMAIN 08:39
PROVIDERS: ATTEND Internal Medicine Gastroenterology
DX: R18.8 Other ascites (principal)
CPT/HCPCS: 82565; 85049; 85610; 36415; 49083; P9047

== ENCOUNTER 2023-08-25 11:48 | Day surgery (SDC) | payer MEDICARE ==
[2023-08-25 12:52] LABS: Mean Platelet Volume 8.2; Platelet Count 163 k/uL (150-450)
[2023-08-25 12:58] LABS: African American GFR (CKD) 20 (>60 ml/min/1.73 sqM); Non-African American GFR(CKD) 18 (>60 ml/min/1.73 sqM)
[2023-08-25 13:04] LABS: Prothrombin Time 11.4 sec (10.0-12.5)
[2023-08-25 13:07] VITALS: RESP 16; TEMP 97.9
[2023-08-25] MEDS: ALBUMIN HUMAN 25% 50 ML in EMPTY BAG 1 BAG IVPB SCH ×4 (13:39→14:28)
--- NOTE | 2023-08-25 14:58 | US ---
EXAMINATION TYPE: US paracentesis abd w/image DATE OF EXAM: 08/25/2023 2:20 PM CLINICAL INDICATION:Male, 82 years old with history of R18.8 OTHER ASCITES; COMPARISON: 07/28/2023 ATTENDING: Dr. Frank Sanchez PROCEDURE: Informed consent was obtained. The risks of the procedure were extensively explained incl uding risk of damage to surrounding bowel with perforation and need for additional procedures. Proced ure was performed in the ultrasound procedure suite. Ultrasound imaging of the abdomen demonstrate as citic fluid. An appropriate access site was localized to the right lower abdomen. Timeout was taken p er protocol. The skin was prepped and draped in the usual sterile fashion and then locally anesthetiz ed with 1% lidocaine. The peritoneal cavity was then accessed via a 5-Urdu one-step needle/cathete r. Approximately 6100 cc of clear straw-colored fluid was obtained. Postprocedural imaging of the a bdomen demonstrate a minimal amount of abdominal fluid. Patient tolerated procedure well without immediate complication. Hemostasis at the procedural site w as obtained with a sterile bandage placed. The patient was monitored in the holding area following th e procedure and was subsequently discharged in stable condition. IMPRESSION: Ultrasound guided paracentesis, with approximately 6100 cc of clear straw-colored fluid drained. N o immediate complications were evident.
[2023-08-25 15:18] VITALS: BP 106/62; PULSE 70
== END 2023-08-25 14:40 | disposition home or self-care (01) ==
LOC: RADPROMAIN 11:48
PROVIDERS: ATTEND Internal Medicine Gastroenterology
DX: R18.8 Other ascites (principal)
CPT/HCPCS: 82565; 85049; 85610; 36415; 49083; P9047

== ENCOUNTER → 2023-09-11 | Day surgery (SDC) | payer MEDICARE ==
[~2023-09-11] MED LIST changes: +ETOMIDATE 2 MG/ML 10 ML VIAL ONE; +GLYCOPYRROLATE 0.2 MG/ML 2 ML VIAL ONE; +HYDROcodone/APAP 5-325MG 1 EACH TAB PO PRN; +LACTATED RINGERS 1,000 ML IV SCH; +LIDOCAINE 1% (10MG/ML) FOR IV START INTRADERMA PRN; +LIDOCAINE 1% INJ 10MG/ML (20 ML MDV) ONE; +NALOXONE 0.4 MG/ML 1 ML VIAL IV PRN; +NEOSTIGMINE 1 MG/ML 10 ML VIAL ONE; +ONDANSETRON 4 MG/2 ML VIAL IVP ONE; +ROCURONIUM 10 MG/ML (5 ML VIAL) IV ONE; +SUCCINYLCHOLINE CHLORIDE 200 MG/10 ML VIAL IV ONE; -ceFAZolin 1,000 MG in SODIUM CHLORIDE 0.9% IRRIGATIO 250 ML IRRIGATION ONE; -ceFAZolin 2 GM in SODIUM CHLORIDE 0.9% 100 ML IVPB ONE; +fentaNYL (PF) 50 MCG/ML 2 ML AMP IV PRN; +fentaNYL (PF) 50 MCG/ML 2 ML AMP ONE
[2023-09-11 10:29] LABS: Glucose,Whole Blood 96 mg/dL (70-110)
[2023-09-11] MEDS: ACETAMINOPHEN TAB 500 MG TAB PO PRN (10:35)
[2023-09-11] MEDS: ONDANSETRON 4 MG/2 ML VIAL IVP ONE (10:35)
[2023-09-11 10:36] LABS: HCT 32.3 % (39.0-53.0); HGB 10.5 gm/dL (13.0-17.5); Hypochromasia Slight; MCH 33.4 pg (25.0-35.0); MCHC 32.3 g/dL (31.0-37.0); MCV 103.4 fL (80.0-100.0); Macrocytosis Slight; Mean Platelet Volume 8.3; Platelet Count 176 k/uL (150-450); RBC 3.13 m/uL (4.30-5.90); RDW 14.1 % (11.5-15.5); WBC 6.8 k/uL (3.8-10.6)
[2023-09-11] MEDS: SODIUM CHLORIDE 0.9% 1,000 ML IV ONE (10:36)
[2023-09-11] MEDS: DEXAMETHASONE SOD PHOSPHATE 4 MG/ML 1 ML VIAL IVP ONE (10:36)
[2023-09-11 10:48] LABS: African American GFR (CKD) 16 (>60 ml/min/1.73 sqM); Anion Gap 6 mmol/L; Blood Urea Nitrogen 59 mg/dL (9-20); Calcium 8.7 mg/dL (8.4-10.2); Carbon Dioxide 31 mmol/L (22-30); Chloride 100 mmol/L (98-107); Glucose 94 mg/dL (74-99); Non-African American GFR(CKD) 14 (>60 ml/min/1.73 sqM); Potassium 4.5 mmol/L (3.5-5.1); Sodium 137 mmol/L (137-145)
[2023-09-11] MEDS: HEPARIN SODIUM,PORCINE 5,000 UNIT/ML 1 ML VIAL SQ PRN (10:56)
[2023-09-11] MEDS: BUPIVACAINE (PF) 0.25% 10 ML VIAL SQ ONE (12:51)
--- NOTE | 2023-09-11 13:32 | P.OP ---
Date of Procedure: 09/11/23 Procedure(s) Performed: PREOPERATIVE DIAGNOSIS: Renal failure, ascites, umbilical hernia POSTOPERATIVE DIAGNOSIS: Same PROCEDURE: Peritoneal dialysis catheter insertion with repair umbilical hernia with umbillectomy SURGEON: Deepti EBL: Nicholas william ANESTHESIA: General all COMPLICATIONS: None OPERATIVE PROCEDURE: The patient was placed in the operative table in the supine position. The abdomen was prepped and draped in usual sterile fashion. Elliptical incision made around the umbilicus. Dissection through the subcutaneous tissues took place down to the level of the fascia. The fascial defect at the hernia only measured about 1 cm in diameter. The hernia sac was ligated at the level of the fascia. The umbilical skin and hernia sac were sent to pathology. The patient still has significant ascites present. 2.7 L of fluid was removed from the abdominal cavity at this point. Given the small size of the defect I decided to use the peritoneal opening here at the hernia site as our insertion site for the dialysis catheter. A pursestring using 0 Vicryl was placed on the hernia sac circumferentially. I then advanced the dialysis catheter into the pelvis over the stylette. No resistance was met. The pursestring was then tied down. The defect in the fascia was then closed using [id number] 0 Ethibond sutures on either side of the catheter insertion site. The catheter was then tunneled to the right lower quadrant exit site. The subcutaneous tissues were reapproximated using 2-0 and 3-0 Vicryl sutures. The catheter was connected to the 1 L bag of saline and approximated 300 mL of saline was easily introduced into the peritoneal cavity. The fluid was then allowed to evacuate. Additional ascites fluid was drained. I would estimate another 300 cc or so in the 1 L bag. The subcutaneous tissues reprepped using 3-0 Vicryl sutures and the skin using 4-0 Monocryl sutures. The outpatient dialysis adapter was applied to the end of the catheter. Sterile dressings were then applied after skin glue was placed over the incision. DISPOSITION: Stable to recovery room
[2023-09-11 14:05] VITALS: RESP 18; TEMP 98.3
[2023-09-11 15:05] VITALS: BP 102/54; PULSE 60
== END | disposition home or self-care (01) ==
LOC: OR 09:33
PROVIDERS: ATTEND Surgery
DX: N19 Unspecified kidney failure (principal); K42.9 Umbilical hernia without obstruction or gangrene; R18.8 Other ascites; I25.2 Old myocardial infarction; D64.9 Anemia, unspecified; I48.91 Unspecified atrial fibrillation; I13.0 Hypertensive heart and chronic kidney disease with heart failure and stage 1 through stage 4 chronic kidney disease, or unspecified chronic kidney disease; M10.9 Gout, unspecified; Z79.899 Other long term (current) drug therapy; Z95.810 Presence of automatic (implantable) cardiac defibrillator; Z96.653 Presence of artificial knee joint, bilateral; Z98.890 Other specified postprocedural states; Z82.49 Family history of ischemic heart disease and other diseases of the circulatory system; Z87.891 Personal history of nicotine dependence
CPT/HCPCS: 80048; 85027; 49591; 49083; 49421; J0330; J1644; J1100; J2710; J0690; J2405; J2001; J3010; J0665; 88302

== ENCOUNTER 2024-10-13 06:40 | Inpatient (IN) | payer MEDICARE ==
--- NOTE | 2024-10-13 07:11 | ED ---
SOB HPI - General Chief Complaint: Shortness of Breath Stated Complaint: SOB Time Seen by Provider: 10/13/24 06:43 Source: patient, EMS, RN notes reviewed Mode of arrival: EMS Limitations: no limitations - History of Present Illness Initial Comments: 83-year-old male presents emergency department via EMS chief complaint of cough congestion shortness of breath and weakness. Patient states that this has been worsening over the last 4 days. He admits to chills without known fever. Patient states that he has a wet sounding cough. He does have a history of cardiac disease, liver and kidney disease he does peritoneal dialysis. Patient states he did do his dialysis last night. He is on 2 different diuretics. Denies any leg pain leg swelling states he had no sick contacts but he states been having increasing nasal congestion and bodyaches along with his cough. - Related Data Home Medications Medication Instructions Recorded Confirmed Simvastatin [Zocor] 10 mg PO HS 07/09/14 09/11/23 Aspirin EC [Ecotrin Low Dose] 81 mg PO DAILY 09/05/16 09/11/23 Levothyroxine Sodium [Synthroid] 50 mcg PO HS 05/17/20 09/11/23 Febuxostat 40 mg PO DAILY 07/02/21 09/11/23 Multivitamins, Thera [Multivitamin 1 tab PO DAILY 07/02/21 09/11/23 (formulary)] Blood Builder Supplement 1 cap PO BID 06/29/23 09/11/23 Cyanocobalamin (Vitamin B-12) 1,000 mcg PO DAILY 06/29/23 09/11/23 [Vitamin B-12] Omeprazole 20 mg PO DAILY 06/29/23 09/11/23 carvediloL 25 mg PO BID 06/29/23 09/11/23 traMADol HCL 50 mg PO BID PRN 06/29/23 09/11/23 Previous Rx's Medication Instructions Recorded Acetaminophen Tab [Tylenol] 650 mg PO Q6HR PRN tab 07/09/23 Midodrine HCl [ProAmatine] 10 mg PO TID PRN #90 tab 07/09/23 Torsemide [Demadex] 40 mg PO DAILY #60 tab 07/09/23 Allergies Allergy/AdvReac Type Severity Reaction Status Date / Time No Known Allergies Allergy Verified 10/13/24 06:48 Review of Systems ROS Statement: Those systems with pertinent positive or pertinent negative responses have been documented in the HPI. ROS Other: All systems not noted in ROS Statement are negative. Past Medical History Past Medical History: Atrial Fibrillation, Blood Disorder, Dialysis, Hypertension, Liver Disease, Myocardial Infarction ([place]), Osteoarthritis (OA) Additional Past Medical History / Comment(s): See Dr Moreland H&P "borderline diabetic" does not watch diet, hx fx left wrist as child-did not heal right,"2 BULGING DICS AND 5 VERTEBRE ARE COMPRESSED", GOUT, ASBESTOES EXPOSURE THRU PAST WORK., hx ULCER ,gout, patient reports being placed on eliquis r/t a-fib (not on blood thinners per patient). ANEMIA, ascites, hemodialysis -. Last Myocardial Infarction Date:: UNK History of Any Multi-Drug Resistant Organisms: None Reported Past Surgical History: AICD, Heart Catheterization, Joint Replacement, Tonsillectomy Additional Past Surgical History / Comment(s): hussain knee replacements, HUSSAIN CAROTID ENDARTERECTOMY, paracentesis monthly Past Anesthesia/Blood Transfusion Reactions: No Reported Reaction Type of Cardiac Device: AICD Device Placement Date:: 2009 Past Psychological History: No Psychological Hx Reported Past Alcohol Use History: Rare - Past Family History Father Additional Family Medical History / Comment(s): KILLED BY A TRAIN WHEN PT WAS AGE 9 Mother Family Medical History: No Reported History Additional Family Medical History / Comment(s): open heart surgery Sister(s) Family Medical History: Myocardial Infarction ([place]) Additional Family Medical History / Comment(s): heart stents General Exam Limitations: no limitations General appearance: alert, in no apparent distress Head exam: Present: atraumatic, normocephalic, normal inspection Eye exam: Present: normal appearance, PERRL, EOMI. Absent: scleral icterus, conjunctival injection, periorbital swelling ENT exam: Present: normal exam, normal oropharynx, mucous membranes moist Neck exam: Present: normal inspection, full ROM. Absent: tenderness, meningismus, lymphadenopathy Respiratory exam: Present: rales. Absent: normal lung sounds bilaterally, respiratory distress, wheezes, rhonchi, stridor Cardiovascular Exam: Present: regular rate, normal rhythm, normal heart sounds. Absent: systolic murmur, diastolic murmur, rubs, gallop, clicks Course Vital Signs 10/13/24 10/13/24 06:44 08:22 Temperature 98.5 F 98 F Pulse Rate 70 71 Respiratory 16 18 Rate Blood Pressure 90/54 118/81 O2 Sat by Pulse 98 Oximetry Medical Decision Making - Medical Decision Making Was pt. sent in by a medical professional or institution (, ROMELIA, RELEASE OF INFORMATION SPECIALIST, urgent care, hospital, or usp...) When possible be specific @ -No Did you speak to anyone other than the patient for history (EMS, parent, family, police, friend...)? What history was obtained from this source @ -No Did you review nursing and triage notes (agree or disagree)? Why? @ -I reviewed and agree with nursing and triage notes Were old charts reviewed (outside hosp., previous admission, EMS record, old EKG, old radiological studies, urgent care reports/EKG's, usp records)? Report findings @ -No old charts were reviewed Differential Diagnosis (chest pain, altered mental status, abdominal pain women, abdominal pain men, vaginal bleeding, weakness, fever, dyspnea, syncope, headache, dizziness, GI bleed, back pain, seizure, CVA, palpatations, mental health, musculoskeletal)? @ -Differential Dyspnea: Coronary syndrome, arrhythmia, tamponade, asthma, COPD, pulmonary embolism, pneumonia, pneumothorax, pulmonary effusion, anaphylaxis, diabetic ketoacidosis, flailed chest, pulmonary contusion, diaphragmatic rupture, anemia, neuromuscular, this is not meant to be an all-inclusive list. EKG interpreted by me (3pts min.). @ -As above X-rays interpreted by me (1pt min.). @ -Chest x-ray shows mild pulm edema, pleural effusion CT interpreted by me (1pt min.). @ -None done U/S interpreted by me (1pt. min.). @ -None done What testing was considered but not performed or refused? (CT, X-rays, U/S, labs)? Why? @ -None What meds were considered but not given or refused? Why? @ -None Did you discuss the management of the patient with other professionals (professionals i.e. ROMELIA King, RELEASE OF INFORMATION SPECIALIST, lab, RT, psych nurse, social research assistant, electrocardiograph operator, teacher, promotions officer, trimming caser)? Give summary @ -EMH for admission Was smoking cessation discussed for >3mins.? @ -No Was critical care preformed (if so, how long)? @ -No Were there social determinants of health that impacted care today? How? (Homelessness, low income, unemployed, alcoholism, drug addiction, transportation, low edu. Level, literacy, decrease access to med. care, long-term, rehab)? @ -No Was there de-escalation of care discussed even if they declined (Discuss DNR or withdrawal of care, Hospice)? DNR status @ -No What co-morbidities impacted this encounter? (DM, HTN, Smoking, COPD, CAD, Cancer, CVA, ARF, Chemo, Hep., AIDS, mental health diagnosis, sleep apnea, morb id obesity)? @ -CKD, cardiac disease, liver disease Was patient admitted / discharged? Hospital course, mention meds given and route, prescriptions, significant lab abnormalities, going to OR and other pertinent info. @ -[Admitted patient's found to have influenza A oh patient has significant elevated BNP and pulmonary edema along with elevated troponin more likely related to renal disease will have repeat troponin, cardiology evaluation, nephrology evaluation was started on Tamiflu. Blood patient did have some diuresis. Undiagnosed new problem with uncertain prognosis? @ -No Drug Therapy requiring intensive monitoring for toxicity (Heparin, Nitro, Insulin, Cardizem)? @ -No Were any procedures done? @ -No Diagnosis/symptom? @ -Influenza a, CHF, elevated troponin, renal disease Acute, or Chronic, or Acute on Chronic? @ -Acute Uncomplicated (without systemic symptoms) or Complicated (systemic symptoms)? @ -Complicated Side effects of treatment? @ -No Exacerbation, Progression, or Severe Exacerbation? @ -No Poses a threat to life or bodily function? How? (Chest pain, [place], [place], pneumonia, PE, COPD, DKA, ARF, appy, cholecystitis, CVA, Diverticulitis, Homicidal, Suicidal, threat to staff... and all critical care pts) @ -Yes respiratory failure, risk to cardiac function - Lab Data Result diagrams: 10/13/24 07:05 10/13/24 07:05 Lab Results 10/13/24 10/13/24 10/13/24 Range/Units 06:53 07:05 07:05 WBC 8.1 (3.8-10.6) k/uL RBC 3.80 L (4.30-5.90) m/uL Hgb 12.7 L (13.0-17.5) gm/dL Hct 39.0 (39.0-53.0) % MCV 102.7 H (80.0-100.0) fL MCH 33.4 (25.0-35.0) pg MCHC 32.5 (31.0-37.0) g/dL RDW 15.4 (11.5-15.5) % Plt Count 163 (150-450) k/uL MPV 8.7 Neutrophils % 83 % Lymphocytes % 7 % Monocytes % 6 % Eosinophils % 2 % Basophils % 0 % Neutrophils # 6.8 (1.3-7.7) k/uL Lymphocytes # 0.5 L (1.0-4.8) k/uL Monocytes # 0.5 (0-1.0) k/uL Eosinophils # 0.2 (0-0.7) k/uL Basophils # 0.0 (0-0.2) k/uL Macrocytosis Slight PT 10.3 (10.0-12.5) sec INR 0.9 (<1.2) APTT 25.0 (22.0-30.0) sec Sodium (137-145) mmol/L Potassium (3.5-5.1) mmol/L Chloride (98-107) mmol/L Carbon Dioxide (22-30) mmol/L Anion Gap mmol/L BUN (9-20) mg/dL Creatinine (0.66-1.25) mg/dL Est GFR (CKD-EPI)AfAm (>60 ml/min/1.73 sqM) Est GFR (CKD-EPI)NonAf (>60 ml/min/1.73 sqM) Glucose (74-99) mg/dL Plasma Lactic Acid Julio (0.7-2.0) mmol/L Calcium (8.4-10.2) mg/dL Magnesium (1.6-2.3) mg/dL Total Bilirubin (0.2-1.3) mg/dL AST (17-59) U/L ALT (4-49) U/L Alkaline Phosphatase (38-126) U/L Troponin I (0.000-0.034) ng/mL NT-Pro-B Natriuret Pep pg/mL Total Protein (6.3-8.2) g/dL Albumin (3.5-5.0) g/dL Influenza Type A (PCR) Detected A (Not Detectd) Influenza Type B (PCR) Not Detected (Not Detectd) RSV (PCR) Not Detected (Not Detectd) SARS-CoV-2 (PCR) Not Detected (Not Detectd) 10/13/24 10/13/24 10/13/24 Range/Units 07:05 07:05 07:05 WBC (3.8-10.6) k/uL RBC (4.30-5.90) m/uL Hgb (13.0-17.5) gm/dL Hct (39.0-53.0) % MCV (80.0-100.0) fL MCH (25.0-35.0) pg MCHC (31.0-37.0) g/dL RDW (11.5-15.5) % Plt Count (150-450) k/uL MPV Neutrophils % % Lymphocytes % % Monocytes % % Eosinophils % % Basophils % % Neutrophils # (1.3-7.7) k/uL Lymphocytes # (1.0-4.8) k/uL Monocytes # (0-1.0) k/uL Eosinophils # (0-0.7) k/uL Basophils # (0-0.2) k/uL Macrocytosis PT (10.0-12.5) sec INR (<1.2) APTT (22.0-30.0) sec Sodium 127 L (137-145) mmol/L Potassium 3.8 (3.5-5.1) mmol/L Chloride 86 L (98-107) mmol/L Carbon Dioxide 29 (22-30) mmol/L Anion Gap 12 mmol/L BUN 48 H (9-20) mg/dL Creatinine 5.81 H (0.66-1.25) mg/dL Est GFR (CKD-EPI)AfAm 10 (>60 ml/min/1.73 sqM) Est GFR (CKD-EPI)NonAf 8 (>60 ml/min/1.73 sqM) Glucose 115 H (74-99) mg/dL Plasma Lactic Acid Julio 2.2 H* (0.7-2.0) mmol/L Calcium 8.6 (8.4-10.2) mg/dL Magnesium 2.1 (1.6-2.3) mg/dL Total Bilirubin 0.6 (0.2-1.3) mg/dL AST 31 (17-59) U/L ALT 18 (4-49) U/L Alkaline Phosphatase 103 (38-126) U/L Troponin I 0.117 H* (0.000-0.034) ng/mL NT-Pro-B Natriuret Pep 29460 pg/mL Total Protein 5.8 L (6.3-8.2) g/dL Albumin 3.4 L (3.5-5.0) g/dL Influenza Type A (PCR) (Not Detectd) Influenza Type B (PCR) (Not Detectd) RSV (PCR) (Not Detectd) SARS-CoV-2 (PCR) (Not Detectd) - EKG Data -: EKG Interpreted by Me EKG Comments: EKG performed at 6: 47 A-fib with a rate of 68 QRS 137 QT/QTc 408/426 Disposition Clinical Impression: Congestive heart failure, Influenza A, Elevated troponin Disposition: ADMITTED IP TO THIS HOSP Condition: Poor Referrals: Frank Rodrigues MD [Primary Care Provider] - 1-2 days Time of Disposition: 08:47
--- NOTE | 2024-10-13 07:31 | XR ---
EXAMINATION TYPE: XR chest 2V DATE OF EXAM: 10/13/2024 7:24 AM COMPARISON: Chest radiographs from 08/03/2023 TECHNIQUE: XR chest 2V Frontal and lateral views of the chest. CLINICAL INDICATION:Male, 83 years old with history of difficulty breathing; FINDINGS: Lungs/Pleura: Decreasing small right pleural effusion with associated atelectasis. No pneumothorax. S imilar mild diffuse interstitial prominence.. Heart/mediastinum: Cardiomediastinal silhouette is enlarged and stable. Single-lead cardiac conductio n device overlying the left hemithorax with lead projecting over the right ventricle. Musculoskeletal: No acute osseous pathology. Other: Interval removal of hemodialysis catheter. IMPRESSION: Decreasing small right pleural effusion with similar cardiomegaly and diffuse interstitial prominence . [facility] Gregorio Pleitez, , 10/13/2024 7:29 AM
[2024-10-13 07:34] LABS: Basophils % (A) 0 %; Eosinophils # (A) 0.2 k/uL (0-0.7); Eosinophils % (A) 2 %; HGB 12.7 gm/dL (13.0-17.5); Lymphocytes # (A) 0.5 k/uL (1.0-4.8); Lymphocytes % (A) 7 %; MCH 33.4 pg (25.0-35.0); MCHC 32.5 g/dL (31.0-37.0); MCV 102.7 fL (80.0-100.0); Macrocytosis Slight; Mean Platelet Volume 8.7; Monocytes # (A) 0.5 k/uL (0-1.0); Monocytes % (A) 6 %; Neutrophils # (A) 6.8 k/uL (1.3-7.7); Neutrophils % (A) 83 %; Platelet Count 163 k/uL (150-450); RDW 15.4 % (11.5-15.5); WBC 8.1 k/uL (3.8-10.6)
[2024-10-13 07:37] LABS: ALT 18 U/L (4-49); AST 31 U/L (17-59); African American GFR (CKD) 10 (>60 ml/min/1.73 sqM); Albumin 3.4 g/dL (3.5-5.0); Alkaline Phosphatase 103 U/L (38-126); Anion Gap 12 mmol/L; Blood Urea Nitrogen 48 mg/dL (9-20); Calcium 8.6 mg/dL (8.4-10.2); Carbon Dioxide 29 mmol/L (22-30); Chloride 86 mmol/L (98-107); Glucose 115 mg/dL (74-99); Magnesium 2.1 mg/dL (1.6-2.3); Non-African American GFR(CKD) 8 (>60 ml/min/1.73 sqM); Potassium 3.8 mmol/L (3.5-5.1); Sodium 127 mmol/L (137-145); Total Bilirubin 0.6 mg/dL (0.2-1.3); Total Protein 5.8 g/dL (6.3-8.2)
[2024-10-13 07:47] LABS: INR 0.9 (<1.2); Prothrombin Time 10.3 sec (10.0-12.5)
[2024-10-13 07:54] LABS: Influenza A Detected (Not Detectd); Influenza B Not Detected (Not Detectd); RSV Not Detected (Not Detectd)
[2024-10-13 08:01] LABS: NT-Pro-B-Type Natriuretic Pept 57500 pg/mL
[2024-10-13] MEDS ORDERED: NALOXONE 0.4 MG/ML 1 ML VIAL IV PRN (08:48)
[2024-10-13] MEDS: OSELTAMIVIR 30 MG CAP PO ONE (09:39)
[2024-10-13] MEDS: FUROSEMIDE 10 MG/ML 4 ML VIAL IV STA (09:40)
--- NOTE | 2024-10-13 11:02 | P.NPCON ---
History of Present Illness - Reason for Consult end stage renal disease - History of Present Illness Reason for consultation: End-stage renal disease History of present illness: Patient is a 83-year-old male seen in renal consultation for end-stage renal disease. Patient was seen and examined in the emergency room. He is maintained on peritoneal dialysis. Patient came to the hospital due to worsening cough. Patient states he is at the cough for over a week now and is nonproductive in nature. Patient states he is also been gaining water weight and did do a 4.25% exchange couple of days ago. He denies any abdominal pain. States dialysate has been clear. He is currently on room air. Hemodynamically stable. Denies fever. Does admit to chills. He did have body aches but now improved. Denies history of diabetes or coronary artery disease. No chest pain. He tested positive for influenza A. Denies any sick contacts. Vital signs are stable. General: No acute distress. HEENT: Head exam is unremarkable. LUNGS: No audible rhonchi or wheezes. HEART: Rate and Rhythm are regular. ABDOMEN: Nontender. EXTREMITITES: No edema. Past Medical History Past Medical History: Atrial Fibrillation, Blood Disorder, Dialysis, Hypertension, Liver Disease, Myocardial Infarction ([place]), Osteoarthritis (OA) Additional Past Medical History / Comment(s): See Dr Moreland H&Aries "borderline diabetic" does not watch diet, hx fx left wrist as child-did not heal right,"2 BULGING DICS AND 5 VERTEBRE ARE COMPRESSED", GOUT, ASBESTOES EXPOSURE THRU PAST WORK., hx ULCER ,gout, patient reports being placed on eliquis r/t a-fib (not on blood thinners per patient). ANEMIA, ascites, hemodialysis . Last Myocardial Infarction Date:: UNK History of Any Multi-Drug Resistant Organisms: None Reported Past Surgical History: AICD, Heart Catheterization, Joint Replacement, Tonsillectomy Additional Past Surgical History / Comment(s): hussain knee replacements, HUSSAIN CAROTID ENDARTERECTOMY, paracentesis monthly Past Anesthesia/Blood Transfusion Reactions: No Reported Reaction Type of Cardiac Device: AICD Device Placement Date:: 2009 Past Psychological History: No Psychological Hx Reported Past Alcohol Use History: Rare - Past Family History Father Additional Family Medical History / Comment(s): KILLED BY A TRAIN WHEN PT WAS AGE 9 Mother Family Medical History: No Reported History Additional Family Medical History / Comment(s): open heart surgery Sister(s) Family Medical History: Myocardial Infarction ([place]) Additional Family Medical History / Comment(s): heart stents Medications and Allergies Home Medications Medication Instructions Recorded Confirmed Type Simvastatin [Zocor] 10 mg PO DAILY 07/09/14 10/13/24 History Aspirin EC [Ecotrin Low Dose] 81 mg PO DAILY 09/05/16 10/13/24 History Levothyroxine Sodium [Synthroid] 50 mcg PO DAILY 05/17/20 10/13/24 History Febuxostat 40 mg PO DAILY 07/02/21 10/13/24 History Cyanocobalamin (Vitamin B-12) 1,000 mcg PO DAILY 06/29/23 10/13/24 History [Vitamin B-12] carvediloL 12.5 mg PO BID 06/29/23 10/13/24 History traMADol HCL 50 mg PO BID PRN 06/29/23 10/13/24 History Midodrine HCl [ProAmatine] 10 mg PO TID PRN #90 tab 07/09/23 10/13/24 Rx Calcium Acetate [Phoslo] 1,334 mg PO BID-W/MEALS 10/13/24 10/13/24 History Lactulose 10 gm PO DAILY PRN 10/13/24 10/13/24 History Potassium Chloride ER [K-Dur 10] 10 meq PO DAILY 10/13/24 10/13/24 History Renaplex-D 1 tab PO DAILY 10/13/24 10/13/24 History Torsemide [Demadex] 20 mg PO BID 10/13/24 10/13/24 History Allergies Allergy/AdvReac Type Severity Reaction Status Date / Time No Known Allergies Allergy Verified 10/13/24 10:18 Physical Exam Vitals: Vital Signs Temp Pulse Resp BP Pulse Ox 10/13/24 09:38 50 L 18 126/64 97 10/13/24 08:22 98 F 71 18 118/81 98 10/13/24 06:44 98.5 F 70 16 90/54 Intake and Output 10/12/24 10/13/24 10/13/24 22:59 06:59 14:59 Other: Weight 104.326 kg Results - Lab Results Most recent lab results Calcium 8.6 mg/dL (8.4-10.2) 10/13/24 07:05 Magnesium 2.1 mg/dL (1.6-2.3) 10/13/24 07:05 10/13/24 07:05 10/13/24 07:05 Assessment and Plan Plan: Assessment: 1. End-stage renal disease maintained on peritoneal dialysis. 2. Influenza A infection. On Tamiflu. 3. 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 4. Chronic hypotension maintained on midodrine outpatient. 5. 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 Plan: Start PD exchanges with 2.5 L every 6 hours with 2.5% dextrose solution. Check phosphorus level. Thank you for the consultation. I will continue to follow the patient with you during his hospital stay.
[2024-10-13] MEDS: ONDANSETRON 4 MG/2 ML VIAL IVP PRN (12:55)
[2024-10-13] MEDS: DIALYSIS (PERIT 2.5%) 2,500 ML 62.5 G/2,500 ML BAG INTRAPERIT SCH (13:51)
[2024-10-13] MEDS ORDERED: LACTULOSE 20 GM/30 ML CUP PO PRN (18:44)
--- NOTE | 2024-10-13 18:47 | P.HPIM ---
History of Present Illness H&P Date: 10/13/24 Chief Complaint: Shortness of breath 83-year-old male presents emergency department via EMS chief complaint of cough congestion shortness of breath and weakness. Patient states that this has been worsening over the last 4 days. He admits to chills without known fever. Dominique gould states that he has a wet sounding cough. He does have a history of cardiac disease, liver and kidney disease he does peritoneal dialysis. Patient states he did do his dialysis last night. He is on 2 different diuretics. Denies any leg pain leg swelling states he had no sick contacts but he states been having increasing nasal congestion and bodyaches along with his cough. Blood work completed in ED reveals a WBC of 8.1, hemoglobin of 12.7 and platelet count of 163, sodium 127, potassium 3.8, BUNs/creatinine of 48/5.81, and blood glucose of 115, lactic acid elevated at 2.2, troponin elevated at 0.117, BNP of 57,500 Viral screen is positive for influenza A PCR Chest x-ray reveals decreasing small right pleural effusion with similar cardiomegaly and diffuse interstitial prominence Review of Systems REVIEW OF SYSTEMS: CONSTITUTIONAL: No fever, no malaise, no fatigue. HEENT: No recent visual problems or hearing problems. Denied any sore throat. CARDIOVASCULAR: No chest pain, orthopnea, PND, no palpitations, no syncope. PULMONARY: No shortness of breath, no cough, no hemoptysis. GASTROINTESTINAL: No diarrhea, no nausea, no vomiting, no abdominal pain. NEUROLOGICAL: No headaches, no weakness, no numbness. HEMATOLOGICAL: Denies any bleeding or petechiae. GENITOURINARY: Denies any burning micturition, frequency, or urgency. MUSCULOSKELETAL/RHEUMATOLOGICAL: Denies any joint pain, swelling, or any muscle pain. ENDOCRINE: Denies any polyuria or polydipsia. The rest of the 14-point review of systems is negative. Past Medical History Past Medical History: Atrial Fibrillation, Blood Disorder, Dialysis, Hypertension, Liver Disease, Myocardial Infarction (SC), Osteoarthritis (OA) Additional Past Medical History / Comment(s): See Dr Moreland H&P "borderline diabetic" does not watch diet, hx fx left wrist as child-did not heal right,"2 BULGING DICS AND 5 VERTEBRE ARE COMPRESSED", GOUT, ASBESTOES EXPOSURE THRU PAST WORK., hx ULCER ,gout, patient reports being placed on eliquis r/t a-fib (not on blood thinners per patient). ANEMIA, ascites, hemodialysis . Last Myocardial Infarction Date:: UNK History of Any Multi-Drug Resistant Organisms: None Reported Past Surgical History: AICD, Heart Catheterization, Joint Replacement, Tonsillectomy Additional Past Surgical History / Comment(s): hussain knee replacements, HUSSAIN CAROTID ENDARTERECTOMY, paracentesis monthly Past Anesthesia/Blood Transfusion Reactions: No Reported Reaction Type of Cardiac Device: AICD Device Placement Date:: 2009 Past Psychological History: No Psychological Hx Reported Past Alcohol Use History: Rare - Past Family History Father Additional Family Medical History / Comment(s): KILLED BY A TRAIN WHEN PT WAS AGE 9 Mother Family Medical History: No Reported History Additional Family Medical History / Comment(s): open heart surgery Sister(s) Family Medical History: Myocardial Infarction (SC) Additional Family Medical History / Comment(s): heart stents Medications and Allergies Home Medications Medication Instructions Recorded Confirmed Type Simvastatin [Zocor] 10 mg PO DAILY 07/09/14 10/13/24 History Aspirin EC [Ecotrin Low Dose] 81 mg PO DAILY 09/05/16 10/13/24 History Levothyroxine Sodium [Synthroid] 50 mcg PO DAILY 05/17/20 10/13/24 History Febuxostat 40 mg PO DAILY 07/02/21 10/13/24 History Cyanocobalamin (Vitamin B-12) 1,000 mcg PO DAILY 06/29/23 10/13/24 History [Vitamin B-12] carvediloL 12.5 mg PO BID 06/29/23 10/13/24 History traMADol HCL 50 mg PO BID PRN 06/29/23 10/13/24 History Midodrine HCl [ProAmatine] 10 mg PO TID PRN #90 tab 07/09/23 10/13/24 Rx Calcium Acetate [Phoslo] 1,334 mg PO BID-W/MEALS 10/13/24 10/13/24 History Lactulose 10 gm PO DAILY PRN 10/13/24 10/13/24 History Potassium Chloride ER [K-Dur 10] 10 meq PO DAILY 10/13/24 10/13/24 History Renaplex-D 1 tab PO DAILY 10/13/24 10/13/24 History Torsemide [Demadex] 20 mg PO BID 10/13/24 10/13/24 History Allergies Allergy/AdvReac Type Severity Reaction Status Date / Time No Known Allergies Allergy Verified 10/13/24 10:18 Physical Exam Vitals: Vital Signs Temp Pulse Resp BP Pulse Ox 10/13/24 09:38 50 L 18 126/64 97 10/13/24 08:22 98 F 71 18 118/81 98 10/13/24 06:44 98.5 F 70 16 90/54 Intake and Output 10/12/24 10/13/24 10/13/24 22:59 06:59 14:59 Other: Weight 104.326 kg General appearance: alert, in no apparent distress Head exam: Present: atraumatic, normocephalic, normal inspection Eye exam: Present: normal appearance, PERRL, EOMI. Absent: scleral icterus, co njunctival injection, periorbital swelling ENT exam: Present: normal exam, normal oropharynx, mucous membranes moist Neck exam: Present: normal inspection, full ROM. Absent: tenderness, meningismus, lymphadenopathy Respiratory exam: Present: rales. Absent: normal lung sounds bilaterally, respiratory distress, wheezes, rhonchi, stridor Cardiovascular Exam: Present: regular rate, normal rhythm, normal heart sounds. Absent: systolic murmur, diastolic murmur, rubs, gallop, clicks Results CBC & Chem 7: 10/13/24 07:05 10/13/24 07:05 Labs: Abnormal Lab Results - Last 24 Hours (Table) 10/13/24 10/13/24 10/13/24 Range/Units 06:53 07:05 07:05 RBC 3.80 L (4.30-5.90) m/uL Hgb 12.7 L (13.0-17.5) gm/dL MCV 102.7 H (80.0-100.0) fL Lymphocytes # 0.5 L (1.0-4.8) k/uL Sodium 127 L (137-145) mmol/L Chloride 86 L (98-107) mmol/L BUN 48 H (9-20) mg/dL Creatinine 5.81 H (0.66-1.25) mg/dL Glucose 115 H (74-99) mg/dL Plasma Lactic Acid Julio (0.7-2.0) mmol/L Troponin I (0.000-0.034) ng/mL Total Protein 5.8 L (6.3-8.2) g/dL Albumin 3.4 L (3.5-5.0) g/dL Influenza Type A (PCR) Detected A (Not Detectd) 10/13/24 10/13/24 Range/Units 07:05 07:05 RBC (4.30-5.90) m/uL Hgb (13.0-17.5) gm/dL MCV (80.0-100.0) fL Lymphocytes # (1.0-4.8) k/uL Sodium (137-145) mmol/L Chloride (98-107) mmol/L BUN (9-20) mg/dL Creatinine (0.66-1.25) mg/dL Glucose (74-99) mg/dL Plasma Lactic Acid Julio 2.2 H* (0.7-2.0) mmol/L Troponin I 0.117 H* (0.000-0.034) ng/mL Total Protein (6.3-8.2) g/dL Albumin (3.5-5.0) g/dL Influenza Type A (PCR) (Not Detectd) Assessment and Plan Assessment: 1. Acute exacerbation CHF -BNP is elevated at 57,500; chest x-ray reveals increased interstitial markings -Patient received Lasix 40 mg IV in ED; we will continue with Lasix 40 mg IV every 8 hours -Cardiology is consulted; recommend 2D echo 2. Elevated troponin/NSTEMI; troponin elevated in setting of chronic kidney disease; patient has no complaint of chest pain; EKG does not reveal any acute ST or T wave changes; we will plan to trend troponin and hold off on IV heparin at this time -Cardiology is consulted; appreciate recommendations 3. Influenza A infection; patient is placed on Tamiflu 75 mg twice daily; continue with symptomatic treatment with antitussives and bronchodilators as needed 4. End-stage renal disease/PD; patient undergoes PD at home; nephrology is consulted 5. Hypertension; Coreg 12.5 mg twice daily 6. History of atrial fibrillation; patient is rate controlled on Coreg; not on any anticoagulation 7. Hypothyroidism; levothyroxine 50 mcg daily 8. Hyperlipidemia; Zocor 10 mg daily DVT prophylaxis; SCDs CODE STATUS; full code
[2024-10-13] MEDS: MIDODRINE 5 MG TAB PO PRN (19:18)
--- NOTE | 2024-10-13 19:53 | CONS ---
CONSULTATION CHIEF COMPLAINT: Elevated troponin. HISTORY OF PRESENT ILLNESS: Kevin is an 83-year-old gentleman with history of end-stage renal disease, on hemodialysis, permanent atrial fibrillation, severe LV systolic dysfunction, pulmonary hypertension, mitral and aortic regurgitation, who presents to the hospital primarily with symptoms of cough, shortness of breath, and not feeling well, and he tested positive for influenza A. We have been consulted because of mildly elevated troponin. His troponin elevation is related to the flu. He has an AICD in place. He has chronic atrial fibrillation, but was thought not to be a candidate for anticoagulation because of bleeding risk. At the time of my evaluation, he appears comfortable at rest. Vital signs are stable. PAST MEDICAL HISTORY: Significant for end-stage renal disease, on hemodialysis, permanent atrial fibrillation, dilated cardiomyopathy, status post AICD. MEDICATIONS: Include: 1. PhosLo. 2. K-Dur. 3. Demadex. 4. Zocor. 5. Carvedilol. 6. Synthroid. 7. B12. 8. Aspirin. ALLERGIES: No known drug allergies. FAMILY HISTORY: Negative for premature coronary artery disease. SOCIAL HISTORY: Negative for smoking issues or drug abuse. REVIEW OF SYSTEMS: 14 out of 14 review of systems has been performed. Pertinents are as documented. PHYSICAL EXAMINATION: VITAL SIGNS: Heart rate is 50 beats per minute, blood pressure is 136/64, respiratory rate is 18, O2 saturation is 97% on room air. NECK: There is no jugular venous distention. Carotid upstroke is normal. There is no bruit. CHEST: Reveals good air entry bilaterally. HEART: Reveals first and second heart sounds. No gallop. He has a systolic murmur at the apex. ABDOMEN: Soft. EXTREMITIES: Did not reveal any edema. Peripheral pulses are felt. LABORATORY DATA: Show hemoglobin of 12.7, platelet count is 163. Potassium is 3.8, BUN is 48, creatinine is 5.8. Influenza A is positive. ASSESSMENT: 1. Elevated troponin secondary to influenza. 2. Influenza A infection. 3. Dilated cardiomyopathy, status post AICD. 4. End-stage renal disease, on peritoneal dialysis. PLAN: The patient did not have a myocardial infarction and does not need any other evaluation for it at this time. We will check an echocardiogram in the morning. Continue with the supportive care. MMODL / IJN: [id number] /
[2024-10-13] MEDS: traMADol 50 MG TAB PO PRN (20:03)
[2024-10-13] MEDS: FUROSEMIDE 10 MG/ML 4 ML VIAL IV SCH (21:40)
[2024-10-13] MEDS: carvediloL 12.5 MG TAB PO SCH (21:41)
--- NOTE | 2024-10-14 07:27 | P.PN ---
Subjective 83-year-old male presents emergency department via EMS chief complaint of cough congestion shortness of breath and weakness. Patient states that this has been worsening over the last 4 days. He admits to chills without known fever. Patient states that he has a wet sounding cough. He does have a history of cardiac disease, liver and kidney disease he does peritoneal dialysis. Patient states he did do his dialysis last night. He is on 2 different diuretics. Denies any leg pain leg swelling states he had no sick contacts but he states been having increasing nasal congestion and bodyaches along with his cough. Blood work completed in ED reveals a WBC of 8.1, hemoglobin of 12.7 and platelet count of 163, sodium 127, potassium 3.8, BUNs/creatinine of 48/5.81, and blood glucose of 115, lactic acid elevated at 2.2, troponin elevated at 0.117, BNP of 57,500 Viral screen is positive for influenza A PCR Chest x-ray reveals decreasing small right pleural effusion with similar cardiomegaly and diffuse interstitial prominence 10/14 Patient presents because of cough nausea and generalized weakness secondary to influenza B infection. Also patient with mildly hyponatremic, his sodium is 127, he is a known case of end-stage renal disease on hemodialysis. He has low ejection fraction about 20% Troponin were elevated but patient with no chest pain most likely secondary to renal disease. He has evidence of fluid overload with chest x-ray showing cardiomegaly with mild right pleural effusion and diffuse interstitial prominence, I reviewed chest x-ray by myself and agree. Patient currently placed on IV Lasix 40 mg 3 times a day as well as Tamiflu and continued with his home medication Patient was admitted with nephrology and cardiology team consult Review of systems CONSTITUTIONAL: No fever, no malaise, no fatigue. HEENT: No recent visual problems or hearing problems. Denied any sore throat. GASTROINTESTINAL: No diarrhea, no vomiting, no abdominal pain. Normoactive bowel sounds. NEUROLOGICAL: No headaches, no weakness, no numbness. HEMATOLOGICAL: Denies any bleeding or petechiae. GENITOURINARY: Denies any burning micturition, frequency, or urgency. MUSCULOSKELETAL/RHEUMATOLOGICAL: Denies any joint pain, swelling, or any muscle pain. ENDOCRINE: Denies any polyuria or polydipsia. Active Medications Generic Name Dose Route Start Last Admin Trade Name Freq PRN Reason Stop Dose Admin Allopurinol 200 mg 03/17/25 09:00 Allopurinol 100 Mg Tab PO DAILY [facility] Aspirin 81 mg 10/14/24 09:00 Aspirin 81 Mg PO DAILY [facility] Atorvastatin Calcium 10 mg 10/14/24 09:00 Atorvastatin 10 Mg Tab PO DAILY [facility] Calcium Acetate 1,334 mg 10/14/24 07:30 Calcium Acetate 667 Mg Tab PO BID-W/MEALS [facility] Carvedilol 12.5 mg 10/13/24 21:00 10/13/24 21:41 Carvedilol 12.5 Mg Tab PO Not Given BID [facility] Cyanocobalamin 1,000 mcg 10/14/24 09:00 Cyanocobalamin 500 Mcg Tab PO DAILY [facility] Furosemide 40 mg 10/13/24 19:00 10/14/24 00:54 Furosemide 10 Mg/Ml 4 Ml Vial IV Not Given Q8HR [facility] Peritoneal Dialysis Solution 62.5 g in 2,500 mls @ 0 mls/hr 10/13/24 12:00 10/14/24 06:12 Delflex With 2.5% Dextrose (2,500 Ml) INTRAPERIT 1 mls/hr Q6HR [facility] Administration Protocol As Directed Lactulose 10 gm 10/13/24 18:44 Lactulose 20 Gm/30 Ml Cup PO DAILY PRN Constipation Levothyroxine Sodium 50 mcg 10/14/24 09:00 Levothyroxine 50 Mcg Tab PO DAILY [facility] Midodrine 10 mg 10/13/24 18:44 10/14/24 04:37 Midodrine 5 Mg Tab PO 10 mg TID PRN Administration BP <115 Multivitamins 1 each 10/14/24 09:00 Multivitamins, Thera 1 Each Tab PO DAILY [facility] Naloxone HCl 0.2 mg 10/13/24 08:48 Naloxone 0.4 Mg/Ml 1 Ml Vial IV Q2M PRN Opioid Reversal Ondansetron HCl 4 mg 10/13/24 08:48 10/13/24 20:27 Ondansetron 4 Mg/2 Ml Vial IVP 4 mg Q8HR PRN Administration Nausea And Vomiting Oseltamivir Phosphate 30 mg 10/15/24 18:00 Oseltamivir 30 Mg Cap PO 10/17/24 18:01 Q48H [facility] Protocol Potassium Chloride 10 meq 10/14/24 09:00 Potassium Chloride Er 10 Meq Tab.Er.Prt PO DAILY [facility] Tramadol HCl 50 mg 10/13/24 18:44 10/13/24 20:03 Tramadol 50 Mg Tab PO 50 mg BID PRN Administration Pain Objective - Vital Signs Vital signs: Vital Signs Temp 97.9 F 10/14/24 06:14 Pulse 61 10/14/24 06:14 Resp 16 10/14/24 06:14 BP 94/66 10/14/24 06:54 Pulse Ox 94 L 10/14/24 06:14 FiO2 Intake & Output 10/13/24 10/14/24 10/14/24 18:59 06:59 18:59 Intake Total 200 Balance 200 Intake: Oral 200 - Exam GENERAL: The patient is alert and oriented x3, not in any acute distress. Well developed, well nourished. HEENT: Pupils are round and equally reacting to light. EOMI. No scleral icterus. No conjunctival pallor. Normocephalic, atraumatic. No pharyngeal erythema. No thyromegaly. CARDIOVASCULAR: S1 and S2 present. No murmurs, rubs, or gallops. PULMONARY: Chest is clear to auscultation, no wheezing , no crackles. ABDOMEN: Soft, nontender, nondistended, normoactive bowel sounds. No palpable organomegaly. MUSCULOSKELETAL: No joint swelling or deformity. EXTREMITIES: No cyanosis, clubbing, or pedal edema. NEUROLOGICAL: Gross neurological examination did not reveal any focal deficits. SKIN: No rashes. no petechiae. - Labs CBC & Chem 7: 10/13/24 07:05 10/13/24 07:05 Labs: Abnormal Lab Results - Last 24 Hours (Table) 10/13/24 10/13/24 10/13/24 Range/Units 06:53 07:05 07:05 RBC 3.80 L (4.30-5.90) m/uL Hgb 12.7 L (13.0-17.5) gm/dL MCV 102.7 H (80.0-100.0) fL Lymphocytes # 0.5 L (1.0-4.8) k/uL Sodium 127 L (137-145) mmol/L Chloride 86 L (98-107) mmol/L BUN 48 H (9-20) mg/dL Creatinine 5.81 H (0.66-1.25) mg/dL Glucose 115 H (74-99) mg/dL Plasma Lactic Acid Julio (0.7-2.0) mmol/L Troponin I (0.000-0.034) ng/mL Total Protein 5.8 L (6.3-8.2) g/dL Albumin 3.4 L (3.5-5.0) g/dL Influenza Type A (PCR) Detected A (Not Detectd) 10/13/24 10/13/24 10/13/24 Range/Units 07:05 07:05 10:31 RBC (4.30-5.90) m/uL Hgb (13.0-17.5) gm/dL MCV (80.0-100.0) fL Lymphocytes # (1.0-4.8) k/uL Sodium (137-145) mmol/L Chloride (98-107) mmol/L BUN (9-20) mg/dL Creatinine (0.66-1.25) mg/dL Glucose (74-99) mg/dL Plasma Lactic Acid Julio 2.2 H* (0.7-2.0) mmol/L Troponin I 0.117 H* 0.130 H* (0.000-0.034) ng/mL Total Protein (6.3-8.2) g/dL Albumin (3.5-5.0) g/dL Influenza Type A (PCR) (Not Detectd) 10/13/24 10/13/24 Range/Units 10:31 16:06 RBC (4.30-5.90) m/uL Hgb (13.0-17.5) gm/dL MCV (80.0-100.0) fL Lymphocytes # (1.0-4.8) k/uL Sodium (137-145) mmol/L Chloride (98-107) mmol/L BUN (9-20) mg/dL Creatinine (0.66-1.25) mg/dL Glucose (74-99) mg/dL Plasma Lactic Acid Julio 2.3 H* (0.7-2.0) mmol/L Troponin I 0.121 H* (0.000-0.034) ng/mL Total Protein (6.3-8.2) g/dL Albumin (3.5-5.0) g/dL Influenza Type A (PCR) (Not Detectd) Assessment and Plan Assessment: , Combined both systolic with low ejection fraction 20% and diastolic 1. Acute exacerbation CHF -BNP is elevated at 57,500; chest x-ray reveals increased interstitial markings -Patient received Lasix 40 mg IV in ED; we will continue with Lasix 40 mg IV every 8 hours -Cardiology is consulted; recommend 2D echo 2. Elevated troponin/NSTEMI; troponin elevated in setting of chronic kidney disease; patient has no complaint of chest pain; EKG does not reveal any acute ST or T wave changes; we will plan to trend troponin and hold off on IV heparin at this time -Cardiology is consulted; appreciate recommendations 3. Influenza A infection; patient is placed on Tamiflu 75 mg twice daily; continue with symptomatic treatment with antitussives and bronchodilators as needed 4. End-stage renal disease/PD; patient undergoes PD at home; nephrology is consulted 5. Hypertension; Coreg 12.5 mg twice daily 6. History of atrial fibrillation; patient is rate controlled on Coreg; not on any anticoagulation 7. Hypothyroidism; levothyroxine 50 mcg daily 8. Hyperlipidemia; Zocor 10 mg daily 9. Hyponatremia and renal disease DVT prophylaxis; SCDs GI prophylaxis: Pepcid CODE STATUS; full code
[2024-10-14 07:54] LABS: Basophils % (A) 0 %; Eosinophils # (A) 0.1 k/uL (0-0.7); Eosinophils % (A) 2 %; HCT 36.7 % (39.0-53.0); HGB 11.7 gm/dL (13.0-17.5); Lymphocytes # (A) 0.5 k/uL (1.0-4.8); Lymphocytes % (A) 7 %; MCHC 31.8 g/dL (31.0-37.0); MCV 103.7 fL (80.0-100.0); Macrocytosis Moderate; Mean Platelet Volume 8.5; Monocytes # (A) 0.5 k/uL (0-1.0); Monocytes % (A) 6 %; Neutrophils # (A) 6.3 k/uL (1.3-7.7); Neutrophils % (A) 84 %; Platelet Count 165 k/uL (150-450); RBC 3.54 m/uL (4.30-5.90); RDW 15.2 % (11.5-15.5); WBC 7.5 k/uL (3.8-10.6)
[2024-10-14 08:08] LABS: ALT 17 U/L (4-49); AST 29 U/L (17-59); African American GFR (CKD) 9 (>60 ml/min/1.73 sqM); Albumin 2.9 g/dL (3.5-5.0); Alkaline Phosphatase 103 U/L (38-126); Anion Gap 10 mmol/L; Blood Urea Nitrogen 51 mg/dL (9-20); Calcium 7.6 mg/dL (8.4-10.2); Carbon Dioxide 29 mmol/L (22-30); Chloride 86 mmol/L (98-107); Glucose 134 mg/dL (74-99); Non-African American GFR(CKD) 8 (>60 ml/min/1.73 sqM); Potassium 3.1 mmol/L (3.5-5.1); Sodium 125 mmol/L (137-145); Total Bilirubin 0.6 mg/dL (0.2-1.3); Total Protein 5.2 g/dL (6.3-8.2)
[2024-10-14] MEDS: MULTIVITAMINS, THERA 1 EACH TAB PO SCH (08:15)
[2024-10-14] MEDS: ATORVASTATIN 10 MG TAB PO SCH (08:15)
[2024-10-14] MEDS: CYANOCOBALAMIN 500 MCG TAB PO SCH (08:15)
[2024-10-14] MEDS: ASPIRIN 81 MG PO SCH (08:15)
[2024-10-14] MEDS: POTASSIUM CHLORIDE ER 10 MEQ TAB.ER.PRT PO SCH (08:15)
[2024-10-14] MEDS: LEVOTHYROXINE 50 MCG TAB PO SCH (08:15)
[2024-10-14] MEDS: FAMOTIDINE 20 MG/2 ML VIAL IV SCH (08:15)
[2024-10-14] MEDS: CALCIUM ACETATE 667 MG TAB PO SCH (08:16)
[2024-10-14] MEDS: allopurinoL 100 MG TAB PO SCH (08:16)
[2024-10-14] MEDS: TORSEMIDE 20 MG TAB PO SCH (08:20)
--- NOTE | 2024-10-14 11:19 | P.PN ---
Subjective HISTORY OF PRESENT ILLNESS: Patient examined this morning in the emergency room. Patient currently denies chest pain or pressure. He denies shortness of breath. He complains of back pain this morning. Vital signs are stable. PHYSICAL EXAM: VITAL SIGNS: Reviewed. GENERAL: Well-developed in no acute distress. NECK: Supple. No JVD or thyromegaly LUNGS: Respirations even and unlabored. Lungs essentially clear to auscultation bilaterally. HEART: Irregular rate and rhythm. S1 and S2 heard. EXTREMITIES: Normal range of motion. No clubbing or cyanosis. Peripheral pulses intact. No lower extremity edema ASSESSMENT: Acute influenza A Elevated troponins, type II OH secondary to acute infectious process/influenza, no evidence of acute coronary syndrome History of dilated cardiomyopathy status post AICD End-stage renal disease on peritoneal dialysis PLAN: Discontinue IV Lasix. Begin oral Demadex 40 mg daily Continue additional cardiac medications including aspirin, lisinopril, and carvedilol No further inpatient recommendations from a cardiac standpoint We will sign off. Please reconsult if needed. Nurse practitioner note has been reviewed by physician. Signing provider agrees with the documented findings, assessment, and plan of care documented by METAL DRILLING MACHINE OPERATOR as a scribe. Objective - Vital Signs Vital signs: Vital Signs Temp 97.9 F 10/14/24 06:14 Pulse 63 10/14/24 10:53 Resp 22 10/14/24 10:53 BP 99/49 10/14/24 10:53 Pulse Ox 97 10/14/24 10:53 FiO2 Intake & Output 10/13/24 10/14/24 10/14/24 18:59 06:59 18:59 Intake Total 200 Balance 200 Intake: Oral 200 - Labs CBC & Chem 7: 10/14/24 07:25 10/14/24 07:25 Labs: Abnormal Lab Results - Last 24 Hours (Table) 10/13/24 10/13/24 10/14/24 Range/Units 10:31 16:06 07:25 RBC 3.54 L (4.30-5.90) m/uL Hgb 11.7 L (13.0-17.5) gm/dL Hct 36.7 L (39.0-53.0) % MCV 103.7 H (80.0-100.0) fL Lymphocytes # 0.5 L (1.0-4.8) k/uL Sodium (137-145) mmol/L Potassium (3.5-5.1) mmol/L Chloride (98-107) mmol/L BUN (9-20) mg/dL Creatinine (0.66-1.25) mg/dL Glucose (74-99) mg/dL Calcium (8.4-10.2) mg/dL Troponin I 0.130 H* 0.121 H* (0.000-0.034) ng/mL Total Protein (6.3-8.2) g/dL Albumin (3.5-5.0) g/dL 10/14/24 Range/Units 07:25 RBC (4.30-5.90) m/uL Hgb (13.0-17.5) gm/dL Hct (39.0-53.0) % MCV (80.0-100.0) fL Lymphocytes # (1.0-4.8) k/uL Sodium 125 L (137-145) mmol/L Potassium 3.1 L (3.5-5.1) mmol/L Chloride 86 L (98-107) mmol/L BUN 51 H (9-20) mg/dL Creatinine 6.07 H (0.66-1.25) mg/dL Glucose 134 H (74-99) mg/dL Calcium 7.6 L (8.4-10.2) mg/dL Troponin I (0.000-0.034) ng/mL Total Protein 5.2 L (6.3-8.2) g/dL Albumin 2.9 L (3.5-5.0) g/dL
[2024-10-14] MEDS: HYDROcodone/APAP 5-325MG 1 EACH TAB PO STA (12:33)
--- NOTE | 2024-10-14 15:28 | P.PN ---
Subjective Patient is seen for follow-up for end-stage renal disease. Admitted to the hospital with cough and weakness and tested positive for influenza A. Currently maintained on 2.5% solution acute 6 hours. No significant complaints today. Blood pressure is low which is not new and patient is maintained on midodrine as outpatient. Objective - Vital Signs Vital signs: Vital Signs Temp 97.9 F 10/14/24 06:14 Pulse 54 L 10/14/24 14:03 Resp 18 10/14/24 14:03 BP 116/61 10/14/24 15:11 Pulse Ox 96 10/14/24 14:03 FiO2 Intake & Output 10/13/24 10/14/24 10/14/24 18:59 06:59 18:59 Intake Total 200 Balance 200 Intake: Oral 200 - Exam Patient is awake, comfortable, no acute distress. Examination of the heart S1 and S2 Examination of the lungs bilateral breath sounds are heard Abdomen is soft nontender Examination of lower extremities shows no significant edema CERTIFIED PATHOLOGY ASSISTANT exam grossly intact - Labs CBC & Chem 7: 10/14/24 07:25 10/14/24 07:25 Labs: Abnormal Lab Results - Last 24 Hours (Table) 10/13/24 10/14/24 10/14/24 Range/Units 16:06 07:25 07:25 RBC 3.54 L (4.30-5.90) m/uL Hgb 11.7 L (13.0-17.5) gm/dL Hct 36.7 L (39.0-53.0) % MCV 103.7 H (80.0-100.0) fL Lymphocytes # 0.5 L (1.0-4.8) k/uL Sodium 125 L (137-145) mmol/L Potassium 3.1 L (3.5-5.1) mmol/L Chloride 86 L (98-107) mmol/L BUN 51 H (9-20) mg/dL Creatinine 6.07 H (0.66-1.25) mg/dL Glucose 134 H (74-99) mg/dL Calcium 7.6 L (8.4-10.2) mg/dL Troponin I 0.121 H* (0.000-0.034) ng/mL Total Protein 5.2 L (6.3-8.2) g/dL Albumin 2.9 L (3.5-5.0) g/dL Assessment and Plan Assessment: 1. End-stage renal disease maintained on peritoneal dialysis. 2. Influenza A infection. On Tamiflu. 3. 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 4. Chronic hypotension maintained on midodrine outpatient. 5. 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 Plan: Continue with current PD exchanges Continue with midodrine Repeat labs in a.m.
--- NOTE | 2024-10-15 07:40 | CA ---
Transthoracic Echo Report Name: Kevin Arechiga Age: 83 Gender: M : 1940 Exam Date: 10/14/2024 14:40 Exam Location: [facility] Ht (in): 72 Wt (lb): 230 Ordering Physician: David Grover MD ([id number]) Attending/Referring Phys: Reilly WINKLER [employer] Parul Boland RDCS Procedure CPT: Indications: elevated trop Cardiac Hx: Technical Quality: Fair Contrast 1: Total Dose (mL): Contrast 2: Total Dose (mL): MEASUREMENTS (Male / Female) Normal Values 2D ECHO LV Diastolic Diameter PLAX 4.8 cm 4.2 - 5.9 / 3.9 - 5.3 cm LV Systolic Diameter PLAX 3.9 cm IVS Diastolic Thickness 1.0 cm 0.6 - 1.0 / 0.6 - 0.9 cm LVPW Diastolic Thickness 1.2 cm 0.6 - 1.0 / 0.6 - 0.9 cm LV Relative Wall Thickness 0.5 RV Internal Dim ED PLAX 2.3 cm LA Systolic Diameter LX 5.3 cm 3.0 - 4.0 / 2.7 - 3.8 cm LV Diastolic Volume MOD BP 135.4 cm??? 67 - 155 / 56 - 104 cm??? LV Systolic Volume MOD BP 108.7 cm??? - 58 / 19 - 49 cm??? LV Ejection Fraction MOD BP 19.7 % >= 55 % LV Cardiac Index MOD BP 664.9 cm???/min???m??? LV Diastolic Volume MOD 4C 132.0 cm??? LV Systolic Volume MOD 4C 103.7 cm??? LV Ejection Fraction MOD 4C 21.4 % LV Cardiac Index MOD 4C 703.4 cm???/min???m??? LV Diastolic Length 4C 8.9 cm LV Systolic Length 4C 8.4 cm LV Diastolic Volume MOD 2C 130.6 cm??? LV Systolic Volume MOD 2C 108.2 cm??? LV Ejection Fraction MOD 2C 17.1 % LV Cardiac Index MOD 2C 557.0 cm???/min???m??? LV Diastolic Length 2C 8.4 cm LV Systolic Length 2C 8.0 cm LA Volume 115.7 cm??? 18 - 58 / 22 - 52 cm??? LA Volume Index 49.7 cm???/m??? 16 - 28 cm???/m??? M-MODE Aortic Root Diameter MM 4.3 cm LA Systolic Diameter MM 4.2 cm LA Ao Ratio MM 1.0 AV Cusp Separation MM 1.8 cm DOPPLER AI Peak Velocity 307.0 cm/s AI Peak Gradient 37.7 mmHg AI Pressure Half Time 1259.8 ms TR Peak Velocity 282.2 cm/s TR Peak Gradient 31.9 mmHg Right Ventricular Systolic Press 41.9 mmHg FINDINGS Left Ventricle Left ventricular ejection fraction is estimated at 35 %. Severely increased left ventricular systolic volume. Severely decreased left ventricular ejection fraction. Severely reduced global left ventricular systolic function. Right Ventricle Mild right ventricular dilatation. Mild pulmonary hypertension. Right Atrium Severe right atrial dilatation. Left Atrium Severely increased left atrial diameter. Severely increased left atrial volume. Moderately increased left atrial area. Mitral Valve Structurally normal mitral valve. Mild mitral regurgitation. No mitral stenosis. Aortic Valve Trileaflet aortic valve. Mild aortic regurgitation. No aortic stenosis. Tricuspid Valve Structurally normal tricuspid valve. Pulmonic Valve Structurally normal pulmonic valve. Trace pulmonic regurgitation. No pulmonic stenosis. Pericardium No pericardial or pleural effusion. Aorta Moderate aortic dilatation at the level of the sinuses of valsalva (root). CONCLUSIONS LV size is normal with a global decrease in contractility estimate ejection fraction of about 35%. Both atria are enlarged. Mild mitral tricuspid and aortic insufficiency. Mild pulmonary hypertension. No pericardial effusion. Slightly dilated ascending aorta Previewed by: Dr. Lamont Santiago MD (Electronically Signed) Final Date: 15 October 2024 07:39
[2024-10-15] MEDS: guaiFENesin 600 MG TABLET.ER PO SCH (11:23)
[2024-10-15] MEDS: BENZONATATE 100 MG CAP PO PRN (12:42)
[2024-10-15] MEDS: DIALYSIS (PERIT 4.25%) 2500 ML 106.25 G/2,500 ML BAG INTRAPERIT SCH (12:45)
[2024-10-15] MEDS: IPRATROPIUM-ALBUTEROL 3 ML NEB INHALATION SCH (13:07)
--- NOTE | 2024-10-15 14:32 | P.PN ---
Subjective Progress Note Date: 10/15/24 83-year-old male presents emergency department via EMS chief complaint of cough congestion shortness of breath and weakness. Patient states that this has been worsening over the last 4 days. He admits to chills without known fever. Patient states that he has a wet sounding cough. He does have a history of cardiac disease, liver and kidney disease he does peritoneal dialysis. Patient states he did do his dialysis last night. He is on 2 different diuretics. Denies any leg pain leg swelling states he had no sick contacts but he states been having increasing nasal congestion and bodyaches along with his cough. Blood work completed in ED reveals a WBC of 8.1, hemoglobin of 12.7 and platelet count of 163, sodium 127, potassium 3.8, BUNs/creatinine of 48/5.81, and blood glucose of 115, lactic acid elevated at 2.2, troponin elevated at 0.117, BNP of 57,500 Viral screen is positive for influenza A PCR Chest x-ray reveals decreasing small right pleural effusion with similar cardiomegaly and diffuse interstitial prominence 10/14 Patient presents because of cough nausea and generalized weakness secondary to influenza B infection. Also patient with mildly hyponatremic, his sodium is 127, he is a known case of end-stage renal disease on hemodialysis. He has low ejection fraction about 20% Troponin were elevated but patient with no chest pain most likely secondary to renal disease. He has evidence of fluid overload with chest x-ray showing cardiomegaly with mild right pleural effusion and diffuse interstitial prominence, I reviewed chest x-ray by myself and agree. Patient currently placed on IV Lasix 40 mg 3 times a day as well as Tamiflu and continued with his home medication Patient was admitted with nephrology and cardiology team consult 10/15. Patient seen and examined. Family at the bedside. Patient complains of congestion, gets short of breath on exertion. REVIEW OF SYSTEMS: CONSTITUTIONAL: No fever, no malaise,. CARDIOVASCULAR: No chest pain, no palpitations, no syncope. PULMONARY: As mentioned above GASTROINTESTINAL: No diarrhea, no nausea, no vomiting, no abdominal pain. NEUROLOGICAL: No headaches, no weakness, PHYSICAL EXAMINATION: GENERAL: The patient is alert and oriented x3, not in any acute distress. Well developed, well nourished. HEENT: Pupils are round and equally reacting to light. EOMI. No scleral icterus. No conjunctival pallor. Normocephalic, atraumatic. No pharyngeal erythema. No thyromegaly. CARDIOVASCULAR: S1 and S2 present. No murmurs, rubs, or gallops. PULMONARY: Coarse breath sounds bilaterally, expiratory rhonchi audible ABDOMEN: Soft, nontender, nondistended, normoactive bowel sounds. No palpable organomegaly. MUSCULOSKELETAL: No joint swelling or deformity. EXTREMITIES: No cyanosis, clubbing, or pedal edema. NEUROLOGICAL: Gross neurological examination did not reveal any focal deficits. SKIN: No rashes. Assessment and plan Elevated troponins, type II MA secondary to acute infectious process/influenza, no evidence of acute coronary syndrome Acute on chronic diastolic and systolic heart failure History of dilated cardiomyopathy status post AICD Influenza A infection End-stage renal disease on peritoneal dialysis History of hypertension History of atrial fibrillation Hypothyroidism Hyperlipidemia Hyponatremia Monitor vital signs Monitor CBC Monitor CMP Continue telemetry monitoring Encourage use of incentive spirometer Strict I's and O's, daily weights Continue peritoneal dialysis per nephrology Continue Tamiflu Continue Synthroid Continue midodrine Continue aspirin, Lipitor Continue torsemide Nephrology following Cardiology following Labs and medication were reviewed.. Continue same treatment. Continue with symptomatic treatment. Resume home medication. Monitor labs and vitals. DVT and GI prophylaxis. Further recommendations as per clinical course of the patient Dictation was produced using [employer] dictation software. please excuse any grammatical, word or spelling errors. Objective - Vital Signs Vital signs: Vital Signs Temp 98.4 F 10/15/24 05:35 Pulse 69 10/15/24 05:35 Resp 16 10/15/24 05:35 BP 97/58 10/15/24 06:51 Pulse Ox 94 L 10/15/24 05:35 FiO2 Intake & Output 10/14/24 10/15/24 10/15/24 18:59 06:59 18:59 Output Total 0 Balance 0 Weight 104.1 kg Output: Urine 0 Other: Voiding Method CAPD - Labs CBC & Chem 7: 10/14/24 07:25 10/14/24 07:25
[2024-10-15] MEDS: HYDROcodone/APAP 5-325MG 1 EACH TAB PO PRN (15:45)
--- NOTE | 2024-10-15 17:09 | P.PN ---
Subjective Patient is seen for follow-up for end-stage renal disease. Admitted to the hospital with cough and weakness and tested positive for influenza A. Currently maintained on 2.5% solution acute 6 hours. Complaining of increased shortness of breath and cough today. No significant UF with 2.5% solution Objective - Vital Signs Vital signs: Vital Signs Temp 98.2 F 10/15/24 12:00 Pulse 56 L 10/15/24 17:01 Resp 16 10/15/24 16:00 BP 95/56 10/15/24 16:00 Pulse Ox 96 10/15/24 16:00 FiO2 Intake & Output 10/14/24 10/15/24 10/15/24 18:59 06:59 18:59 Output Total 0 Balance 0 Weight 104.1 kg Output: Urine 0 Other: Voiding Method CAPD CAPD - Exam Patient is awake, comfortable, no acute distress. Examination of the heart S1 and S2 Examination of the lungs bilateral breath sounds are heard, scattered wheezes bilaterally Abdomen is soft nontender Examination of lower extremities shows no significant edema BLADE GROOVER exam grossly intact - Labs CBC & Chem 7: 10/14/24 07:25 10/14/24 07:25 Assessment and Plan Assessment: 1. End-stage renal disease maintained on peritoneal dialysis. 2. Influenza A infection. On Tamiflu. 3. 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 4. Chronic hypotension maintained on midodrine outpatient. 5. 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 6. Acute hypoxic respiratory failure, slightly worse today possibly volume related Plan: Increase UF with PD. Switch to 4.25% solution for the next 2 exchanges, then alternate with 2.5% solution Continue with Demadex Continue with midodrine Repeat labs in a.m.
[2024-10-15] MEDS: OSELTAMIVIR 30 MG CAP PO SCH (17:12)
[2024-10-15] MEDS: FAMOTIDINE 20 MG TAB PO SCH (20:16)
[2024-10-15] MEDS: MIDODRINE 5 MG TAB PO ONE (21:48)
[2024-10-15] MEDS: DIALYSIS (PERIT 2.5%) 2,500 ML 62.5 G/2,500 ML BAG INTRAPERIT SCH (22:51)
[2024-10-15 23:27] VITALS: TEMP 97.4
--- NOTE | 2024-10-16 10:25 | CDI ---
Documentation Clarification Form Date: 10/16/2024 09:54:43 AM From: Josefina Sheehan RN CCDS Phone: [phone] Admit Date: 10/13/2024 08:51:00 AM Patient Name: Kevin Arechiga Visit Number: [id number] Discharge Date: ATTENTION: The Clinical Documentation Specialists (CDI) and [facility] Coding Staff appreciate your assistance in clarifying documentation. Please respond to the clarification below the line at the bottom and electronically sign. The CDI & [facility] Coding staff will review the response and follow-up if needed. Please note: Queries are made part of the Legal Health Record. If you have any questions, please contact the author of this message via ITS. Dr. Caity Parson Acute Hypoxic Respiratory Failure is documented 10/15, Nephrology note which may lack sufficient clinical evidence/support in the medical record. Additional clarification is requested. Patient history/risk factors: 83 year old male presents to the ED for worsening cough over a week and is nonproductive in nature. Medical History Afib, HTN, CHF and ESRD. 10/13, ED note. Clinical Indicators: 10/13 CXR: Decreasing small right pleural effusion with similar cardiomegaly and diffuse interstitial. 10/13, VSS: B/P 90/54, HR 70, Temp 98.5F Oral, RR 16, SpO2 RA 10/15, VSS: B/P 98/55, HR 69, Temp 98.4F Oral, RR 16, 94% SpO2 RA 10/13, Nephrology consult: Lungs: no audible rhonchi or wheezes 10/15, Nephrology note: Examination of the lungs bilateral breath sounds are heard, scattered wheezes bilaterally. Treatment: 10/15 Duoneb Inhalation Q4H, Incentive Spirometry. After work up and study, please clarify which diagnosis is most appropriate? [ ] Acute Hypoxic Respiratory Failure ruled out [ ] Acute Hypoxic Respiratory Failure is a valid diagnosis as evidenced by the following: [x ] Respiratory Insufficiency [ ] Unable to determine [ ] Other, please specify (Template Last Revised: July 2023) MTDD
--- NOTE | 2024-10-16 11:08 | P.PN ---
Subjective Patient is seen for follow-up for end-stage renal disease, maintained on peritoneal dialysis Admitted to the hospital with cough and weakness and tested positive for influenza A. Patient had better UF with 4.25% solution yesterday. Volume status has improved and shortness of breath is also better today. Blood pressure however had been lower than his usual. Patient received an extra dose of midodrine. This morning systolic blood pressure is noted in the 90s which is his baseline. Objective - Vital Signs Vital signs: Vital Signs Temp 97.4 F L 10/16/24 08:45 Pulse 76 10/16/24 09:10 Resp 18 10/16/24 08:45 BP 97/56 10/16/24 08:45 Pulse Ox 98 10/16/24 08:45 FiO2 Intake & Output 10/15/24 10/16/24 10/16/24 18:59 06:59 18:59 Intake Total 180 Output Total 0 Balance 180 Weight 97.7 kg Intake: Oral 180 Output: Urine 0 Other: Voiding Method CAPD CAPD CAPD # Voids 0 - Exam Patient is awake, comfortable, no acute distress. Examination of the heart S1 and S2 Examination of the lungs bilateral breath sounds are heard, scattered wheezes bilaterally Abdomen is soft nontender Examination of lower extremities shows no significant edema BEATER HEAD exam grossly intact - Labs CBC & Chem 7: 10/14/24 07:25 10/14/24 07:25 Assessment and Plan Assessment: 1. End-stage renal disease maintained on peritoneal dialysis. 2. Influenza A infection. On Tamiflu. 3. 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 4. Chronic hypotension maintained on midodrine outpatient. 5. 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 6. Acute hypoxic respiratory failure, slightly worse today possibly volume related, improved with improved ultrafiltration Plan: Alternate 4.25% solution with 2.5% solution every 6 hours Continue with Demadex Continue with midodrine
[2024-10-16 12:36] VITALS: BP 97/55; PULSE 72; RESP 20
--- NOTE | 2024-10-16 12:49 | P.DS ---
Providers Date of admission: 10/13/24 08:51 Expected date of discharge: 10/16/24 Attending physician: Ml Lew Consults: 10/13/24 08:48 Consult Physician Routine Consulting Provider: Pacheco Dumont Consult Reason/Comments: renal failure, Peritoneal dialysis Do you want consulting provider notified?: Yes Primary care physician: Frank Rodrigues Hospital Course: Discharge diagnoses; Elevated troponins, type II NM secondary to acute infectious process/influenza, no evidence of acute coronary syndrome Acute on chronic diastolic and systolic heart failure History of dilated cardiomyopathy status post AICD Influenza A infection End-stage renal disease on peritoneal dialysis History of hypertension History of atrial fibrillation Hypothyroidism Hyperlipidemia Hyponatremia Hospital course; 83-year-old male presents emergency department via EMS chief complaint of cough congestion shortness of breath and weakness. Patient states that this has been worsening over the last 4 days. He admits to chills without known fever. Patient states that he has a wet sounding cough. He does have a history of cardiac disease, liver and kidney disease he does peritoneal dialysis. Patient states he did do his dialysis last night. He is on 2 different diuretics. Denies any leg pain leg swelling states he had no sick contacts but he states been having increasing nasal congestion and bodyaches along with his cough. Blood work completed in ED reveals a WBC of 8.1, hemoglobin of 12.7 and platelet count of 163, sodium 127, potassium 3.8, BUNs/creatinine of 48/5.81, and blood glucose of 115, lactic acid elevated at 2.2, troponin elevated at 0.117, BNP of 57,500 Viral screen is positive for influenza A PCR Chest x-ray reveals decreasing small right pleural effusion with similar cardiomegaly and diffuse interstitial prominence 10/14 Patient presents because of cough nausea and generalized weakness secondary to influenza B infection. Also patient with mildly hyponatremic, his sodium is 127, he is a known case of end-stage renal disease on hemodialysis. He has low ejection fraction about 20% Troponin were elevated but patient with no chest pain most likely secondary to renal disease. He has evidence of fluid overload with chest x-ray showing cardiomegaly with mild right pleural effusion and diffuse interstitial prominence, I reviewed chest x-ray by myself and agree. Patient currently placed on IV Lasix 40 mg 3 times a day as well as Tamiflu and continued with his home medication Patient was admitted with nephrology and cardiology team consult 10/15. Patient seen and examined. Family at the bedside. Patient complains of congestion, gets short of breath on exertion. 10/16. Patient seen and examined. Not requiring any oxygen. Chest congestion has improved. Nephrology recommending discharging patient on home dose of torsemide. Patient being discharged on Tamiflu which was renally dosed, patient only requires 1 more dose tomorrow. Outpatient follow-up with PCP PHYSICAL EXAMINATION: GENERAL: The patient is alert and oriented x3, not in any acute distress. Well developed, well nourished. HEENT: Pupils are round and equally reacting to light. EOMI. No scleral icterus. No conjunctival pallor. Normocephalic, atraumatic. No pharyngeal erythema. No thyromegaly. CARDIOVASCULAR: S1 and S2 present. No murmurs, rubs, or gallops. PULMONARY: Chest is clear to auscultation, no wheezing or crackles. ABDOMEN: Soft, nontender, nondistended, PD catheter seen MUSCULOSKELETAL: No joint swelling or deformity. EXTREMITIES: No cyanosis, clubbing, or pedal edema. NEUROLOGICAL: Gross neurological examination did not reveal any focal deficits. SKIN: No rashes. Dictation was produced using [employer] dictation software. please excuse any grammatical, word or spelling errors. Patient Condition at Discharge: Poor Plan - Discharge Summary Discharge Rx Participant: Yes New Discharge Prescriptions: New guaiFENesin [Mucinex] 600 mg PO Q12HR 7 Days #14 tab Oseltamivir [Tamiflu] 30 mg PO Q48H 1 Days #1 cap Benzonatate [Tessalon Perles] 200 mg PO TID PRN 7 Days #21 cap PRN Reason: Cough Continue Simvastatin [Zocor] 10 mg PO DAILY Aspirin EC [Ecotrin Low Dose] 81 mg PO DAILY Levothyroxine Sodium [Synthroid] 50 mcg PO DAILY Febuxostat 40 mg PO DAILY traMADol HCL 50 mg PO BID PRN PRN Reason: Pain Cyanocobalamin (Vitamin B-12) [Vitamin B-12] 1,000 mcg PO DAILY Lactulose 10 gm PO DAILY PRN PRN Reason: Constipation Calcium Acetate [PhosLo] 1,334 mg PO BID-W/MEALS Renaplex-D 1 tab PO DAILY carvediloL 12.5 mg PO BID Midodrine HCl [ProAmatine] 10 mg PO TID PRN #90 tab PRN Reason: BP <115 Torsemide [Demadex] 20 mg PO BID Potassium Chloride ER [K-Dur 10] 10 meq PO DAILY Discharge Medication List Simvastatin [Zocor] 10 mg PO DAILY 07/09/14 [History] Aspirin EC [Ecotrin Low Dose] 81 mg PO DAILY 09/05/16 [History] Levothyroxine Sodium [Synthroid] 50 mcg PO DAILY 05/17/20 [History] Febuxostat 40 mg PO DAILY 07/02/21 [History] Cyanocobalamin (Vitamin B-12) [Vitamin B-12] 1,000 mcg PO DAILY 06/29/23 [History] carvediloL 12.5 mg PO BID 06/29/23 [History] traMADol HCL 50 mg PO BID PRN 06/29/23 [History] Midodrine HCl [ProAmatine] 10 mg PO TID PRN #90 tab 07/09/23 [Rx] Calcium Acetate [PhosLo] 1,334 mg PO BID-W/MEALS 10/13/24 [History] Lactulose 10 gm PO DAILY PRN 10/13/24 [History] Potassium Chloride ER [K-Dur 10] 10 meq PO DAILY 10/13/24 [History] Renaplex-D 1 tab PO DAILY 10/13/24 [History] Torsemide [Demadex] 20 mg PO BID 10/13/24 [History] Benzonatate [Tessalon Perles] 200 mg PO TID PRN 7 Days #21 cap 10/16/24 [Rx] Oseltamivir [Tamiflu] 30 mg PO Q48H 1 Days #1 cap 10/16/24 [Rx] guaiFENesin [Mucinex] 600 mg PO Q12HR 7 Days #14 tab 10/16/24 [Rx] Follow up Appointment(s)/Referral(s): Frank Rodrigues MD [Primary Care Provider] - 1-2 days Discharge Disposition: HOME SELF-CARE
--- NOTE | 2024-10-18 12:01 | CDI ---
Documentation Clarification Form Date: 10/18/2024 11:35:10 AM From: Krystina Ellington Phone: Admit Date: 10/13/2024 08:51:00 AM Patient Name: Kevin Arechiga Visit Number: [id number] Discharge Date: 10/16/2024 03:01:00 PM ATTENTION: The Clinical Documentation Specialists (CDI) and [facility] Coding Staff appreciate your assistance in clarifying documentation. Please respond to the clarification below the line at the bottom and electronically sign. The CDI & [facility] Coding staff will review the response and follow-up if needed. Please note: Queries are made part of the Legal Health Record. If you have any questions, please contact the author of this message via ITS. Doctor/Provider: Caity Parson There is documentation of chronic kidney disease mineral bone disease per Nephrology Progress Notes. Additional clarification is requested. History/Risk Factors: 83yo M, Influenza A, ESRD on PD, NSTEMI II, HTN , ACCHF, perm A Fib, chronic hypotension, DCM, MR, AR, PHTN Clinical Indicators: Phosphorus level 3.8 Treatment: maintained on PhosLo Can you please specify the mineral bone disease, if possible? [ ] Renal osteodystrophy [ X] Mineral bone disease [ ] Other, please specify [ ] Unable to determine MTDD
== END 2024-10-16 15:01 | disposition home or self-care (01) | DRG 280 ==
LOC: EC 06:40 → 3SCARD 08:51
PROVIDERS: ADMIT Hospitalist; ATTEND Hospitalist
PROC: 3E1M39Z Irrigation of Peritoneal Cavity using Dialysate, Percutaneous Approach (ICD-10-PCS; principal; 2024-10-13)
DX: I13.2 Hypertensive heart and chronic kidney disease with heart failure and with stage 5 chronic kidney disease, or end stage renal disease (principal); I50.43 Acute on chronic combined systolic (congestive) and diastolic (congestive) heart failure; I21.A1 Myocardial infarction type 2; N18.6 End stage renal disease; E87.1 Hypo-osmolality and hyponatremia; I27.22 Pulmonary hypertension due to left heart disease; Z99.2 Dependence on renal dialysis; E03.9 Hypothyroidism, unspecified; I08.0 Rheumatic disorders of both mitral and aortic valves; I48.21 Permanent atrial fibrillation; I42.0 Dilated cardiomyopathy; J10.1 Influenza due to other identified influenza virus with other respiratory manifestations; E78.5 Hyperlipidemia, unspecified; R06.89 Other abnormalities of breathing; M89.8X9 Other specified disorders of bone, unspecified site; I95.89 Other hypotension; Z96.653 Presence of artificial knee joint, bilateral; Z79.82 Long term (current) use of aspirin; Z79.890 Hormone replacement therapy; Z95.810 Presence of automatic (implantable) cardiac defibrillator; I25.2 Old myocardial infarction; Z79.899 Other long term (current) drug therapy
CPT/HCPCS: 36415; 71046; 80053; 83605; 83735; 83880; 84100; 84484; 85025; 85610; 85730; 87636; 93005; 93306; 94640; 96374; 96375; 96376; 99285

== ENCOUNTER 2024-10-17 14:29 | Inpatient (IN) | payer MEDICARE ==
--- NOTE | 2024-10-17 14:48 | ED ---
Recheck HPI - General Chief Complaint: Weakness Stated Complaint: Weakness, hypotension Time Seen by Provider: 10/17/24 14:39 Source: patient, EMS, RN notes reviewed, old records reviewed Mode of arrival: EMS Limitations: no limitations - History of Present Illness Initial Comments: This is an 83-year-old male to the ER for evaluation as patient presents today for evaluation of near syncopal event lightheaded dizziness weakness especially with position change does not feel little short of breath but mainly weakness. Recent discharge from hospital and has not been feeling well since MD Complaint: other (Low blood pressure weakness) -: days(s) Returns Today for: Called Because of Abnormal Lab/Test, persistent/worsening pain related to initial visit Symptoms Since Prior Visit: no new symptoms Associated Symptoms: none - Related Data Home Medications Medication Instructions Recorded Confirmed Simvastatin [Zocor] 10 mg PO DAILY 07/09/14 10/17/24 Aspirin EC [Ecotrin Low Dose] 81 mg PO DAILY 09/05/16 10/17/24 Levothyroxine Sodium [Synthroid] 50 mcg PO DAILY 05/17/20 10/17/24 Febuxostat 40 mg PO DAILY 07/02/21 10/17/24 Cyanocobalamin (Vitamin B-12) 1,000 mcg PO DAILY 06/29/23 10/17/24 [Vitamin B-12] carvediloL 12.5 mg PO BID 06/29/23 10/17/24 traMADol HCL 50 mg PO BID PRN 06/29/23 10/17/24 Calcium Acetate [PhosLo] 1,334 mg PO BID-W/MEALS 10/13/24 10/17/24 Lactulose 10 gm PO DAILY PRN 10/13/24 10/17/24 Potassium Chloride ER [K-Dur 10] 10 meq PO DAILY 10/13/24 10/17/24 Renaplex-D 1 tab PO DAILY 10/13/24 10/17/24 Torsemide [Demadex] 20 mg PO BID 10/13/24 10/17/24 Benzonatate [Tessalon Perles] 200 mg PO DIRECTED PRN 10/17/24 10/17/24 Oseltamivir [Tamiflu] 30 mg PO DIRECTED 10/17/24 10/17/24 guaiFENesin [Mucinex] 600 mg PO DIRECTED 10/17/24 10/17/24 Previous Rx's Medication Instructions Recorded Midodrine HCl [ProAmatine] 10 mg PO TID PRN #90 tab 07/09/23 Allergies Allergy/AdvReac Type Severity Reaction Status Date / Time No Known Allergies Allergy Verified 10/17/24 16:56 Review of Systems ROS Statement: Those systems with pertinent positive or pertinent negative responses have been documented in the HPI. ROS Other: All systems not noted in ROS Statement are negative. Past Medical History Past Medical History: Atrial Fibrillation, Blood Disorder, Dialysis, Hypertension, Liver Disease, Myocardial Infarction (UT), Osteoarthritis (OA) Additional Past Medical History / Comment(s): See Dr Moreland H&P "borderline diabetic" does not watch diet, hx fx left wrist as child-did not heal right,"2 BULGING DICS AND 5 VERTEBRE ARE COMPRESSED", GOUT, ASBESTOES EXPOSURE THRU PAST WORK., hx ULCER ,gout, patient reports being placed on eliquis r/t a-fib (not on blood thinners per patient). ANEMIA, ascites, hemodialysis . Last Myocardial Infarction Date:: UNK History of Any Multi-Drug Resistant Organisms: None Reported Past Surgical History: AICD, Heart Catheterization, Joint Replacement, Tonsillectomy Additional Past Surgical History / Comment(s): hussain knee replacements, HUSSAIN CAROTID ENDARTERECTOMY, CAPD Past Anesthesia/Blood Transfusion Reactions: No Reported Reaction Type of Cardiac Device: AICD Device Placement Date:: 2009 Past Psychological History: No Psychological Hx Reported Smoking Status: Former smoker Past Alcohol Use History: Rare Past Drug Use History: None Reported - Past Family History Father Additional Family Medical History / Comment(s): KILLED BY A TRAIN WHEN PT WAS AGE 9 Mother Family Medical History: No Reported History Additional Family Medical History / Comment(s): open heart surgery Sister(s) Family Medical History: Myocardial Infarction ([place]) Additional Family Medical History / Comment(s): heart stents General Exam General appearance: alert, in no apparent distress Head exam: Present: atraumatic, normocephalic, normal inspection Eye exam: Present: normal appearance, PERRL, EOMI. Absent: scleral icterus, conjunctival injection, periorbital swelling ENT exam: Present: normal exam, mucous membranes moist Neck exam: Present: normal inspection. Absent: tenderness, meningismus, lymphadenopathy Respiratory exam: Present: normal lung sounds bilaterally. Absent: respiratory distress, wheezes, rales, rhonchi, stridor Cardiovascular Exam: Present: regular rate, normal rhythm, normal heart sounds. Absent: systolic murmur, diastolic murmur, rubs, gallop, clicks GI/Abdominal exam: Present: soft, normal bowel sounds. Absent: distended, tenderness, guarding, rebound, rigid Extremities exam: Present: normal inspection, full ROM, normal capillary refill. Absent: tenderness, pedal edema, joint swelling, calf tenderness Back exam: Present: normal inspection Neurological exam: Present: alert, oriented X3, CN II-XII intact Psychiatric exam: Present: normal affect, normal mood Skin exam: Present: warm, dry, intact, normal color. Absent: rash Course Vital Signs 10/17/24 10/17/24 10/17/24 14:31 15:46 16:48 Temperature 97.9 F Pulse Rate 67 63 63 Respiratory 18 20 14 Rate Blood Pressure 94/56 99/57 101/46 O2 Sat by Pulse 98 97 Oximetry - Reevaluation(s) Reevaluation #1: 10/17/24 18:57 Medical records reviewed Reevaluation #2: 10/17/24 18:57 Patient symptoms improved Reevaluation #3: 10/17/24 18:57 Patient informed of results and questions answered Reevaluation #4: Was pt. sent in by a medical professional or institution (, PA, WORKFORCE DEVELOPMENT SPECIALIST, urgent care, hospital, or senior living...) When possible be specific @ -no Did you speak to anyone other than the patient for history (EMS, parent, family, police, friend...)? What history was obtained from this source @ -no Did you review nursing and triage notes (agree or disagree)? Why? @ -agree Are old charts reviewed (outside hosp., previous admission, EMS record, old EKG, old radiological studies, urgent care reports/EKG's, senior living records)? Report findings @ -yes Differential Diagnosis (chest pain, altered mental status, abdominal pain women, abdominal pain men, vaginal bleeding, weakness, fever, dyspnea, syncope, headache, dizziness, GI bleed, back pain, seizure, CVA, palpatations, mental health, musculoskeletal)? @ -prior EKG interpreted by me (3pts min.). @ -yes X-rays interpreted by me (1pt min.). @ -yes negative for acute disease CT interpreted by me (1pt min.). @ -no U/S interpreted by me (1pt. min.). @ -no What testing was considered but not performed or refused? (CT, X-rays, U/S, labs)? Why? @ -none What meds were considered but not given or refused? Why? @ -none Did you discuss the management of the patient with other professionals (professionals i.e. , PA, WORKFORCE DEVELOPMENT SPECIALIST, lab, RT, psych nurse, dialysis social worker, residential roofer helper, teacher, privacy officer, mattress spring encaser)? Give summary @ -no Was smoking cessation discussed for >3mins.? @ -no Was critical care preformed (if so, how long)? @ -no Were there social determinants of health that impacted care today? How? (Homelessness, low income, unemployed, alcoholism, drug addiction, transportation, low edu. Level, literacy, decrease access to med. care, alf, rehab)? @ -none Was there de-escalation of care discussed even if they declined (Discuss DNR or withdrawal of care, Hospice)? DNR status @ -no What co-morbidities impacted this encounter? (DM, HTN, Smoking, COPD, CAD, Cancer, CVA, ARF, Chemo, Hep., AIDS, mental health diagnosis, sleep apnea, morbid obesity)? @ -none Was patient admitted / discharged? Hospital course, mention meds given and route, prescriptions, significant lab abnormalities, going to OR and other pertinent info. @ - Undiagnosed new problem with uncertain prognosis? @ -no Drug Therapy requiring intensive monitoring for toxicity (Heparin, Nitro, Insulin, Cardizem)? @ -no Were any procedures done? @ -no Diagnosis/symptom? @ - Acute, or Chronic, or Acute on Chronic? @ -Acute Uncomplicated (without systemic symptoms) or Complicated (systemic symptoms)? @ -Complicated Side effects of treatment? @ -no Exacerbation, Progression, or Severe Exacerbation? @ -exacerbation Poses a threat to life or bodily function? How? (Chest pain, USA, UT, pneumonia, PE, COPD, DKA, ARF, appy, cholecystitis, CVA, Diverticulitis, Homicidal, Suicidal, threat to staff... and all critical care pts) @ -yes Reevaluation #5: Differential Weakness: Hypoglycemia, shock, sepsis, hyponatremia, anemia, infection, UT, ETOH, adverse medicine reaction, overdose, stroke, this is not meant to be an all-inclusive list. Medical Decision Making - Medical Decision Making 83 male to the ER for evaluation. Patient presents today for evaluation of persistent weakness hypotension shortness of breath weakness and shortness of breath especially with position change and will admit for further evaluation and monitoring - Lab Data Result diagrams: 10/17/24 14:54 10/17/24 14:54 Lab Results 10/17/24 10/17/24 10/17/24 Range/Units 14:54 14:54 14:54 WBC 9.5 (3.8-10.6) k/uL RBC 3.78 L (4.30-5.90) m/uL Hgb 12.7 L (13.0-17.5) gm/dL Hct 37.4 L (39.0-53.0) % MCV 99.0 (80.0-100.0) fL MCH 33.8 (25.0-35.0) pg MCHC 34.1 (31.0-37.0) g/dL RDW 14.8 (11.5-15.5) % Plt Count 202 (150-450) k/uL MPV 8.4 Neutrophils % 87 % Lymphocytes % 6 % Monocytes % 4 % Eosinophils % 2 % Basophils % 0 % Neutrophils # 8.3 H (1.3-7.7) k/uL Lymphocytes # 0.5 L (1.0-4.8) k/uL Monocytes # 0.4 (0-1.0) k/uL Eosinophils # 0.2 (0-0.7) k/uL Basophils # 0.0 (0-0.2) k/uL Macrocytosis Slight PT 10.2 (10.0-12.5) sec INR 0.9 (<1.2) APTT 23.3 (22.0-30.0) sec Sodium 124 L (137-145) mmol/L Potassium 3.5 (3.5-5.1) mmol/L Chloride 86 L (98-107) mmol/L Carbon Dioxide 28 (22-30) mmol/L Anion Gap 10 mmol/L BUN 47 H (9-20) mg/dL Creatinine 5.64 H (0.66-1.25) mg/dL Est GFR (CKD-EPI)AfAm 10 (>60 ml/min/1.73 sqM) Est GFR (CKD-EPI)NonAf 9 (>60 ml/min/1.73 sqM) Glucose 118 H (74-99) mg/dL Lactic Ac Sepsis Rflx Plasma Lactic Acid Julio (0.7-2.0) mmol/L Calcium 8.4 (8.4-10.2) mg/dL Phosphorus 3.4 (2.5-4.5) mg/dL Magnesium 1.7 (1.6-2.3) mg/dL Total Bilirubin 0.7 (0.2-1.3) mg/dL AST 30 (17-59) U/L ALT 19 (4-49) U/L Alkaline Phosphatase 124 (38-126) U/L Troponin I (0.000-0.034) ng/mL Total Protein 5.6 L (6.3-8.2) g/dL Albumin 3.1 L (3.5-5.0) g/dL TSH 3.060 (0.465-4.680) mIU/L 10/17/24 10/17/24 10/17/24 Range/Units 14:54 14:55 15:22 WBC (3.8-10.6) k/uL RBC (4.30-5.90) m/uL Hgb (13.0-17.5) gm/dL Hct (39.0-53.0) % MCV (80.0-100.0) fL MCH (25.0-35.0) pg MCHC (31.0-37.0) g/dL RDW (11.5-15.5) % Plt Count (150-450) k/uL MPV Neutrophils % % Lymphocytes % % Monocytes % % Eosinophils % % Basophils % % Neutrophils # (1.3-7.7) k/uL Lymphocytes # (1.0-4.8) k/uL Monocytes # (0-1.0) k/uL Eosinophils # (0-0.7) k/uL Basophils # (0-0.2) k/uL Macrocytosis PT (10.0-12.5) sec INR (<1.2) APTT (22.0-30.0) sec Sodium (137-145) mmol/L Potassium (3.5-5.1) mmol/L Chloride (98-107) mmol/L Carbon Dioxide (22-30) mmol/L Anion Gap mmol/L BUN (9-20) mg/dL Creatinine (0.66-1.25) mg/dL Est GFR (CKD-EPI)AfAm (>60 ml/min/1.73 sqM) Est GFR (CKD-EPI)NonAf (>60 ml/min/1.73 sqM) Glucose (74-99) mg/dL Lactic Ac Sepsis Rflx Y Plasma Lactic Acid Julio 2.1 H* (0.7-2.0) mmol/L Calcium (8.4-10.2) mg/dL Phosphorus (2.5-4.5) mg/dL Magnesium (1.6-2.3) mg/dL Total Bilirubin (0.2-1.3) mg/dL AST (17-59) U/L ALT (4-49) U/L Alkaline Phosphatase (38-126) U/L Troponin I 0.105 H* (0.000-0.034) ng/mL Total Protein (6.3-8.2) g/dL Albumin (3.5-5.0) g/dL TSH (0.465-4.680) mIU/L - EKG Data -: EKG Interpreted by Me (EKG is atrial rhythm 63 TX 259 QRS 151 QTc 446) - Radiology Data Radiology results: report reviewed (Chest x-ray is negative for acute disease), image reviewed Disposition Clinical Impression: Dehydration, Anemia, Acute kidney injury superimposed on CKD, Hyponatremia, Weakness, Influenza Disposition: ADMITTED IP TO THIS HOSP Condition: Fair Is patient prescribed a controlled substance at d/c from ED?: No Time of Disposition: 16:30
[2024-10-17 15:15] LABS: ALT 19 U/L (4-49); AST 30 U/L (17-59); African American GFR (CKD) 10 (>60 ml/min/1.73 sqM); Albumin 3.1 g/dL (3.5-5.0); Alkaline Phosphatase 124 U/L (38-126); Anion Gap 10 mmol/L; Blood Urea Nitrogen 47 mg/dL (9-20); Calcium 8.4 mg/dL (8.4-10.2); Carbon Dioxide 28 mmol/L (22-30); Chloride 86 mmol/L (98-107); Glucose 118 mg/dL (74-99); Magnesium 1.7 mg/dL (1.6-2.3); Non-African American GFR(CKD) 9 (>60 ml/min/1.73 sqM); Phosphorus 3.4 mg/dL (2.5-4.5); Potassium 3.5 mmol/L (3.5-5.1); Sodium 124 mmol/L (137-145); Total Bilirubin 0.7 mg/dL (0.2-1.3); Total Protein 5.6 g/dL (6.3-8.2)
[2024-10-17 15:17] LABS: INR 0.9 (<1.2)
--- NOTE | 2024-10-17 15:17 | XR ---
EXAMINATION TYPE: XR chest 1V portable DATE OF EXAM: 10/17/2024 2:58 PM COMPARISON: Chest radiographs from 10/13/2024 CLINICAL INDICATION: Male, 83 years old with history of sob; TECHNIQUE: XR chest 1V portable Frontal view of the chest. FINDINGS: Lungs/Pleura: Blunting of the right costophrenic angle. There is no evidence of left pleural effusio n, focal consolidation, or pneumothorax Pulmonary vascularity: Unremarkable. Heart/mediastinum: Cardiomediastinal silhouette is enlarged. Musculoskeletal: No acute osseous pathology. IMPRESSION: Right pleural effusion with cardiomegaly correlate for congestive heart failure. Congestive heart [facility], , 10/17/2024 3:15 PM
[2024-10-17 15:18] LABS: Partial Thromboplastin Time 23.3 sec (22.0-30.0); Prothrombin Time 10.2 sec (10.0-12.5)
[2024-10-17] MEDS: SODIUM CHLORIDE 0.9% 1,000 ML IV ONE (15:30)
[2024-10-17 15:32] LABS: Basophils % (A) 0 %; Eosinophils # (A) 0.2 k/uL (0-0.7); Eosinophils % (A) 2 %; HCT 37.4 % (39.0-53.0); HGB 12.7 gm/dL (13.0-17.5); Lymphocytes # (A) 0.5 k/uL (1.0-4.8); Lymphocytes % (A) 6 %; MCH 33.8 pg (25.0-35.0); MCHC 34.1 g/dL (31.0-37.0); Macrocytosis Slight; Mean Platelet Volume 8.4; Monocytes # (A) 0.4 k/uL (0-1.0); Monocytes % (A) 4 %; Neutrophils # (A) 8.3 k/uL (1.3-7.7); Neutrophils % (A) 87 %; Platelet Count 202 k/uL (150-450); RBC 3.78 m/uL (4.30-5.90); RDW 14.8 % (11.5-15.5); WBC 9.5 k/uL (3.8-10.6)
[2024-10-17] MEDS: SODIUM CHLORIDE 0.9% 500 ML 500 ML IV ONE (15:48)
[2024-10-17] MEDS ORDERED: NALOXONE 0.4 MG/ML 1 ML VIAL IV PRN (16:51)
[2024-10-18] MEDS: DIALYSIS (PERIT 2.5%) 2,500 ML 62.5 G/2,500 ML BAG INTRAPERIT SCH (01:57)
[2024-10-18 07:21] LABS: Basophils % (A) 0 %; Eosinophils # (A) 0.2 k/uL (0-0.7); Eosinophils % (A) 2 %; HCT 32.6 % (39.0-53.0); HGB 11.1 gm/dL (13.0-17.5); Lymphocytes # (A) 0.4 k/uL (1.0-4.8); Lymphocytes % (A) 5 %; MCHC 34.1 g/dL (31.0-37.0); MCV 99.7 fL (80.0-100.0); Macrocytosis Slight; Mean Platelet Volume 8.3; Monocytes # (A) 0.5 k/uL (0-1.0); Monocytes % (A) 6 %; Neutrophils # (A) 7.6 k/uL (1.3-7.7); Neutrophils % (A) 87 %; Platelet Count 205 k/uL (150-450); RBC 3.27 m/uL (4.30-5.90); RDW 14.8 % (11.5-15.5); WBC 8.8 k/uL (3.8-10.6)
[2024-10-18 07:37] LABS: ALT 16 U/L (4-49); AST 26 U/L (17-59); African American GFR (CKD) 9 (>60 ml/min/1.73 sqM); Albumin 2.5 g/dL (3.5-5.0); Alkaline Phosphatase 109 U/L (38-126); Anion Gap 8 mmol/L; Blood Urea Nitrogen 51 mg/dL (9-20); Calcium 7.9 mg/dL (8.4-10.2); Carbon Dioxide 30 mmol/L (22-30); Chloride 87 mmol/L (98-107); Glucose 105 mg/dL (74-99); Lipase 55 U/L (23-300); Magnesium 1.8 mg/dL (1.6-2.3); Non-African American GFR(CKD) 8 (>60 ml/min/1.73 sqM); Phosphorus 2.8 mg/dL (2.5-4.5); Potassium 3.3 mmol/L (3.5-5.1); Sodium 125 mmol/L (137-145); Total Bilirubin 0.7 mg/dL (0.2-1.3); Total Protein 4.7 g/dL (6.3-8.2)
[2024-10-18] MEDS ORDERED: LACTULOSE 20 GM/30 ML CUP PO PRN (08:01)
[2024-10-18] MEDS ORDERED: traMADol 50 MG TAB PO PRN (08:01)
[2024-10-18] MEDS ORDERED: MIDODRINE 5 MG TAB PO PRN (08:01)
--- NOTE | 2024-10-18 08:41 | P.PN ---
Progress Note - Text Progress Note Date: 10/18/24 initially paged for orders on this patient, and home medications were reordered. However admission order was placed under wrong patient and this patient is admitted to [facility]. All orders placed were cancelled and RN notified will need to page admtting team for orders.
[2024-10-18] MEDS ORDERED: carvediloL 12.5 MG TAB PO SCH (09:00)
[2024-10-18] MEDS ORDERED: allopurinoL 100 MG TAB PO SCH (09:00)
[2024-10-18] MEDS ORDERED: ASPIRIN 81 MG PO SCH (09:00)
[2024-10-18] MEDS ORDERED: TORSEMIDE 20 MG TAB PO SCH (09:00)
[2024-10-18] MEDS ORDERED: ATORVASTATIN 10 MG TAB PO SCH (09:00)
[2024-10-18] MEDS ORDERED: LEVOTHYROXINE 50 MCG TAB PO SCH (09:00)
[2024-10-18] MEDS: guaiFENesin 600 MG TABLET.ER PO SCH (10:30)
[2024-10-18] MEDS: CYANOCOBALAMIN 500 MCG TAB PO SCH (10:31)
[2024-10-18] MEDS: OSELTAMIVIR 30 MG CAP PO ONE (10:37)
--- NOTE | 2024-10-18 12:38 | P.CRDCN ---
History of Present Illness History of present illness: HISTORY OF PRESENT ILLNESS: This is a 83-year-old male with a past medical history significant for dilated cardiomyopathy with previous AICD, carotid stenosis with previous carotid endart erectomy, end-stage renal disease on peritoneal dialysis, hypertension, hyperlipidemia, and paroxysmal atrial fibrillation. Patient follows in the office with Dr. Grover. We have been asked to see the patient in consultation for CHF. Patient examined at the bedside in the emergency room. Patient presented to the hospital today due to chief complaint of generalized weakness and lightheadedness. He denies any chest pain or pressure. He denies any shortness of breath. Systolic blood pressure 04924. DIAGNOSTICS: - EKG reveals sinus mechanism with no signs of acute ischemia. Baseline artifact.. - Chest xray right pleural effusion with cardiomegaly correlate for congestive heart failure. - Laboratory data: WBC 8.8. Hemoglobin 11.1. Platelet count 205. Sodium 125. Potassium 3.3. BUN 651. Creatinine 6.10. Troponin 0.505. 0.091. 0.090 - Current home cardiac medications include aspirin 81 mg daily, Demadex 20 mg twice a day, simvastatin 10 mg daily, carvedilol 12.5 mg twice a day, midodrine 10 mg 3 times a day as needed. - Most recent echocardiogram obtained September 2024 revealed ejection fraction 35%, severely reduced global left ventricular systolic function, mild pulmonary hy pertension, mild MR - Cardiac catheterization history: unknown REVIEW OF SYSTEMS: At the time of my exam: CONSTITUTIONAL: Denies fever or chills. HEENT: Denies blurred vision, vision changes, or eye pain. Denies hemoptysis CARDIOVASCULAR: Denies chest pain. Denies orthopnea. Denies PND. Denies pa lpitations RESPIRATORY: Denies shortness of breath. GASTROINTESTINAL: Denies abdominal pain. Denies nausea or vomiting. HEMATOLOGIC: Denies bleeding disorders. GENITOURINARY: Denies any blood in urine. SKIN: Denies pruitis. Denies rash. PHYSICAL EXAM: VITAL SIGNS: Reviewed. GENERAL: Well-developed in no acute distress. HEENT: Head is normocephalic. Pupils are equal, round. Sclerae anicteric. Mucous membranes of the mouth are moist. Neck supple. No JVD or thyromegaly LUNGS: Respirations even and unlabored. Lungs essentially clear to auscultation bilaterally. HEART: Regular rate and rhythm. S1 and S2 heard. ABDOMEN: Soft. Nondistended. Nontender. EXTREMITIES: Normal range of motion. No clubbing or cyanosis. Peripheral pulses intact. No lower extremity edema NEUROLOGIC: Awake and alert. Oriented x 3. ASSESSMENT: Generalized weakness Lightheadedness Recent influenza A End-stage renal disease on peritoneal dialysis History of dilated cardiomyopathy with previous AICD Abnormal troponins, flat, secondary to end-stage renal disease, no evidence of myocardial injury or ischemia Chronic heart failure with reduced EF, currently euvolemic Paroxysmal atrial fibrillation History of carotid stenosis with previous carotid endarterectomy Hypertension Hyperlipidemia PLAN: An acute coronary event has been ruled out No need to repeat echocardiogram as this was obtained in September 2024 Resume home cardiac medications No further inpatient recommendations from a cardiac standpoint We will sign off. Please reconsult if needed. Nurse practitioner note has been reviewed by physician. Signing provider agrees with the documented findings, assessment, and plan of care documented by CLINICAL DATA ASSOCIATE as a scribe. Past Medical History Past Medical History: Atrial Fibrillation, Blood Disorder, Dialysis, Hypertension, Liver Disease, Myocardial Infarction ([place]), Osteoarthritis (OA) Additional Past Medical History / Comment(s): See Dr Moreland H&P "borderline diabetic" does not watch diet, hx fx left wrist as child-did not heal right,"2 BULGING DICS AND 5 VERTEBRE ARE COMPRESSED", GOUT, ASBESTOES EXPOSURE THRU PAST WORK., hx ULCER ,gout, patient reports being placed on eliquis r/t a-fib (not on blood thinners per patient). ANEMIA, ascites, hemodialysis . Last Myocardial Infarction Date:: UNK History of Any Multi-Drug Resistant Organisms: None Reported Past Surgical History: AICD, Heart Catheterization, Joint Replacement, Tonsillectomy Additional Past Surgical History / Comment(s): hussain knee replacements, HUSSAIN CAROT ID ENDARTERECTOMY, CAPD Past Anesthesia/Blood Transfusion Reactions: No Reported Reaction Type of Cardiac Device: AICD Device Placement Date:: 2009 Past Psychological History: No Psychological Hx Reported Smoking Status: Former smoker Past Alcohol Use History: Rare Past Drug Use History: None Reported - Past Family History Father Additional Family Medical History / Comment(s): KILLED BY A TRAIN WHEN PT WAS AGE 9 Mother Family Medical History: No Reported History Additional Family Medical History / Comment(s): open heart surgery Sister(s) Family Medical History: Myocardial Infarction ([place]) Additional Family Medical History / Comment(s): heart stents Medications and Allergies Home Medications Medication Instructions Recorded Confirmed Type Simvastatin [Zocor] 10 mg PO DAILY 07/09/14 10/17/24 History Aspirin EC [Ecotrin Low Dose] 81 mg PO DAILY 09/05/16 10/17/24 History Levothyroxine Sodium [Synthroid] 50 mcg PO DAILY 05/17/20 10/18/24 History Febuxostat 40 mg PO DAILY 07/02/21 10/17/24 History Cyanocobalamin (Vitamin B-12) 1,000 mcg PO DAILY 06/29/23 10/17/24 History [Vitamin B-12] carvediloL 12.5 mg PO BID 06/29/23 10/17/24 History traMADol HCL 50 mg PO BID PRN 06/29/23 10/17/24 History Midodrine HCl [ProAmatine] 10 mg PO TID PRN #90 tab 07/09/23 10/17/24 Rx Calcium Acetate [PhosLo] 1,334 mg PO BID-W/MEALS 10/13/24 10/17/24 History Lactulose 10 gm PO DAILY PRN 10/13/24 10/17/24 History Potassium Chloride ER [K-Dur 10] 10 meq PO DAILY 10/13/24 10/17/24 History Renaplex-D 1 tab PO DAILY 10/13/24 10/17/24 History Torsemide [Demadex] 20 mg PO BID 10/13/24 10/17/24 History Benzonatate [Tessalon Perles] 200 mg PO DIRECTED PRN 10/17/24 10/17/24 History Oseltamivir [Tamiflu] 30 mg PO DIRECTED 10/17/24 10/17/24 History guaiFENesin [Mucinex] 600 mg PO DIRECTED 10/17/24 10/17/24 History Allergies Allergy/AdvReac Type Severity Reaction Status Date / Time No Known Allergies Allergy Verified 10/17/24 16:56 Physical Exam Vitals: Vital Signs Temp Pulse Resp BP Pulse Ox 10/18/24 10:33 76 18 93/68 97 10/18/24 07:14 73 111/63 98 10/18/24 07:03 98.1 F 62 16 105/53 98 10/18/24 06:47 98.1 F 62 16 105/53 98 10/18/24 03:08 98.1 F 64 16 94/46 96 10/18/24 02:32 63 16 107/58 96 10/18/24 01:50 63 16 107/58 96 10/18/24 00:51 71 17 99/50 96 10/17/24 22:33 67 17 92/57 95 10/17/24 20:20 98.1 F 60 18 99/67 99 10/17/24 19:02 63 14 84/54 96 10/17/24 16:48 63 14 101/46 10/17/24 15:46 63 20 99/57 97 10/17/24 14:31 97.9 F 67 18 94/56 98 Results 10/18/24 06:54 10/18/24 06:54 Cardiac Enzymes 10/17/24 10/17/24 10/17/24 Range/Units 14:54 14:55 17:40 AST 30 (17-59) U/L Troponin I 0.105 H* 0.091 H* (0.000-0.034) ng/mL 10/17/24 10/18/24 Range/Units 20:42 06:54 AST 26 (17-59) U/L Troponin I 0.090 H* (0.000-0.034) ng/mL Coagulation 10/17/24 Range/Units 14:54 PT 10.2 (10.0-12.5) sec APTT 23.3 (22.0-30.0) sec CBC 10/17/24 10/18/24 Range/Units 14:54 06:54 WBC 9.5 8.8 (3.8-10.6) k/uL RBC 3.78 L 3.27 L (4.30-5.90) m/uL Hgb 12.7 L 11.1 L (13.0-17.5) gm/dL Hct 37.4 L 32.6 L (39.0-53.0) % Plt Count 202 205 (150-450) k/uL Comprehensive Metabolic Panel 10/17/24 10/18/24 Range/Units 14:54 06:54 Sodium 124 L 125 L (137-145) mmol/L Potassium 3.5 3.3 L (3.5-5.1) mmol/L Chloride 86 L 87 L (98-107) mmol/L Carbon Dioxide 28 30 (22-30) mmol/L BUN 47 H 51 H (9-20) mg/dL Creatinine 5.64 H 6.10 H (0.66-1.25) mg/dL Glucose 118 H 105 H (74-99) mg/dL Calcium 8.4 7.9 L (8.4-10.2) mg/dL AST 30 26 (17-59) U/L ALT 19 16 (4-49) U/L Alkaline Phosphatase 124 109 (38-126) U/L Total Protein 5.6 L 4.7 L (6.3-8.2) g/dL Albumin 3.1 L 2.5 L (3.5-5.0) g/dL Current Medications Generic Name Dose Route Start Last Admin Trade Name Freq PRN Reason Stop Dose Admin Benzonatate 200 mg 10/18/24 09:27 Benzonatate 100 Mg Cap PO TID PRN Cough Calcium Acetate 1,334 mg 10/18/24 17:30 Calcium Acetate 667 Mg Tab PO BID-W/MEALS ABDOULAYE Cyanocobalamin 1,000 mcg 10/18/24 09:00 10/18/24 10:31 Cyanocobalamin 500 Mcg Tab PO 1,000 mcg DAILY ABDOULAYE Administration Guaifenesin 600 mg 10/18/24 09:45 10/18/24 10:30 Guaifenesin 600 Mg Tablet.Er PO 600 mg BID ABDOULAYE Administration Peritoneal Dialysis Solution 62.5 g in 2,500 mls @ 0 mls/hr 10/18/24 00:57 10/18/24 07:01 Delflex With 2.5% Dextrose (2,500 Ml) INTRAPERIT 999 mls/hr Q6HR ABDOULAYE Administration Protocol As Directed Naloxone HCl 0.2 mg 10/17/24 16:51 Naloxone 0.4 Mg/Ml 1 Ml Vial IV Q2M PRN Opioid Reversal Ondansetron HCl 4 mg 10/17/24 16:51 Ondansetron 4 Mg/2 Ml Vial IVP Q8HR PRN Nausea And Vomiting 10/18/24 06:54 10/18/24 06:54
[2024-10-18] MEDS: CALCIUM ACETATE 667 MG TAB PO SCH (17:32)
[2024-10-18] MEDS ORDERED: FOLIC ACID-VIT B COMPLEX-VIT C 1 CAP PO SCH (18:00)
[2024-10-18] MEDS: ACETAMINOPHEN TAB 325 MG TAB PO PRN (18:43)
--- NOTE | 2024-10-18 19:33 | P.NPCON ---
History of Present Illness - Reason for Consult end stage renal disease - History of Present Illness Patient is an 83-year-old male with history of end-stage renal disease on peritoneal dialysis. He was just discharged from the hospital after admission for influenza A and significant weakness. Patient states that he was sick quite weak and unable to ambulate. Systolic blood pressure was in the 80s and therefore he came back to the hospital. Chest x-ray has shown significant pulmonary vascular congestion. Patient is currently maintained on 12.5% solution every 6 hours previous. Blood pressure is on the lower side with systolic in the 90s. Patient is usually hypotensive and is maintained on midodrine as outpatient. No complaints of chest pain fever chills nausea vomiting or diarrhea. No complaints of abdominal pain. Past Medical History Past Medical History: Atrial Fibrillation, Blood Disorder, Dialysis, Hypertension, Liver Disease, Myocardial Infarction ([place]), Osteoarthritis ([place]) Additional Past Medical History / Comment(s): See Dr Moreland H&P "borderline diabetic" does not watch diet, hx fx left wrist as child-did not heal right,"2 BULGING DICS AND 5 VERTEBRE ARE COMPRESSED", GOUT, ASBESTOES EXPOSURE THRU PAST WORK., hx ULCER ,gout, patient reports being placed on eliquis r/t a-fib (not on blood thinners per patient). ANEMIA, ascites, hemodialysis . Last Myocardial Infarction Date:: UNK History of Any Multi-Drug Resistant Organisms: None Reported Past Surgical History: AICD, Heart Catheterization, Joint Replacement, Tonsillectomy Additional Past Surgical History / Comment(s): hussain knee replacements, HUSSAIN CAROTID ENDARTERECTOMY, CAPD Past Anesthesia/Blood Transfusion Reactions: No Reported Reaction Type of Cardiac Device: AICD Device Placement Date:: 2009 Past Psychological History: No Psychological Hx Reported Smoking Status: Former smoker Past Alcohol Use History: Rare Past Drug Use History: None Reported - Past Family History Father Additional Family Medical History / Comment(s): KILLED BY A TRAIN WHEN PT WAS AGE 9 Mother Family Medical History: No Reported History Additional Family Medical History / Comment(s): open heart surgery Sister(s) Family Medical History: Myocardial Infarction ([place]) Additional Family Medical History / Comment(s): heart stents Medications and Allergies Home Medications Medication Instructions Recorded Confirmed Type Simvastatin [Zocor] 10 mg PO DAILY 07/09/14 10/17/24 History Aspirin EC [Ecotrin Low Dose] 81 mg PO DAILY 09/05/16 10/17/24 History Levothyroxine Sodium [Synthroid] 50 mcg PO DAILY 05/17/20 10/18/24 History Febuxostat 40 mg PO DAILY 07/02/21 10/17/24 History Cyanocobalamin (Vitamin B-12) 1,000 mcg PO DAILY 06/29/23 10/17/24 History [Vitamin B-12] carvediloL 12.5 mg PO BID 06/29/23 10/17/24 History traMADol HCL 50 mg PO BID PRN 06/29/23 10/17/24 History Midodrine HCl [ProAmatine] 10 mg PO TID PRN #90 tab 07/09/23 10/17/24 Rx Calcium Acetate [PhosLo] 1,334 mg PO BID-W/MEALS 10/13/24 10/17/24 History Lactulose 10 gm PO DAILY PRN 10/13/24 10/17/24 History Potassium Chloride ER [K-Dur 10] 10 meq PO DAILY 10/13/24 10/17/24 History Renaplex-D 1 tab PO DAILY 10/13/24 10/17/24 History Torsemide [Demadex] 20 mg PO BID 10/13/24 10/17/24 History Benzonatate [Tessalon Perles] 200 mg PO DIRECTED PRN 10/17/24 10/17/24 H istory Oseltamivir [Tamiflu] 30 mg PO DIRECTED 10/17/24 10/17/24 History guaiFENesin [Mucinex] 600 mg PO DIRECTED 10/17/24 10/17/24 History Allergies Allergy/AdvReac Type Severity Reaction Status Date / Time No Known Allergies Allergy Verified 10/17/24 16:56 Physical Exam Vitals: Vital Signs Temp Pulse Resp BP Pulse Ox 10/18/24 17:34 63 16 93/60 95 10/18/24 13:45 61 18 106/49 97 10/18/24 10:33 76 18 93/68 97 10/18/24 07:14 73 111/63 98 10/18/24 07:03 98.1 F 62 16 105/53 98 10/18/24 06:47 98.1 F 62 16 105/53 98 10/18/24 03:08 98.1 F 64 16 94/46 96 10/18/24 02:32 63 16 107/58 96 10/18/24 01:50 63 16 107/58 96 10/18/24 00:51 71 17 99/50 96 10/17/24 22:33 67 17 92/57 95 10/17/24 20:20 98.1 F 60 18 99/67 99 Patient is awake, comfortable, no acute distress Examination of the heart S1 and S2 Examination of the lungs bilateral breath sounds are heard Abdomen is soft nontender Examination of lower extremity shows no evidence of edema CONSUMER ATTORNEY exam grossly intact Results - Lab Results Most recent lab results Calcium 7.9 mg/dL (8.4-10.2) L 10/18/24 06:54 Phosphorus 2.8 mg/dL (2.5-4.5) 10/18/24 06:54 Magnesium 1.8 mg/dL (1.6-2.3) 10/18/24 06:54 10/18/24 06:54 10/18/24 06:54 Assessment and Plan Assessment: 1. End-stage renal disease on peritoneal dialysis 3. Recent influenza A infection on 10/13/2024 4. Weakness secondary to hypotension 5. 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 CKD mineral bone disorder Plan: Maintain 2.5% solution every 6 hours for peritoneal dialysis Monitor UF and avoid high UF with treatments Continue with midodrine Encouraged increased oral intake
[2024-10-19] MEDS: MIDODRINE 5 MG TAB PO SCH (06:34)
--- NOTE | 2024-10-19 12:06 | P.PN ---
Subjective Patient is seen for follow-up for end-stage renal disease maintained on peritoneal dialysis. Maintained on 2.5% solution every 6 hours with no significant ultrafiltration. Blood pressure remains on the lower side with systolic in the 90s. Patient was complaining of dizziness this morning when he tried to sit up. Maintained on midodrine even as outpatient. Objective - Vital Signs Vital signs: Vital Signs Temp 97.8 F 10/19/24 06:36 Pulse 64 10/19/24 07:49 Resp 18 10/19/24 07:49 BP 101/49 10/19/24 07:49 Pulse Ox 91 L 10/19/24 07:49 FiO2 Intake & Output 10/18/24 10/19/24 10/19/24 18:59 06:59 18:59 Output Total 2600 Balance -2600 Weight 102.058 kg Output: Other 2600 Other: Voiding Method CAPD # Voids 0 - Exam Patient is awake, comfortable, no acute distress Examination of the heart S1 and S2 Examination of the lungs bilateral breath sounds are heard Abdomen is soft nontender Examination of lower extremity shows no evidence of edema LICENSED DIRECT ENTRY MIDWIFE exam grossly intact - Labs CBC & Chem 7: 10/18/24 06:54 10/18/24 06:54 Assessment and Plan Assessment: 1. End-stage renal disease on peritoneal dialysis 3. Recent influenza A infection on 10/13/2024 4. Weakness secondary to hypotension, maintained on midodrine. Status post IV fluids on initial admission 5. 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 CKD mineral bone disorder Plan: Maintain 2.5% solution every 6 hours for peritoneal dialysis Monitor UF and avoid high UF with treatments Continue with midodrine Encouraged increased oral intake
[2024-10-19] MEDS: SODIUM CHLORIDE 0.9% 1,000 ML IV SCH (20:27)
[2024-10-19] MEDS: HEPARIN SODIUM,PORCINE 5,000 UNIT/ML 1 ML VIAL SQ SCH (20:45)
[2024-10-19] MEDS: OSELTAMIVIR 30 MG CAP PO SCH (21:26)
[2024-10-19] MEDS: ONDANSETRON 4 MG/2 ML VIAL IVP PRN (22:57)
--- NOTE | 2024-10-19 23:45 | HP ---
HISTORY AND PHYSICAL CHIEF COMPLAINT: Weakness and hypertension. HISTORY OF PRESENT ILLNESS: This 83-year-old gentleman with a past medical history of multiple medical problems, admitted and weakness. The flu was positive. The patient's name is apparently showing up in my list today. The patient was apparently admitted under sound hospitalist in beginning, please note. The patient was also seen by Cardiology and Nephrology also. The blood pressure is improving significantly. There is no history of fever, rigors, or chills at this time. PAST MEDICAL HISTORY: Reviewed include atrial fibrillation, peritoneal dialysis, liver disease, multiple medical issues. Other history noted. HOME MEDICATIONS: Reviewed include levothyroxine. Dose and rest of medications noted. ALLERGIES: None. FAMILY HISTORY: No history of heart disease or strokes in the family. SOCIAL HISTORY: Previous smoker. REVIEW OF SYSTEMS: A 14-point review of systems negative except as mentioned earlier. PHYSICAL EXAMINATION: VITAL SIGNS: Pulse 59, blood pressure 91/58, respirations 16. HEENT: Conjunctivae normal. NECK: No JVD. CARDIOVASCULAR: S1, S2. RESPIRATIONS: Breath sounds diminished at the bases. A few scattered rhonchi. ABDOMEN: Soft. NERVOUS SYSTEM: Nonfocal. LABORATORY DATA: Noted. ASSESSMENT: 1. Acute influenza A. 2. Hypotension, hypovolemia. 3. End-stage renal disease, on peritoneal dialysis. 4. Elevated troponin of undetermined significance. 5. History of dilated cardiomyopathy with automatic implantable cardioverter- defibrillator. 6. Chronic congestive heart failure. 7. Paroxysmal atrial fibrillation. 8. History of carotid stenosis. 9. Hypertension. 10.Hyperlipidemia. RECOMMENDATIONS: Recommend to continue current management and continue symptomatic treatment. I would recommend continue with Tamiflu and continue with peritoneal dialysis. I would also recommend Infectious Disease evaluation, obtain a set of cultures. Cardiology input appreciated. Prognosis guarded because of multiple complex medical issues. Further recommendations to follow. MMODL / IJN: [id number] / ANGELA
[2024-10-20] MEDS: BENZONATATE 100 MG CAP PO PRN (06:29)
[2024-10-20 09:30] LABS: Basophils # (A) 0.06 X 10*3/uL (0.00-0.10); Basophils % (A) 0.7 %; Eosinophils # (A) 0.21 X 10*3/uL (0.04-0.35); Eosinophils % (A) 2.5 %; HCT 35.7 % (39.6-50.0); Lymphocytes # (A) 0.51 X 10*3/uL (0.90-5.00); MCH 34.3 pg (27.0-32.0); MCHC 33.6 g/dL (32.0-37.0); Mean Platelet Volume 10.5 FL (9.5-12.2); Monocytes # (A) 0.86 X 10*3/uL (0.20-1.00); Monocytes % (A) 10.2 %; NRBC Per 100 WBC 0.02 X 10*3/uL (0.00-0.01); Neutrophils # (A) 6.66 X 10*3/uL (1.80-7.70); Neutrophils % (A) 78.7 %; Platelet Count 248 X 10*3/uL (140-440); RDW 15.1 % (11.5-14.5); WBC 8.46 X 10*3/uL (4.50-10.00)
[2024-10-20 11:36] LABS: ALT 17 U/L (10-49); AST 26 U/L (14-35); Albumin 2.9 g/dL (3.8-4.9); Albumin/Globulin Ratio 1.45 Ratio (1.60-3.17); Alkaline Phosphatase 111 U/L (41-126); BUN/Creat Ratio 6.69 Ratio (12.00-20.00); Blood Urea Nitrogen 39.5 mg/dL (9.0-27.0); Calcium 8.5 mg/dL (8.7-10.3); Carbon Dioxide 25.7 mmol/L (21.6-31.8); Chloride 92 mmol/L (96-109); Glucose 124 mg/dL (70-110); Potassium 3.2 mmol/L (3.5-5.5); Sodium 132 mmol/L (135-145); Total Bilirubin 0.2 mg/dL (0.3-1.2); Total Protein 4.9 g/dL (6.2-8.2)
--- NOTE | 2024-10-20 12:06 | P.PN ---
Subjective Patient is seen for follow-up for end-stage renal disease maintained on peritoneal dialysis. Maintained on 2.5% solution every 6 hours with no significant ultrafiltration. Blood pressure remains on the lower side with systolic in the 90s. Patient was complaining of dizziness this morning when he tried to sit up. Maintained on midodrine even as outpatient. Status post IV fluids yesterday. Systolic blood pressure slightly improved to about 100 to 106 mmHg. 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 exam grossly intact - Labs CBC & Chem 7: 10/20/24 02:52 10/20/24 02:52 Labs: Abnormal Lab Results - Last 24 Hours (Table) 10/20/24 10/20/24 Range/Units 02:52 02:52 RBC 3.50 L (4.40-5.60) X 10*6/uL Hgb 12.0 L (13.0-17.0) g/dL Hct 35.7 L (39.6-50.0) % MCV 102.0 H (80.0-97.0) FL MCH 34.3 H (27.0-32.0) pg RDW 15.1 H (11.5-14.5) % Immature Gran # 0.16 H (0.00-0.04) X 10*3/uL Lymphocytes # 0.51 L (0.90-5.00) X 10*3/uL NRBC/100 WBC Diff 0.02 H (0.00-0.01) X 10*3/uL Sodium 132 L (135-145) mmol/L Potassium 3.2 L (3.5-5.5) mmol/L Chloride 92 L (96-109) mmol/L Anion Gap 14.30 H (4.00-12.00) mmol/L BUN 39.5 H (9.0-27.0) mg/dL Creatinine 5.9 H (0.6-1.5) mg/dL Est GFR (CKD-EPI) 9 L (>=60) BUN/Creatinine Ratio 6.69 L (12.00-20.00) Ratio Glucose 124 H (70-110) mg/dL Calcium 8.5 L (8.7-10.3) mg/dL Total Bilirubin 0.2 L (0.3-1.2) mg/dL Total Protein 4.9 L (6.2-8.2) g/dL Albumin 2.9 L (3.8-4.9) g/dL Albumin/Globulin Ratio 1.45 L (1.60-3.17) Ratio Assessment and Plan Assessment: 1. End-stage renal disease on peritoneal dialysis 3. Recent influenza A infection on 10/13/2024 4. Weakness secondary to hypotension, maintained on midodrine. Status post IV fluids. 5. 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 CKD mineral bone disorder Plan: Maintain 2.5% solution every 6 hours for peritoneal dialysis Monitor UF and avoid high UF with treatments Continue with midodrine Encouraged increased oral intake
--- NOTE | 2024-10-20 21:08 | P.CONS ---
History of Present Illness - Reason for Consult Consult date: 10/20/24 Sepsis Requesting physician: Ml Lew - Chief Complaint Weakness x few days - History of Present Illness Patient is a 83-year-old male with a past medical history significant for atrial fibrillation hypertension [place] osteoarthritis end-stage renal disease on peritoneal dialysis patient presented to hospital 3 days ago for evaluation of near syncopal event lightheadedness dizziness weakness and apparently symptoms has been going on for 1 day before the patient was brought into the hospital patient denies having any fever or any chills and no fever have been recorded during this hospital stay patient was nontachycardic hypotensive or hypoxic no need for supplemental oxygen patient did have normal white count BUN and creatinine has been elevated liver enzymes are normal patient did have a chest x-ray right pleural effusion with cardiomegaly correlate for congestive heart failure infectious disease was consulted for possible sepsis as the patient blood pressure has been running low and recently did have influenza A infection on 10/13/2024, patient however mention he is feeling slightly better denies any headache or URI symptoms no chest pain shortness of breath or cough patient denies any nausea vomiting no abdominal pain or diarrhea mention in the peritoneal fluid has been clear Review of Systems Positive point and negatives has been mentioned in the HPI, complete review of systems was performed and all other systems are negative Past Medical History Past Medical History: Atrial Fibrillation, Blood Disorder, Dialysis, Hypertension, Liver Disease, Myocardial Infarction ([place]), Osteoarthritis (OA) Additional Past Medical History / Comment(s): See Dr Moreland H&P "borderline diabetic" does not watch diet, hx fx left wrist as child-did not heal right,"2 BULGING DICS AND 5 VERTEBRE ARE COMPRESSED", GOUT, ASBESTOES EXPOSURE THRU PAST WORK., hx ULCER ,gout, patient reports being placed on eliquis r/t a-fib (not on blood thinners per patient). ANEMIA, ascites, hemodialysis . Last Myocardial Infarction Date:: UNK History of Any Multi-Drug Resistant Organisms: None Reported Past Surgical History: AICD, Heart Catheterization, Joint Replacement, Tonsillectomy Additional Past Surgical History / Comment(s): hussain knee replacements, HUSSAIN CAR OTID ENDARTERECTOMY, CAPD Past Anesthesia/Blood Transfusion Reactions: No Reported Reaction Type of Cardiac Device: AICD Device Placement Date:: 2009 Past Psychological History: No Psychological Hx Reported Smoking Status: Former smoker Past Alcohol Use History: Rare Additional Past Alcohol Use History / Comment(s): STARTED SMOKING 1964, QUIT 1967 SMOKED < 1 PPD. Past Drug Use History: None Reported - Past Family History Father Additional Family Medical History / Comment(s): KILLED BY A TRAIN WHEN PT WAS AGE 9 Mother Family Medical History: No Reported History Additional Family Medical History / Comment(s): open heart surgery Sister(s) Family Medical History: Myocardial Infarction ([place]) Additional Family Medical History / Comment(s): heart stents Medications and Allergies Home Medications Medication Instructions Recorded Confirmed Type Simvastatin [Zocor] 10 mg PO DAILY 07/09/14 10/17/24 History Aspirin EC [Ecotrin Low Dose] 81 mg PO DAILY 09/05/16 10/17/24 History Levothyroxine Sodium [Synthroid] 50 mcg PO DAILY 05/17/20 10/18/24 History Febuxostat 40 mg PO DAILY 07/02/21 10/17/24 History Cyanocobalamin (Vitamin B-12) 1,000 mcg PO DAILY 06/29/23 10/17/24 History [Vitamin B-12] carvediloL 12.5 mg PO BID 06/29/23 10/17/24 History traMADol HCL 50 mg PO BID PRN 06/29/23 10/17/24 History Midodrine HCl [ProAmatine] 10 mg PO TID PRN #90 tab 07/09/23 10/17/24 Rx Calcium Acetate [PhosLo] 1,334 mg PO BID-W/MEALS 10/13/24 10/17/24 History Lactulose 10 gm PO DAILY PRN 10/13/24 10/17/24 History Potassium Chloride ER [K-Dur 10] 10 meq PO DAILY 10/13/24 10/17/24 History Renaplex-D 1 tab PO DAILY 10/13/24 10/17/24 History Torsemide [Demadex] 20 mg PO BID 10/13/24 10/17/24 History Benzonatate [Tessalon Perles] 200 mg PO DIRECTED PRN 10/17/24 10/17/24 History Oseltamivir [Tamiflu] 30 mg PO DIRECTED 10/17/24 10/17/24 History guaiFENesin [Mucinex] 600 mg PO DIRECTED 10/17/24 10/17/24 History Allergies Allergy/AdvReac Type Severity Reaction Status Date / Time No Known Allergies Allergy Verified 10/17/24 16:56 Physical Exam Vitals: Vital Signs Temp Pulse Pulse Resp BP BP Pulse Ox 10/20/24 11:43 97.4 F L 59 L 18 117/60 96 10/20/24 07:45 66 18 10/20/24 07:21 97.4 F L 56 L 18 104/56 94 L 10/20/24 05:53 97.7 F 76 18 110/64 92 L 10/20/24 00:35 97.6 F 65 16 117/69 96 10/19/24 19:34 97.6 F 66 15 115/71 97 10/19/24 18:05 97.6 F 58 L 16 110/71 97 10/19/24 14:59 62 89/51 10/19/24 14:58 64 104/62 Intake and Output 10/19/24 10/20/24 10/20/24 22:59 06:59 14:59 Other: Voiding Method CAPD CAPD # Voids 2 2 # Bowel Movements 1 GENERAL DESCRIPTION: Elderly male lying in bed, no distress. No tachypnea or accessory muscle of respiration use. HEENT: Shows Pallor , no scleral icterus. Oral mucous membrane is dry. NECK: Trachea central, no thyromegaly. LUNGS: Unlabored breathing. Clear to auscultation anteriorly. No wheeze or crackle. HEART: S1, S2, regular rate and rhythm. No loud murmur ABDOMEN: Soft, no tenderness , guarding or rigidity, no organomegaly EXTREMITIES: No edema of feet. SKIN: No rash, no masses palpable. NEUROLOGICAL: The patient is awake, alert, oriented x3, mood and affect normal. Results CBC & Chem 7: 10/21/24 02:48 10/21/24 02:48 Labs: Abnormal Lab Results - Last 24 Hours (Table) 10/20/24 10/20/24 Range/Units 02:52 02:52 RBC 3.50 L (4.40-5.60) X 10*6/uL Hgb 12.0 L (13.0-17.0) g/dL Hct 35.7 L (39.6-50.0) % MCV 102.0 H (80.0-97.0) FL MCH 34.3 H (27.0-32.0) pg RDW 15.1 H (11.5-14.5) % Immature Gran # 0.16 H (0.00-0.04) X 10*3/uL Lymphocytes # 0.51 L (0.90-5.00) X 10*3/uL NRBC/100 WBC Diff 0.02 H (0.00-0.01) X 10*3/uL Sodium 132 L (135-145) mmol/L Potassium 3.2 L (3.5-5.5) mmol/L Chloride 92 L (96-109) mmol/L Anion Gap 14.30 H (4.00-12.00) mmol/L BUN 39.5 H (9.0-27.0) mg/dL Creatinine 5.9 H (0.6-1.5) mg/dL Est GFR (CKD-EPI) 9 L (>=60) BUN/Creatinine Ratio 6.69 L (12.00-20.00) Ratio Glucose 124 H (70-110) mg/dL Calcium 8.5 L (8.7-10.3) mg/dL Total Bilirubin 0.2 L (0.3-1.2) mg/dL Total Protein 4.9 L (6.2-8.2) g/dL Albumin 2.9 L (3.8-4.9) g/dL Albumin/Globulin Ratio 1.45 L (1.60-3.17) Ratio Assessment and Plan (1) Weakness Current Visit: Yes Status: Acute Code(s): R53.1 - WEAKNESS SNOMED Code(s): 37266930 Plan: 1patient with presented to hospital with weakness and dizziness possible dehydration decreased oral intake patient recently did have influenza A on 10/13/2024 however currently do not have respiratory symptoms suggestive of pneumonia chest x-ray was negative as well currently with no clinical suspicious for sepsis 2-blood culture has been obtained by admitting team will check a CRP procalcitonin and check peritoneal fluid for cell count and differential 3-for now we will monitor closely off antibiotic therapy We will follow on clinical condition and cultures to further adjust medication if needed Thank you for this consultation we will follow the patient along with you Dictation was produced using [employer] dictation software. please excuse any gram matical, word or spelling errors. Time with Patient: Greater than 30
--- NOTE | 2024-10-20 21:24 | PN ---
PROGRESS NOTE DATE OF SERVICE: 10/20/2024 SUBJECTIVE: This 83-year-old gentleman admitted with weakness and hypotension, end-stage renal disease, on peritoneal dialysis, also flu is positive. Multiple consultants are following the patient closely. The blood pressure is slightly elevated at this time. The cultures are negative. PAST MEDICAL HISTORY: Reviewed. REVIEW OF SYSTEMS: Fourteen-point review of systems negative except as mentioned earlier. CURRENT MEDICATIONS: Reviewed. PHYSICAL EXAMINATION: VITAL SIGNS: Pulse is 59, blood pressure 170/60, and respiration 18. HEENT: Conjunctivae normal. CARDIOVASCULAR: S1, S2. ABDOMEN: Soft. Peritoneal fluid. LEGS: No edema. NERVOUS SYSTEM: Nonfocal. LABORATORY DATA: WBC 8.46, hemoglobin is 12. Rest of the labs are noted. ASSESSMENT: 1. Acute influenza A. 2. Hypotension and hypokalemia, multifactorial. 3. End-stage renal disease, on peritoneal dialysis. 4. Elevated troponin of undetermined etiology. 5. History of dilated cardiomyopathy with AICD. 6. Congestive heart failure. 7. Multiple complex medical issues. RECOMMENDATIONS: Recommend to continue current management, continue symptomatic treatment. Otherwise, supplement potassium. Continue with the peritoneal dialysis. Closely follow with multiple consultants. Prognosis guarded. Repeat labs in the morning. Further recommendations to follow. The patient is supposed to give Tamiflu. MMODL / IJN: [id number] /
[2024-10-21] MEDS: PANTOPRAZOLE 40 MG TABLET PO SCH (06:09)
[2024-10-21] MEDS: HYDROcodone/APAP 5-325MG 1 EACH TAB PO PRN (08:02)
[2024-10-21 08:40] LABS: Basophils # (A) 0.07 X 10*3/uL (0.00-0.10); Basophils % (A) 0.8 %; Eosinophils # (A) 0.22 X 10*3/uL (0.04-0.35); Eosinophils % (A) 2.4 %; HCT 34.8 % (39.6-50.0); HGB 11.4 g/dL (13.0-17.0); Lymphocytes # (A) 0.46 X 10*3/uL (0.90-5.00); Lymphocytes % (A) 5.1 %; MCH 33.9 pg (27.0-32.0); MCHC 32.8 g/dL (32.0-37.0); MCV 103.6 FL (80.0-97.0); Monocytes # (A) 0.83 X 10*3/uL (0.20-1.00); Monocytes % (A) 9.1 %; NRBC Per 100 WBC 0.06 X 10*3/uL (0.00-0.01); Neutrophils # (A) 7.36 X 10*3/uL (1.80-7.70); Neutrophils % (A) 80.8 %; Platelet Count 275 X 10*3/uL (140-440); RBC 3.36 X 10*6/uL (4.40-5.60); RDW 15.2 % (11.5-14.5)
[2024-10-21 08:48] LABS: ALT 17 U/L (10-49); AST 23 U/L (14-35); Albumin 2.9 g/dL (3.8-4.9); Albumin/Globulin Ratio 1.53 Ratio (1.60-3.17); Alkaline Phosphatase 114 U/L (41-126); Blood Urea Nitrogen 37.2 mg/dL (9.0-27.0); Calcium 8.7 mg/dL (8.7-10.3); Carbon Dioxide 27.7 mmol/L (21.6-31.8); Chloride 89 mmol/L (96-109); Globulin 1.9 g/dL (1.6-3.3); Glucose 122 mg/dL (70-110); Potassium 3.4 mmol/L (3.5-5.5); Sodium 130 mmol/L (135-145); Total Bilirubin 0.3 mg/dL (0.3-1.2); Total Protein 4.8 g/dL (6.2-8.2)
--- NOTE | 2024-10-21 11:29 | P.PN ---
Subjective Patient is seen in follow-up for end-stage renal disease. No problems with peritoneal dialysis. On room air. Denies chest pain or shortness of breath. Vital signs are stable. General: No acute distress. HEENT: Head exam is unremarkable. LUNGS: No audible rhonchi or wheezes. HEART: Rate and Rhythm are regular. ABDOMEN: Nontender. EXTREMITITES: No edema. Objective - Vital Signs Vital signs: Vital Signs Temp 97.8 F 10/21/24 07:50 Pulse 65 10/21/24 07:50 Resp 16 10/21/24 07:50 BP 115/73 10/21/24 07:50 Pulse Ox 97 10/21/24 07:50 FiO2 Intake & Output 10/20/24 10/21/24 10/21/24 18:59 06:59 18:59 Other: Voiding Method CAPD CAPD # Voids 1 # Bowel Movements 1 - Labs CBC & Chem 7: 10/21/24 02:48 10/21/24 02:48 Labs: Abnormal Lab Results - Last 24 Hours (Table) 10/20/24 10/21/24 10/21/24 Range/Units 02:52 02:48 02:48 RBC 3.36 L (4.40-5.60) X 10*6/uL Hgb 11.4 L (13.0-17.0) g/dL Hct 34.8 L (39.6-50.0) % MCV 103.6 H (80.0-97.0) FL MCH 33.9 H (27.0-32.0) pg RDW 15.2 H (11.5-14.5) % Immature Gran # 0.16 H (0.00-0.04) X 10*3/uL Lymphocytes # 0.46 L (0.90-5.00) X 10*3/uL NRBC/100 WBC Diff 0.06 H (0.00-0.01) X 10*3/uL Sodium 132 L 130 L (135-145) mmol/L Potassium 3.2 L 3.4 L (3.5-5.5) mmol/L Chloride 92 L 89 L (96-109) mmol/L Anion Gap 14.30 H 13.30 H (4.00-12.00) mmol/L BUN 39.5 H 37.2 H (9.0-27.0) mg/dL Creatinine 5.9 H 6.0 H (0.6-1.5) mg/dL Est GFR (CKD-EPI) 9 L 9 L (>=60) BUN/Creatinine Ratio 6.69 L 6.20 L (12.00-20.00) Ratio Glucose 124 H 122 H (70-110) mg/dL Calcium 8.5 L (8.7-10.3) mg/dL Total Bilirubin 0.2 L (0.3-1.2) mg/dL C-Reactive Protein 3.00 H (0.00-0.80) mg/dL Total Protein 4.9 L 4.8 L (6.2-8.2) g/dL Albumin 2.9 L 2.9 L (3.8-4.9) g/dL Albumin/Globulin Ratio 1.45 L 1.53 L (1.60-3.17) Ratio Microbiology - Last 24 Hours (Table) 10/19/24 16:22 Blood Culture - Preliminary Blood Assessment and Plan Plan: Assessment: 1. End-stage renal disease maintained on peritoneal dialysis. 2. Recent influenza A infection this month. 3. Chronic hypotension maintained on midodrine. 4. Hypokalemia from PD losses. 5. Chronic kidney disease mineral bone disease maintained on PhosLo. Plan: Maintain current PD exchanges. Replace potassium. Maintain midodrine. Encouraged oral intake. Anticipate discharge soon.
[2024-10-21] MEDS: POTASSIUM CHLORIDE ER 20 MEQ TAB.ER PO STA (11:59)
[2024-10-21 13:08] LABS: Appearance,BF Clear (Clear)
--- NOTE | 2024-10-21 17:12 | P.PN ---
Subjective Progress Note Date: 10/21/24 Principal diagnosis: Reason for follow-up is a possible infection Patient is a 83-year-old male with a past medical history significant for atrial fibrillation hypertension [place] osteoarthritis end-stage renal disease on peritoneal dialysis patient presented to hospital 3 days ago for evaluation of near syncopal event lightheadedness dizziness also have a recent influenza A infection on 10/13/2024 ID consulted concerning for possible infection. On today's evaluation that is 10/21/2024, patient has been afebrile, patient is breathing comfortably and is currently on room air, patient denies having any chest pain though he still has some cough and bring up some sputum, patient denies nausea vomiting or diarrhea and no abdominal pain. Patient white count is 9.10 0.47 Objective - Vital Signs Vital signs: Vital Signs Temp 98.3 F 10/21/24 12:00 Pulse 72 10/21/24 12:00 Resp 18 10/21/24 12:00 BP 91/54 10/21/24 12:00 Pulse Ox 95 10/21/24 12:00 FiO2 Intake & Output 10/20/24 10/21/24 10/21/24 18:59 06:59 18:59 Other: Voiding Method CAPD CAPD # Voids 1 # Bowel Movements 1 - Exam GENERAL DESCRIPTION: An elderly male lying in bed in no distress RESPIRATORY SYSTEM: Unlabored breathing , decreased breath sounds at bases HEART: S1 S2 regular rate and rhythm , ABDOMEN: Soft , no tenderness EXTREMITIES: No edema feet - Labs CBC & Chem 7: 10/21/24 02:48 10/21/24 02:48 Labs: Abnormal Lab Results - Last 24 Hours (Table) 10/21/24 10/21/24 Range/Units 02:48 02:48 RBC 3.36 L (4.40-5.60) X 10*6/uL Hgb 11.4 L (13.0-17.0) g/dL Hct 34.8 L (39.6-50.0) % MCV 103.6 H (80.0-97.0) FL MCH 33.9 H (27.0-32.0) pg RDW 15.2 H (11.5-14.5) % Immature Gran # 0.16 H (0.00-0.04) X 10*3/uL Lymphocytes # 0.46 L (0.90-5.00) X 10*3/uL NRBC/100 WBC Diff 0.06 H (0.00-0.01) X 10*3/uL Sodium 130 L (135-145) mmol/L Potassium 3.4 L (3.5-5.5) mmol/L Chloride 89 L (96-109) mmol/L Anion Gap 13.30 H (4.00-12.00) mmol/L BUN 37.2 H (9.0-27.0) mg/dL Creatinine 6.0 H (0.6-1.5) mg/dL Est GFR (CKD-EPI) 9 L (>=60) BUN/Creatinine Ratio 6.20 L (12.00-20.00) Ratio Glucose 122 H (70-110) mg/dL C-Reactive Protein 3.00 H (0.00-0.80) mg/dL Total Protein 4.8 L (6.2-8.2) g/dL Albumin 2.9 L (3.8-4.9) g/dL Albumin/Globulin Ratio 1.53 L (1.60-3.17) Ratio Microbiology - Last 24 Hours (Table) 10/19/24 16:22 Blood Culture - Preliminary Blood Assessment and Plan (1) Weakness Current Visit: Yes Status: Acute Code(s): R53.1 - WEAKNESS SNOMED Code(s): 99005250 Plan: 1patient with presented to hospital with weakness and dizziness possible dehydration decreased oral intake patient recently did have influenza A on 10/13/2024 however currently do not have respiratory symptoms suggestive of pneumonia chest x-ray was negative as well currently with no clinical suspicious for sepsis 2-blood culture has been obtained by admitting team which are currently pending procalcitonin 0.47 considered to be normal 3-patient did have a cough and bring up some sputum we will repeat a chest x-ray if negative no need for antibiotics Dictation was produced using [employer] dictation software. please excuse any grammatical, word or spelling errors. Time with Patient: Less than 30
--- NOTE | 2024-10-21 19:48 | XR ---
EXAMINATION TYPE: XR chest 2V DATE OF EXAM: 10/21/2024 7:08 PM COMPARISON: Chest radiographs from 10/17/2024. CLINICAL INDICATION: Male, 83 years old with history of Cough/pneumonia; [facility] TECHNIQUE: XR chest 2V Frontal and lateral views of the chest. FINDINGS: Lungs/Pleura: Blunting of the right costophrenic angle. There is no evidence of left pleural effusio n, focal consolidation, or pneumothorax Pulmonary vascularity: Unremarkable. Heart/mediastinum: Cardiomediastinal silhouette is prominent in size. Single-lead cardiac conduction device overlying the left hemithorax with lead projecting over the right ventricle. Musculoskeletal: No acute osseous pathology. IMPRESSION: [id number] right pleural effusion. [facility], , 10/21/2024 7:46 PM
--- NOTE | 2024-10-22 00:04 | P.PN ---
Subjective Progress Note Date: 10/21/24 Principal diagnosis: Influenza A Mr. Arechiga is a 83-year-old male with a past medical history of atrial fibrillation, hypertension, ESRD on peritoneal dialysis coming in with a chief complaint of weakness and near syncope like event. Patient had a chest x-ray that is positive for right pleural effusion with cardiomegaly. Today the patient is lying in bed and getting his peritoneal dialysis done. Patient states that his symptoms of weakness are gradually improving. He denies having any chest pain or difficulty in breathing. Patient's vitals within normal limits and afebrile for 24 hours. Labs reviewed and at his baseline. Objective - Vital Signs Vital signs: Vital Signs Temp 98.2 F 10/21/24 20:10 Pulse 70 10/21/24 20:10 Resp 17 10/21/24 20:10 BP 115/71 10/21/24 20:10 Pulse Ox 96 10/21/24 20:10 FiO2 Intake & Output 10/21/24 10/21/24 10/22/24 06:59 18:59 06:59 Other: Voiding Method CAPD # Voids 1 2 # Bowel Movements 1 - Exam General Impression: Alert and oriented x3, not in acute distress HEENT: pupils equal and reactive to light bilaterally, mucous membranes moist. Cardiovascular: Heart regular rate and rhythm Lungs - Bilateral Breath sounds normal Abdomen: abdomen soft, non-tender, non-distended, no organomegaly Neurological:no focal motor or sensory deficits noted Psych: Normal affect and mood - Labs CBC & Chem 7: 10/21/24 02:48 10/21/24 02:48 Labs: Abnormal Lab Results - Last 24 Hours (Table) 10/21/24 10/21/24 Range/Units 02:48 02:48 RBC 3.36 L (4.40-5.60) X 10*6/uL Hgb 11.4 L (13.0-17.0) g/dL Hct 34.8 L (39.6-50.0) % MCV 103.6 H (80.0-97.0) FL MCH 33.9 H (27.0-32.0) pg RDW 15.2 H (11.5-14.5) % Immature Gran # 0.16 H (0.00-0.04) X 10*3/uL Lymphocytes # 0.46 L (0.90-5.00) X 10*3/uL NRBC/100 WBC Diff 0.06 H (0.00-0.01) X 10*3/uL Sodium 130 L (135-145) mmol/L Potassium 3.4 L (3.5-5.5) mmol/L Chloride 89 L (96-109) mmol/L Anion Gap 13.30 H (4.00-12.00) mmol/L BUN 37.2 H (9.0-27.0) mg/dL Creatinine 6.0 H (0.6-1.5) mg/dL Est GFR (CKD-EPI) 9 L (>=60) BUN/Creatinine Ratio 6.20 L (12.00-20.00) Ratio Glucose 122 H (70-110) mg/dL C-Reactive Protein 3.00 H (0.00-0.80) mg/dL Total Protein 4.8 L (6.2-8.2) g/dL Albumin 2.9 L (3.8-4.9) g/dL Albumin/Globulin Ratio 1.53 L (1.60-3.17) Ratio Microbiology - Last 24 Hours (Table) 10/21/24 00:00 Gram Stain - Preliminary Peritoneal Fluid 10/19/24 16:22 Blood Culture - Preliminary Blood Assessment and Plan Assessment: ASSESSMENT Acute influenza A infection Hypotension hypokalemia History of dilated cardiomyopathy with AICD Congestive heart failure mild acute exacerbation ESRD on peritoneal dialysis Moderate protein calorie malnutrition PLAN Continue with supportive measures Blood cultures pending with procalcitonin within normal limits Continue peritoneal dialysis as per nephrology recommendation Further recommendations depending on the progress of the patient
--- NOTE | 2024-10-22 10:57 | P.PN ---
Subjective Patient is seen in follow-up for end-stage renal disease. No problems with peritoneal dialysis. On room air. Denies chest pain or shortness of breath. No active complaints. Vital signs are stable. General: No acute distress. HEENT: Head exam is unremarkable. LUNGS: No audible rhonchi or wheezes. HEART: Rate and Rhythm are regular. ABDOMEN: Nontender. EXTREMITITES: No edema. Objective - Vital Signs Vital signs: Vital Signs Temp 97.6 F 10/22/24 07:25 Pulse 75 10/22/24 07:25 Resp 16 10/22/24 07:25 BP 98/58 10/22/24 07:25 Pulse Ox 94 L 10/22/24 07:25 FiO2 Intake & Output 10/21/24 10/22/24 10/22/24 18:59 06:59 18:59 Intake Total 150 Balance 150 Intake: Oral 150 Other: Voiding Method CAPD # Voids 2 1 - Labs CBC & Chem 7: 10/21/24 02:48 10/21/24 02:48 Labs: Microbiology - Last 24 Hours (Table) 10/21/24 00:00 Gram Stain - Preliminary Peritoneal Fluid Body Fluid Culture - Preliminary 10/19/24 16:22 Blood Culture - Preliminary Blood Assessment and Plan Plan: Assessment: 1. End-stage renal disease maintained on peritoneal dialysis. 2. Recent influenza A infection this month. 3. Chronic hypotension maintained on midodrine. 4. Hypokalemia from PD losses. Replaced. 5. Chronic kidney disease mineral bone disease maintained on PhosLo. Plan: Maintain current PD exchanges. Maintain midodrine. Encouraged oral intake. Anticipate discharge soon.
--- NOTE | 2024-10-22 15:17 | P.PN ---
Subjective Progress Note Date: 10/22/24 Principal diagnosis: Reason for follow-up is a possible infection Patient is a 83-year-old male with a past medical history significant for atrial fibrillation hypertension [place] osteoarthritis end-stage renal disease on peritoneal dialysis patient presented to hospital 3 days ago for evaluation of near syncopal event lightheadedness dizziness also have a recent influenza A infection on 10/13/2024 ID consulted concerning for possible infection. On today's evaluation that is 10/22/2024, Patient is afebrile this morning patient denies having any chest pain shortness of breath, cough has decreased in intensity, the patient is currently on room air, patient denies any abdominal pain no diarrhea no nausea no vomiting. Patient white count 9.10 creatinine is 6.0 Pro-Ezra 0.47 blood culture negative chest x-ray with small moderate right effusion Objective - Vital Signs Vital signs: Vital Signs Temp 97.8 F 10/22/24 11:56 Pulse 66 10/22/24 11:56 Resp 16 10/22/24 11:56 BP 104/74 10/22/24 11:56 Pulse Ox 93 L 10/22/24 11:56 FiO2 Intake & Output 10/21/24 10/22/24 10/22/24 18:59 06:59 18:59 Intake Total 150 Balance 150 Intake: Oral 150 Other: Voiding Method CAPD # Voids 2 1 - Exam GENERAL DESCRIPTION: An elderly male lying in bed in no distress RESPIRATORY SYSTEM: Unlabored breathing , decreased breath sounds at bases HEART: S1 S2 regular rate and rhythm , ABDOMEN: Soft , no tenderness EXTREMITIES: No edema feet - Labs CBC & Chem 7: 10/21/24 02:48 10/21/24 02:48 Labs: Microbiology - Last 24 Hours (Table) 10/21/24 00:00 Gram Stain - Preliminary Peritoneal Fluid Body Fluid Culture - Preliminary 10/19/24 16:22 Blood Culture - Preliminary Blood Assessment and Plan (1) Weakness Current Visit: Yes Status: Acute Code(s): R53.1 - WEAKNESS SNOMED Code(s): 20002282 (2) Pleural effusion Current Visit: Yes Status: Acute Code(s): J90 - PLEURAL EFFUSION, NOT ELSEWHERE CLASSIFIED SNOMED Code(s): 31040070 Plan: 1patient with presented to hospital with weakness and dizziness possible dehydration decreased oral intake patient recently did have influenza A on 10/13/2024 however currently do not have respiratory symptoms suggestive of pneumonia chest x-ray was negative as well currently with no clinical suspicious for sepsis 2-blood culture has been negative so far, procalcitonin 0.47 considered to be normal 3-patient did have a cough and bring up some sputum and repeat chest x-ray shows small to moderate right-sided effusion no evidence of any consolidation may benefit from ultrafiltration through the peritoneal dialysis and if no improvement in the pleural fluid may need further workup family bedside question answered Dictation was produced using [employer] dictation software. please excuse any grammatical, word or spelling errors. Time with Patient: Less than 30
--- NOTE | 2024-10-23 10:30 | P.PN ---
Subjective Patient is seen in follow-up for end-stage renal disease. No problems with peritoneal dialysis. On room air. Denies chest pain or shortness of breath. No active complaints. Vital signs are stable. General: No acute distress. HEENT: Head exam is unremarkable. LUNGS: No audible rhonchi or wheezes. HEART: Rate and Rhythm are regular. ABDOMEN: Nontender. EXTREMITITES: No edema. Objective - Vital Signs Vital signs: Vital Signs Temp 97.9 F 10/23/24 07:03 Pulse 79 10/23/24 07:03 Resp 18 10/23/24 07:03 BP 113/61 10/23/24 07:03 Pulse Ox 97 10/23/24 07:03 FiO2 Intake & Output 10/22/24 10/23/24 10/23/24 18:59 06:59 18:59 Intake Total 630 Balance 630 Intake: Oral 630 Other: Voiding Method CAPD CAPD # Voids 2 1 # Bowel Movements 1 - Labs CBC & Chem 7: 10/21/24 02:48 10/21/24 02:48 Labs: Microbiology - Last 24 Hours (Table) 10/21/24 00:00 Gram Stain - Preliminary Peritoneal Fluid Body Fluid Culture - Preliminary 10/19/24 16:22 Blood Culture - Preliminary Blood Assessment and Plan Plan: Assessment: 1. End-stage renal disease maintained on peritoneal dialysis. 2. Recent influenza A infection this month. 3. Chronic hypotension maintained on midodrine. 4. Hypokalemia from PD losses. Replaced. 5. Chronic kidney disease mineral bone disease maintained on PhosLo. Plan: Maintain current PD exchanges. Maintain midodrine. Encouraged oral intake. Potentially going home today.
[2024-10-23 13:45] VITALS: PULSE 91; RESP 16; TEMP 97.8
[2024-10-23 17:06] VITALS: BP 118/56
--- NOTE | 2024-10-23 17:23 | P.PN ---
Subjective Progress Note Date: 10/23/24 Principal diagnosis: Reason for follow-up is a possible infection Patient is a 83-year-old male with a past medical history significant for atrial fibrillation hypertension [place] osteoarthritis end-stage renal disease on peritoneal dialysis patient presented to hospital 3 days ago for evaluation of near syncopal event lightheadedness dizziness also have a recent influenza A infection on 10/13/2024 ID consulted concerning for possible infection. On today's evaluation that is 10/23/2024,the patient denies any fever or any chills, patient is breathing comfortably on room air, the patient denies chest pain shortness of breath and no significant cough, patient denies abdominal pain, no nausea vomiting or diarrhea. Patient did not have lab draw today blood culture negative Objective - Vital Signs Vital signs: Vital Signs Temp 97.9 F 10/23/24 07:03 Pulse 79 10/23/24 07:03 Resp 18 10/23/24 07:03 BP 95/60 10/23/24 10:47 Pulse Ox 97 10/23/24 07:03 FiO2 Intake & Output 10/22/24 10/23/24 10/23/24 18:59 06:59 18:59 Intake Total 630 Balance 630 Intake: Oral 630 Other: Voiding Method CAPD CAPD # Voids 2 1 # Bowel Movements 1 - Exam GENERAL DESCRIPTION: An elderly male lying in bed in no distress RESPIRATORY SYSTEM: Unlabored breathing , decreased breath sounds at bases HEART: S1 S2 regular rate and rhythm , ABDOMEN: Soft , no tenderness EXTREMITIES: No edema feet - Labs CBC & Chem 7: 10/21/24 02:48 10/21/24 02:48 Labs: Microbiology - Last 24 Hours (Table) 10/21/24 00:00 Gram Stain - Preliminary Peritoneal Fluid Body Fluid Culture - Preliminary 10/19/24 16:22 Blood Culture - Preliminary Blood Assessment and Plan (1) Weakness Current Visit: Yes Status: Acute Code(s): R53.1 - WEAKNESS SNOMED Code(s): 29216011 (2) Pleural effusion Current Visit: Yes Status: Acute Code(s): J90 - PLEURAL EFFUSION, NOT ELSEWHERE CLASSIFIED SNOMED Code(s): 32830403 Plan: 1patient with presented to hospital with weakness and dizziness possible dehydration decreased oral intake patient recently did have influenza A on 10/13/2024 however currently do not have respiratory symptoms suggestive of pneumonia chest x-ray was negative as well currently with no clinical suspicious for sepsis 2-blood culture has been negative so far, procalcitonin 0.47 considered to be normal 3-patient did have a cough and bring up some sputum and repeat chest x-ray shows small to moderate right-sided effusion no evidence of any consolidation may benefit from ultrafiltration through the peritoneal dialysis as clinically not behaving as pneumonia or empyema, hence no need for antibiotic on discharge Dictation was produced using [employer] dictation software. please excuse any grammatical, word or spelling errors. Time with Patient: Less than 30
== END 2024-10-23 17:21 | disposition home health service (06) | DRG 193 ==
LOC: EC 14:29 → 3SCARD 16:54 → 4SSUR 10-18 10:44
PROVIDERS: ADMIT Hospitalist; ATTEND Hospitalist
PROC: 3E1M39Z Irrigation of Peritoneal Cavity using Dialysate, Percutaneous Approach (ICD-10-PCS; principal; 2024-10-18)
DX: J10.1 Influenza due to other identified influenza virus with other respiratory manifestations (principal); N18.6 End stage renal disease; I13.2 Hypertensive heart and chronic kidney disease with heart failure and with stage 5 chronic kidney disease, or end stage renal disease; E44.0 Moderate protein-calorie malnutrition; I50.22 Chronic systolic (congestive) heart failure; N17.9 Acute kidney failure, unspecified; Z66 Do not resuscitate; E87.1 Hypo-osmolality and hyponatremia; I42.0 Dilated cardiomyopathy; D63.1 Anemia in chronic kidney disease; E86.0 Dehydration; E83.9 Disorder of mineral metabolism, unspecified; Z99.2 Dependence on renal dialysis; Z68.30 Body mass index [BMI] 30.0-30.9, adult; K76.9 Liver disease, unspecified; I48.0 Paroxysmal atrial fibrillation; E86.1 Hypovolemia; E87.6 Hypokalemia; I95.89 Other hypotension; E78.5 Hyperlipidemia, unspecified; R73.03 Prediabetes; M10.9 Gout, unspecified; I25.2 Old myocardial infarction; Z79.82 Long term (current) use of aspirin; Z79.890 Hormone replacement therapy; Z79.899 Other long term (current) drug therapy; Z87.891 Personal history of nicotine dependence; Z95.810 Presence of automatic (implantable) cardiac defibrillator; Z96.653 Presence of artificial knee joint, bilateral
CPT/HCPCS: 36415; 71045; 71046; 80053; 82533; 83605; 83690; 83735; 84100; 84145; 84443; 84484; 85025; 85610; 85730; 86140; 87040; 87070; 87205; 89050; 93005; 96360; 96361; 99285